=== PATIENT | male | born 1975 | race Caucasian/White ===

== ENCOUNTER 2017-02-20 19:25 | Observation (INO) ==
[2017-02-20 20:44] LABS: Bilirubin,Urine Negative (Negative); Blood,Urine Moderate (Negative); Clarity,Urine Clear (Clear); Color,Urine Yellow (Yellow); Glucose,Urine (UA) >=1000 mg/dL (Normal); Ketones,Urine 80 mg/dL (Negative); Leukocyte Esterase,Urine Negative (Negative); Nitrite,Urine Negative (Negative); PH,Urine 5.5 pH Units (5.0-8.0); Protein,Urine 30 mg/dL (Neg-Trace); Specific Gravity,Urine > 1.030 (1.010-1.025); Urobilinogen,Urine Normal (Normal)
[2017-02-20 20:46] LABS: Bacteria,Urine None Seen per hpf (None-Few); RBC,Urine 0-3 per hpf (0-3); Squamous Epithelial Cell,Urine Many per lpf (None-Few); WBC,Urine 0-3 per hpf (0-3)
--- NOTE | 2017-02-20 20:48 | Emergency Department Note ---
Disposition Clinical Impression: Hyperglycemia, Ketosis, Dehydration Chest pain Qualifiers: Chest pain type: unspecified Qualified Code(s): R07.9 - Chest pain, unspecified Nausea and vomiting Qualifiers: Vomiting type: unspecified Vomiting Intractability: non-intractable Qualified Code(s): R11.2 - Nausea with vomiting, unspecified Diarrhea Qualifiers: Diarrhea type: unspecified type Qualified Code(s): R19.7 - Diarrhea, unspecified Disposition: Admitted As Inpatient Condition: Fair Chest Pain HPI - General Chief Complaint: ED Chest Pain Stated Complaint: Chest pain, Vomiting, diarrhea Time Seen by Provider: 02/20/17 20:37 Source: patient Mode of arrival: wheelchair Limitations: no limitations Vital Signs Reviewed: Yes Nursing Notes Reviewed: Yes - History of Present Illness HPI Narrative: 41-year-old male history of diabetes presents for evaluation of nausea, vomiting , diarrhea, chest pain. Patient states symptoms started 2 days ago with nausea and several bouts of emesis. Patient also notes several loose nonbloody stools. Patient subsequently had midsternal chest pain. Pain is constant without radiation. No subjective fevers. No shortness of breath. Reports diffuse abdominal pain that is primarily in the epigastrium. Patient states that he has not been able to tolerate any of his diabetes medicines including metformin. Patient also notes that he has never been in diabetic ketoacidosis. Patient denies any history of heart attacks. Pt complaint: chest pain Onset (ago): day(s) Duration: constant Onset: during rest Pain Location: substernal Severity: none Severity scale (1-10): 6 - Related Data Home Medications Medication Instructions Recorded Confirmed Metformin [Glucophage] 500 mg PO BIDWM 10/23/16 10/23/16 Previous Rx's Medication Instructions Recorded OxyCODONE Immed Rel [Oxycodone 5 - 10 mg PO Q6H PRN #30 tablet 07/24/15 Immed Rel] Ciprofloxacin HCl [Cipro] 500 mg PO BID #14 tablet 01/06/17 HYDROcodone/Acet 5/325 mg [[place] 1 tab PO Q6H PRN #12 tab 01/06/17 5-325 mg] MetroNIDAZOLE [Flagyl] 500 mg PO TID #21 tablet 01/06/17 Allergies Allergy/AdvReac Type Severity Reaction Status Date / Time Penicillins [PCN] AdvReac See Verified 02/20/17 20:04 Comments All systems ED: reviewed and negative except as stated. Constitutional: Reports: as per HPI, fever Eyes: Reports: as per HPI ENT ED: Reports: as per HPI Cardiovascular: Reports: as per HPI, chest pain Respiratory: Reports: as per HPI. Denies: cough, dyspnea Gastrointestinal: Reports: as per HPI, abdominal pain, nausea, vomiting, diarrhea Genitourinary: Reports: as per HPI Musculoskeletal: Reports: as per HPI Integumentary: Reports: as per HPI Neurological: Reports: as per HPI Psychiatric: Reports: as per HPI Endocrine: Reports: as per HPI Chest Pain PMH - Past Medical History Medical history: Reports: diabetes, other Surgical history: Reports: other Psychiatric history: Reports: no psych history - Social History Smoking Status: Current every day smoker Alcohol use: Reports: none Drug use: Reports: none Physical Exam - General Limitations: no limitations General appearance: alert, in no apparent distress - Head Head exam: atraumatic - Eye Eye exam: Present: normal appearance, EOMI - ENT ENT exam: normal exam, mucous membranes dry - Neck Neck exam: Present: normal inspection, trachea midline - Chest Chest inspection: Present: normal inspection, symmetric chest wall rise - Respiratory Respiratory exam: Present: normal lung sounds bilaterally. Absent: respiratory distress - Cardiovascular Cardiovascular exam: Present: regular rate, normal rhythm - Abdominal Exam Abdominal exam: Present: soft, tenderness (Mild to moderate tenderness in epigastrum.) - Extremities Exam Extremities exam: Present: normal inspection. Absent: pedal edema - Back Exam Back exam: Present: normal inspection - Neurological Exam Neurological exam: Present: alert, oriented X3 - Skin Skin exam: Present: warm, dry, intact, normal color Course Course Narrative: Patient seen and examined. Patient appears to be in moderate discomfort. Patient's symptoms appear to be initially GI related with subsequent chest pain. Patient is a diabetic. Patient is appears dry on exam. Patient will get basic lab work including serum ketones and a VBG. Patient will get symptomatically with IV fluids, Zofran, morphine. Patient also get a chest x- ray. - Reevaluation(s) Reevaluation #1: Patient was sleeping in no acute distress. Patient was a difficult IV stick. Multiple attempts were tried. Patient received 2 IV fluid boluses with subsequent success. Time: 00:43 Vital Signs Temperature 98.5 F 02/20/17 19:58 Pulse Rate 110 02/20/17 19:58 Respiratory Rate 20 02/20/17 19:58 Blood Pressure 144/82 02/20/17 19:58 O2 Sat by Pulse Oximetry 100 02/20/17 19:58 Temperature 98.9 F 02/21/17 04:53 Pulse Rate 94 02/21/17 04:53 Respiratory Rate 18 02/21/17 04:53 Blood Pressure 172/83 02/21/17 04:53 O2 Sat by Pulse Oximetry 99 02/21/17 04:53 Oxygen Delivery Oxygen Delivery Room Air Chest Pain - MDM Narrative Medical decision making narrative: 41-year-old male here for evaluation of nausea vomiting diarrhea and subsequent chest pain. Patient's primary complaint was nausea vomiting diarrhea. Patient also has abdominal pain. Patient is a diabetic and is not able to take his oral diabetic medicines. Patient was a difficult IV stick. Patient was given 2 L of fluid and subsequent was able to get labs. Patient was also given a bolus of 10 units insulin. Patient was hyperglycemic and ketotic. Patient was not DKA. Patient shows no signs of infectious process. Patient's elevated white count likely related to stress-induced from his persistent nausea vomiting. Patient possibly has a gastroenteritis as well. Patient had imaging of the abdomen and pelvis which does not show any acute other maladies. Given the patient's symptoms as well as labs patient will be risk to return to the emergency department with worsening hyperglycemia and ketosis. Patient also had a complaint of chest pain which would need further evaluation. Patient was given aspirin with no acute changes on EKG and a negative troponin. This information was discussed with the patient who agrees with plan of care. - Lab Data Lab results reviewed: Yes I reviewed the patient's lab results. Result diagrams: 02/21/17 00:00 02/21/17 00:00 Lab Results 02/20/17 02/20/17 02/20/17 Range/Units 20:33 20:59 21:01 WBC (4.3-11.1) K/mcL RBC (4.19-5.50) M/mcL Hgb (12.9-16.9) g/dL Hct (37.5-50.1) % MCV (83.0-100.0) fL MCH (28.0-33.3) pg MCHC (31.6-35.5) g/dL RDW (11.5-14.5) % Plt Count (140-400) K/mcL MPV (9.4-12.4) fL Seg Neutrophils % % Band Neutrophils % (0-4) % Lymphocytes % % Monocytes % % Neutrophils # (1.6-8.9) K/mcL Lymphocytes # (0.6-4.6) K/mcL Monocytes # (0.0-1.3) K/mcL Reactive Lymphocytes (Not Present) Platelet Estimate (Normal) VBG pH (7.32-7.42) pH Units VBG pCO2 (41-51) mmHg VBG pO2 (25-40) mmHg VBG HCO3 (21-27) mEq/L Sodium (136-145) mEq/L Potassium (3.5-4.5) mEq/L Chloride (98-109) mEq/L Carbon Dioxide (19-29) mEq/L BUN (8-26) mg/dL Creatinine (0.72-1.25) mg/dL Est GFR ( Amer) (> 60) Est GFR (Non-Af Amer) (> 60) BUN/Creatinine Ratio (6-26) Glucose (70-99) mg/dL POC Glucose 462 H* 433 H* (58-89) Calculated Osmolality (280-300) Lactic Acid (0.5-2.2) mmol/L Calcium (8.6-10.8) mg/dL Total Bilirubin (0.2-1.2) mg/dL Direct Bilirubin (0.0-0.5) mg/dL Indirect Bilirubin (0.0-1.2) mg/dL AST (5-34) Units/L ALT (0-55) Units/L Alkaline Phosphatase (38-126) Units/L Troponin I (0-0.03) ng/mL Serum Total Protein (6.0-8.3) g/dL Albumin (3.5-5.0) g/dL Globulin (2.4-3.5) g/dL Albumin/Globulin Ratio (1.1-2.2) Lipase (8-78) Units/L Beta-Hydroxybutyric Acd (0.02-0.27) mmol/L Urine Color Yellow (Yellow) Urine Clarity Clear (Clear) Urine pH 5.5 (5.0-8.0) pH Units Ur Specific Supply > 1.030 H (1.010-1.025) Urine Protein 30 H (Neg-Trace) mg/dL Urine Glucose (UA) >=1000 H (Normal) mg/dL Urine Ketones 80 H (Negative) mg/dL Urine Blood Moderate H (Negative) Urine Nitrite Negative (Negative) Urine Bilirubin Negative (Negative) Urine Urobilinogen Normal (Normal) mg/dL Ur Leukocyte Esterase Negative (Negative) Urine Microscopic RBC 0-3 (0-3) per hpf Urine Microscopic WBC 0-3 (0-3) per hpf Ur Squamous Epith Cells Many H (None-Few) per lpf Urine Bacteria None Seen (None-Few) per hpf Hyaline Casts Test Not Performed Ur Culture Indicated? NO (NO) Specimen Rejected 02/20/17 02/21/17 02/21/17 Range/Units 21:30 00:00 00:00 WBC (4.3-11.1) K/mcL RBC (4.19-5.50) M/mcL Hgb (12.9-16.9) g/dL Hct (37.5-50.1) % MCV (83.0-100.0) fL MCH (28.0-33.3) pg MCHC (31.6-35.5) g/dL RDW (11.5-14.5) % Plt Count (140-400) K/mcL MPV (9.4-12.4) fL Seg Neutrophils % % Band Neutrophils % (0-4) % Lymphocytes % % Monocytes % % Neutrophils # (1.6-8.9) K/mcL Lymphocytes # (0.6-4.6) K/mcL Monocytes # (0.0-1.3) K/mcL Reactive Lymphocytes (Not Present) Platelet Estimate (Normal) VBG pH (7.32-7.42) pH Units VBG pCO2 (41-51) mmHg VBG pO2 (25-40) mmHg VBG HCO3 (21-27) mEq/L Sodium (136-145) mEq/L Potassium (3.5-4.5) mEq/L Chloride (98-109) mEq/L Carbon Dioxide (19-29) mEq/L BUN (8-26) mg/dL Creatinine (0.72-1.25) mg/dL Est GFR ( Amer) (> 60) Est GFR (Non-Af Amer) (> 60) BUN/Creatinine Ratio (6-26) Glucose (70-99) mg/dL POC Glucose (58-89) Calculated Osmolality (280-300) Lactic Acid (0.5-2.2) mmol/L Calcium (8.6-10.8) mg/dL Total Bilirubin 1.1 (0.2-1.2) mg/dL Direct Bilirubin 0.4 (0.0-0.5) mg/dL Indirect Bilirubin 0.7 (0.0-1.2) mg/dL AST 11 (5-34) Units/L ALT 12 (0-55) Units/L Alkaline Phosphatase 83 (38-126) Units/L Troponin I (0-0.03) ng/mL Serum Total Protein 7.3 (6.0-8.3) g/dL Albumin 3.9 (3.5-5.0) g/dL Globulin 3.4 (2.4-3.5) g/dL Albumin/Globulin Ratio 1.1 (1.1-2.2) Lipase 15 (8-78) Units/L Beta-Hydroxybutyric Acd (0.02-0.27) mmol/L Urine Color (Yellow) Urine Clarity (Clear) Urine pH (5.0-8.0) pH Units Ur Specific Supply (1.010-1.025) Urine Protein (Neg-Trace) mg/dL Urine Glucose (UA) (Normal) mg/dL Urine Ketones (Negative) mg/dL Urine Blood (Negative) Urine Nitrite (Negative) Urine Bilirubin (Negative) Urine Urobilinogen (Normal) mg/dL Ur Leukocyte Esterase (Negative) Urine Microscopic RBC (0-3) per hpf Urine Microscopic WBC (0-3) per hpf Ur Squamous Epith Cells (None-Few) per lpf Urine Bacteria (None-Few) per hpf Hyaline Casts Ur Culture Indicated? (NO) Specimen Rejected Volume 02/21/17 02/21/17 02/21/17 Range/Units 00:00 00:00 00:00 WBC 12.9 H (4.3-11.1) K/mcL RBC 6.52 H (4.19-5.50) M/mcL Hgb 18.0 H (12.9-16.9) g/dL Hct 51.5 H (37.5-50.1) % MCV 79.0 L (83.0-100.0) fL MCH 27.6 L (28.0-33.3) pg MCHC 35.0 (31.6-35.5) g/dL RDW 13.2 (11.5-14.5) % Plt Count 249 (140-400) K/mcL MPV 10.4 (9.4-12.4) fL Seg Neutrophils % 72.0 % Band Neutrophils % 14.0 H (0-4) % Lymphocytes % 6.0 % Monocytes % 8.0 % Neutrophils # 11.1 H (1.6-8.9) K/mcL Lymphocytes # 0.8 (0.6-4.6) K/mcL Monocytes # 1.0 (0.0-1.3) K/mcL Reactive Lymphocytes Present A (Not Present) Platelet Estimate Normal (Normal) VBG pH (7.32-7.42) pH Units VBG pCO2 (41-51) mmHg VBG pO2 (25-40) mmHg VBG HCO3 (21-27) mEq/L Sodium 135 L (136-145) mEq/L Potassium 3.9 (3.5-4.5) mEq/L Chloride 100 (98-109) mEq/L Carbon Dioxide 20 (19-29) mEq/L BUN 18 (8-26) mg/dL Creatinine 0.97 (0.72-1.25) mg/dL Est GFR ( Amer) > 60 (> 60) Est GFR (Non-Af Amer) > 60 (> 60) BUN/Creatinine Ratio 19 (6-26) Glucose 330 H (70-99) mg/dL POC Glucose (58-89) Calculated Osmolality 295 (280-300) Lactic Acid (0.5-2.2) mmol/L Calcium 8.9 (8.6-10.8) mg/dL Total Bilirubin (0.2-1.2) mg/dL Direct Bilirubin (0.0-0.5) mg/dL Indirect Bilirubin (0.0-1.2) mg/dL AST (5-34) Units/L ALT (0-55) Units/L Alkaline Phosphatase (38-126) Units/L Troponin I 0.00 (0-0.03) ng/mL Serum Total Protein (6.0-8.3) g/dL Albumin (3.5-5.0) g/dL Globulin (2.4-3.5) g/dL Albumin/Globulin Ratio (1.1-2.2) Lipase (8-78) Units/L Beta-Hydroxybutyric Acd (0.02-0.27) mmol/L Urine Color (Yellow) Urine Clarity (Clear) Urine pH (5.0-8.0) pH Units Ur Specific Supply (1.010-1.025) Urine Protein (Neg-Trace) mg/dL Urine Glucose (UA) (Normal) mg/dL Urine Ketones (Negative) mg/dL Urine Blood (Negative) Urine Nitrite (Negative) Urine Bilirubin (Negative) Urine Urobilinogen (Normal) mg/dL Ur Leukocyte Esterase (Negative) Urine Microscopic RBC (0-3) per hpf Urine Microscopic WBC (0-3) per hpf Ur Squamous Epith Cells (None-Few) per lpf Urine Bacteria (None-Few) per hpf Hyaline Casts Ur Culture Indicated? (NO) Specimen Rejected 02/21/17 02/21/17 02/21/17 Range/Units 00:00 00:00 00:00 WBC (4.3-11.1) K/mcL RBC (4.19-5.50) M/mcL Hgb (12.9-16.9) g/dL Hct (37.5-50.1) % MCV (83.0-100.0) fL MCH (28.0-33.3) pg MCHC (31.6-35.5) g/dL RDW (11.5-14.5) % Plt Count (140-400) K/mcL MPV (9.4-12.4) fL Seg Neutrophils % % Band Neutrophils % (0-4) % Lymphocytes % % Monocytes % % Neutrophils # (1.6-8.9) K/mcL Lymphocytes # (0.6-4.6) K/mcL Monocytes # (0.0-1.3) K/mcL Reactive Lymphocytes (Not Present) Platelet Estimate (Normal) VBG pH 7.35 (7.32-7.42) pH Units VBG pCO2 39 L (41-51) mmHg VBG pO2 44 H (25-40) mmHg VBG HCO3 21.5 (21-27) mEq/L Sodium (136-145) mEq/L Potassium (3.5-4.5) mEq/L Chloride (98-109) mEq/L Carbon Dioxide (19-29) mEq/L BUN (8-26) mg/dL Creatinine (0.72-1.25) mg/dL Est GFR ( Amer) (> 60) Est GFR (Non-Af Amer) (> 60) BUN/Creatinine Ratio (6-26) Glucose (70-99) mg/dL POC Glucose (58-89) Calculated Osmolality (280-300) Lactic Acid 1.8 (0.5-2.2) mmol/L Calcium (8.6-10.8) mg/dL Total Bilirubin (0.2-1.2) mg/dL Direct Bilirubin (0.0-0.5) mg/dL Indirect Bilirubin (0.0-1.2) mg/dL AST (5-34) Units/L ALT (0-55) Units/L Alkaline Phosphatase (38-126) Units/L Troponin I (0-0.03) ng/mL Serum Total Protein (6.0-8.3) g/dL Albumin (3.5-5.0) g/dL Globulin (2.4-3.5) g/dL Albumin/Globulin Ratio (1.1-2.2) Lipase (8-78) Units/L Beta-Hydroxybutyric Acd > 2.00 H (0.02-0.27) mmol/L Urine Color (Yellow) Urine Clarity (Clear) Urine pH (5.0-8.0) pH Units Ur Specific Supply (1.010-1.025) Urine Protein (Neg-Trace) mg/dL Urine Glucose (UA) (Normal) mg/dL Urine Ketones (Negative) mg/dL Urine Blood (Negative) Urine Nitrite (Negative) Urine Bilirubin (Negative) Urine Urobilinogen (Normal) mg/dL Ur Leukocyte Esterase (Negative) Urine Microscopic RBC (0-3) per hpf Urine Microscopic WBC (0-3) per hpf Ur Squamous Epith Cells (None-Few) per lpf Urine Bacteria (None-Few) per hpf Hyaline Casts Ur Culture Indicated? (NO) Specimen Rejected 02/21/17 Range/Units 03:02 WBC (4.3-11.1) K/mcL RBC (4.19-5.50) M/mcL Hgb (12.9-16.9) g/dL Hct (37.5-50.1) % MCV (83.0-100.0) fL MCH (28.0-33.3) pg MCHC (31.6-35.5) g/dL RDW (11.5-14.5) % Plt Count (140-400) K/mcL MPV (9.4-12.4) fL Seg Neutrophils % % Band Neutrophils % (0-4) % Lymphocytes % % Monocytes % % Neutrophils # (1.6-8.9) K/mcL Lymphocytes # (0.6-4.6) K/mcL Monocytes # (0.0-1.3) K/mcL Reactive Lymphocytes (Not Present) Platelet Estimate (Normal) VBG pH (7.32-7.42) pH Units VBG pCO2 (41-51) mmHg VBG pO2 (25-40) mmHg VBG HCO3 (21-27) mEq/L Sodium (136-145) mEq/L Potassium (3.5-4.5) mEq/L Chloride (98-109) mEq/L Carbon Dioxide (19-29) mEq/L BUN (8-26) mg/dL Creatinine (0.72-1.25) mg/dL Est GFR ( Amer) (> 60) Est GFR (Non-Af Amer) (> 60) BUN/Creatinine Ratio (6-26) Glucose (70-99) mg/dL POC Glucose 187 H (58-89) Calculated Osmolality (280-300) Lactic Acid (0.5-2.2) mmol/L Calcium (8.6-10.8) mg/dL Total Bilirubin (0.2-1.2) mg/dL Direct Bilirubin (0.0-0.5) mg/dL Indirect Bilirubin (0.0-1.2) mg/dL AST (5-34) Units/L ALT (0-55) Units/L Alkaline Phosphatase (38-126) Units/L Troponin I (0-0.03) ng/mL Serum Total Protein (6.0-8.3) g/dL Albumin (3.5-5.0) g/dL Globulin (2.4-3.5) g/dL Albumin/Globulin Ratio (1.1-2.2) Lipase (8-78) Units/L Beta-Hydroxybutyric Acd (0.02-0.27) mmol/L Urine Color (Yellow) Urine Clarity (Clear) Urine pH (5.0-8.0) pH Units Ur Specific Supply (1.010-1.025) Urine Protein (Neg-Trace) mg/dL Urine Glucose (UA) (Normal) mg/dL Urine Ketones (Negative) mg/dL Urine Blood (Negative) Urine Nitrite (Negative) Urine Bilirubin (Negative) Urine Urobilinogen (Normal) mg/dL Ur Leukocyte Esterase (Negative) Urine Microscopic RBC (0-3) per hpf Urine Microscopic WBC (0-3) per hpf Ur Squamous Epith Cells (None-Few) per lpf Urine Bacteria (None-Few) per hpf Hyaline Casts Ur Culture Indicated? (NO) Specimen Rejected - Radiology Data Radiology results reviewed: Yes I reviewed the patient's radiology results. Chest X-Ray 02/20/17 20:05 IMPRESSION: No acute process. D/ / Jet Hernandez MD / Jet Hernandez MD Interpreting Provider: Jet Hernandez MD Abdomen/Pelvis CT 02/21/17 00:59 IMPRESSION: No acute abnormalities in the abdomen or pelvis. Stable fatty infiltration of the liver. D/ / Ida Rossi MD / Ida Rossi MD Interpreting Provider: Ida Rossi MD - EKG Data EKG attestation: Yes I reviewed and interpreted this EKG. EKG shows normal: sinus rhythm Rate: tachycardia Rhythm: NSR [place]/QRS: normal Q waves: v1, v2 When compared to previous EKG there are: no significant changes (sinus rhythm) Interpretation: no acute changes, unchanged when compared to prior tracing (date ) (07/23/2015), nonspecific ST-T wave changes Heart Score - Score History: Slightly Suspicious EKG: Non Specific repolarisation Disturbance Age: Less than 45 Risk Factors: 1-2 risk factors Troponin: Less than normal limit HEART Score Total: 2 S.B.A.R. - S.B.A.R. Situation: Demographics, MOA Background: Presenting Complaint, Relevant PMH, Meds, & Allergies Assessment: Vital Signs, Course and respsone to treatment, Patient/Family Expectation, Pertinant Lab Results Recommendation: Barrier(s) to disposition, Recommendation based on pending studies, treatments, or consults Von Report Given to: Dr. Donald Longoria Repor Time: 03:57 Attestation Statement - Attestation Attestation: I, Javier Joe MD, personally evaluated this patient and discussed their management with the resident physician. I reviewed the resident's note and agree with the documented findings, medical decision making, and plan of care. 41-year-old male with history of [id number] diabetes presents with a complaint of nausea vomiting and diarrhea which started 2 days prior to arrival. No fever. Some crampy diffuse abdominal pain. On examination patient is a well-developed well-nourished male in no acute distress. He is alert and oriented 3. There is no cyanosis or diaphoresis. Brains are dry. Breath sounds are clear and equal bilaterally. Heart regular with a mild tachycardia. Abdomen is soft with mild diffuse tenderness. Slightly increased bowel sounds. Labs reviewed. Consistent with dehydration. Hyperglycemia with ketosis but is not acidotic. Straight negative. Nothing acute on CT of the abdomen and pelvis. The hospitalist, Dr. Bennett, was consulted and accepted admission of the patient.
[2017-02-20] MEDS ORDERED: Ondansetron 4 MG/2 ML VIAL IVP ONE (20:54)
[2017-02-20] MEDS ORDERED: 0.9 % Sodium Chloride 1,000 ML IVC ONE ×2 (20:54→21:50)
[2017-02-20] MEDS ORDERED: *HR* Morphine 2 MG/ML SYRINGE IVP ONE (20:59)
[2017-02-20] MEDS ORDERED: Aspirin 81 MG TAB.CHEW PO ONE (21:07)
[2017-02-21 00:11] LABS: VBG HCO3 21.5 mEq/L (21-27); VBG PH 7.35 pH Units (7.32-7.42)
[2017-02-21 00:16] LABS: Hematocrit 51.5 % (37.5-50.1); Mean Corpuscular Hemoglobin 27.6 pg (28.0-33.3); Mean Platelet Volume 10.4 fL (9.4-12.4); Platelet Count 249 K/mcL (140-400); Red Blood Count 6.52 M/mcL (4.19-5.50); Red Cell Distribution Width 13.2 % (11.5-14.5)
[2017-02-21 00:26] LABS: BUN/Creatinine Ratio 19 (6-26); Blood Urea Nitrogen 18 mg/dL (8-26); Calcium 8.9 mg/dL (8.6-10.8); Carbon Dioxide 20 mEq/L (19-29); Chloride 100 mEq/L (98-109); Glucose 330 mg/dL (70-99); Osmolality,Calculated 295 (280-300); Potassium 3.9 mEq/L (3.5-4.5); Sodium 135 mEq/L (136-145); eGFR For African Americans > 60 (> 60); eGFR For Non-African Americans > 60 (> 60)
[2017-02-21 00:27] LABS: Albumin 3.9 g/dL (3.5-5.0); Albumin/Globulin Ratio 1.1 (1.1-2.2); Bilirubin,Direct 0.4 mg/dL (0.0-0.5); Bilirubin,Indirect 0.7 mg/dL (0.0-1.2); Bilirubin,Total 1.1 mg/dL (0.2-1.2); Globulin 3.4 g/dL (2.4-3.5); Total Protein 7.3 g/dL (6.0-8.3)
[2017-02-21 00:37] LABS: Lymphocytes # 0.8 K/mcL (0.6-4.6); Neutrophils # 11.1 K/mcL (1.6-8.9); Reactive Lymphocytes Present (Not Present)
[2017-02-21 00:38] LABS: Platelet Estimate Normal (Normal)
[2017-02-21] MEDS ORDERED: 0.9 % Sodium Chloride 1,000 ML IVC ONE (00:43)
[2017-02-21] MEDS ORDERED: Insulin Human Regular 10 UNIT in 0.9 % Sodium Chloride 10 ML IV ONE (00:43)
[2017-02-21] MEDS ORDERED: *HR* Promethazine 25 MG/ML VIAL IVP PRN (05:57)
[2017-02-21] MEDS ORDERED: *HR* HYDROmorphone (PF) 1 MG/ML SYRINGE IVP PRN (05:57)
[2017-02-21] MEDS ORDERED: Naloxone 0.4 MG/ML INJ IVP PRN (05:57)
[2017-02-21] MEDS ORDERED: *HR* OxyCODONE Immed Rel 5 MG TABLET PO PRN (05:57)
[2017-02-21] MEDS ORDERED: Acetaminophen 325 MG TABLET PO PRN (05:57)
[2017-02-21] MEDS ORDERED: *HR* Dextrose 50 % in Water (Syg) 50 ML SYRINGE IVP PRN (06:06)
[2017-02-21] MEDS ORDERED: Dextrose Gel 15 GM PO PRN ×2 (06:06)
[2017-02-21] MEDS ORDERED: *HR* Metoprolol 5 MG/5 ML VIAL IVP PRN (06:06)
[2017-02-21] MEDS ORDERED: Nitroglycerin 0.4 MG TAB.SUBL SL PRN (06:06)
[2017-02-21] MEDS ORDERED: D5% in Water 1,000 ML IVC PRN (06:06)
--- NOTE | 2017-02-21 06:11 | Internal Med History&Physical ---
Date of Encounter: 02/21/17 Time of Encounter: 06:00 Assessment and Plan (1) Chest pain, rule out acute myocardial infarction Status: Acute . (2) Chest pain with low risk of acute coronary syndrome Status: Acute . (3) Gastroenteritis Status: Acute . (4) Intractable nausea and vomiting Status: Acute . Qualifiers: Vomiting type: cyclical vomiting Qualified Code(s): G43.A1 - Cyclical vomiting, intractable (5) Diarrhea in adult patient Status: Acute . (6) Ketosis Status: Acute . (7) Uncontrolled diabetes mellitus Status: Acute . Qualifiers: Diabetes mellitus type: type 2 Diabetes mellitus complication status: with unspecified complications Diabetes mellitus penitentiary insulin use: without penitentiary use Qualified Code(s): E11.8 - Type 2 diabetes mellitus with unspecified complications; E11.65 - Type 2 diabetes mellitus with hyperglycemia Internal Medicine - H&P: HPI Chief complaint: Chest pain. Nausea vomiting diarrhea. Admitted From: Emergency Dept Plans for Post Hospital Care: Home History of present illness: Mr. Alexander is a 41 year old male with history significant of type I-II DM, HTN, HLD, morbid obesity with deconditioning, nicotine dependency, etc.. The patient is admitted to [facility] via the emergency department he presents with concern of acute onset of chest pain approximately waiting over the preceding 2- 3 days. At presentation. It is substernal discomfort occurring at rest at a 6/ 10 severity. Denied any specific radiation. Symptoms associated with nausea and several bouts of emesis. He has experienced diarrheal stools loose nonbloody referral today. Denied any subjective fevers or chills. Denied any significant shortness of breath at rest or with activity. Acknowledge diffuse abdominal pain with focus in the epigastrium. He acknowledged. I will continue to tolerate his scheduled hypoglycemic agents for his diabetes with subsequent poor control. Findings in the ED: Temperature 98.5 pulse 84-110 respirations 18-20 BP 144-157/83 O2 saturation 100% room air. Urinalysis large protein large glucose, ketones moderate blood. 3 RBC. 3 WBC. Many squamous epithelial cells. Glucose [id number] 462 to187. Hepatic function normal. Lipase 15. WBC 12.9 hemoglobin 18. MCV 79 MCH 27.6. Differential shows increase in neutrophils. 14% banded neutrophils. Reactive lymphocytes present. Metabolic panel normal. Sodium 135 osmolality 330. BUN 18 creatinine 0.97. Troponin 0.00. Lactic acid 1.8. Venous blood gas pH 7.35. PCO2 39 PO2 44 bicarbonate 21.5. Beta hydroxybutyric acid greater than 2. Chest x-ray showed no acute active cardiopulmonary process. CT abdomen and pelvis demonstrated no acute abnormalities in the abdomen and pelvis. Stable fatty infiltration of the liver noted. Normal sinus rhythm sinus tachycardia. No acute ischemic changes. Prelimnary impression suggest acute gastroenteritis associated with intractable cyclical nausea vomiting and diarrheal stools. Chest pain as reported that at presentation related to his frequent emesis with likely secondary esophagitis and esophageal spasm. No evidence for any bleeding events or findings to suggest [place]-D[place] injury. Systemic inflammatory response syndrome criteria at the time of admission. She is acutely ill. Appears dehydrated. Not acutely toxic. Moderate metabolic and left leg derangements are noted. Hyperglycemic hyperosmolar state with ketosis noted. However patient is not acutely acidotic. Significant bandemia with reactive lymphocytes raises question of invasive infection and sepsis. Evaluation is warranted. The patient presents risk for further clinical decline and morbidity given his presenting chief complaint and comorbid conditions. Workup and treatment will proceed comprehensibly. The patient was visited and interviewed and examined. Cumulative laboratory and radiographic data base will be considered and discussed. Pertinent ancillary medical records including ECW and PCI documentation when available was reviewed and considered. Given the patient's presenting concerns, past medical history, clinical findings and symptoms, he is admitted at this time will undergo further evaluation and disposition. Orders were written as per the computerized physician reel slitter system.......................................................................... .................... Consultative opinions will be sought as clinical circumstances justify. Pain management needs will be addressed. Laboratory=radiographic data base will be updated as appropriate. Studies include: Cultures of blood urine sputum, pt/inr, aptt, ddimer, UA, UDS, cardiac injury panel, BNP, metabolic and hematologic panel, magnesium ,phosphorus, ionized calcium, thyroid panel, lipid profile, A1c C-peptide, CRP, sedimentation rate, respiratory infection profile, respiratory virus panel, blood gas, lactic acid, serologies, etc. Precautions: Aspiration, fall, delirium protocol/surveillance initiated. Telemetry with continuous hemodynamic monitoring and pulse oximetry initiated. Empiric antibiotic coverage: Intravenous Rocephin and azithromycin pending culture data. Special studies: CT/CTA chest, chest x-ray, telemetry, EKG, 2d echo. Pulmonary toilet: Incentive spirometry, aerosol bronchodilator, mucolytic, antitussive, supplemental oxygen. Corticosteroid therapy. CPAP/BiPAP supplemental oxygen delivery employed. Aerosol Mucomyst therapy may be employed. Fluid and electrolyte repletion efforts will proceed. Careful attention to fluid balance and renal recovery will be emphasized. Avoidance of nephrotoxic exposure and adverse drug drug interaction in the setting of impaired renal function will be monitored closely. Acute coronary syndrome protocol/surveillance initiated. DVT and PUD prophylaxis initiated: PPI therapy, intermittent pneumatic cuffs. Subcutaneous heparin was held due to thrombocytopenia. Early ambulation will be encouraged. Immunization updates recommended. Influenza and pneumococcal vaccinations as part of ongoing preventative healthcare recommendations strongly recommended. Smoking cessation counseling briefly addressed. Patient accepts nicotine substitution during this admission. Advanced care directive discussion briefly addressed. Patient does not declare any healthcare restrictions at this time. Cardiovascular risk appraisal and cardiovascular risk reduction efforts will be emphasized. Physical=occupational therapy may be counseled to evaluate patient's function capacity and progressive mobility if his circumstances justify. Sliding scale insulin coverage, ADA dietary restraint and schedule an as-needed basis fingerstick glucose assessments were initiated. Nutrition/diabetes education counseling may be considered as circumstances justify. Outpatient medication schedules will be reviewed, confirmed and facilitated as appropriate. Reconciliation of home treatments including adjustments, substitutions and reintroduction into the treatment regimen will address necessary maintenance therapies for chronic pre-existing medical conditions. Plan of care has been reviewed and discussed in detail with the patient. Questions addressed. Hospital course dictated by clinical findings, treatment response and potential consultative interventions. Patient is at risk for further acute clinical decline due to his presenting chief complaints and comorbid conditions. Condition is serious. Prognosis is guarded. CODE STATUS is full. Past Med Surg Social Fam HX - Past Medical History Source: old records reviewed Medical history: arthritis, diabetes, hyperlipidemia, hypertension, other ( History of Reece gangrene. Diabetic peripheral neuropathy. Left eye blindness.) Psychiatric history: anxiety, bipolar, depression, other - Past Surgical History Surgical History: orthopedic, other, other (Tonsillectomy adenoidectomy. Medical blindness left eye. Right index finger distal finger amputation.) - Social History Smoking Status: Current every day smoker Packs per day: 1/2 Smokeless Tobacco Status: No Alcohol use: none Drug use: none Occupational status: employed Current living situation: Home - Independent, Home Activity Level: Independent ambulation, Mostly sedentary Recent Out of Country Travel Within the Last 8 Weeks: No Exposure or Possible Exposure to Illness During Travel: No - Family History Mother Family Member Ethnicity: Non- Living Status: Still Living Hx Family Cardiac Disorders: No Hx Family Respiratory Disorders: No Hx Family Cancer: Yes Hx Family GI Disorders: No Hx Family Genitourinary Disorders: No Hx Family Endocrine Disorder: No Hx Family Musculoskeletal Disorders: No Hx Family Neuromuscular Disorders: No Hx Family Neurologic Disorders: No Hx Family HEENT Disorders: No Hx Family Autoimmune Disorders: No Hx Family Reproductive Disorders: No Hx Family Psychosocial Disorders: No Hx Family Medical Disorders: No Father Age: 60 Living Status: Age at : 60 Cause of : [place] Hx Family Cardiac Disorders: Yes ([place]) Hx Family Respiratory Disorders: No Hx Family Cancer: No Hx Family GI Disorders: No Hx Family Genitourinary Disorders: No Hx Family Endocrine Disorder: Yes (DM) Hx Family Musculoskeletal Disorders: No Hx Family Neuromuscular Disorders: No Hx Family Neurologic Disorders: No Hx Family HEENT Disorders: No Hx Family Autoimmune Disorders: No Hx Family Reproductive Disorders: No Hx Family Psychosocial Disorders: No Hx Family Medical Disorders: No Internal Medicine - H&P: Meds OxyCODONE Immed Rel [Roxicodone 5 MG] 5 - 10 mg PO Q4H PRN 02/21/17 [History] Zolpidem [Ambien] 5 mg PO HS 02/21/17 [History] Omeprazole 20 mg PO DAILY #30 tablet. 02/22/17 [Rx] Sucralfate [Carafate] 1 gm PO QIDAC #60 tablet 02/22/17 [Rx] Allergies Penicillins [PCN] Allergy (Verified 02/21/17 12:43) Rash All Systems PM: A 10-system review of systems was performed and is negative for pertinent findings except as documented above in the HPI. - Constitutional Constitutional: as per HPI, fatigue, malaise, no chills, no fever(s), no night sweats - EENT Eyes: as per HPI, no change in vision, no discharge, no pain, no photophobia Ears: as per HPI, no ear discharge, no ear pain, no tinnitus Nose, mouth and throat: as per HPI, nasal congestion, post-nasal drip, no dysphagia, no nasal discharge, no neck pain, no sore throat - Cardiovascular Cardiovascular ROS IM: as per HPI, chest pain, no diaphoresis, no dyspnea, no edema, no lightheadedness, no palpitations, no syncope - Respiratory Respiratory: as per HPI, cough, dyspnea, wheezing, chest congestion, excessive phlegm production, other, no hemoptysis - Gastrointestinal Gastrointestinal: as per HPI, no abdominal pain, no diarrhea, no hematemesis, no hematochezia, no melena, no nausea, no vomiting - Genitourinary Genitourinary ROS male: as per HPI - Musculoskeletal Musculoskeletal ROS IM: as per HPI, no numbness, no tingling - Integumentary Integumentary IM: as per HPI, no rash, no unusual bruising - Neurological Neurological ROS: as per HPI, no confusion, no convulsions, no focal weakness, no numbness, no tingling, no tremor(s) - Psychiatric Psychiatric: as per HPI - Endocrine Endocrine IM: as per HPI - Hematologic/Lymphatic Hematologic/Lymphatic: as per HPI, no easy bruising - Allergic/Immunologic Allergic/Immunologic: as per HPI - Constitutional Vitals: Temp Pulse Resp BP Pulse Ox 98.9 F 94 18 172/83 99 02/21/17 04:53 02/21/17 04:53 02/21/17 04:53 02/21/17 04:53 02/21/17 04:53 Vital Signs Temp Pulse Resp BP Pulse Ox 02/21/17 04:53 98.9 F 94 18 172/83 99 02/21/17 04:28 0 0/0 02/21/17 04:14 84 18 157/83 96 02/21/17 00:50 91 18 156/93 99 02/20/17 22:20 85 18 108/58 96 02/20/17 21:22 94 18 162/111 96 02/20/17 19:58 98.5 F 110 20 144/82 100 Intake and Output 02/20/17 02/20/1717 15:59 23:59 07:59 Intake Total 1999 1010.1 / 1010.1 Balance 1999 1010.1 / 1010.1 Intake: IV Fluids 1999 1010.1 / 1010.1 HumuLIN R 10 UNIT In 10.. Normal Saline Flush 10 ML @ 1212 mls/hr IV ONCE ONE Rx#:[id number] 0.9 % Sodium Chloride 1, 1999 1000 / 1000 000 ML @ 3750 mls/hr IVC .Q16M ONE Rx#:[id number] Other: Weight 77.111 kg 77.111 kg Blood Glucose* 187 Patient Weight 02/21/17 23:59 Weight 77.111 kg General appearance: Present: cooperative, mild distress, A&O X 3, answers questions appropriately - Head Head exam: Present: atraumatic, normocephalic - Eye Eye exam: Present: conjunctival injection, EOMI, normal appearance, PERRL Pupils: Present: normal accommodation, PERRL - ENT ENT exam: Present: mucous membranes moist, normal oropharynx - Neck Neck exam general surgery: Present: full ROM, supple, trachea midline. Absent: lymphadenopathy - Respiratory Respiratory exam: Present: chest wall tenderness, decreased breath sounds, wheezes. Absent: accessory muscle use, CTAB, rales, rhonchi, stridor - Cardiovascular Cardiovascular exam: Present: distant heart sounds, RRR, +S1, +S2, tachycardia. Absent: diastolic murmur, gallop, rubs, systolic murmur - GI/Abdominal GI/Abdominal exam: Present: normal bowel sounds, soft, no peritoneal signs. Absent: distended, tenderness - Extremities Exam Extremities exam: Present: full ROM, warm, radial pulses palpable and symetrical. Absent: calf tenderness, cyanotic, pedal edema - Neurological Exam Neurological exam: Present: alert, CN II-XII intact, oriented X3, no focal deficits. Absent: pronater drift, facial droop, speech deficit - Psychiatric Psychiatric exam: Present: normal affect, normal mood - Skin Skin exam: Present: dry, intact, warm Internal Med - H&P Results - Labs CBC & Chem 7: 02/22/17 02:50 02/22/17 13:24 Labs: Short CBC 02/21/17 Range/Units 00:00 WBC 12.9 H (4.3-11.1) K/mcL Hgb 18.0 H (12.9-16.9) g/dL Hct 51.5 H (37.5-50.1) % Plt Count 249 (140-400) K/mcL Neutrophils # 11.1 H (1.6-8.9) K/mcL BMP 02/21/17 Range/Units 00:00 Sodium 135 L (136-145) mEq/L Potassium 3.9 (3.5-4.5) mEq/L Chloride 100 (98-109) mEq/L Carbon Dioxide 20 (19-29) mEq/L BUN 18 (8-26) mg/dL Creatinine 0.97 (0.72-1.25) mg/dL Glucose 330 H (70-99) mg/dL Calcium 8.9 (8.6-10.8) mg/dL Cardiac Enzymes 02/21/17 Range/Units 00:00 Troponin I 0.00 (0-0.03) ng/mL Liver Function 02/21/17 Range/Units 00:00 Total Bilirubin 1.1 (0.2-1.2) mg/dL Direct Bilirubin 0.4 (0.0-0.5) mg/dL AST 11 (5-34) Units/L ALT 12 (0-55) Units/L Alkaline Phosphatase 83 (38-126) Units/L Albumin 3.9 (3.5-5.0) g/dL Urine 02/20/17 Range/Units 20:33 Urine Color Yellow (Yellow) Urine Clarity Clear (Clear) Urine pH 5.5 (5.0-8.0) pH Units Ur Specific [place]man > 1.030 H (1.010-1.025) Urine Protein 30 H (Neg-Trace) mg/dL Urine Glucose (UA) >=1000 H (Normal) mg/dL Abnormal lab results WBC 12.9 K/mcL (4.3-11.1) H 02/21/17 00:00 RBC 6.52 M/mcL (4.19-5.50) H 02/21/17 00:00 Hgb 18.0 g/dL (12.9-16.9) H 02/21/17 00:00 Hct 51.5 % (37.5-50.1) H 02/21/17 00:00 MCV 79.0 fL (83.0-100.0) L 02/21/17 00:00 MCH 27.6 pg (28.0-33.3) L 02/21/17 00:00 Band Neutrophils % 14.0 % (0-4) H 02/21/17 00:00 Neutrophils # 11.1 K/mcL (1.6-8.9) H 02/21/17 00:00 Reactive Lymphocytes Present (Not Present) A 02/21/17 00:00 VBG pCO2 39 mmHg (41-51) L 02/21/17 00:00 VBG pO2 44 mmHg (25-40) H 02/21/17 00:00 Sodium 135 mEq/L (136-145) L 02/21/17 00:00 Glucose 330 mg/dL (70-99) H 02/21/17 00:00 POC Glucose 187 (58-89) H 02/21/17 03:02 Beta-Hydroxybutyric Acd > 2.00 mmol/L (0.02-0.27) H 02/21/17 00:00 Ur Specific [place] > 1.030 (1.010-1.025) H 02/20/17 20:33 Urine Protein 30 mg/dL (Neg-Trace) H 02/20/17 20:33 Urine Glucose (UA) >=1000 mg/dL (Normal) H 02/20/17 20:33 Urine Ketones 80 mg/dL (Negative) H 02/20/17 20:33 Urine Blood Moderate (Negative) H 02/20/17 20:33 Ur Squamous Epith Cells Many per lpf (None-Few) H 02/20/17 20:33 Laboratory Results WBC 12.9 K/mcL (4.3-11.1) H 02/21/17 00:00 RBC 6.52 M/mcL (4.19-5.50) H 02/21/17 00:00 Hgb 18.0 g/dL (12.9-16.9) H 02/21/17 00:00 Hct 51.5 % (37.5-50.1) H 02/21/17 00:00 MCV 79.0 fL (83.0-100.0) L 02/21/17 00:00 MCH 27.6 pg (28.0-33.3) L 02/21/17 00:00 MCHC 35.0 g/dL (31.6-35.5) 02/21/17 00:00 RDW 13.2 % (11.5-14.5) 02/21/17 00:00 Plt Count 249 K/mcL (140-400) 02/21/17 00:00 MPV 10.4 fL (9.4-12.4) 02/21/17 00:00 Seg Neutrophils % 72.0 % 02/21/17 00:00 Band Neutrophils % 14.0 % (0-4) H 02/21/17 00:00 Lymphocytes % 6.0 % 02/21/17 00:00 Monocytes % 8.0 % 02/21/17 00:00 Neutrophils # 11.1 K/mcL (1.6-8.9) H 02/21/17 00:00 Lymphocytes # 0.8 K/mcL (0.6-4.6) 02/21/17 00:00 Monocytes # 1.0 K/mcL (0.0-1.3) 02/21/17 00:00 Reactive Lymphocytes Present (Not Present) A 02/21/17 00:00 Platelet Estimate Normal (Normal) 02/21/17 00:00 VBG pH 7.35 pH Units (7.32-7.42) 02/21/17 00:00 VBG pCO2 39 mmHg (41-51) L 02/21/17 00:00 VBG pO2 44 mmHg (25-40) H 02/21/17 00:00 VBG HCO3 21.5 mEq/L (21-27) 02/21/17 00:00 Sodium 135 mEq/L (136-145) L 02/21/17 00:00 Potassium 3.9 mEq/L (3.5-4.5) 02/21/17 00:00 Chloride 100 mEq/L (98-109) 02/21/17 00:00 Carbon Dioxide 20 mEq/L (19-29) 02/21/17 00:00 BUN 18 mg/dL (8-26) 02/21/17 00:00 Creatinine 0.97 mg/dL (0.72-1.25) 02/21/17 00:00 Est GFR ( Amer) > 60 (> 60) 02/21/17 00:00 Est GFR (Non-Af Amer) > 60 (> 60) 02/21/17 00:00 BUN/Creatinine Ratio 19 (6-26) 02/21/17 00:00 Glucose 330 mg/dL (70-99) H 02/21/17 00:00 POC Glucose 187 (58-89) H 02/21/17 03:02 Calculated Osmolality 295 (280-300) 02/21/17 00:00 Lactic Acid 1.8 mmol/L (0.5-2.2) 02/21/17 00:00 Calcium 8.9 mg/dL (8.6-10.8) 02/21/17 00:00 Total Bilirubin 1.1 mg/dL (0.2-1.2) 02/21/17 00:00 Direct Bilirubin 0.4 mg/dL (0.0-0.5) 02/21/17 00:00 Indirect Bilirubin 0.7 mg/dL (0.0-1.2) 02/21/17 00:00 AST 11 Units/L (5-34) 02/21/17 00:00 ALT 12 Units/L (0-55) 02/21/17 00:00 Alkaline Phosphatase 83 Units/L (38-126) 02/21/17 00:00 Troponin I 0.00 ng/mL (0-0.03) 02/21/17 00:00 Serum Total Protein 7.3 g/dL (6.0-8.3) 02/21/17 00:00 Albumin 3.9 g/dL (3.5-5.0) 02/21/17 00:00 Globulin 3.4 g/dL (2.4-3.5) 02/21/17 00:00 Albumin/Globulin Ratio 1.1 (1.1-2.2) 02/21/17 00:00 Lipase 15 Units/L (8-78) 02/21/17 00:00 Beta-Hydroxybutyric Acd > 2.00 mmol/L (0.02-0.27) H 02/21/17 00:00 Urine Color Yellow (Yellow) 02/20/17 20:33 Urine Clarity Clear (Clear) 02/20/17 20: Urine pH 5.5 pH Units (5.0-8.0) 02/20/17 20:33 Ur Specific Shipman > 1.030 (1.010-1.025) H 02/20/17 20:33 Urine Protein 30 mg/dL (Neg-Trace) H 02/20/17 20:33 Urine Glucose (UA) >=1000 mg/dL (Normal) H 02/20/17 20:33 Urine Ketones 80 mg/dL (Negative) H 02/20/17 20:33 Urine Blood Moderate (Negative) H 02/20/17 20:33 Urine Nitrite Negative (Negative) 02/20/17 20:33 Urine Bilirubin Negative (Negative) 02/20/17 20:33 Urine Urobilinogen Normal mg/dL (Normal) 02/20/17 20:33 Ur Leukocyte Esterase Negative (Negative) 02/20/17 20:33 Urine Microscopic RBC 0-3 per hpf (0-3) 02/20/17 20:33 Urine Microscopic WBC 0-3 per hpf (0-3) 02/20/17 20:33 Ur Squamous Epith Cells Many per lpf (None-Few) H 02/20/17 20:33 Urine Bacteria None Seen per hpf (None-Few) 02/20/17 20:33 Hyaline Casts Test Not Performed 02/20/17 20:33 Ur Culture Indicated? NO (NO) 02/20/17 20:33 Specimen Rejected Volume 02/20/17 21:30 Impressions Chest X-Ray 02/20/17 20:05 IMPRESSION: No acute process. D/ / Jet Hernandez MD / Jet Hernandez MD Interpreting Provider: Jet Hernandez MD Abdomen/Pelvis CT 02/21/17 00:59 IMPRESSION: No acute abnormalities in the abdomen or pelvis. Stable fatty infiltration of the liver. D/ / Ida Rossi MD / Ida Rossi MD Interpreting Provider: Ida Rossi MD
[2017-02-21 06:57] LABS: Basophils % 0.1 %; Eosinophils % 0.1 %; Hematocrit 47.7 % (37.5-50.1); Hemoglobin 16.6 g/dL (12.9-16.9); Immature Granulocytes % 1.3 % (0-4); Lymphocytes # 0.9 K/mcL (0.6-4.6); Lymphocytes % 5.8 %; Mean Corpuscular HGB Conc 34.8 g/dL (31.6-35.5); Mean Corpuscular Hemoglobin 27.6 pg (28.0-33.3); Mean Corpuscular Volume 79.2 fL (83.0-100.0); Mean Platelet Volume 10.4 fL (9.4-12.4); Monocytes # 1.4 K/mcL (0.0-1.3); Monocytes % 9.3 %; Neutrophils # 12.4 K/mcL (1.6-8.9); Platelet Count 250 K/mcL (140-400); Red Blood Count 6.02 M/mcL (4.19-5.50); Red Cell Distribution Width 13.3 % (11.5-14.5); Segmented Neutrophils % 83.4 %
[2017-02-21 07:09] LABS: Alanine Aminotransferase 10 Units/L (0-55); Albumin 3.4 g/dL (3.5-5.0); Albumin/Globulin Ratio 1.1 (1.1-2.2); Alkaline Phosphatase 67 Units/L (38-126); Aspartate Amino Transferase 11 Units/L (5-34); BUN/Creatinine Ratio 18 (6-26); Blood Urea Nitrogen 14 mg/dL (8-26); Calcium 8.4 mg/dL (8.6-10.8); Carbon Dioxide 19 mEq/L (19-29); Chloride 104 mEq/L (98-109); Chol/HDL Ratio 4.7 (0-4.9); Cholesterol 177 mg/dL (< 200); Glucose 221 mg/dL (70-99); HDL Cholesterol 38 mg/dL (40-59); LDL Cholesterol,Calculated 117 mg/dL (0-99); Magnesium 2.1 mg/dL (1.6-2.6); Osmolality,Calculated 289 (280-300); Potassium 3.9 mEq/L (3.5-4.5); Sodium 136 mEq/L (136-145); Total Protein 6.4 g/dL (6.0-8.3); Triglycerides 112 mg/dL (< 150); eGFR For African Americans > 60 (> 60); eGFR For Non-African Americans > 60 (> 60)
[2017-02-21 07:34] LABS: Hemoglobin A1C 11.7 %
[2017-02-21] MEDS: Insulin LISPRO 300 UNITS/3 ML VIAL SQ SCH ×3 (07:58→16:23)
[2017-02-21] MEDS: Pantoprazole 40 MG VIAL IVP SCH ×2 (07:58→18:29)
[2017-02-21] MEDS: Aspirin 81 MG TAB.CHEW PO SCH (07:59)
[2017-02-21] MEDS: Nicotine 21 MG PATCH.TD24 TD SCH (08:00)
[2017-02-21] MEDS ORDERED: Ondansetron ODT 4 MG TAB.RAPDIS SL PRN (10:47)
[2017-02-21] MEDS: 0.9 % Sodium Chloride 1,000 ML IVC SCH ×2 (11:52→22:09)
[2017-02-21] MEDS: Promethazine 12.5 MG in 0.9 % Sodium Chloride 50 ML IVPB PRN ×2 (12:05→18:29)
--- NOTE | 2017-02-21 16:58 | ECHO - Doppler Report ---
Echocardiogram Name: Santo Alexander Date of Study: 02/21/2017 Date: 1975 Ht: 70.0 in Medical Record#: [id number] Age: 41 Wt: 170.0 lb Gender: Male BSA: 1.95 Order #: [id number] Location: [facility] Room #: 3B38 Reading Physician: Margarito Thacker MD, [facility] Concrete Spreader: Martha Juarez RVT, [facility] Ordering Physician: Ministerio Zamora MD Primary Physician: Page Amaya CNP Indications: ACS Impressions: Normal LV systolic function, LVEF 60-65%. Normal left ventricular diastolic function. Normal right ventricular size and function. No significant valvular dysfunction. Left Ventricular Wall Motion: Rest Echo Findings All wall segments showed normal motion. Findings: Study Quality * Suboptimal echo windows. ECG Findings * Normal sinus rhythm. Left Ventricle * Normal LV systolic function, LVEF 60-65%. * Normal LV chamber size and wall thickness. * Normal left ventricular diastolic function. Right Ventricle * Normal right ventricular size and function. Left Atrium * Normal left atrial size. Right Atrium * Normal right atrial size. Aorta * Normally sized aortic root. Pericardium * There is no pericardial effusion present. IVC * The IVC is not well evaluated. Aortic Valve * Aortic valve not well visualized. Appears trileaflet. * No aortic stenosis. * No aortic regurgitation. Mitral Valve * Normal mitral valve structure. * No mitral stenosis. * No mitral regurgitation. Tricuspid Valve * Normal tricuspid valve structure. * No tricuspid stenosis. * Trace tricuspid regurgitation. * Unable to estimate RVSP due to lack of TR jet. Pulmonic Valve * Pulmonic valve not well visualized. * No pulmonic stenosis. * No pulmonic regurgitation. History Hypertension Diabetes Hypercholesteremia History of Smoking Years Packs 0.5 Family History of CAD Measurements: BP: 153/ 90 2D Normal Values RVIDd: 3.30 cm IVSd: .90 cm 0.6 - 1.0 cm LVIDd: 4.80 cm 3.7 - 5.6 cm LVPWd: .90 cm 0.6 - 1.1 cm LVIDs: 2.80 cm 1.5 - 3.6 cm AO: 3.70 cm < 4.0 cm %FS: 41.70 cm >25 % LA volume: 33 Mitral Valve Peak E:.93 m/sec Peak A:1.06 m/sec E/A Ratio:0.9 Peak E' Lat Kin:14.6 cm/s Peak E' Med Kin:9.33 cm/s E/E' Lat Ratio:6.4 E/E' Med Ratio:10 Updated by Margarito Thacker MD, [facility] on 02/21/2017 4:52:25 PM electronically signed on 02/21/2017 4:53:30 PM with status of Final Wall Motion Mak: 1=Normal, 2=Hypokinesis, 3=Akinesis, 4=Dyskinesis, 5=Aneurysmal, 6=Hyperkinetic, X=Not Visualized (Blank)=Missing
--- NOTE | 2017-02-21 17:59 | Electrocardiograph Report ---
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
--- NOTE | 2017-02-21 18:40 | Event Note ---
Date of Encounter: 02/21/17 Time of Encounter: 10:15 Patient was seen and assessed about 10:15 this morning. He was admitted through the emergency department for chest pain and intractable nausea, vomiting , and diarrhea. Onset 3 days ago. He reports abdominal pain and elevated glucose prior to onset of nausea vomiting diarrhea. He says that his blood sugars are normally over 300. He denies any sick contacts or travel recently. 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 He is not taking any antibiotics. Hospice reports that he is nonadherent to their routine and most of the time when they show up at his house, he is not home for dressing changes. He had not mentioned any of this to us today. His primary care nurse got their orders for dressing changes and will follow them here. Patient did not have IV access for part of the morning. We have been hydrating him with 0.9 normal saline after we finally obtained IV access. He has been vomiting today and has been unable to keep food down. His abdomen is tender to palpation epigastric area. He does have a slight white count of 14.9. Bands of 14% monocytes 1.4 neutrophils 12.4. His blood sugars have been in the low to mid 200s without insulin. CT abdomen and pelvis shows no acute abnormalities , but there is stable fatty infiltration of the liver. Patient is aware of this. Patient reports midsternal and left chest pain for 2-3 days. He describes it as a discomfort occurring primarily at rest and does not radiate. He does have nausea and vomiting, however this may be due to his diabetes or gastroenteritis. He denies fever or chills or productive cough. He denies peripheral edema. Patient had echocardiogram today that showed normal systolic function with LVEF of 60-65%, normal diastolic function, and no significant valvular dysfunction. Chest x-ray is negative for any acute cardiopulmonary process. Troponins were negative 2. EKG was normal sinus rhythm with no ischemic changes. Urine positive for ketones high at 80. He had a venous blood gas pH was 7.35. We will keep hydrating him and treating his nausea and blood sugar. He has not been tachycardic, pulse is in the 80s. He is slightly hypertensive. He has been afebrile and his respirations are less than 20. We will continue to monitor SIRS criteria overnight. Chest x-ray is negative for any infiltrates or obvious pneumonia, urine is negative for any signs of infection.
[2017-02-21] MEDS ORDERED: Insulin LISPRO 300 UNITS/3 ML VIAL SQ SCH (21:00)
[2017-02-22] MEDS: Promethazine 12.5 MG in 0.9 % Sodium Chloride 50 ML IVPB PRN ×2 (00:50→08:38)
[2017-02-22 03:00] LABS: Basophils % 0.2 %; Eosinophils % 0.2 %; Hematocrit 40.6 % (37.5-50.1); Immature Granulocytes % 0.3 % (0-4); Immature Platelets 3.9 % (1.1-6.1); Lymphocytes % 7.9 %; Mean Corpuscular Hemoglobin 27.8 pg (28.0-33.3); Mean Corpuscular Volume 79.6 fL (83.0-100.0); Mean Platelet Volume 9.8 fL (9.4-12.4); Monocytes # 1.1 K/mcL (0.0-1.3); Monocytes % 9.2 %; Neutrophils # 10.2 K/mcL (1.6-8.9); Platelet Count 194 K/mcL (140-400); Red Cell Distribution Width 12.9 % (11.5-14.5); Segmented Neutrophils % 82.2 %
[2017-02-22 03:01] LABS: VBG HCO3 19.7 mEq/L (21-27); VBG PH 7.47 pH Units (7.32-7.42)
[2017-02-22 03:26] LABS: Hemoglobin 14.2 g/dL (12.9-16.9)
[2017-02-22 03:27] LABS: BUN/Creatinine Ratio 13 (6-26); Blood Urea Nitrogen 7 mg/dL (8-26); Calcium 6.9 mg/dL (8.6-10.8); Carbon Dioxide 17 mEq/L (19-29); Chloride 111 mEq/L (98-109); Glucose 184 mg/dL (70-99); Osmolality,Calculated 285 (280-300); Sodium 136 mEq/L (136-145); eGFR For African Americans > 60 (> 60); eGFR For Non-African Americans > 60 (> 60)
[2017-02-22] MEDS: Pantoprazole 40 MG VIAL IVP SCH (04:45)
[2017-02-22] MEDS: Insulin LISPRO 300 UNITS/3 ML VIAL SQ SCH ×2 (07:29→13:04)
[2017-02-22] MEDS: Aspirin 81 MG TAB.CHEW PO SCH (07:30)
[2017-02-22] MEDS: Nicotine 21 MG PATCH.TD24 TD SCH (07:30)
[2017-02-22] MEDS: Sucralfate 1 GM TABLET PO SCH ×2 (10:52→11:03)
[2017-02-22 14:01] LABS: BUN/Creatinine Ratio 13 (6-26); Blood Urea Nitrogen 9 mg/dL (8-26); Carbon Dioxide 22 mEq/L (19-29); Chloride 100 mEq/L (98-109); Glucose 204 mg/dL (70-99); Osmolality,Calculated 283 (280-300); Potassium 3.5 mEq/L (3.5-4.5); Sodium 134 mEq/L (136-145); eGFR For African Americans > 60 (> 60); eGFR For Non-African Americans > 60 (> 60)
[2017-02-22 14:02] LABS: Calcium 8.9 mg/dL (8.6-10.8)
[2017-02-22 15:02] VITALS: BP 171/97
--- NOTE | 2017-02-22 15:12 | Discharge Summary ---
Date of Encounter: 02/22/17 Time of Encounter: 09:20 - Discharge Diagnosis (1) Chest pain Priority: Primary Status: Acute Comments: Mr. Alexander reported midsternal left chest pain for 2-3 days prior to arrival. He described it as discomfort occurring primarily at rest and without radiation. He does have nausea vomiting and diarrhea, however, this may be due to diabetes or gastroenteritis. He denies fever chills or productive cough. He denied peripheral edema. Patient had echocardiogram yesterday that showed normal systolic function with LVEF of 60-65%, normal diastolic dysfunction and no significant valvular dysfunction chest x-ray is negative for any acute process and EKG was normal sinus rhythm and with no ischemic changes. Today he denied that kind of chest pain but reported a burning in his midsternal area that he says is from vomiting. Most likely esophagitis or irritation from the vomiting and dry heaving. I treated him with Protonix 40 mg IV and a Carafate. As of now he says his pain is better and he feels like he can go home. His lungs are clear, S1-S2, regular rate and rhythm, bounding peripheral pulses , his troponin was negative 3. EKG was normal sinus without any ischemic changes. Qualifiers: Chest pain type: unspecified Qualified Code(s): R07.9 - Chest pain, unspecified (2) Hyperglycemia Priority: Secondary Status: Chronic Comments: Patient is uncontrolled, nonadherent diabetic. He was diagnosed at age 23. His normal Accu-Cheks at home are around 300. He has been well controlled after IV fluids and IV insulin during this admission. Last documented Accu- Chek was 197. His A1c is 11.9. He was seen by senior health educator today. He tells her that he would be more compliant with insulin that he has with metformin. I will defer that to primary care if they would like to start subcutaneous insulin. (3) Nausea and vomiting Priority: Secondary Status: Acute Comments: Onset of nausea vomiting 3-4 days ago. It has been difficult to control since he has been here. He denies abdominal pain. He is also having diarrhea. Today he reports that he feels better, nausea is finally controlled. He was also given Protonix 40 mg IV and Carafate. He has been able to hold down water. I will send him home with a prescription for Carafate. Qualifiers: Vomiting type: unspecified Vomiting Intractability: non-intractable Qualified Code(s): R11.2 - Nausea with vomiting, unspecified (4) Diarrhea Priority: Secondary Status: Acute Comments: Diarrhea has resolved. He claims that he has not had diarrhea since yesterday morning. Abdomen is soft and nontender, bowel sounds present. Qualifiers: Diarrhea type: unspecified type Qualified Code(s): R19.7 - Diarrhea, unspecified (5) Gastroenteritis Priority: Secondary Status: Acute Comments: Nausea vomiting diarrhea 3 days. Most likely gastroenteritis viral. Symptoms are controlled now smoking patient only reported burning in epigastric and mid epigastric area. Treated with Carafate and Protonix and he says he is better. (6) Intractable nausea and vomiting Priority: Secondary Status: Acute Comments: Resolved. Plan as above Qualifiers: Vomiting type: cyclical vomiting Qualified Code(s): G43.A1 - Cyclical vomiting, intractable (7) Uncontrolled diabetes mellitus Priority: Secondary Status: Acute Comments: Chronic. Patient is nonadherent. Plan as above Qualifiers: Diabetes mellitus type: type 2 Diabetes mellitus complication status: with unspecified complications Diabetes mellitus intermission coordinator insulin use: without residential use Qualified Code(s): E11.8 - Type 2 diabetes mellitus with unspecified complications; E11.65 - Type 2 diabetes mellitus with hyperglycemia - Discharge Medications Prescriptions: Omeprazole 20 mg PO DAILY #30 tablet. Sucralfate [Carafate] 1 gm PO QIDAC #60 tablet Home Medications: OxyCODONE Immed Rel [Roxicodone 5 MG] 5 - 10 mg PO Q4H PRN 02/21/17 [History] Zolpidem [Ambien] 5 mg PO HS 02/21/17 [History] Omeprazole 20 mg PO DAILY #30 tablet. 02/22/17 [Rx] Sucralfate [Carafate] 1 gm PO QIDAC #60 tablet 02/22/17 [Rx] Allergies/Adverse Reactions: Allergies Penicillins [PCN] Allergy (Verified 02/21/17 12:43) Rash Procedures/tests Complete & Pending: Procedures Performed prior 72 hours Category Date Time Status ECG 12 lead ECG [ECG] Routine Y 02/21/17 06:06 Ordered ECG 12 lead ECG [ECG] Routine Y 02/22/17 07:00 Ordered EV echocardiogram Routine Y 02/21/17 06:06 Completed Date of admission: 02/21/17 04:11 Primary care physician: Page Amaya CNP Consults: 02/21/17 06:06 Consult to Homeowner Association Manager [CONS] Routine Comment: Consult to Nurse Navigator [CONS] Routine Comment: Discharging clinician: Emily Torres Anticipated date of discharge: 02/22/17 - Patient Status Disposition: Home, Self-Care Condition: Good Functional capacity at discharge: independent ambulation Overall status at discharge: patient is back to baseline - Discharge Instructions Follow Up With: Heather Wilkins MD [Partnered Physician] - 03/05/17 10:45 am Additional Instructions: Follow up with PCP in the next week for a follow up visit. Please watch your diet and blood sugars Take your medications as directed Return to the ER as needed for any other problems or concerns. - Diet and Activity Activity: resume usual activities as tolerated Diet: diabetic diet Hospital course: Mr. Alexander is a 41 year old male with a history of uncontrolled diabetes, type II, hypertension, hyperlipidemia. Patient is admitted to the hospital from the emergency department with acute chest pain and nausea vomiting and diarrhea for 2-3 days. Patient reports midsternal chest pressure occurring at rest without radiation. He denies fever or chills, shortness of breath. He also reports epigastric pain. Tender to palpation. Patient's nausea was hard to control while he was here. He did a lot of dry heaving. On admission his blood sugar was over 400, on discharge it is less than 200. He says that his normal is around 300. Echocardiogram showed normal systolic function with LVEF of 60-65%, normal diastolic function, no significant valvular dysfunction. Troponins were negative 2. Chest x-ray is negative for any acute cardiopulmonary process. An EKG was normal sinus with no ischemic changes. This morning patient states that he had had no vomiting or diarrhea O still mildly nauseated. I gave him 12-1/2 of Benadryl IV that seemed to help his nausea. He reported midsternal burning that he reports was relieved with Carafate and Protonix IV. His abdomen is soft and nontender today. Bowel sounds are present. He says that he has not had diarrhea. He will be sent home with a prescription for Carafate and omeprazole by mouth. Patient states that he is ready to go home and feels better than he did on arrival. He did see the senior health educator while he was here. He has been drinking regular soda that was given to him on his meal tray. I did express to him that he should drink water instead of the soda. Patient tells the senior health educator that he is noncompliant with his metformin will we be compliant with insulin. I will defer to his primary care physician to start insulin outpatient. Labs are within normal limits as are vital signs. Patient is stable for discharge. - Time Spent with Patient Total time spent providing and/or coordinating discharge services: Less than 30 minutes - Constitutional Vitals: Temp Pulse Resp BP Pulse Ox 98.6 F 91 17 171/97 97 02/22/17 15:01 02/22/17 15:02/22/17 15:02/22/17 15:02/22/17 15:01 General appearance: Present: A&O X 3, pleasant, answers questions appropriately - Head Head exam: Present: normal inspection - Eye Eye exam: Present: normal appearance, nystagmus, conjuntiva pink - ENT ENT exam: Present: mucous membranes moist, normal exam, normal external ear exam - Neck Neck exam general surgery: Present: normal inspection. Absent: lymphadenopathy , tenderness - Respiratory Respiratory exam: Present: CTAB. Absent: decreased breath sounds, respiratory distress, stridor, wheezes - Cardiovascular Cardiovascular exam: Present: RRR, +S1, +S2. Absent: diastolic murmur, systolic murmur - GI/Abdominal GI/Abdominal exam: Present: normal bowel sounds, soft, splenomegaly. Absent: guarding, hepatomegaly, rebound, rigid, tenderness - Extremities Exam Extremities exam: Present: normal inspection, warm, radial pulses palpable and symetrical. Absent: pedal edema, tenderness - Neurological Exam Neurological exam: Present: alert, oriented X3, no focal deficits, strengths equal and symetr throughout
== END 2017-02-22 16:06 | disposition home health service (06) ==
LOC: EMEROO 19:25 → 3BNU 19:25
PROVIDERS: ADMIT Internal Medicine; ATTEND Registered Nurse

== ENCOUNTER 2019-03-01 03:51 | Inpatient (IN) ==
[2019-03-01] MEDS ORDERED: Ibuprofen 600 MG TABLET PO ONE (05:17)
--- NOTE | 2019-03-01 05:17 | Emergency Department Note ---
Disposition Clinical Impression: Osteomyelitis Qualifiers: Osteomyelitis type: other acute Osteomyelitis location: foot Laterality: left Qualified Code(s): M86.172 - Other acute osteomyelitis, left ankle and foot Diabetic foot ulcer Qualifiers: Diabetic foot ulcer location: toe Diabetes mellitus type: other specified (including DONAVON) Laterality: unspecified laterality Non-pressure ulcer stage: unspecified non-pressure ulcer stage Qualified Code(s): E13.621 - Other specified diabetes mellitus with foot ulcer; L97.509 - Non-pressure chronic ulcer of other part of unspecified foot with unspecified severity Diabetes mellitus Qualifiers: Diabetes mellitus type: other specified (including DONAVON) Diabetes mellitus alf insulin use: unspecified intermediate teacher insulin use status Diabetes mellitus complication status: with unspecified complications Qualified Code(s): E13.8 - Other specified diabetes mellitus with unspecified complications Cellulitis Qualifiers: Site of cellulitis: extremity Site of cellulitis of extremity: lower extremity Laterality: unspecified laterality Qualified Code(s): L03.119 - Cellulitis of unspecified part of limb Disposition: Admitted As Inpatient Condition: Good Referrals: Rosalba Cowan DO [Primary Care Provider] - Forms: ED Satisfaction Letter General Adult HPI - General Chief complaint: ED Wound/Laceration Stated complaint: feet pain Time Seen by Provider: 03/01/19 03:57 Source: patient Mode of arrival: private vehicle Limitations: no limitations Nursing Notes Reviewed: Yes Vital Signs Reviewed: Yes - History of Present Illness HPI Narrative: 43-year-old healthy history of diabetes presents emergency department for evaluation of pain to the bilateral feet and diabetic foot ulcers. Patient states he has been battling foot ulcer since about July, he follows with Dr. Bolivar and is specified when clinic. He states he has not been seen in multiple weeks at the wound clinic because "I had to go back to work, I just my cast off and went back to work. Patient states Dr. Bolivar had been working on an ulcer to the left great toe, he states since then he has also developed one on the right great toe. States he only wears work boots, he puts baby powder and Abdirahman creams on them, his feet are wet regularly and skin is frequently macerated. He states there is severe pain typically in the great toes bilaterally, there is erythema extending down, he thinks it may have been infected. Onset (ago): day(s) Location: other Radiation: non-radiation Pain Severity: moderate, severe Pain Scale: 8 Quality: aching Consistency: constant Improves with: rest Worsens with: movement Associated symptoms: Reports: denies other symptoms Treatments Prior to Arrival: none - Related Data Home Medications Medication Instructions Recorded Confirmed OxyCODONE Immed Rel [Roxicodone 5 5 - 10 mg PO Q4H PRN 02/21/17 02/21/17 MG] Zolpidem [Ambien] 5 mg PO HS 02/21/17 02/21/17 Previous Rx's Medication Instructions Recorded Omeprazole 20 mg PO DAILY #30 tablet. 02/22/17 Sucralfate [Carafate] 1 gm PO QIDAC #60 tablet 02/22/17 Cephalexin [Keflex] 500 mg PO TID #21 capsule 04/05/17 Oxycodone HCl/Acetaminophen 1 each PO Q4-6H PRN #15 tablet 04/05/17 [Percocet 5-325 mg Tablet] Sulfamethoxazole/Trimeth DS 1 each PO BID #14 tablet 04/05/17 [Bactrim DS] Cephalexin [Keflex] 500 mg PO QID #28 capsule 09/01/17 Lidocaine Patch [Lidoderm 5% patch] 1 each TP DAILY PRN #7 adh..patch 10/31/17 OxyCODONE/APAP 7.5/325 [Percocet 1 each PO Q4HR PRN 2 Days #10 02/24/18 7.5/325 MG] tablet Ibuprofen [Motrin] 600 mg PO TID PRN #16 tab 07/28/18 Clindamycin [Cleocin] 600 mg PO TID #120 capsule 09/07/18 Levofloxacin [Levaquin] 750 mg PO DAILY #10 tablet 09/07/18 Allergies Allergy/AdvReac Type Severity Reaction Status Date / Time Penicillins [PCN] Allergy Rash Verified 02/07/19 08:24 All systems ED: reviewed and negative except as stated. Review of Systems: As Per HPI Past Medical History - Past Medical History Attestation: Yes The following information was validated with the patient. Source: patient Medical history: Reports: arthritis, diabetes, hyperlipidemia, hypertension Surgical history: Reports: orthopedic, other, other (Tonsillectomy adenoidectomy. Medical blindness left eye. Right index finger distal finger amputation.) Psychiatric history: Reports: anxiety, bipolar, depression, schizophrenia, previous psychiatric hospitalization, other - Social History Smoking Status: Current every day smoker Smokeless Tobacco Status: No Alcohol use: Reports: none Drug use: Reports: marijuana Physical Exam - General Limitations: no limitations General appearance: alert, in no apparent distress - Head Head exam: atraumatic, normocephalic, normal inspection - Eye Eye exam: Present: normal appearance - ENT ENT exam: mucous membranes moist - Neck Neck exam: Present: normal inspection, full ROM, trachea midline. Absent: tenderness - Chest Chest inspection: Present: normal inspection, symmetric chest wall rise - Expanded Lower Extremity Exam Knee exam: Present: normal inspection, full ROM Lower leg exam: Present: normal inspection, full ROM Foot/toe exam: Present: normal inspection, full ROM, tenderness, erythema, other 1 - Erythema, blanches was slightly warm to touch 2 - Erythema, blanches, slightly warm to touch 1 - 2 cm diameter diabetic foot ulcer, no active drainage, pink with epithelialization, no eschar, soft to the wound bed, edges are rolled. 2 - Wet, macerated skin 3 - 1.2 cm diameter ulcer, noted with some slough tissue, edges are macerated 4 - Wet, macerated skin Neurovascular/Tendon exam: Present: normal capillary refill, sensory deficit (Patient states feet are numb, this is a slight increase from previous neuropathy.). Absent: pulse deficit, motor deficit Gait: observed and normal - Neurological Exam Neurological exam: Present: alert, oriented X3 - Psychiatric Psychiatric exam: Present: normal affect, normal mood - Skin Skin exam: Present: warm, dry, intact, normal color Course Course Narrative: Nontoxic appearing male. He ambulates from the EMS cot to the bed without difficulty. He is afebrile, normotensive, non-tachycardic. Bilateral feet noted with erythema starting at the great toe extending proximally with diffusion areas to bambi, there is slightly warm to touch. Weight, macerated skin noted to bottom of feet, very moist and weak skin. Neither wound is have any drainage or appear infected, If he was not appears to be cellulitis. Cellulitis versus osteomyelitis, we will obtain x-rays, basic labs. The patient can emergency department he had on very thick shoes and very thick socks are coated in what appeared to be creams and powders or, there was a dirty smell to his feet and socks, he states he change his socks every day and that he uses the creams a baby powders, the powders educated the bottom of the feet, had to remove for assessment. CBC returns unremarkable, x-ray of the right foot is unremarkable, x-ray left reveals soft tissue ulcers in fall being the first proximal phalanx, concerning for early osteomyelitis. I did speak with patient, he is agreeable to admission to hospital for the osteomyelitis. I did call and speak with on-call director of clinical services Dr. Mata, will consult on patient. I did call and speak with on- call hospitalist Dr. Flood who is agreeable to accept patient. We will transition care to the inpatient team at this time. IV antibiotics have been ordered. Vital Signs Temperature 98.2 F 03/01/19 03:54 Pulse Rate 94 03/01/19 03:54 Respiratory Rate 18 03/01/19 03:54 Blood Pressure 163/91 03/01/19 03:54 O2 Sat by Pulse Oximetry 99 03/01/19 03:54 Temperature 98.2 F 03/01/19 03:54 Pulse Rate 87 03/01/19 05:52 Respiratory Rate 14 03/01/19 05:52 Blood Pressure 141/85 03/01/19 05:52 O2 Sat by Pulse Oximetry 98 03/01/19 05:52 Oxygen Delivery Oxygen Delivery Room Air Medical Decision Making - Medical Records Medical records reviewed: Yes I reviewed the patient's medical records. - Lab Data Lab results reviewed: Yes I reviewed the patient's lab results. Result diagrams: 03/01/19 05:24 Lab Results 03/01/19 Range/Units 05:24 WBC 9.9 (4.3-11.1) K/mcL RBC 4.88 (4.19-5.50) M/mcL Hgb 14.0 (12.9-16.9) g/dL Hct 41.3 (37.5-50.1) % MCV 84.6 (83.0-100.0) fL MCH 28.7 (28.0-33.3) pg MCHC 33.9 (31.6-35.5) g/dL RDW 13.1 (11.5-14.5) % Plt Count 276 (140-400) K/mcL MPV 9.7 (9.4-12.4) fL Immature Gran % 0.3 (0-4) % Seg Neutrophils % 76.5 % Lymphocytes % 13.2 % Monocytes % 7.8 % Eosinophils % 1.1 % Basophils % 1.1 % Neutrophils # 7.6 (1.6-8.9) K/mcL Lymphocytes # 1.3 (0.6-4.6) K/mcL Monocytes # 0.8 (0.0-1.3) K/mcL Eosinophils # 0.1 (0.0-0.6) K/mcL Basophils # 0.1 (0.0-0.2) K/mcL - Radiology Data Radiology results reviewed: Yes I reviewed the patient's radiology results. Foot X-Ray 03/01/19 04:24 IMPRESSION: 1. Soft tissue ulcer involving the 1st distal phalanx with question early developing osteomyelitis involving the distal aspect of the 1st proximal phalanx. D/ / Floyd Moya MD / Floyd Moya MD Interpreting Provider: Floyd Moya MD
[2019-03-01 05:33] LABS: Basophils # 0.1 K/mcL (0.0-0.2); Basophils % 1.1 %; Eosinophils # 0.1 K/mcL (0.0-0.6); Eosinophils % 1.1 %; Hematocrit 41.3 % (37.5-50.1); Immature Granulocytes % 0.3 % (0-4); Lymphocytes # 1.3 K/mcL (0.6-4.6); Lymphocytes % 13.2 %; Mean Corpuscular HGB Conc 33.9 g/dL (31.6-35.5); Mean Corpuscular Hemoglobin 28.7 pg (28.0-33.3); Mean Corpuscular Volume 84.6 fL (83.0-100.0); Mean Platelet Volume 9.7 fL (9.4-12.4); Monocytes # 0.8 K/mcL (0.0-1.3); Monocytes % 7.8 %; Neutrophils # 7.6 K/mcL (1.6-8.9); Platelet Count 276 K/mcL (140-400); Red Blood Count 4.88 M/mcL (4.19-5.50); Red Cell Distribution Width 13.1 % (11.5-14.5); Segmented Neutrophils % 76.5 %
[2019-03-01] MEDS ORDERED: Ibuprofen 800 MG TABLET PO ONE (05:45)
[2019-03-01 05:55] LABS: BUN/Creatinine Ratio 23 (6-26); Blood Urea Nitrogen 18 mg/dL (6-20); Calcium 9.9 mg/dL (8.6-10.3); Carbon Dioxide 26 mEq/L (23-29); Chloride 98 mEq/L (98-107); Glucose 139 mg/dL (70-105); Osmolality,Calculated 284 (280-300); Potassium 3.8 mEq/L (3.5-5.1); Sodium 135 mEq/L (136-145); eGFR For Non-African Americans > 60 (> 60)
--- NOTE | 2019-03-01 06:29 | Emergency Department Note ---
Disposition Clinical Impression: Osteomyelitis Qualifiers: Osteomyelitis type: other acute Osteomyelitis location: foot Laterality: left Qualified Code(s): M86.172 - Other acute osteomyelitis, left ankle and foot Diabetic foot ulcer Qualifiers: Diabetic foot ulcer location: toe Diabetes mellitus type: other specified (including DONAVON) Laterality: unspecified laterality Non-pressure ulcer stage: unspecified non-pressure ulcer stage Qualified Code(s): E13.621 - Other specified diabetes mellitus with foot ulcer Diabetes mellitus Qualifiers: Diabetes mellitus type: other specified (including DONAVON) Diabetes mellitus halfway insulin use: unspecified halfway insulin use status Diabetes mellitus com plication status: with unspecified complications Qualified Code(s): E13.8 - Other specified diabetes mellitus with unspecified complications Cellulitis Qualifiers: Site of cellulitis: extremity Site of cellulitis of extremity: lower extremity Laterality: unspecified laterality Qualified Code(s): L03.119 - Cellulitis of unspecified part of limb Disposition: Admitted As Inpatient Condition: Good General Adult HPI - General Chief complaint: ED Wound/Laceration Stated complaint: feet pain Time Seen by Provider: 03/01/19 03:57 Source: patient Mode of arrival: private vehicle Limitations: no limitations Nursing Notes Reviewed: Yes Vital Signs Reviewed: Yes - History of Present Illness Location: other Pain Scale: 8 Quality: aching Improves with: rest Worsens with: movement Associated symptoms: Reports: denies other symptoms Treatments Prior to Arrival: none - Related Data Home Medications Medication Instructions Recorded Confirmed OxyCODONE Immed Rel [Roxicodone 5 5 - 10 mg PO Q4H PRN 02/21/17 02/21/17 MG] Zolpidem [Ambien] 5 mg PO HS 02/21/17 02/21/17 Previous Rx's Medication Instructions Recorded Omeprazole 20 mg PO DAILY #30 tablet. 02/22/17 Sucralfate [Carafate] 1 gm PO QIDAC #60 tablet 02/22/17 Cephalexin [Keflex] 500 mg PO TID #21 capsule 04/05/17 Oxycodone HCl/Acetaminophen 1 each PO Q4-6H PRN #15 tablet 04/05/17 [Percocet 5-325 mg Tablet] Sulfamethoxazole/Trimeth DS 1 each PO BID #14 tablet 04/05/17 [Bactrim DS] Cephalexin [Keflex] 500 mg PO QID #28 capsule 09/01/17 Lidocaine Patch [Lidoderm 5% patch] 1 each TP DAILY PRN #7 adh..patch 10/31/17 OxyCODONE/APAP 7.5/325 [Percocet 1 each PO Q4HR PRN 2 Days #10 02/24/18 7.5/325 MG] tablet Ibuprofen [Motrin] 600 mg PO TID PRN #16 tab 07/28/18 Clindamycin [Cleocin] 600 mg PO TID #120 capsule 09/07/18 Levofloxacin [Levaquin] 750 mg PO DAILY #10 tablet 09/07/18 Allergies Allergy/AdvReac Type Severity Reaction Status Date / Time Penicillins [PCN] Allergy Rash Verified 02/07/19 08:24 Past Medical History - Past Medical History Medical history: Reports: arthritis, diabetes, hyperlipidemia, hypertension Surgical history: Reports: orthopedic, other, other (Tonsillectomy adenoidectomy. Medical blindness left eye. Right index finger distal finger amputation.) Psychiatric history: Reports: anxiety, bipolar, depression, schizophrenia, previous psychiatric hospitalization, other - Social History Smoking Status: Current every day smoker Smokeless Tobacco Status: No Alcohol use: Reports: none Drug use: Reports: marijuana Physical Exam - General Limitations: no limitations General appearance: alert, in no apparent distress Course Vital Signs Temperature 98.2 F 03/01/19 03:54 Pulse Rate 94 03/01/19 03:54 Respiratory Rate 18 03/01/19 03:54 Blood Pressure 163/91 03/01/19 03:54 O2 Sat by Pulse Oximetry 99 03/01/19 03:54 Temperature 98.2 F 03/01/19 03:54 Pulse Rate 87 03/01/19 05:52 Respiratory Rate 14 03/01/19 05:52 Blood Pressure 141/85 03/01/19 05:52 O2 Sat by Pulse Oximetry 98 03/01/19 05:52 Oxygen Delivery Oxygen Delivery Room Air Medical Decision Making - Medical Records Medical records reviewed: Yes I reviewed the patient's medical records. - Lab Data Lab results reviewed: Yes I reviewed the patient's lab results. Result diagrams: 03/01/19 05:24 03/01/19 05:24 Lab Results 03/01/19 03/01/19 Range/Units 05:24 05:24 WBC 9.9 (4.3-11.1) K/mcL RBC 4.88 (4.19-5.50) M/mcL Hgb 14.0 (12.9-16.9) g/dL Hct 41.3 (37.5-50.1) % MCV 84.6 (83.0-100.0) fL MCH 28.7 (28.0-33.3) pg MCHC 33.9 (31.6-35.5) g/dL RDW 13.1 (11.5-14.5) % Plt Count 276 (140-400) K/mcL MPV 9.7 (9.4-12.4) fL Immature Gran % 0.3 (0-4) % Seg Neutrophils % 76.5 % Lymphocytes % 13.2 % Monocytes % 7.8 % Eosinophils % 1.1 % Basophils % 1.1 % Neutrophils # 7.6 (1.6-8.9) K/mcL Lymphocytes # 1.3 (0.6-4.6) K/mcL Monocytes # 0.8 (0.0-1.3) K/mcL Eosinophils # 0.1 (0.0-0.6) K/mcL Basophils # 0.1 (0.0-0.2) K/mcL Sodium 135 L (136-145) mEq/L Potassium 3.8 (3.5-5.1) mEq/L Chloride 98 (98-107) mEq/L Carbon Dioxide 26 (23-29) mEq/L BUN 18 (6-20) mg/dL Creatinine 0.79 (0.70-1.30) mg/dL Est GFR ( Amer) > 60 (> 60) Est GFR (Non-Af Amer) > 60 (> 60) BUN/Creatinine Ratio 23 (6-26) Glucose 139 H (70-105) mg/dL Calculated Osmolality 284 (280-300) Calcium 9.9 (8.6-10.3) mg/dL - Radiology Data Radiology results reviewed: Yes I reviewed the patient's radiology results. Foot X-Ray 03/01/19 04:24 IMPRESSION: 1. Soft tissue ulcer involving the 1st distal phalanx with question early developing osteomyelitis involving the distal aspect of the 1st proximal phalanx. D/ / Floyd Moya MD / Floyd Moya MD Interpreting Provider: Floyd Moya MD Critical Care Time Critical Care Time: No Attestation Statement - Attestation Attestation: I, Javier Joe MD, personally evaluated this patient and discussed their management with the midlevel provicer, PAC/BUSINESS TECHNOLOGY ANALYST. I reviewed the midlevel provider's note and agree with the documented findings, medical decision making, and plan of care. 43-year-old male with history of diabetes presents complaining of increased pain in his feet over the past several days. Patient has diabetic ulcers on his great toes bilaterally which he has been seeing podiatry for over the past 6-8 months. He states recently he has just felt bad and had subjective fever with increased pain. On examination patient is a well-developed well-nourished male in no acute distress. He is alert and oriented 3. There is no cyanosis or diaphoresis. Breath sounds are clear and equal bilaterally. Heart regular rate and rhythm. Abdomen soft and nontender with normal bowel sounds. Patient has chronic appearing ulcers on both great toes. Surrounding erythema. No obvious drainage. Labs reviewed. X-ray shows possible early osteomyelitis on the left and a small amount of soft tissue gas on the right. The vault clerk on-call was consulted. The hospitalist, Dr. Flood, was consulted and accepted admission of the patient.
[2019-03-01] MEDS ORDERED: Naloxone 0.4 MG/ML INJ IVP PRN (07:28)
[2019-03-01] MEDS ORDERED: Cefepime HCl 1,000 MG in Water for inj. (sterile) 20 ML 10 ML IVP SCH (08:00)
[2019-03-01] MEDS ORDERED: Gadolinium Contrast Agent (WT Based) IV PRN (09:07)
[2019-03-01] MEDS ORDERED: D5% in Water 1,000 ML IVC PRN (09:10)
[2019-03-01] MEDS ORDERED: *HR* Dextrose 50 % in Water (Syg) 50 ML SYRINGE IVP PRN (09:10)
[2019-03-01] MEDS ORDERED: Dextrose Gel 15 GM/37.5 ML TUBE PO PRN ×2 (09:10)
--- NOTE | 2019-03-01 09:10 | Internal Med History&Physical ---
Date of Encounter: 03/01/19 Time of Encounter: 09:00 Internal Medicine - H&P: HPI Chief complaint: Fevers and chills for a couple of days, and bilateral foot ulcers History of present illness: Mr. Alexander is a 43 year old male with pmh of hypertension, diabetes presenting with complaints of non healing bilateral feet ulcers since july and fevers and chills for a couple of days. Patient says due to his poorly controlled diabetes, he has been having non healing bilateral foot ulcers since july, worse on the left foot. In the last couple of days , he complains of fevers, chills and generalized malaise. He says he felt really sick yesterday and decided to call the EMS to bring him in. In the ER, he had a foot xray done showing early osteomyelitis in the left foot and he is being admitted for further management Past Med Surg Social Fam HX - Past Medical History Medical history: arthritis, diabetes, hyperlipidemia, hypertension Additional medical history: Reece's gangrene Psychiatric history: anxiety, bipolar, depression, schizophrenia, previous psychiatric hospitalization, other - Past Surgical History Surgical History: orthopedic, other, other (Tonsillectomy adenoidectomy. Medical blindness left eye. Right index finger distal finger amputation.) Additional surgical history: "part of rectum removed", left shoulder repair - Social History Smoking Status: Current every day smoker Packs per day: 0.5 Smokeless Tobacco Status: No Alcohol use: none Drug use: none, marijuana - Family History Mother Family Member Ethnicity: Non- Living Status: Still Living Hx Family Cardiac Disorders: No Hx Family Respiratory Disorders: No Hx Family Cancer: Yes Hx Family GI Disorders: No Hx Family Endocrine Disorder: No Hx Family Neuromuscular Disorders: No Hx Family Neurologic Disorders: No Hx Family HEENT Disorders: No Hx Family Autoimmune Disorders: No Father Living Status: Hx Family Cardiac Disorders: Yes (MD) Hx Family Respiratory Disorders: No Hx Family Cancer: No Hx Family GI Disorders: No Hx Family Endocrine Disorder: Yes (DM) Hx Family Neuromuscular Disorders: No Hx Family Neurologic Disorders: No Hx Family HEENT Disorders: No Hx Family Autoimmune Disorders: No Internal Medicine - H&P: Meds Metformin HCl 500 mg PO BID 03/01/19 [History] Zoloft 03/01/19 [History] Allergy/AdvReac Type Severity Reaction Status Date / Time Penicillins [PCN] Allergy Rash Verified 02/07/19 08:24 All Systems PM: A 10-system review of systems was performed and is negative for pertinent findings except as documented above in the HPI. - Constitutional Constitutional: no chills, no fever(s), no night sweats - EENT Eyes: no change in vision, no discharge, no pain, no photophobia Ears: no ear discharge, no ear pain, no tinnitus Nose, mouth and throat: no dysphagia, no nasal discharge, no neck pain, no sore throat - Cardiovascular Cardiovascular ROS IM: no chest pain, no diaphoresis, no dyspnea, no lightheadedness, no palpitations, no syncope - Respiratory Respiratory: no cough, no dyspnea, no wheezing, no excessive phlegm production - Gastrointestinal Gastrointestinal: no abdominal pain, no diarrhea, no hematemesis, no hematochezia, no melena, no nausea, no vomiting - Musculoskeletal Musculoskeletal ROS IM: no numbness, no tingling - Integumentary Integumentary IM: non-healing lesions, skin ulcer, no rash, no unusual bruising - Neurological Neurological ROS: no confusion, no convulsions, no focal weakness, no numbness, no tingling, no tremor(s) - Hematologic/Lymphatic Hematologic/Lymphatic: no easy bruising - Constitutional Vitals: Temp Pulse Resp BP Pulse Ox 97.9 F 79 16 151/84 99 03/01/19 07:00 03/01/19 07:00 03/01/19 07:00 03/01/19 07:00 03/01/19 07:00 Exam: NAD. Bilateral ulcers on great toe - Head Head exam: Present: atraumatic, normocephalic - Eye Eye exam: Present: PERRL, conjuntiva pink, sclera anicteric Pupils: Present: PERRL - Neck Neck exam general surgery: Present: supple, trachea midline. Absent: lymphadenopathy - Respiratory Respiratory exam: Present: CTAB. Absent: accessory muscle use, rales, rhonchi, wheezes - Cardiovascular Cardiovascular exam: Present: RRR, +S1, +S2. Absent: diastolic murmur, gallop, rubs, systolic murmur - GI/Abdominal GI/Abdominal exam: Present: normal bowel sounds, soft, no peritoneal signs. Absent: distended, tenderness - Extremities Exam Extremities exam: Present: warm, radial pulses palpable and symmetrical. Absent: calf tenderness, cyanotic, pedal edema - Neurological Exam Neurological exam: Present: CN II-XII intact, oriented X3, no focal deficits. Absent: pronater drift, facial droop, speech deficit - Skin Skin exam: Present: dry, intact Internal Med - H&P Results - Labs CBC & Chem 7: 03/01/19 05:24 03/01/19 05:24 Labs: Short CBC 03/01/19 Range/Units 05:24 WBC 9.9 (4.3-11.1) K/mcL Hgb 14.0 (12.9-16.9) g/dL Hct 41.3 (37.5-50.1) % Plt Count 276 (140-400) K/mcL Neutrophils # 7.6 (1.6-8.9) K/mcL BMP 03/01/19 05:24 Sodium 135 L Potassium 3.8 Chloride 98 Carbon Dioxide 26 BUN 18 Creatinine 0.79 Glucose 139 H Calcium 9.9 - Impressions ITS Impressions Foot X-Ray 03/01/19 04:24 IMPRESSION: 1. Soft tissue ulcer involving the 1st distal phalanx with question early developing osteomyelitis involving the distal aspect of the 1st proximal phalanx. D/ / Floyd Moya MD / Floyd Moya MD Interpreting Provider: Floyd Moya MD Foot X-Ray 03/01/19 04:24 IMPRESSION: No radiographic evidence for osteomyelitis. D/ / Chase Robertson MD / Chase Robertson MD Interpreting Provider: Chase Robertson MD - Assessment and Plan (1) Osteomyelitis Current Visit: Yes Status: Acute Assessment and plan: Pt presents with bilateral foot ulcers and fevers and chills Xray foot showing possible early osteomyelitis. Obtain MRI foot, ESR and CRP Start on vancomycin and cefepime . Podiatry and ID recs appreciated Qualifiers: Osteomyelitis type: other acute Osteomyelitis location: foot Laterality: left Qualified Code(s): M86.172 - Other acute osteomyelitis, left ankle and foot (2) Diabetes mellitus Current Visit: Yes Status: Acute Assessment and plan: Continue insulin and monitor fingersticks Qualifiers: Diabetes mellitus type: other specified (including DONAVON) Diabetes mellitus termite exterminator helper insulin use: unspecified halfway insulin use status Diabetes melli tus complication status: with unspecified complications Qualified Code(s): E13.8 - Other specified diabetes mellitus with unspecified complications (3) Diabetic foot ulcer Current Visit: Yes Status: Acute Assessment and plan: See #1. On antibiotics. Podiatry and ID consulted Qualifiers: Diabetic foot ulcer location: toe Diabetes mellitus type: other specified (including DONAVON) Laterality: unspecified laterality Non-pressure ulcer stage: unspecified non-pressure ulcer stage Qualified Code(s): E13.621 - Other specified diabetes mellitus with foot ulcer; L97.509 - Non-pressure chronic ulcer of other part of unspecified foot with unspecified severity (4) DVT prophylaxis Current Visit: Yes Status: Acute Assessment and plan: heparin sc - Time Spent With Patient Total time spent is greater than 50% in coordination of care (as documented) at patient's floor/unit and/or counseling patient:
[2019-03-01 10:22] LABS: C-Reactive Protein 131 mg/L (Less than 10)
[2019-03-01 11:31] LABS: Estimated Average Glucose 192 mg/dl; Hemoglobin A1C 8.3 %
[2019-03-01] MEDS: Insulin LISPRO 300 UNITS/3 ML VIAL SQ SCH ×2 (11:53→16:27)
--- NOTE | 2019-03-01 13:59 | Infectious Disease Consult ---
Infectious Disease-Consult - Encounter Date/Time Date of Encounter: 03/01/19 Time of Encounter: 13:46 - Data of Consult Patient: new to practice Reason for consult: Bilateral foot OM Consult date: 03/01/19 Requesting Physician: Nba Flood MD Primary Care Provider: DO Axel James HPI: Mr. Alexander is a 43-year-old male with past medical history of diabetes, hyperlipidemia, hypertension, and chronic bilateral foot ulcers. The patient was admitted to the hospital 03/01/19 for osteomyelitis, diabetic foot ulcer, diabetes, and cellulitis. We are consulted 03/01/19 for further workup and treatment recommendations for bilateral foot osteoarthritis. Briefly, Mr. Alexander is a 43-year-old male with a past medical history as stated above. The patient presented to the emergency department with complaints of bilateral foot diabetic foot ulcers and worsening foot pain/redness/and swelling for 1 week [employer]. He had previously been following Dr. Bolivar in the wound clinic and was last seen a few weeks ago. presented to the ER for admission. Upon arrival, he was afebrile hemodynamically stable. Laboratory studies revealed a normal white blood cell count and renal function. His ESR is elevated at 68 with CRP of 131. He had a left foot x-ray that showed a soft tissue or ulcer involving the first distal phalanx with questionable early developing osteomyelitis involving the distal aspect of the first proximal phalanx. He had a right foot x-ray showed no radiographic evidence for osteomyelitis. He was started empirically on IV antibiotics and admitted to the hospital for further evaluation. Since admission, the patient has remained afebrile hemodynamically stable. He underwent a right foot MRI that showed a 1 cm ulcer in the medial aspect of the right great toe with no soft tissue abscess. There is patchy nonspecific marrow edema and enhancement in the distal phalanx great toe without T1 signal change. No discrete edema adjacent to the ulcer. Findings could be due to early osteo-myelitis or reactive change. He also left foot MRI that showed abnormal bone marrow signal on the tip of the first toe. Differential includes early osteomyelitis versus reactive bone marrow edema. There is bone marrow edema in the second, third, and fourth metatarsal heads, likely reactive bone marrow edema and myositis of the intrinsic foot musculature. Podiatry's been consulted and we are awaiting their recommendations. Currently, he is on cefepime and vancomycin. We have been asked to evaluate and make further recommendations. During my exam today, the patient states the ulcer to his left great toe has been there since July and he is not aware of any trauma or ill-fitting shoe that caused it. He had been seeing Dr. Bolivar in the wound clinic who wanted to perform surgery, but the patient could not take time off work. He was following in the wound clinic and was last seen in January. He states he developed the ulcers to the right great toe about a month ago as well, etiology unclear. For the past week he has had fatigue, generalized weakness, subjective fevers and chills. Reports some nausea with vomiting and poor appetite for the past couple of days as well. Denies headache, neck pain, or focal neuro deficits. Denies chest pain, shortness of breath, or cough. States his blood sugars are not well- controlled. Reports deep-seated pain to the bilateral feet that is new for him over the past week. Denies oral thrush or rashes. The patient lives at home. 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 Smokes half a pack of cigarettes per day. Denies alcohol use. Reports occasional use of marijuana. Denies known infectious diseases. Denies pet or animal exposures. Reports he often stands in pool water when he is installing them. Denies recent travel outside the [facility]. - ROS Review of Systems: All systems reviewed and no additional remarkable complaints except as stated. - Results CBC & Chem 7: 03/01/19 05:24 03/01/19 05:24 - Exam Vitals: Temp Pulse Resp BP Pulse Ox 97.8 F 84 16 147/86 96 03/01/19 10:10 03/01/19 10:10 03/01/19 10:10 03/01/19 10:10 03/01/19 10:10 Exam: Head: Atraumatic, normal inspection, normocephalic. Eye: EOMI, PERRLA, no scleral icterus noted. ENT: Mucous membranes moist. No odontogenic infection noted. Neck: Normal inspection, no meningismus. Respiratory: Clear to auscultation. No rales, respiratory distress, rhonchi, or wheezes noted. Cardiovascular: Regular rate and rhythm, S1 and S2 audible. No murmurs, rubs, or gallops. GI: Soft, nondistended, normal bowel sounds. Extremities:No joint swelling, pedal edema, or tenderness noted. Back: Normal inspection. No vertebral tenderness noted. Neurological: Alert, oriented 3, no focal deficits. Psychiatric: normal affect, normal mood. Skin: Dry, intact, warm. Normal color. No rashes. Metformin HCl 500 mg PO BID 03/01/19 [History] lamoTRIgine [Lamictal] 100 mg PO DAILY 03/01/19 [History] Allergy/AdvReac Type Severity Reaction Status Date / Time Penicillins [PCN] Allergy Rash Verified 03/01/19 14:24 - Assessment and Plan (1) Cellulitis Current Visit: Yes Status: Acute Location: Bilateral great toes. Causative organism: Unclear. X-rays and MRI of the left foot concerning for possible osteomyelitis. X-ray of the right foot negative for OM, but MRI concerning for early OM vs. reactive osteitis. ESR 68, CRP 131 Podiatry consult pending. Currently on cefepime and Vancomycin. Qualifiers: Site of cellulitis: extremity Site of cellulitis of extremity: lower extremity Laterality: unspecified laterality Qualified Code(s): L03.119 - Cellulitis of unspecified part of limb SNOMED Code(s): 663896534 (2) Osteomyelitis Current Visit: Yes Status: Suspected Suspected. Location: Bilateral great toes. MRI of the left foot shows abnormal bone marrow signal in the tip of the 1st toe concerning for early OM vs. reactive bone marrow edema. MRI of the right foot shows nonspecific marrow edema and enhancement in the distal phalanx of the right great toe concerning for early OM vs. reactive change. ESR and CRP elevated. Podiatry consult pending. Currently on Vanc and cefepime. Qualifiers: Osteomyelitis type: other acute Osteomyelitis location: foot Laterality: left Qualified Code(s): M86.172 - Other acute osteomyelitis, left ankle and foot SNOMED Code(s): 44824844 (3) Diabetic foot ulcer Current Visit: Yes Status: Acute Location: Bilateral great toes. Etiology: Unclear. Podiatry consult pending. Qualifiers: Diabetic foot ulcer location: toe Diabetes mellitus type: other specified (including DONAVON) Laterality: unspecified laterality Non-pressure ulcer stage: unspecified non-pressure ulcer stage Qualified Code(s): E13.621 - Other specified diabetes mellitus with foot ulcer; L97.509 - Non-pressure chronic ulcer of other part of unspecified foot with unspecified severity SNOMED Code(s): 329985366 (4) Diabetes mellitus Current Visit: Yes Status: Acute Uncontrolled. HgbA1C 8.3% Recommend aggressive glucose monitoring and control to promote wound healing and prevent re-infection. Management per the primary team. Qualifiers: Diabetes mellitus type: type 1 Diabetes mellitus complication status: with skin complications Diabetes mellitus complication detail: with foot ulcer Qualified Code(s): E10.621 - Type 1 diabetes mellitus with foot ulcer; L97.509 - Non-pressure chronic ulcer of other part of unspecified foot with unspecified severity SNOMED Code(s): 88083651 (5) Hyperlipidemia Current Visit: Yes Status: Acute SNOMED Code(s): 28906063 (6) Penicillin allergy Current Visit: Yes Status: Acute States he had a rash when he was a child. SNOMED Code(s): 73646554 - Recommendations Recommendations: Await recommendations from Podiatry. The patient may benefit from bone biopsy for culture and pathology to determine if this is osteo vs. reactive bone changes. Hold further antibiotics until evaluated by Podiatry to see if we can get cultures. If the patient becomes febrile or takes a turn to the worse, get blood cultures and re-start antibiotics. Past Med Surg Social Fam HX - Past Medical History Medical history: arthritis, diabetes, hyperlipidemia, hypertension Additional medical history: Reece's gangrene Psychiatric history: anxiety, bipolar, depression, schizophrenia, previous psychiatric hospitalization, other - Past Surgical History Surgical History: orthopedic, other, other (Tonsillectomy adenoidectomy. Medical blindness left eye. Right index finger distal finger amputation.) Additional surgical history: "part of rectum removed", left shoulder repair - Social History Smoking Status: Current every day smoker Packs per day: 0.5 Smokeless Tobacco Status: No Alcohol use: none Drug use: none, marijuana - Family History Mother Family Member Ethnicity: Non- Living Status: Still Living Hx Family Cardiac Disorders: No Hx Family Respiratory Disorders: No Hx Family Cancer: Yes Hx Family GI Disorders: No Hx Family Endocrine Disorder: No Hx Family Neuromuscular Disorders: No Hx Family Neurologic Disorders: No Hx Family HEENT Disorders: No Hx Family Autoimmune Disorders: No Father Living Status: Hx Family Cardiac Disorders: Yes ([place]) Hx Family Respiratory Disorders: No Hx Family Cancer: No Hx Family GI Disorders: No Hx Family Endocrine Disorder: Yes ([place]) Hx Family Neuromuscular Disorders: No Hx Family Neurologic Disorders: No Hx Family HEENT Disorders: No Hx Family Autoimmune Disorders: No Consult Discharge Plan - Plan Referrals: Rosalba Cowan DO [Primary Care Provider] - - Attending Attestation I have personally performed a face to face evaluation on this patient. I have reviewed and agree with the care plan. History and Exam by me shows: Next This is an addendum to original report dictated by Andreina Neely CNP. Please refer to Andreina's note for full detail. Patient with history of 22 years of diabetes mellitus type 2 that is poorly controlled only taken it for many tells me his A1c usually runs over 10 also has significant peripheral neuropathy and is blind in the left eye and his vision in the right eye is getting worse denies having having a stroke or heart attack apparently has had these chronic wounds on his legs for quite some time and failed outpatient therapy. Patient came in for evaluation. Assessment and plan: Cellulitis of the bilateral great toes with stage III ulcers with no surrounding fluctuance purulence or erythema Questionable osteomyelitis of the bilateral great toes. ESR 64 and CRP 131. MRI was really nonconclusive questionable osteomyelitis versus reactive bone marrow edema Diabetes mellitus type 2 poorly controlled Peripheral neuropathy Penicillin allergy patient had hives at age 9 Recommendations: Patient currently does not have any SIRS criteria. We will stop antibiotics until evaluated by podiatry to see if they can a biopsy. Once cultures are obtained and biopsies are obtained we will start the patient on broad-spectrum antibiotics and then tailor antibiotics accordingly Patient needs adequate glucose control Patient is a smoker so he might benefit from a nicotine patch I had a long discussion with the patient about adequate glucose control and tobacco cessation for good outcome.
--- NOTE | 2019-03-01 16:18 | Podiatry Consult Note ---
Date of Encounter: 03/01/19 Time of Encounter: 14:30 Assessment and Plan (1) Osteomyelitis Current visit: Yes Status: Suspected Assessment: Chronic ulcerations to bilateral great toes with associated cellulitis PLAN: Assessment complete at bedside. Sharp debridement was performed to wounds of bilateral great toes. There was a scant amount of purulent drainage noted to the right great toe after debridement. This was cultured at bedside. There is also a bullous lesion to the plantar aspect of the left foot. This was cleansed and lanced at bedside and cultures were obtained ESR and CRP are marginal. Suspicion for osteomyelitis at this time is minimal. Continue with IV antibiotics at this time. ID on board, follow recommendations Patient may require bone biopsy for further determination of osteomyelitis Wounds were flushed with saline. Adaptic was applied to wounds of bilateral feet 4 x 4's and Kerlix bulky dressing was applied Daily dressing changes Dr. Bolivar updated on patient. He agrees with plan. ID onboard and managing ant ibiotics. Plain films and MRI obtained and reviewed as documented below Tight glucose control to limit further complications and promote healing. Foot X-Ray 03/01/19 04:24 IMPRESSION: 1. Soft tissue ulcer involving the 1st distal phalanx with question early developing osteomyelitis involving the distal aspect of the 1st proximal phalanx. D/ / Floyd Moya MD / Floyd Moya MD Interpreting Provider: Floyd Moya MD Foot MRI 03/01/19 09:07 IMPRESSION: 1. A 1 cm ulcer in the medial aspect of the great toe. No soft tissue abscess. 2. Patchy nonspecific marrow edema and enhancement in the distal phalanx great toe without T1 signal change. No discrete edema adjacent to the ulcer. Findings could be due to early osteomyelitis or reactive change. D/ / 03/01/2019 11:44:03 Gian Campoverde MD / orin Interpreting Provider: Gian Campoverde MD Qualifiers: Osteomyelitis type: other acute Osteomyelitis location: foot Laterality: left Qualified Code(s): M86.172 - Other acute osteomyelitis, left ankle and foot (2) Diabetic foot ulcer Current visit: Yes Status: Acute Qualifiers: Diabetic foot ulcer location: toe Diabetes mellitus type: other specified (including DONAVON) Laterality: unspecified laterality Non-pressure ulcer stage: unspecified non-pressure ulcer stage Qualified Code(s): E13.621 - Other specified diabetes mellitus with foot ulcer; L97.509 - Non-pressure chronic u lcer of other part of unspecified foot with unspecified severity (3) Diabetes mellitus Current visit: Yes Status: Acute Tight glucose control to prevent further complications and to promote healing Qualifiers: Diabetes mellitus type: type 1 Diabetes mellitus complication status: with skin complications Diabetes mellitus complication detail: with foot ulcer Qualified Code(s): E10.621 - Type 1 diabetes mellitus with foot ulcer; L97.509 - Non-pressure chronic ulcer of other part of unspecified foot with unspecified severity History of Present Illness HPI: Mr. Alexander is a 43 year old male with pmh of hypertension, diabetes a1c 8.3 presenting with complaints of non healing bilateral feet ulcers since july and fevers and chills for a couple of days. Patient says due to his poorly controlled diabetes, he has been having non healing bilateral foot ulcers since july, worse on the left foot. In the last couple of days , he complains of fevers, chills and generalized malaise. There was concern of early osteomyelitis of the left great toe. Patient was started on cefepie an zosyn and admitted to hospital for further evaluation. Patient is a 1/2 PPD smoker. ID has also been consulted. Patient is known to and was last seen in the wound care clinic on 02/01. Ulceration was small and healing to the left great toe at that time. Past Med Surg Social Fam HX - Past Medical History Medical history: arthritis, diabetes, hyperlipidemia, hypertension Additional medical history: Reece's gangrene Psychiatric history: anxiety, bipolar, depression, schizophrenia, previous psychiatric hospitalization, other - Past Surgical History Surgical History: orthopedic, other, other (Tonsillectomy adenoidectomy. Medical blindness left eye. Right index finger distal finger amputation.) Additional surgical history: "part of rectum removed", left shoulder repair - Social History Smoking Status: Current every day smoker Packs per day: 0.5 Smokeless Tobacco Status: No Alcohol use: none Drug use: none, marijuana - Family History Mother Family Member Ethnicity: Non- Living Status: Still Living Hx Family Cardiac Disorders: No Hx Family Respiratory Disorders: No Hx Family Cancer: Yes Hx Family GI Disorders: No Hx Family Endocrine Disorder: No Hx Family Neuromuscular Disorders: No Hx Family Neurologic Disorders: No Hx Family HEENT Disorders: No Hx Family Autoimmune Disorders: No Father Living Status: Hx Family Cardiac Disorders: Yes ([place]) Hx Family Respiratory Disorders: No Hx Family Cancer: No Hx Family GI Disorders: No Hx Family Endocrine Disorder: Yes (DM) Hx Family Neuromuscular Disorders: No Hx Family Neurologic Disorders: No Hx Family HEENT Disorders: No Hx Family Autoimmune Disorders: No Medications and Allergies Metformin HCl 500 mg PO BID 03/01/19 [History] lamoTRIgine [Lamictal] 100 mg PO DAILY 03/01/19 [History] Allergy/AdvReac Type Severity Reaction Status Date / Time Penicillins [PCN] Allergy Rash Verified 03/01/19 14:24 All Systems Reviewed: as per HPI Physical Exam - Constitutional Vitals: Temp Pulse Resp BP Pulse Ox 97.8 F 84 16 147/86 96 03/01/19 10:10 03/01/19 10:10 03/01/19 10:10 03/01/19 10:10 03/01/19 10:10 Exam: General Examination: CONSTITUTIONAL: Alert, oriented, in no acute distress, non-toxic. EXTREMITIES: CFT 3 seconds all toes. Edema +1 and pedal pulses palpable. SKIN: Skin with decreased turgor, decreased subcutaneous tissue, skin thin and shiny with trophic changes associated with comorbidities as described in history.. NEUROLOGIC: Grossly diminished sensation related to diabetic peripheral neuropathy ULCERATIONS: Left great toe- There is a zamora stage II diabetic ulceration with wound bed 100% covered in yellow fibrous tissue Wound measures 2.5x2.5 with a depth of 0.2cm No surrounding edema, erythema or warmth. No appearance of active infection. Noted surrounding hyperkeratosis was debrided. There is a bullous lesion noted to mid plantar aspect of left foot- serous drainage noted. This was lanced at bedside and drained. Did not deroof wound. Minimal surrounding eryhema appears related to irritation RIGHT GREAT TOE: large zamora stage II diabetic ulceration 5cmx4.3x0.2cm with 30% fibrous dry tissue to base, 60% healthy granulation tissue and 10% dark fibrous tissue with a pocket of purulent drainage noted to medial base of wound. This was opened and sharply debrided with a #15 blade to remove devitalized tissue and obtain culture. Results - Labs Result Diagrams: 03/02/19 07:06 03/02/19 07:06 Labs: Abnormal lab results ESR 68 mm/hr (0-10) H 03/01/19 05:24 Sodium 135 mEq/L (136-145) L 03/01/19 05:24 Glucose 139 mg/dL (70-105) H 03/01/19 05:24 8.3 % (-5.6) H 03/01/19 05:24 131 mg/L (Less than 10) H 03/01/19 05:24 H & H 03/01/19 Range/Units 05:24 Hgb 14.0 (12.9-16.9) g/dL Hct 41.3 (37.5-50.1) % All other labs normal. Consult Discharge Plan - Plan Referrals: Rosalba Cowan DO [Primary Care Provider] -
[2019-03-01] MEDS: *HR* Heparin 5,000 UNIT/ML VIAL SQ SCH (16:27)
[2019-03-01] MEDS: Insulin DETEMIR 100 UNIT/ML X5UNITS SQ SCH (21:41)
[2019-03-01] MEDS ORDERED: Acetaminophen 325 MG TABLET PO PRN (22:02)
[2019-03-01] MEDS ORDERED: *HR* HYDROcodone/Acet 5/325 mg TABLET PO PRN (22:02)
[2019-03-01] MEDS: *HR* OxyCODONE Immed Rel 5 MG TABLET PO PRN (23:03)
[2019-03-02] MEDS: *HR* OxyCODONE Immed Rel 5 MG TABLET PO PRN ×3 (05:12→22:36)
[2019-03-02] MEDS: *HR* Heparin 5,000 UNIT/ML VIAL SQ SCH ×2 (06:47→17:14)
[2019-03-02 07:33] LABS: Basophils # 0.1 K/mcL (0.0-0.2); Basophils % 1.4 %; Eosinophils # 0.2 K/mcL (0.0-0.6); Eosinophils % 4.3 %; Hemoglobin 13.7 g/dL (12.9-16.9); Immature Granulocytes % 0.4 % (0-4); Lymphocytes # 1.3 K/mcL (0.6-4.6); Lymphocytes % 22.6 %; Mean Corpuscular HGB Conc 32.6 g/dL (31.6-35.5); Mean Corpuscular Hemoglobin 28.2 pg (28.0-33.3); Mean Corpuscular Volume 86.4 fL (83.0-100.0); Mean Platelet Volume 9.8 fL (9.4-12.4); Monocytes # 0.6 K/mcL (0.0-1.3); Monocytes % 10.2 %; Neutrophils # 3.4 K/mcL (1.6-8.9); Platelet Count 249 K/mcL (140-400); Red Blood Count 4.86 M/mcL (4.19-5.50); Segmented Neutrophils % 61.1 %
[2019-03-02] MEDS ORDERED: Aminoglycoside Consult 1 EACH MC ONE (08:19)
[2019-03-02 08:43] LABS: BUN/Creatinine Ratio 24 (6-26); Blood Urea Nitrogen 16 mg/dL (6-20); Calcium 8.9 mg/dL (8.6-10.3); Carbon Dioxide 24 mEq/L (23-29); Chloride 106 mEq/L (98-107); Glucose 153 mg/dL (70-105); Osmolality,Calculated 286 (280-300); Phosphorous 3.3 mg/dL (2.7-4.5); Potassium 3.8 mEq/L (3.5-5.1); Sodium 136 mEq/L (136-145); eGFR For Non-African Americans > 60 (> 60)
--- NOTE | 2019-03-02 09:34 | Procedure Note ---
Date of procedure: 03/01/19 Pre-op diagnosis: hyperkeratosis Post-op diagnosis: same Procedure: RIGHT foot: Wound was painted with Betadine. Sharp debridement was complete using a sterile 15 blade to remove all devitalized and hyperkeratotic tissue. Wound debridement did not extend into the subcutaneous layer of the skin. Only devitalized hyperkeratotic tissue was removed at this time. crosshatching complete to fibrous tissue noted to wound base. Patient tolerated well n's. W ound cultures were obtained and sent with Left great toe- wound was painted with Betadine. Using a sterile 15 blade sharp debridement of hyperkeratotic skin surrounding wound to the left great toe. Tissue debridement was complete and did not extend into the subcutaneous layer of the skin. No drainage is noted complications were noted no wound cultures were obtained as there is no drainage. Plantar aspect of left foot: Bullous lesion noted. This was painted with Betadine. A Lanse was complete to the bullous lesion to allow for evacuation of the serous fluid. This was cultured and sent with nerves. No complications. no bleeding All wounds stable at complete of procedure. Dressings were applied as documented. Wound care orders placed Anesthesia: none Surgeon: Nanette Segura Was there an administrative assistant receptionist present: No Estimated blood loss (cc): 0 Specimen: wound cultures x2 Pathology: other Condition: stable Disposition: no change
[2019-03-02] MEDS: lamoTRIgine 100 MG TABLET PO SCH (10:09)
--- NOTE | 2019-03-02 13:06 | Infectious Disease Progress No ---
ID Progress Note Date of Encounter: 03/02/19 Time of Encounter: 13:04 - Subjective Subjective: Patient seen and examined. No acute events noted overnight. Patient states he continues to feel generally poor. Reports subjective fevers and chills, but no documented fevers noted. Reports some nausea with dry heaves this morning. States appetite okay. Denies chest pain, shortness of breath, or cough. Reports improved pain in the bilateral great toes. Denies oral thrush or skin rashes. - Objective CBC & Chem 7: 03/02/19 07:06 03/02/19 07:06 - Exam Vitals: Temp Pulse Resp BP Pulse Ox 97.9 F 84 16 123/78 99 03/02/19 10:10 03/02/19 10:10 03/02/19 10:10 03/02/19 10:10 03/02/19 10:10 Exam: Head: Atraumatic, normal inspection, normocephalic. Eye: EOMI, PERRLA, no scleral icterus noted. ENT: Mucous membranes moist. No odontogenic infection noted. Neck: Normal inspection, no meningismus. Respiratory: Clear to auscultation. No rales, respiratory distress, rhonchi, or wheezes noted. Cardiovascular: Regular rate and rhythm, S1 and S2 audible. No murmurs, rubs, or gallops. GI: Soft, nondistended, normal bowel sounds. Extremities:No joint swelling, pedal edema, or tenderness noted. Bilateral foot dressings C/d/I. Back: Normal inspection. No vertebral tenderness noted. Neurological: Alert, oriented 3, no focal deficits. Psychiatric: normal affect, normal mood. Skin: Dry, intact, warm. Normal color. No rashes. - Assessment and Plan (1) Cellulitis Current Visit: Yes Status: Acute Location: Bilateral great toes. Causative organism: Unclear. X-rays and MRI of the left foot concerning for possible osteomyelitis. X-ray of the right foot negative for OM, but MRI concerning for early OM vs. reactive osteitis. ESR 68, CRP 131 Podiatry consulted and following. Antibiotics currently on hold. Qualifiers: Site of cellulitis: extremity Site of cellulitis of extremity: lower extremity Laterality: unspecified laterality Qualified Code(s): L03.119 - Cellulitis of unspecified part of limb SNOMED Code(s): 492440345 (2) Osteomyelitis Current Visit: Yes Status: Suspected Suspected. Location: Bilateral great toes. MRI of the left foot shows abnormal bone marrow signal in the tip of the 1st toe concerning for early OM vs. reactive bone marrow edema. MRI of the right foot shows nonspecific marrow edema and enhancement in the distal phalanx of the right great toe concerning for early OM vs. reactive change. ESR and CRP elevated. Podiatry consulted. Pending bedside bone biopsy later today. Antibiotics currently on hold. Qualifiers: Osteomyelitis type: other acute Osteomyelitis location: foot Laterality: left Qualified Code(s): M86.172 - Other acute osteomyelitis, left ankle and foot SNOMED Code(s): 58806900 (3) Diabetic foot ulcer Current Visit: Yes Status: Acute Location: Bilateral great toes and plantar left foot. Etiology: Unclear. Podiatry consulted. Status post bedside debridement of the plantar wound with cultures obtained. Pending bedside bone biopsy later today. Qualifiers: Diabetic foot ulcer location: toe Diabetes mellitus type: other specified (including DONAVON) Laterality: unspecified laterality Non-pressure ulcer stage: unspecified non-pressure ulcer stage Qualified Code(s): E13.621 - Other specified diabetes mellitus with foot ulcer; L97.509 - Non-pressure chronic u lcer of other part of unspecified foot with unspecified severity SNOMED Code(s): 714339433 (4) Diabetes mellitus Current Visit: Yes Status: Acute Uncontrolled. HgbA1C 8.3% Recommend aggressive glucose monitoring and control to promote wound healing and prevent re-infection. Management per the primary team. Qualifiers: Diabetes mellitus type: type 1 Diabetes mellitus complication status: with skin complications Diabetes mellitus complication detail: with foot ulcer Qualified Code(s): E10.621 - Type 1 diabetes mellitus with foot ulcer; L97.509 - Non-pressure chronic ulcer of other part of unspecified foot with unspecified severity SNOMED Code(s): 47428751 (5) Hyperlipidemia Current Visit: Yes Status: Acute SNOMED Code(s): 85546259 (6) Penicillin allergy Current Visit: Yes Status: Acute States he had a rash when he was a child. SNOMED Code(s): 34211180 - Recommendations Recommendations: Wound care recommendations from Podiatry. Await superficial and bone culture results. Hold further antibiotics until bone cultures obtained by Podiatry. If the patient becomes febrile or takes a turn to the worse, get blood cultures and re-start antibiotics. Once cultures obtained, re-start Vancomycin IV (pharmacy to dose, goal trough ~15) and cefepime 2 grams IV Q12H and start flagyl 500mg PO TID. Duration of treatment depends on the clinical pictures. Monitor renal function and for drug toxicity and dose-adjust antibiotics. Consult Discharge Plan - Plan Referrals: Rosalba Cowan DO [Primary Care Provider] - - Attending Attestation I have personally performed a face to face evaluation on this patient. I have reviewed and agree with the care plan. History and Exam by me shows: Assessment and plan: Questionable Cellulitis of the bilateral great toes with stage III ulcers with no surrounding fluctuance purulence or erythema Questionable osteomyelitis of the bilateral great toes. ESR 64 and CRP 131. MRI was really nonconclusive questionable osteomyelitis versus reactive bone marrow edema Diabetes mellitus type 2 poorly controlled Peripheral neuropathy Penicillin allergy patient had hives at age 9 Recommendations: Appreciate Dr. Bolivar's input At this point really just looks like dry stage III ulcer with no obvious infection I will stop all antibiotics unobserved Patient educated on proper glucose control, tobacco cessation and follow up with wound care
[2019-03-02] MEDS: Insulin LISPRO 300 UNITS/3 ML VIAL SQ SCH ×3 (13:16→17:14)
--- NOTE | 2019-03-02 15:24 | Internal Med Progress Note ---
Hospitalist Progress Note - Encounter Date of Encounter: 03/02/19 Time of Encounter: 09:00 - Subjective Interval History: Patient still complaint bilateral foot wound pain. No fever. Antibiotic is on hold per ID, waiting for bone biopsy. Continue on symptomatic management. - Exam Vitals: Temp Pulse Resp BP Pulse Ox 97.9 F 77 16 145/64 99 03/02/19 15:11 03/02/19 15:11 03/02/19 15:11 03/02/19 15:11 03/02/19 15:11 Exam: Pt is AAO x 3, in NAD HEENT: NC/AT, PERRL Neck: Supple, no JVD, no LAD Lungs: CTA b/l Heart: S1S2, RRR Abd: Soft, nontender, BS present Ext: ROM wnl, no pedal edema, diabetic ulcer on bilateral foot Neuro: No focal deficit - Assessment and Plan (1) Osteomyelitis Current Visit: Yes Status: Suspected Assessment and Plan: Pt presents with bilateral foot ulcers and fevers and chills Xray and MRI foot showing possible early osteomyelitis. Elevated ESR and CRP ID consult appreciated. Hold antibiotics at this point, waiting for bone biopsy (2) Diabetic foot ulcer Current Visit: Yes Status: Acute Assessment and Plan: See #1. Podiatry and ID consulted. Continue wound care (3) Diabetes mellitus Current Visit: Yes Status: Acute Assessment and Plan: Continue insulin and monitor fingersticks (4) DVT prophylaxis Current Visit: Yes Status: Acute Assessment and Plan: heparin sc - Time Spent with Patient Total time spent is greater than 50% in coordination of care (as documented) at patient's floor/unit and/or counseling patient: 30 minute 25 - 35 minutes Plan of Care Discussed with: patient Internal Medicine: Result - Labs CBC & Chem 7: 03/02/19 07:06 03/02/19 07:06 Labs: Short CBC 03/02/19 Range/Units 07:06 WBC 5.6 (4.3-11.1) K/mcL Hgb 13.7 (12.9-16.9) g/dL Hct 42.0 (37.5-50.1) % Plt Count 249 (140-400) K/mcL Neutrophils # 3.4 (1.6-8.9) K/mcL BMP 03/02/19 07:06 Sodium 136 Potassium 3.8 Chloride 106 Carbon Dioxide 24 BUN 16 Creatinine 0.66 L Glucose 153 H Calcium 8.9 - Impressions Impressions Foot MRI 03/01/19 09:07 IMPRESSION: 1. A 1 cm ulcer in the medial aspect of the great toe. No soft tissue abscess. 2. Patchy nonspecific marrow edema and enhancement in the distal phalanx great toe without T1 signal change. No discrete edema adjacent to the ulcer. Findings could be due to early osteomyelitis or reactive change. D/ / 03/01/2019 11:44:03 Gian Campoverde MD / earnoramin Interpreting Provider: Gian Campoverde MD Consult Discharge Plan - Plan Referrals: Rosalba Cowan DO [Primary Care Provider] - (1) Osteomyelitis Qualifiers: Osteomyelitis type: other acute Osteomyelitis location: foot Laterality: left Qualified Code(s): M86.172 - Other acute osteomyelitis, left ankle and foot (2) Diabetic foot ulcer Qualifiers: Diabetic foot ulcer location: toe Diabetes mellitus type: other specified (including DONAVON) Laterality: unspecified laterality Non-pressure ulcer stage: unspecified non-pressure ulcer stage Qualified Code(s): E13.621 - Other specified diabetes mellitus with foot ulcer; L97.509 - Non-pressure chronic ulcer of other part of unspecified foot with unspecified severity (3) Diabetes mellitus Qualifiers: Diabetes mellitus type: type 1 Diabetes mellitus complication status: with skin complications Diabetes mellitus complication detail: with foot ulcer Qualified Code(s): E10.621 - Type 1 diabetes mellitus with foot ulcer; L97.509 - Non-pressure chronic ulcer of other part of unspecified foot with unspecified severity
[2019-03-02] MEDS: Insulin DETEMIR 100 UNIT/ML X5UNITS SQ SCH (22:36)
[2019-03-03 05:46] LABS: Basophils # 0.1 K/mcL (0.0-0.2); Basophils % 1.8 %; Eosinophils # 0.2 K/mcL (0.0-0.6); Eosinophils % 5.4 %; Hemoglobin 12.5 g/dL (12.9-16.9); Immature Granulocytes % 0.5 % (0-4); Lymphocytes # 1.3 K/mcL (0.6-4.6); Lymphocytes % 30.3 %; Mean Corpuscular HGB Conc 33.8 g/dL (31.6-35.5); Mean Corpuscular Hemoglobin 28.5 pg (28.0-33.3); Mean Corpuscular Volume 84.3 fL (83.0-100.0); Monocytes # 0.5 K/mcL (0.0-1.3); Monocytes % 11.1 %; Neutrophils # 2.3 K/mcL (1.6-8.9); Platelet Count 253 K/mcL (140-400); Red Blood Count 4.39 M/mcL (4.19-5.50); Red Cell Distribution Width 12.6 % (11.5-14.5); Segmented Neutrophils % 50.9 %
[2019-03-03] MEDS: *HR* OxyCODONE Immed Rel 5 MG TABLET PO PRN ×3 (06:09→18:16)
[2019-03-03] MEDS: *HR* Heparin 5,000 UNIT/ML VIAL SQ SCH ×2 (06:10→17:35)
[2019-03-03 06:14] LABS: BUN/Creatinine Ratio 17 (6-26); Blood Urea Nitrogen 12 mg/dL (6-20); Calcium 9.2 mg/dL (8.6-10.3); Carbon Dioxide 27 mEq/L (23-29); Chloride 102 mEq/L (98-107); Glucose 247 mg/dL (70-105); Osmolality,Calculated 292 (280-300); Sodium 137 mEq/L (136-145); eGFR For Non-African Americans > 60 (> 60)
[2019-03-03] MEDS: Insulin LISPRO 300 UNITS/3 ML VIAL SQ SCH ×4 (09:26→21:02)
[2019-03-03] MEDS: lamoTRIgine 100 MG TABLET PO SCH (09:27)
--- NOTE | 2019-03-03 11:47 | Podiatry Progress Note ---
Date of Encounter: 03/03/19 Time of Encounter: 10:00 - Assessment and Plan (1) Osteomyelitis Current Visit: Yes Status: Suspected Assessment: Chronic ulcerations to bilateral great toes with associated cellulitis PLAN: Assessment complete at bedside. Left great toe healing well and without concern of active infection at this time Right great toe showing mild increase in cellulitis Wound cultures growing Group G strep, GPC and GNR prelim at this time ID on board and following, appreciate recommendations At this time we will continue to monitor toe There is no streaking, no ascending cellulitis Cellulitis does not extend past MTP joint of toe Vitals are stable and WBC 4.4, afebrile Cleansed with saline Adaptic, 4x4 and kerlix, secure well with medipore tape as patient has known hx of picking at wounds and I am concerned that is what happened in this instance Change dressings BID and document any increase in drainage Left great toe stable and healing well , daily dressing change with adaptic, 4x4 and kerlix Continue to offload Will need to follow up with in wound care center 1 week after discharge. Foot X-Ray 03/01/19 04:24 IMPRESSION: 1. Soft tissue ulcer involving the 1st distal phalanx with question early developing osteomyelitis involving the distal aspect of the 1st proximal phalanx. D/ / Floyd Moya MD / Floyd Moya MD Interpreting Provider: Floyd Moya MD Foot MRI 03/01/19 09:07 IMPRESSION: 1. A 1 cm ulcer in the medial aspect of the great toe. No soft tissue abscess. 2. Patchy nonspecific marrow edema and enhancement in the distal phalanx great toe without T1 signal change. No discrete edema adjacent to the ulcer. Findings could be due to early osteomyelitis or reactive change. D/ / 03/01/2019 11:44:03 Gian Campoverde MD / orin Interpreting Provider: Gian Campoverde MD Qualifiers: Osteomyelitis type: other acute Osteomyelitis location: foot Laterality: left Qualified Code(s): M86.172 - Other acute osteomyelitis, left ankle and foot (2) Diabetic foot ulcer Current Visit: Yes Status: Acute Qualifiers: Diabetic foot ulcer location: toe Diabetes mellitus type: other specified (including DONAVON) Laterality: unspecified laterality Non-pressure ulcer stage: unspecified non-pressure ulcer stage Qualified Code(s): E13.621 - Other specified diabetes mellitus with foot ulcer; L97.509 - Non-pressure chronic ulcer of other part of unspecified foot with unspecified severity (3) Diabetes mellitus Current Visit: Yes Status: Acute Tight glucose control to prevent further complications and to promote healing Qualifiers: Diabetes mellitus type: type 1 Diabetes mellitus complication status: with skin complications Diabetes mellitus complication detail: with foot ulcer Qualified Code(s): E10.621 - Type 1 diabetes mellitus with foot ulcer; L97.509 - Non-pressure chronic ulcer of other part of unspecified foot with unspecified severity Subjective Interval history: Patient evaluated today. States he continues to feel poor. States his toes are hurting but the pain has improved slightly. Reports that overnight he noticed bleeding to the right great toe. He denies known trauma but is neuropathic. States he just looked down and the dressing had blood on it. States he is depressed. States he has a lot going on in life right now and he is sad. Denies any fevers or chills, vitals stable. Objective - Vital Signs Vital Signs: Vital Signs Temp Pulse Resp BP Pulse Ox 03/03/19 11:14 97.4 F L 80 16 189/97 98 03/03/19 06:50 97.6 F 79 16 170/97 99 03/03/19 00:10 97.5 F L 100 17 150/88 97 03/02/19 20:04 97.7 F 78 17 155/87 99 03/02/19 15:11 97.9 F 77 16 145/64 99 Intake and Output 03/02/19 03/03/19 03/03/19 23:59 07:59 15:59 Intake Total 240 / 240 Balance 240 / 240 Intake: Oral 240 / 240 Other: Meal Breakfast Percent of Meal Consumed 100% # Voids 1 2 Weight 72.5 kg Blood Glucose* 173 140 180 Patient Weight 03/03/19 23:59 Weight 72.5 kg - Exam Exam: General Examination: CONSTITUTIONAL: Alert, oriented, in no acute distress, non-toxic. EXTREMITIES: CFT 3 seconds all toes. Edema +1 and pedal pulses palpable. SKIN: Skin with decreased turgor, decreased subcutaneous tissue, skin thin and shiny with trophic changes associated with comorbidities as described in history.. NEUROLOGIC: Grossly diminished sensation related to diabetic peripheral neuropathy ULCERATIONS: Left great toe- There is a zamora stage II diabetic ulceration with wound bed 100% covered in yellow fibrous tissue Wound measures 2.5x2.5 with a depth of 0.2cm No surrounding edema, erythema or warmth. No appearance of active infection. Bullous lesion to plantar aspect of left foot healed and dry RIGHT GREAT TOE: large zamora stage II diabetic ulceration 5cmx4.3x0.2cm with 30% fibrous dry tissue to base, 60% healthy granulation tissue and 10% dark fibrous tissue There is fresh bleeding noted to the dorsal aspect of the proximal edge of the wound. Unknown if trauma occured or patient picked at wound or spontaneous bleeding occurred. No active purulent drainage. There is however an increase in the surrounding edema, erythema and warmth consistent with soft tissue infection of the great toe. There is no streaking or ascending cellulitis. There is no lymphangitis. Erythema does not extend past MTP joint of toe. there is no sinus tracts or undermining noted to toe. There is no fluctuance. No appearance of abscess. Xray neg for osteo. - Lab Result Diagrams: 03/03/19 05:11 03/03/19 05:11 Labs: Abnormal lab results Hgb 12.5 g/dL (12.9-16.9) L 03/03/19 05:11 Hct 37.0 % (37.5-50.1) L 03/03/19 05:11 ESR 68 mm/hr (0-10) H 03/01/19 05:24 Sodium 135 mEq/L (136-145) L 03/01/19 05:24 0.66 mg/dL (0.70-1.30) L 03/02/19 07:06 Glucose 247 mg/dL (70-105) H 03/03/19 05:11 POC Glucose 173 mg/dL (70-99) H 03/02/19 20:48 8.3 % (-5.6) H 03/01/19 05:24 131 mg/L (Less than 10) H 03/01/19 05:24 Microbiology, Last 48 Hours 03/01/19 16:05 Anaerobic Culture - Preliminary Left Foot At this time, no anaerobic growth is present. The culture will be finalized after 5 days of incubation. 03/01/19 16:05 Wound Culture - Preliminary Right Great Toe Gram Negative Jose Gram Positive Cocci Group G Streptococcus Consult Discharge Plan - Plan Referrals: Rosalba Cowan DO [Primary Care Provider] -
--- NOTE | 2019-03-03 15:46 | Infectious Disease Progress No ---
ID Progress Note Date of Encounter: 03/03/19 Time of Encounter: 11:00 - Subjective Subjective: Patient seen and examined. No acute events noted overnight. Patient states he continues to feel generally poor. Reports subjective fevers and chills, but no documented fevers noted. Reports some nausea, denies vomiting. States appetite okay. Denies chest pain, shortness of breath, or cough. Reports right toe pain is worse today and the wound started bleeding this morning. Denies oral thrush or skin rashes. - Objective CBC & Chem 7: 03/03/19 05:11 03/03/19 05:11 - Exam Vitals: Temp Pulse Resp BP Pulse Ox 97.4 F L 80 16 189/97 98 03/03/19 11:14 03/03/19 11:14 03/03/19 11:14 03/03/19 11:14 03/03/19 11:14 Exam: Head: Atraumatic, normal inspection, normocephalic. Eye: EOMI, PERRLA, no scleral icterus noted. ENT: Mucous membranes moist. No odontogenic infection noted. Neck: Normal inspection, no meningismus. Respiratory: Clear to auscultation. No rales, respiratory distress, rhonchi, or wheezes noted. Cardiovascular: Regular rate and rhythm, S1 and S2 audible. No murmurs, rubs, or gallops. GI: Soft, nondistended, normal bowel sounds. Extremities:No joint swelling, pedal edema, or tenderness noted. Bilateral foot dressings C/d/I. Back: Normal inspection. No vertebral tenderness noted. Neurological: Alert, oriented 3, no focal deficits. Psychiatric: normal affect, normal mood. Skin: Dry, intact, warm. Normal color. No rashes. - Assessment and Plan (1) Cellulitis Current Visit: Yes Status: Acute Location: Bilateral great toes. Causative organism: Unclear. Wound culture of the right foot positive for GNR, GPC, and Group G strep. X-rays and MRI of the left foot concerning for possible osteomyelitis. X-ray of the right foot negative for OM, but MRI concerning for early OM vs. reactive osteitis. ESR 68, CRP 131 Podiatry consulted and following. Discussed with Podiatry and pictures of the right toe reviewed. Erythema persists and appears a little worse today. Wound is bleeding. Suspicious for trauma or the patient picking at the wound. No SIRS criteria. Not currently on antibiotics. Qualifiers: Site of cellulitis: extremity Site of cellulitis of extremity: lower extremity Laterality: unspecified laterality Qualified Code(s): L03.119 - Cellulitis of unspecified part of limb SNOMED Code(s): 828784590 (2) Osteomyelitis Current Visit: Yes Status: Suspected Suspected. Location: Bilateral great toes. MRI of the left foot shows abnormal bone marrow signal in the tip of the 1st toe concerning for early OM vs. reactive bone marrow edema. MRI of the right foot shows nonspecific marrow edema and enhancement in the distal phalanx of the right great toe concerning for early OM vs. reactive change. ESR and CRP elevated. Podiatry consulted. Discussed with the podiatry team. They reviewed the images and do not feel that the changes on the MRI are infectious and are not planning any bone biopsies or surgical debridements at this time. Antibiotics currently on hold. Qualifiers: Osteomyelitis type: other acute Osteomyelitis location: foot Laterality: left Qualified Code(s): M86.172 - Other acute osteomyelitis, left ankle and foot SNOMED Code(s): 55440143 (3) Diabetic foot ulcer Current Visit: Yes Status: Acute Location: Bilateral great toes and plantar left foot. Etiology: Unclear. Podiatry consulted. Status post bedside debridement of the plantar wound with cultures obtained. Qualifiers: Diabetic foot ulcer location: toe Diabetes mellitus type: other specified (including DONAVON) Laterality: unspecified laterality Non-pressure ulcer stage: unspecified non-pressure ulcer stage Qualified Code(s): E13.621 - Other specified diabetes mellitus with foot ulcer; L97.509 - Non-pressure chronic ulcer of other part of unspecified foot with unspecified severity SNOMED Code(s): 911857092 (4) Diabetes mellitus Current Visit: Yes Status: Acute Uncontrolled. HgbA1C 8.3% Recommend aggressive glucose monitoring and control to promote wound healing and prevent re-infection. Management per the primary team. Qualifiers: Diabetes mellitus type: type 1 Diabetes mellitus complication status: with skin complications Diabetes mellitus complication detail: with foot ulcer Qualified Code(s): E10.621 - Type 1 diabetes mellitus with foot ulcer; L97.509 - Non-pressure chronic ulcer of other part of unspecified foot with unspecified severity SNOMED Code(s): 39757099 (5) Hyperlipidemia Current Visit: Yes Status: Acute SNOMED Code(s): 19064628 (6) Penicillin allergy Current Visit: Yes Status: Acute States he had a rash when he was a child. SNOMED Code(s): 62073182 - Recommendations Recommendations: Await wound culture results. Wound care recommendations from Podiatry. Start Bactrim DS 1 tab PO BID. Start Levaquin 750mg PO daily. Duration of treatment depends on the clinical pictures, but likely a total of 14 days. Monitor renal function and for drug toxicity and dose-adjust antibiotics. Consult Discharge Plan - Plan Referrals: Rosalba Cowan DO [Primary Care Provider] - - Attending Attestation I have personally performed a face to face evaluation on this patient. I have reviewed and agree with the care plan. History and Exam by me shows: Assessment and plan: Questionable Cellulitis of the bilateral great toes with stage III ulcers with no surrounding fluctuance purulence or erythema Questionable osteomyelitis of the bilateral great toes. ESR 64 and CRP 131. MRI was really nonconclusive questionable osteomyelitis versus reactive bone ma rrow edema Diabetes mellitus type 2 poorly controlled Peripheral neuropathy Penicillin allergy patient had hives at age 9 Recommendations Await wound culture results. Wound care recommendations from Podiatry. Start Bactrim DS 1 tab PO BID. Start Levaquin 750mg PO daily. Duration of treatment depends on the clinical pictures, but likely a total of 14 days. Monitor renal function and for drug toxicity and dose-adjust antibiotics.
--- NOTE | 2019-03-03 16:58 | Internal Med Progress Note ---
Hospitalist Progress Note - Encounter Date of Encounter: 03/03/19 Time of Encounter: 09:00 - Subjective Interval History: Patient feels"SO-SO", still has bilateral foot pain. No fever. - Exam Vitals: Temp Pulse Resp BP Pulse Ox 97.8 F 81 18 162/80 99 03/03/19 16:08 03/03/19 16:08 03/03/19 16:08 03/03/19 16:08 03/03/19 16:08 Exam: Pt is AAO x 3, in NAD HEENT: NC/AT, PERRL Neck: Supple, no JVD, no LAD Lungs: CTA b/l Heart: S1S2, RRR Abd: Soft, nontender, BS present Ext: ROM wnl, no pedal edema, diabetic ulcer on bilateral foot Neuro: No focal deficit - Assessment and Plan (1) Osteomyelitis Current Visit: Yes Status: Ruled-out Assessment and Plan: Pt presents with bilateral foot ulcers and fevers and chills Xray and MRI foot showing possible early osteomyelitis. ID and podiatry consult appreciated. Less likely osteomyelitis per podiatry, more like bone reaction to soft tissue infection. Will hold bone biopsy per podiatry and ID. Started by mouth Levaquin and Bactrim per ID recommendation. (2) Diabetic foot ulcer Current Visit: Yes Status: Acute Assessment and Plan: See #1. Podiatry and ID consulted. Continue wound care. On by mouth Levaquin and Bactrim. Follow-up final wound culture results. Primarily culture results shows gram-negative shelley, gram-positive cocci, and group G strep. (3) Diabetes mellitus Current Visit: Yes Status: Acute Assessment and Plan: Continue insulin sliding scale and monitor fingersticks (4) DVT prophylaxis Current Visit: Yes Status: Acute Assessment and Plan: heparin sc - Time Spent with Patient Total time spent is greater than 50% in coordination of care (as documented) at patient's floor/unit and/or counseling patient: 30 minutes 25 - 35 minutes Plan of Care Discussed with: patient Internal Medicine: Result - Labs CBC & Chem 7: 03/03/19 05:11 03/03/19 05:11 Labs: Short CBC 03/03/19 Range/Units 05:11 WBC 4.4 (4.3-11.1) K/mcL Hgb 12.5 L (12.9-16.9) g/dL Hct 37.0 L (37.5-50.1) % Plt Count 253 (140-400) K/mcL Neutrophils # 2.3 (1.6-8.9) K/mcL BMP 03/03/19 05:11 Sodium 137 Potassium 4.0 Chloride 102 Carbon Dioxide 27 BUN 12 Creatinine 0.70 Glucose 247 H Calcium 9.2 - Impressions Impressions Foot MRI 03/01/19 07:31 IMPRESSION: 1. Abnormal bone marrow signal in the tip of the 1st toe. Differential includes early osteomyelitis versus reactive bone marrow edema. 2. Bone marrow edema in the 2nd, 3rd, 4th metatarsal head, likely reactive bone marrow edema. 3. Myositis of the intrinsic foot musculature. D/ / 03/01/2019 11:55:18 Nicholas Durán MD / [facility] Interpreting Provider: Nicholas Durán MD Consult Discharge Plan - Plan Referrals: Rosalba Cowan DO [Primary Care Provider] - (1) Osteomyelitis Qualifiers: Osteomyelitis type: other acute Osteomyelitis location: foot Laterality: left Qualified Code(s): M86.172 - Other acute osteomyelitis, left ankle and foot (2) Diabetic foot ulcer Qualifiers: Diabetic foot ulcer location: toe Diabetes mellitus type: other specified (including DONAVON) Laterality: unspecified laterality Non-pressure ulcer stage: unspecified non-pressure ulcer stage Qualified Code(s): E13.621 - Other specified diabetes mellitus with foot ulcer; L97.509 - Non-pressure chronic ulcer of other part of unspecified foot with unspecified severity (3) Diabetes mellitus Qualifiers: Diabetes mellitus type: type 1 Diabetes mellitus complication status: with skin complications Diabetes mellitus complication detail: with foot ulcer Qualified Code(s): E10.621 - Type 1 diabetes mellitus with foot ulcer; L97.509 - Non-pressure chronic ulcer of other part of unspecified foot with unspecified severity
[2019-03-03] MEDS: levoFLOXacin 750 MG TABLET PO SCH (17:34)
[2019-03-03] MEDS: Sulfamethoxazole/Trimeth DS 1 EACH TABLET PO SCH (19:47)
[2019-03-03] MEDS: Insulin DETEMIR 100 UNIT/ML X5UNITS SQ SCH (21:07)
[2019-03-04] MEDS: *HR* Heparin 5,000 UNIT/ML VIAL SQ SCH ×2 (06:19→18:06)
[2019-03-04] MEDS: Insulin LISPRO 300 UNITS/3 ML VIAL SQ SCH ×4 (09:00→21:05)
[2019-03-04 10:31] LABS: Basophils # 0.1 K/mcL (0.0-0.2); Eosinophils # 0.2 K/mcL (0.0-0.6); Eosinophils % 3.8 %; Hematocrit 44.5 % (37.5-50.1); Immature Granulocytes % 0.4 % (0-4); Lymphocytes # 1.1 K/mcL (0.6-4.6); Lymphocytes % 19.5 %; Mean Corpuscular HGB Conc 33.5 g/dL (31.6-35.5); Mean Corpuscular Volume 83.6 fL (83.0-100.0); Monocytes # 0.5 K/mcL (0.0-1.3); Monocytes % 9.5 %; Neutrophils # 3.6 K/mcL (1.6-8.9); Platelet Count 318 K/mcL (140-400); Red Blood Count 5.32 M/mcL (4.19-5.50); Red Cell Distribution Width 12.8 % (11.5-14.5); Segmented Neutrophils % 64.8 %
[2019-03-04 10:45] LABS: Hemoglobin 14.9 g/dL (12.9-16.9)
[2019-03-04 10:47] LABS: BUN/Creatinine Ratio 21 (6-26); Blood Urea Nitrogen 16 mg/dL (6-20); Calcium 10.1 mg/dL (8.6-10.3); Carbon Dioxide 25 mEq/L (23-29); Chloride 100 mEq/L (98-107); Glucose 187 mg/dL (70-105); Osmolality,Calculated 284 (280-300); Potassium 4.8 mEq/L (3.5-5.1); Sodium 134 mEq/L (136-145); eGFR For Non-African Americans > 60 (> 60)
[2019-03-04] MEDS: Ondansetron 4 MG/2 ML VIAL IVP PRN ×2 (11:00→18:12)
[2019-03-04] MEDS: Sulfamethoxazole/Trimeth DS 1 EACH TABLET PO SCH ×2 (13:46→21:04)
[2019-03-04] MEDS: levoFLOXacin 750 MG TABLET PO SCH (13:47)
[2019-03-04] MEDS: lamoTRIgine 100 MG TABLET PO SCH (13:47)
--- NOTE | 2019-03-04 14:27 | Internal Med Progress Note ---
Hospitalist Progress Note - Encounter Date of Encounter: 03/04/19 Time of Encounter: 09:00 - Subjective Interval History: Patient is still complaint bilateral foot pain. Complaining of diarrhea, which is watery. Has nausea and vomited once. - Exam Vitals: Temp Pulse Resp BP Pulse Ox 97.9 F 82 18 164/81 98 03/04/19 11:45 03/04/19 11:45 03/04/19 11:45 03/04/19 11:45 03/04/19 11:45 Exam: Pt is AAO x 3, in NAD HEENT: NC/AT, PERRL Neck: Supple, no JVD, no LAD Lungs: CTA b/l Heart: S1S2, RRR Abd: Soft, nontender, BS present Ext: ROM wnl, no pedal edema, diabetic ulcer on bilateral foot Neuro: No focal deficit - Assessment and Plan (1) Diabetic foot ulcer Current Visit: Yes Status: Acute Assessment and Plan: Podiatry and ID consulted. Continue wound care. On by mouth Levaquin and Bactrim. Follow-up final wound culture results. Primarily culture results shows gram-negative shelley, gram-positive cocci, and group G strep. (2) Diabetes mellitus Current Visit: Yes Status: Acute Assessment and Plan: Continue insulin sliding scale and monitor fingersticks (3) DVT prophylaxis Current Visit: Yes Status: Acute Assessment and Plan: heparin sc (4) Diarrhea Current Visit: No Status: Acute Assessment and Plan: We will check C. difficile as the patient is on antibiotic. Place patient on probiotics. - Time Spent with Patient Total time spent is greater than 50% in coordination of care (as documented) at patient's floor/unit and/or counseling patient: 30 minutes 25 - 35 minutes Plan of Care Discussed with: patient Internal Medicine: Result - Labs CBC & Chem 7: 03/04/19 09:45 03/04/19 09:45 Labs: Short CBC 03/04/19 Range/Units 09:45 WBC 5.6 (4.3-11.1) K/mcL Hgb 14.9 D (12.9-16.9) g/dL Hct 44.5 (37.5-50.1) % Plt Count 318 (140-400) K/mcL Neutrophils # 3.6 (1.6-8.9) K/mcL BMP 03/04/19 09:45 Sodium 134 L Potassium 4.8 Chloride 100 Carbon Dioxide 25 BUN 16 Creatinine 0.76 Glucose 187 H Calcium 10.1 Consult Discharge Plan - Plan Referrals: Rosalba Cowan DO [Primary Care Provider] - (1) Diabetic foot ulcer Qualifiers: Diabetic foot ulcer location: toe Diabetes mellitus type: other specified (including DONAVON) Laterality: unspecified laterality Non-pressure ulcer stage: unspecified non-pressure ulcer stage Qualified Code(s): E13.621 - Other specified diabetes mellitus with foot ulcer; L97.509 - Non-pressure chronic ulcer of other part of unspecified foot with unspecified severity (2) Diabetes mellitus Qualifiers: Diabetes mellitus type: type 1 Diabetes mellitus complication status: with skin complications Diabetes mellitus complication detail: with foot ulcer Qualified Code(s): E10.621 - Type 1 diabetes mellitus with foot ulcer; L97.509 - Non-pressure chronic ulcer of other part of unspecified foot with unspecified severity (4) Diarrhea Qualifiers: Diarrhea type: unspecified type Qualified Code(s): R19.7 - Diarrhea, unspecified
[2019-03-04] MEDS: Lactobacillus 1 EACH CAP.SPRINK PO SCH ×2 (18:06→21:04)
[2019-03-04] MEDS: Insulin DETEMIR 100 UNIT/ML X5UNITS SQ SCH (21:04)
[2019-03-05] MEDS: *HR* Heparin 5,000 UNIT/ML VIAL SQ SCH ×2 (06:13→18:13)
[2019-03-05 07:03] LABS: Basophils # 0.1 K/mcL (0.0-0.2); Basophils % 1.4 %; Eosinophils # 0.3 K/mcL (0.0-0.6); Hematocrit 40.8 % (37.5-50.1); Hemoglobin 13.8 g/dL (12.9-16.9); Immature Granulocytes % 0.5 % (0-4); Lymphocytes # 1.4 K/mcL (0.6-4.6); Lymphocytes % 24.2 %; Mean Corpuscular HGB Conc 33.8 g/dL (31.6-35.5); Mean Corpuscular Hemoglobin 28.3 pg (28.0-33.3); Mean Corpuscular Volume 83.8 fL (83.0-100.0); Mean Platelet Volume 9.8 fL (9.4-12.4); Monocytes # 0.6 K/mcL (0.0-1.3); Monocytes % 10.5 %; Neutrophils # 3.3 K/mcL (1.6-8.9); Platelet Count 269 K/mcL (140-400); Red Blood Count 4.87 M/mcL (4.19-5.50); Segmented Neutrophils % 58.4 %
[2019-03-05 07:20] LABS: BUN/Creatinine Ratio 27 (6-26); Blood Urea Nitrogen 20 mg/dL (6-20); Carbon Dioxide 25 mEq/L (23-29); Chloride 102 mEq/L (98-107); Glucose 151 mg/dL (70-105); Osmolality,Calculated 284 (280-300); Potassium 4.3 mEq/L (3.5-5.1); Sodium 134 mEq/L (136-145); eGFR For Non-African Americans > 60 (> 60)
[2019-03-05] MEDS: Insulin LISPRO 300 UNITS/3 ML VIAL SQ SCH ×4 (08:40→21:03)
[2019-03-05] MEDS: lamoTRIgine 100 MG TABLET PO SCH (08:42)
[2019-03-05] MEDS: Sulfamethoxazole/Trimeth DS 1 EACH TABLET PO SCH ×2 (08:42→21:02)
[2019-03-05] MEDS: levoFLOXacin 750 MG TABLET PO SCH (08:42)
[2019-03-05] MEDS: Lactobacillus 1 EACH CAP.SPRINK PO SCH ×2 (08:42→21:02)
--- NOTE | 2019-03-05 11:34 | Discharge Summary ---
- NOTES TO OUTPATIENT PROVIDER Notes to Outpatient Provider: 1. Follow up podiatry as outpatient. 2. If pt cont to have diarrhea, please consider to check C Diff. Orders not resulted at time of discharge: Pending orders 03/01/19 16:05 Culture,Anaerobic [RM] Routine Culture,Anaerobic [RM] Routine Date of Encounter: 03/05/19 Time of Encounter: 10:00 - Discharge Diagnosis (1) Diabetic foot ulcer Priority: Primary Status: Acute Qualifiers: Diabetic foot ulcer location: toe Diabetes mellitus type: other specified ( including DONAVON) Laterality: unspecified laterality Non-pressure ulcer stage: unspecified non-pressure ulcer stage Qualified Code(s): E13.621 - Other specified diabetes mellitus with foot ulcer; L97.509 - Non-pressure chronic ulcer of other part of unspecified foot with unspecified severity (2) Diabetes mellitus Priority: Secondary Status: Acute Qualifiers: Diabetes mellitus type: type 1 Diabetes mellitus complication status: with skin complications Diabetes mellitus complication detail: with foot ulcer Qualified Code(s): E10.621 - Type 1 diabetes mellitus with foot ulcer; L97.509 - Non-pressure chronic ulcer of other part of unspecified foot with unspecified severity (3) DVT prophylaxis Priority: Secondary Status: Acute (4) Diarrhea Priority: Secondary Status: Acute Qualifiers: Diarrhea type: unspecified type Qualified Code(s): R19.7 - Diarrhea, unspecified Hospital course: Mr. Alexander is a 43 year old male presented to ER for diabetic foot ulcer. Patient was placed on IV antibiotics. Podiatry and ID consult saw patient. Podiatry had debridement and send wound culture. Podiatry and ID do not think patient has osteomyelitis. Recommend by mouth Levaquin and Bactrim for 14 days. Patient's final wound culture result come out, I have discussed with ID consult Dr. Rico regarding the final result and sensitivity, decided to continue Levaquin and Bactrim. Patient has one episode of diarrhea, C. difficile test ordered but canceled because the diarrhea stopped. I have seen and examined the patient today. Patient still has mild pain. Has loose stool this morning but no sample collected. Patient denies nausea, vomiting, or abdominal pain. Discussed with patient, will continue by mouth antibiotics and probiotics. If patient continues to have diarrhea, can check C. difficile as outpatient. Patient has no fever. He has no leukocytosis. Will DC patient home today. Continue follow-up with podiatry as outpatient. Discharge discussed with: patient - Time Spent with Patient Total time spent providing and/or coordinating discharge services: 40 minutes Time spent: Greater than 30 minutes - Discharge Medications Prescriptions: New Sulfamethoxazole/Trimeth DS [Bactrim Ds] 1 each PO BID 12 Days #24 tablet Lactobacillus [Culturelle] 1 each PO BID 20 Days #40 cap.sprink levoFLOXacin [Levaquin] 750 mg PO DAILY 12 Days #12 tablet HYDROcodone/Acet 5/325 mg [[place] 5-325 mg] 1 tab PO Q6H PRN 6 Days #24 tablet PRN Reason: Moderate Pain Continued Metformin HCl 500 mg PO BID lamoTRIgine [Lamictal] 100 mg PO DAILY Home Medications: Metformin HCl 500 mg PO BID 03/01/19 [History] lamoTRIgine [Lamictal] 100 mg PO DAILY 03/01/19 [History] HYDROcodone/Acet 5/325 mg [[place] 5-325 mg] 1 tab PO Q6H PRN 6 Days #24 tablet 03/05/19 [Rx] Lactobacillus [Culturelle] 1 each PO BID 20 Days #40 cap.sprink 03/05/19 [Rx] Sulfamethoxazole/Trimeth DS [Bactrim Ds] 1 each PO BID 12 Days #24 tablet 03/05 [Rx] levoFLOXacin [Levaquin] 750 mg PO DAILY 12 Days #12 tablet 03/05/19 [Rx] Allergies/Adverse Reactions: Allergy/AdvReac Type Severity Reaction Status Date / Time Penicillins [PCN] Allergy Rash Verified 03/01/19 14:24 Date of admission: 03/01/19 07:28 Primary care physician: Rosalba Cowan DO Consults: 03/01/19 07:30 Consult to Podiatry [CONS] Routine Consulting Provider: [facility] Reason for Consult: toe osteomyelitis Call Completed: Yes 03/01/19 09:26 Consult to Infectious Diseases [CONS] Routine Consulting Provider: [facility] [place] Reason for Consult: osteomyelitis Call Completed: No Discharging clinician: Barbara Rouse Anticipated date of discharge: 03/05/19 - Constitutional Vitals: Temp Pulse Resp BP Pulse Ox 98.9 F 92 16 142/77 96 03/05/19 10:44 03/05/19 10:44 03/05/19 10:44 03/05/19 10:44 03/05/19 10:44 Exam: Pt is AAO x 3, in NAD HEENT: NC/AT, PERRL Neck: Supple, no JVD, no LAD Lungs: CTA b/l Heart: S1S2, RRR Abd: Soft, nontender, BS present Ext: ROM wnl, no pedal edema, diabetic ulcer on bilateral foot Neuro: No focal deficit - Patient Status Disposition: Home, Self-Care Condition: Good Functional capacity at discharge: uses cane/walker Overall status at discharge: patient is progressing back to baseline - Discharge Instructions Follow Up With: Rosalba Cowan DO [Primary Care Provider] - Additional Instructions: Follow-up podiatry Dr. Bolivar in one week. Please make an appointment - Diet and Activity Activity: increase activity as tolerated Diet: diabetic diet
[2019-03-05] MEDS: Insulin DETEMIR 100 UNIT/ML X5UNITS SQ SCH (21:02)
[2019-03-06] MEDS: *HR* Heparin 5,000 UNIT/ML VIAL SQ SCH (05:30)
[2019-03-06] MEDS: lamoTRIgine 100 MG TABLET PO SCH (08:51)
[2019-03-06] MEDS: Sulfamethoxazole/Trimeth DS 1 EACH TABLET PO SCH (08:51)
[2019-03-06] MEDS: Insulin LISPRO 300 UNITS/3 ML VIAL SQ SCH ×2 (08:51→11:47)
[2019-03-06] MEDS: Lactobacillus 1 EACH CAP.SPRINK PO SCH (08:51)
[2019-03-06] MEDS: levoFLOXacin 750 MG TABLET PO SCH (08:51)
--- NOTE | 2019-03-06 11:07 | Podiatry Progress Note ---
Date of Encounter: 03/07/19 Time of Encounter: 10:00 - Assessment and Plan (1) Diabetic foot ulcer Status: Acute Assessment: Dennis grade 2 ulceration to bilateral hallux Plan: Cleansed with 0.9 NS, covered with adaptic, 4x4 dry gauze, and kerlix. Secured with medipore. Continue local wound care at home. Continue to follow in wound care center with Dr. Bolivar. Please make appointment prior to d/c. Qualifiers: Diabetic foot ulcer location: toe Diabetes mellitus type: other specified (including DONAVON) Laterality: unspecified laterality Non-pressure ulcer stage: unspecified non-pressure ulcer stage Qualified Code(s): E13.621 - Other specified diabetes mellitus with foot ulcer; L97.509 - Non-pressure chronic ulcer of other part of unspecified foot with unspecified severity Subjective Interval history: Patient awake in bed. Alert and oriented x 3. Reports was going home today but is having stomach pain. Denies any fevers, chills, nausea, or vomiting. Reports diarrhea. Denies any chest pain, calf pain, or shortness of breath. No other questions or concerns at this time Objective - Vital Signs Vital Signs: Vital Signs Temp Pulse Resp BP Pulse Ox 03/06/19 06:48 97.8 F 81 18 139/84 99 03/06/19 04:50 98.5 F 75 18 150/65 99 03/06/19 00:34 98.6 F 91 18 125/81 99 03/05/19 20:10 98.5 F 92 20 162/90 97 03/05/19 14:47 98.5 F 86 15 145/88 99 Intake and Output 03/05/19 03/06/19 03/06/19 23:59 07:59 15:59 Intake Total 240 / 770 850 / 850 Output Total 0 / 0 Balance 240 / 770 850 / 850 Intake: Oral 240 / 770 850 / 850 Output: Urine 0 / 0 Other: Meal Dinner Percent of Meal Consumed 75% # Voids 1 1 Weight 72.6 kg Blood Glucose* 191 158 Patient Weight 03/06/19 23:59 Weight 72.6 kg - Exam Exam: Constitiutional: Alert and oriented x 3. Well nourished. No acute distress noted Vascular: 2/4 DP/PT bilaterally, CFT <3 sec to all digits, warm to warm from tibia to toes bilaterally, no calf pain with squeeze BLE Neurologic: Absent sensation to touch, normal plantar response Dermatologic: Dennis grade 2 ulceration noted to bilateral hallux. Wound bed pink in color. Minimal serosanginous drainage noted. No foul odor, no streaking, no erythema noted. Musculoskeletal: 5/5 muscle strength and normal tone bilaterally. - Lab Result Diagrams: 03/05/19 06:28 03/05/19 06:28 Labs: Abnormal lab results Hgb 12.5 g/dL (12.9-16.9) L 03/03/19 05:11 Hct 37.0 % (37.5-50.1) L 03/03/19 05:11 ESR 68 mm/hr (0-10) H 03/01/19 05:24 Sodium 134 mEq/L (136-145) L 03/05/19 06:28 0.66 mg/dL (0.70-1.30) L 03/02/19 07:06 27 (6-26) H 03/05/19 06:28 Glucose 151 mg/dL (70-105) H 03/05/19 06:28 POC Glucose 191 mg/dL (70-99) H 03/05/19 20:17 8.3 % (-5.6) H 03/01/19 05:24 131 mg/L (Less than 10) H 03/01/19 05:24 Microbiology, Last 48 Hours 03/01/19 16:05 Anaerobic Culture - Final Left Foot No anaerobes were recovered. 03/01/19 16:05 Wound Culture - Final Left Foot Methicillin Resistant S.aureus Aerococcus viridans Enterococcus faecalis 03/01/19 16:05 Anaerobic Culture - Preliminary Right Great Toe At this time, no anaerobic growth is present. The culture will be finalized after 5 days of incubation. 03/01/19 16:05 Wound Culture - Final Right Great Toe Acinetobacter baumannii complx Enterococcus faecalis Group G Streptococcus Methicillin Resistant S.aureus Consult Discharge Plan - Plan Additional Instructions: Follow-up podiatry Dr. Bolivar in one week. Please make an appointment. [facility] in one week. Follow up with PCP and surgery within one week. Follow-up appointments: If there is not an appointment listed below, please call your physician and schedule a follow-up appointment. If you have congestive heart failure and your symptoms return, make an appointment with your physician. Medication List: Carry an up to date list of medications you are taking at all time. We have given you an updated medication list including any new medications that you have been prescribed. Please provide that list to your primary provider Symptoms: If your condition changes or you experience any of the following symptoms, notify your physician immediately: Unusual or worsening pain, fever, persistent nausea and vomiting, bleeding, increase in swelling (especially in your legs), sudden weight gain, extreme dizziness, chest pain, increased drainage or redness from a wound or incision. Go to the emergency department if you experience a problem with breathing. Weights: If you have a history of swelling or shortness of breath, weigh yourself daily and notify your physician if you have a weight gain of two or more pounds in one day or 5 or more pounds in a week. If you experience any of the warning signs for stroke: Sudden numbness or weakness of the face, arm or leg; especially on one side of the body, sudden confusion, trouble speaking or understanding, sudden trouble seeing in one or both eyes, sudden trouble walking, dizziness, loss of balance or coordination, sudden sever headache with no cause; Call 911 or go to the emergency room. Stroke is a medical emergency. Some risk factors for stroke: Age, cigarette smoking, diabetes, excessive alcohol consumption, family history, high blood pressure, overweight, physical inactivity, prior stroke, heart attack, diagnosis of carotid artery stenosis or other artery disease. If you smoke, STOP: Smoking or tobacco use significantly increases your risk of heart and lung disease. Your chance of disease greatly increases if you continue to smoke. For more information, call the [place] tobacco quit line for smoking cessation 0-168-SZUA-NOW ( ) Referrals: Rosalba Cowan DO [Primary Care Provider] - Prescriptions: Sulfamethoxazole/Trimeth DS [Bactrim Ds] 1 each PO BID 12 Days #24 tablet Lactobacillus [Culturelle] 1 each PO BID 20 Days #40 cap.sprink levoFLOXacin [Levaquin] 750 mg PO DAILY 12 Days #12 tablet HYDROcodone/Acet 5/325 mg [[place] 5-325 mg] 1 tab PO Q6H PRN 6 Days #24 tablet PRN Reason: Moderate Pain Ondansetron HCl [Zofran] 4 mg PO Q6HR PRN 8 Days #32 tab PRN Reason: Nausea
[2019-03-06 11:36] LABS: Albumin 4.5 g/dL (3.5-5.7); Albumin/Globulin Ratio 1.2 (1.1-2.2); Bilirubin,Direct 0.1 mg/dL (0.0-0.2); Bilirubin,Indirect 0.4 mg/dL (0.0-1.2); Bilirubin,Total 0.5 mg/dL (0.3-1.0); Globulin 3.9 g/dL (2.4-3.5); Total Protein 8.4 g/dL (6.4-8.9)
--- NOTE | 2019-03-06 14:03 | AcuteCare Surgery Consult Note ---
<Martin Kilgore N - Last Filed: 03/06/19 14:23> Date of Encounter: 03/06/19 Time of Encounter: 14:23 Assessment and Plan (1) Foreign body Current Visit: Yes Status: Acute 43-year-old male admitted to the hospital with diabetic foot ulcer who was found to have an incidental finding of metallic foreign object within the cecum on CT scan Patient has had approximately 5 days of nausea and dry heaving, but denies any abdominal pain Reports bright red blood per rectum 3 weeks ago which has since resolved, currently reports diarrhea. No current bleeding and hemoglobin is wnl Denies ever having a colonoscopy in the past Given the location of the foreign body, it is unlikely that it will obstruct the bowel as it is beyond the ileocecal valve. Suspect that the foreign body should pass. Would recommend follow up repeat imaging as outpatient with a KUB in approximately one week to reevaluate for the presence of the foreign body Also recommend patient be referred for a colonoscopy on an outpatient bases to further evaluate his history of hematochezia History of Present Illness Consult date: 03/06/19 History of present illness: Patient is a 43-year-old male who was admitted to the hospital with a diabetic foot ulcer. Acute care surgery was consulted for an incidental finding of a metallic foreign body within the cecum on CT scan which is new since July 2018. During his hospital stay patient underwent treatment with IV antibiotics, debridement of the wound by podiatry, and was to be discharged to home. Prior to discharge patient complained of diarrhea as well as nausea and dry heaving and thus he underwent a CT abdomen and pelvis. CT scan was negative for any acute abnormalities, however an incidental finding of a subcentimeter metallic foreign body was identified within cecum. On interview with the patient today, he denies any recollection of swallowing metallic objects or inserting metallic objects into his rectum. He does state that he has some mild nausea, but denies any abdominal pain. His abdomen is soft and nontender. He does report a remote history of bright red blood per rectum approximately 3 weeks ago which self resolved. He denies any history of prior colonoscopies. Denies any history of colon cancer. Past Med Surg Social Fam HX - Past Medical History Medical history: arthritis, diabetes, hyperlipidemia, hypertension Additional medical history: Reece's gangrene Psychiatric history: anxiety, bipolar, depression, schizophrenia, previous psychiatric hospitalization, other - Past Surgical History Surgical History: orthopedic, other, other (Tonsillectomy adenoidectomy. Medical blindness left eye. Right index finger distal finger amputation.) Additional surgical history: "part of rectum removed", left shoulder repair - Social History Smoking Status: Current every day smoker Packs per day: 0.5 Smokeless Tobacco Status: No Alcohol use: none Drug use: none, marijuana - Family History Mother Family Member Ethnicity: Non- Living Status: Still Living Hx Family Cardiac Disorders: No Hx Family Respiratory Disorders: No Hx Family Cancer: Yes Hx Family GI Disorders: No Hx Family Endocrine Disorder: No Hx Family Neuromuscular Disorders: No Hx Family Neurologic Disorders: No Hx Family HEENT Disorders: No Hx Family Autoimmune Disorders: No Father Living Status: Hx Family Cardiac Disorders: Yes ([place]) Hx Family Respiratory Disorders: No Hx Family Cancer: No Hx Family GI Disorders: No Hx Family Endocrine Disorder: Yes ([place]) Hx Family Neuromuscular Disorders: No Hx Family Neurologic Disorders: No Hx Family HEENT Disorders: No Hx Family Autoimmune Disorders: No Medications and Allergies Metformin HCl 500 mg PO BID 03/01/19 [History] lamoTRIgine [Lamictal] 100 mg PO DAILY 03/01/19 [History] HYDROcodone/Acet 5/325 mg [[place] 5-325 mg] 1 tab PO Q6H PRN 6 Days #24 tablet 03/05/19 [Rx] Lactobacillus [Culturelle] 1 each PO BID 20 Days #40 cap.sprink 03/05/19 [Rx] Sulfamethoxazole/Trimeth DS [Bactrim Ds] 1 each PO BID 12 Days #24 tablet 03/05/19 [Rx] levoFLOXacin [Levaquin] 750 mg PO DAILY 12 Days #12 tablet 03/05/19 [Rx] Allergy/AdvReac Type Severity Reaction Status Date / Time Penicillins [PCN] Allergy Rash Verified 03/01/19 14:24 Review of Systems All systems PM: The remainder of the systems were reviewed and are negative - Constitutional no chills, no fever(s) - Cardiovascular no chest pain - Respiratory no dyspnea - Gastrointestinal nausea, no abdominal pain, no hematochezia, no melena - Genitourinary no dysuria - Integumentary lesions General Surgery Exam Initial Vital Signs Temp Pulse Resp BP Pulse Ox 98.2 F 94 18 163/91 99 03/01/19 03:54 03/01/19 03:54 03/01/19 03:54 03/01/19 03:54 03/01/19 03:54 - General physical appearance well developed, well nourished - Eyes PERRL, normal ocular movement - ENT normal pinna, normal nares - Neck trachea midline, no venous distension - Respiratory normal expansion, normal respiratory effort, clear to auscultation - Cardiovascular Cardiovascular exam: Present: RRR. Absent: murmurs - Abdomen Abdomen general surgery: Present: bowel sounds present, soft, non tender - Integumentary Integumentary general surgery: Present: warm and dry - Musculoskeletal Present: normal posture - Psychiatric Psychiatric general surgery: Present: A&Ox3, appropriate Exam Initial Vital Signs Temp Pulse Resp BP Pulse Ox 98.2 F 94 18 163/91 99 03/01/19 03:54 03/01/19 03:54 03/01/19 03:54 03/01/19 03:54 03/01/19 03:54 Results - Labs 03/05/19 06:28 03/05/19 06:28 Abnormal lab results Hgb 12.5 g/dL (12.9-16.9) L 03/03/19 05:11 Hct 37.0 % (37.5-50.1) L 03/03/19 05:11 ESR 68 mm/hr (0-10) H 03/01/19 05:24 Sodium 134 mEq/L (136-145) L 03/05/19 06:28 0.66 mg/dL (0.70-1.30) L 03/02/19 07:06 27 (6-26) H 03/05/19 06:28 Glucose 151 mg/dL (70-105) H 03/05/19 06:28 POC Glucose 191 mg/dL (70-99) H 03/05/19 20:17 8.3 % (-5.6) H 03/01/19 05:24 131 mg/L (Less than 10) H 03/01/19 05:24 3.9 g/dL (2.4-3.5) H 03/06/19 11:05 Diabetes panel 03/06/19 Range/Units 11:05 AST 14 (13-39) Units/L ALT 16 (7-52) Units/L Alkaline Phosphatase 81 (34-104) Units/L Albumin 4.5 (3.5-5.7) g/dL Calcium panel 03/06/19 Range/Units 11:05 Albumin 4.5 (3.5-5.7) g/dL Adrenal panel 03/06/19 Range/Units 11:05 Total Bilirubin 0.5 (0.3-1.0) mg/dL AST 14 (13-39) Units/L ALT 16 (7-52) Units/L Alkaline Phosphatase 81 (34-104) Units/L Albumin 4.5 (3.5-5.7) g/dL All other labs normal. Consult Discharge Plan - Plan Additional Instructions: Follow-up podiatry Dr. Bolivar in one week. Please make an appointment Referrals: Rosalba Cowan DO [Primary Care Provider] - Prescriptions: Sulfamethoxazole/Trimeth DS [Bactrim Ds] 1 each PO BID 12 Days #24 tablet Lactobacillus [Culturelle] 1 each PO BID 20 Days #40 cap.sprink levoFLOXacin [Levaquin] 750 mg PO DAILY 12 Days #12 tablet HYDROcodone/Acet 5/325 mg [[place] 5-325 mg] 1 tab PO Q6H PRN 6 Days #24 tablet PRN Reason: Moderate Pain <Tor Lindsey F - Last Filed: 03/06/19 15:18> Date of Encounter: 03/06/19 Review of Systems All systems PM: The remainder of the systems were reviewed and are negative General Surgery Exam Initial Vital Signs Temp Pulse Resp BP Pulse Ox 98.2 F 94 18 163/91 99 03/01/19 03:54 03/01/19 03:54 03/01/19 03:54 03/01/19 03:54 03/01/19 03:54 Exam Initial Vital Signs Temp Pulse Resp BP Pulse Ox 98.2 F 94 18 163/91 99 03/01/19 03:54 03/01/19 03:54 03/01/19 03:54 03/01/19 03:54 03/01/19 03:54 Results - Labs 03/05/19 06:28 03/05/19 06:28 Abnormal lab results Hgb 12.5 g/dL (12.9-16.9) L 03/03/19 05:11 Hct 37.0 % (37.5-50.1) L 03/03/19 05:11 ESR 68 mm/hr (0-10) H 03/01/19 05:24 Sodium 134 mEq/L (136-145) L 03/05/19 06:28 0.66 mg/dL (0.70-1.30) L 03/02/19 07:06 27 (6-26) H 03/05/19 06:28 Glucose 151 mg/dL (70-105) H 03/05/19 06:28 POC Glucose 191 mg/dL (70-99) H 03/05/19 20:17 8.3 % (-5.6) H 03/01/19 05:24 131 mg/L (Less than 10) H 03/01/19 05:24 3.9 g/dL (2.4-3.5) H 03/06/19 11:05 Diabetes panel 03/06/19 Range/Units 11:05 AST 14 (13-39) Units/L ALT 16 (7-52) Units/L Alkaline Phosphatase 81 (34-104) Units/L Albumin 4.5 (3.5-5.7) g/dL Calcium panel 03/06/19 Range/Units 11:05 Albumin 4.5 (3.5-5.7) g/dL Adrenal panel 03/06/19 Range/Units 11:05 Total Bilirubin 0.5 (0.3-1.0) mg/dL AST 14 (13-39) Units/L ALT 16 (7-52) Units/L Alkaline Phosphatase 81 (34-104) Units/L Albumin 4.5 (3.5-5.7) g/dL All other labs normal. - Attending Attestation I examined this patient and my medical decision-making was reviewed with the Resident Physician. I agree with the documented findings, disposition and treatment plan as described except to the extent set forth below.
--- NOTE | 2019-03-06 14:26 | Infectious Disease Progress No ---
ID Progress Note Date of Encounter: 03/06/19 Time of Encounter: 14:26 - Subjective Subjective: Patient seen and examined. No acute events noted overnight. Patient states he feels better, but continues to have nausea with dry heaves this morning. Denies fevers and chills. States appetite okay. Denies chest pain, shortness of breath, or cough. Reports bilateral toe pain improved. Denies oral thrush or skin rashes. - Objective CBC & Chem 7: 03/05/19 06:28 03/05/19 06:28 - Exam Vitals: Temp Pulse Resp BP Pulse Ox 98.6 F 84 18 104/72 94 03/06/19 11:14 03/06/19 11:14 03/06/19 11:14 03/06/19 11:14 03/06/19 11:14 Exam: Head: Atraumatic, normal inspection, normocephalic. Eye: EOMI, PERRLA, no scleral icterus noted. ENT: Mucous membranes moist. No odontogenic infection noted. Neck: Normal inspection, no meningismus. Respiratory: Clear to auscultation. No rales, respiratory distress, rhonchi, or wheezes noted. Cardiovascular: Regular rate and rhythm, S1 and S2 audible. No murmurs, rubs, or gallops. GI: Soft, nondistended, normal bowel sounds. Extremities:No joint swelling, pedal edema, or tenderness noted. Bilateral foot dressings C/d/I. Back: Normal inspection. No vertebral tenderness noted. Neurological: Alert, oriented 3, no focal deficits. Psychiatric: normal affect, normal mood. Skin: Dry, intact, warm. Normal color. No rashes. - Assessment and Plan (1) Cellulitis Current Visit: Yes Status: Acute Location: Bilateral great toes. Causative organism: Right: A. baumannii, E. faecalis, GGS, MRSA; Left: MRSA, Aerococcus, E. faecalis. X-rays and MRI of the left foot concerning for possible osteomyelitis. X-ray of the right foot negative for OM, but MRI concerning for early OM vs. reactive osteitis. ESR 68, CRP 131 Podiatry consulted and following. Discussed with Podiatry. Low index of suspicion for OM from their perspective. No operative intervention planned at this point. No SIRS criteria. Currently on oral Bactrim and Levaquin. Qualifiers: Site of cellulitis: extremity Site of cellulitis of extremity: lower extremity Laterality: unspecified laterality Qualified Code(s): L03.119 - Cellulitis of unspecified part of limb SNOMED Code(s): 643884378 (2) Osteomyelitis Current Visit: Yes Status: Ruled-out Suspected. Location: Bilateral great toes. MRI of the left foot shows abnormal bone marrow signal in the tip of the 1st toe concerning for early OM vs. reactive bone marrow edema. MRI of the right foot shows nonspecific marrow edema and enhancement in the distal phalanx of the right great toe concerning for early OM vs. reactive change. ESR and CRP elevated. Podiatry consulted. Discussed with the podiatry team. They reviewed the images and do not feel that the changes on the MRI are infectious and are not planning any bone biopsies or surgical debridements at this time. Qualifiers: Osteomyelitis type: other acute Osteomyelitis location: foot Laterality: left Qualified Code(s): M86.172 - Other acute osteomyelitis, left ankle and foot SNOMED Code(s): 07825002 (3) Diabetic foot ulcer Current Visit: Yes Status: Acute Location: Bilateral great toes and plantar left foot. Etiology: Unclear. Podiatry consulted. Status post bedside debridement of the plantar wound with cultures obtained. Qualifiers: Diabetic foot ulcer location: toe Diabetes mellitus type: other specified (including DONAVON) Laterality: unspecified laterality Non-pressure ulcer stage: unspecified non-pressure ulcer stage Qualified Code(s): E13.621 - Other specified diabetes mellitus with foot ulcer; L97.509 - Non-pressure chronic ulcer of other part of unspecified foot with unspecified severity SNOMED Code(s): 509650159 (4) Foreign body Current Visit: Yes Status: Acute CT abdomen and pelvis shows a subcentimeter foreign body in the cecum. Etiology unclear. ACS team consulted. Await recommendations. SNOMED Code(s): 423910744 (5) Diabetes mellitus Current Visit: Yes Status: Acute Uncontrolled. HgbA1C 8.3% Recommend aggressive glucose monitoring and control to promote wound healing and prevent re-infection. Management per the primary team. Qualifiers: Diabetes mellitus type: type 1 Diabetes mellitus complication status: with skin complications Diabetes mellitus complication detail: with foot ulcer Qualified Code(s): E10.621 - Type 1 diabetes mellitus with foot ulcer; L97.509 - Non-pressure chronic ulcer of other part of unspecified foot with unspecified severity SNOMED Code(s): 32015959 (6) Hyperlipidemia Current Visit: Yes Status: Acute SNOMED Code(s): 75866582 (7) Penicillin allergy Current Visit: Yes Status: Acute States he had a rash when he was a child. SNOMED Code(s): 36814742 - Recommendations Recommendations: Wound care recommendations from Podiatry. Consider PCN allergy testing. Foreign body management per the general surgery team. Continue bactrim DS 1 tab PO BID. Continue Levaquin 750mg PO daily. Duration of treatment depends on the clinical pictures, but likely a total of 14 days. Monitor renal function and for drug toxicity and dose-adjust antibiotics. Consult Discharge Plan - Plan Additional Instructions: Follow-up podiatry Dr. Bolivar in one week. Please make an appointment. KUB in one week. Follow up with PCP and surgery within one week. Follow-up appointments: If there is not an appointment listed below, please call your physician and schedule a follow-up appointment. If you have congestive heart failure and your symptoms return, make an appointment with your physician. Medication List: Carry an up to date list of medications you are taking at all time. We have given you an updated medication list including any new medications that you have been prescribed. Please provide that list to your primary provider Symptoms: If your condition changes or you experience any of the following symptoms, notify your physician immediately: Unusual or worsening pain, fever, persistent nausea and vomiting, bleeding, inc rease in swelling (especially in your legs), sudden weight gain, extreme dizziness, chest pain, increased drainage or redness from a wound or incision. Go to the emergency department if you experience a problem with breathing. Weights: If you have a history of swelling or shortness of breath, weigh yourself daily and notify your physician if you have a weight gain of two or more pounds in one day or 5 or more pounds in a week. If you experience any of the warning signs for stroke: Sudden numbness or weakness of the face, arm or leg; especially on one side of the body, sudden confusion, trouble speaking or understanding, sudden trouble seeing in one or both eyes, sudden trouble walking, dizziness, loss of balance or coordination, sudden sever headache with no cause; Call 911 or go to the emergency room. Stroke is a medical emergency. Some risk factors for stroke: Age, cigarette smoking, diabetes, excessive alcohol consumption, family history, high blood pressure, overweight, physical inactivity, prior stroke, heart attack, diagnosis of carotid artery stenosis or other artery disease. If you smoke, STOP: Smoking or tobacco use significantly increases your risk of heart and lung disease. Your chance of disease greatly increases if you continue to smoke. For more information, call the [place] tobacco quit line for smoking cessation 9-934-VHHL-NOW ( ) Referrals: Rosalba Cowan DO [Primary Care Provider] - Prescriptions: Sulfamethoxazole/Trimeth DS [Bactrim Ds] 1 each PO BID 12 Days #24 tablet Lactobacillus [Culturelle] 1 each PO BID 20 Days #40 cap.sprink levoFLOXacin [Levaquin] 750 mg PO DAILY 12 Days #12 tablet HYDROcodone/Acet 5/325 mg [[place] 5-325 mg] 1 tab PO Q6H PRN 6 Days #24 tablet PRN Reason: Moderate Pain Ondansetron HCl [Zofran] 4 mg PO Q6HR PRN 8 Days #32 tab PRN Reason: Nausea - Attending Attestation I have personally performed a face to face evaluation on this patient. I have reviewed and agree with the care plan. History and Exam by me shows: Assessment and plan: Questionable Cellulitis of the bilateral great toes with stage III ulcers with no surrounding fluctuance purulence or erythema Questionable osteomyelitis of the bilateral great toes. ESR 64 and CRP 131. MRI was really nonconclusive questionable osteomyelitis versus reactive bone marrow edema Diabetes mellitus type 2 poorly controlled Peripheral neuropathy Penicillin allergy patient had hives at age 9 Recommendations Await wound culture results. Wound care recommendations from Podiatry. Start Bactrim DS 1 tab PO BID. Start Levaquin 750mg PO daily. Duration of treatment depends on the clinical pictures, but likely a total of 14 days. Monitor renal function and for drug toxicity and dose-adjust antibiotics.
[2019-03-06 15:03] VITALS: BP 147/91
--- NOTE | 2019-03-06 15:59 | Internal Med Progress Note ---
Hospitalist Progress Note - Encounter Date of Encounter: 03/06/19 Time of Encounter: 09:00 - Subjective Interval History: Patient has nausea vomiting yesterday. Discharge was on hold. Patient has no further vomiting but still mild nausea today. No fever. Bilateral foot pain improved. Patient had abdominal CT today, no acute abnormalities except incidentally found subcentimeter mental foreign-body in cecum. Consider mild nausea possibly from medication. We will give zofran by mouth. Patient will DC home today. Patient will follow-up with surgery for the foreign-body. - Exam Vitals: Temp Pulse Resp BP Pulse Ox 98.6 F 96 18 147/91 96 03/06/19 15:00 03/06/19 15:00 03/06/19 15:00 03/06/19 15:00 03/06/19 15:00 Exam: Pt is AAO x 3, in NAD HEENT: NC/AT, PERRL Neck: Supple, no JVD, no LAD Lungs: CTA b/l Heart: S1S2, RRR Abd: Soft, nontender, BS present Ext: ROM wnl, no pedal edema, diabetic ulcer on bilateral foot Neuro: No focal deficit - Assessment and Plan (1) Diabetic foot ulcer Current Visit: Yes Status: Acute Assessment and Plan: Podiatry and ID consulted. Continue wound care. Continue by mouth Levaquin and Bactrim. (2) Diabetes mellitus Current Visit: Yes Status: Acute Assessment and Plan: Continue insulin sliding scale and monitor fingersticks (3) DVT prophylaxis Current Visit: Yes Status: Acute Assessment and Plan: heparin sc (4) Diarrhea Current Visit: No Status: Acute Assessment and Plan: No further diarrhea. Continue probiotics (5) Foreign body Current Visit: Yes Status: Acute Assessment and Plan: Incidentally found it abdominal CT. Surgical consult appreciated. Recommend repeat a KUB in one week. Patient will follow-up with surgery as outpatient. - Time Spent with Patient Total time spent is greater than 50% in coordination of care (as documented) at patient's floor/unit and/or counseling patient: 30 minutes 25 - 35 minutes Plan of Care Discussed with: patient Internal Medicine: Result - Labs CBC & Chem 7: 03/05/19 06:28 03/05/19 06:28 Labs: Liver Function 03/06/19 Range/Units 11:05 Total Bilirubin 0.5 (0.3-1.0) mg/dL Direct Bilirubin 0.1 (0.0-0.2) mg/dL AST 14 (13-39) Units/L ALT 16 (7-52) Units/L Alkaline Phosphatase 81 (34-104) Units/L Albumin 4.5 (3.5-5.7) g/dL - Impressions Impressions Abdomen/Pelvis CT 03/06/19 10:12 IMPRESSION: No acute abnormality identified. Subcentimeter metallic foreign body within the cecum, a new finding since prior imaging. Clinical correlation is recommended. Punctate left nephrolithiasis. Interval improved appearance of mesenteric congestion and mesenteric adenopathy. D/ / Stoney Ndiaye / Stoney Ndiaye Interpreting Provider: Stoney Ndiaye Consult Discharge Plan - Plan Additional Instructions: Follow-up podiatry Dr. Bolivar in one week. Please make an appointment Referrals: Rosalba Cowan DO [Primary Care Provider] - Prescriptions: Sulfamethoxazole/Trimeth DS [Bactrim Ds] 1 each PO BID 12 Days #24 tablet Lactobacillus [Culturelle] 1 each PO BID 20 Days #40 cap.sprink levoFLOXacin [Levaquin] 750 mg PO DAILY 12 Days #12 tablet HYDROcodone/Acet 5/325 mg [[place] 5-325 mg] 1 tab PO Q6H PRN 6 Days #24 tablet PRN Reason: Moderate Pain Ondansetron HCl [Zofran] 4 mg PO Q6HR PRN 8 Days #32 tab PRN Reason: Nausea (1) Diabetic foot ulcer Qualifiers: Diabetic foot ulcer location: toe Diabetes mellitus type: other specified (including DONAVON) Laterality: unspecified laterality Non-pressure ulcer stage: unspecified non-pressure ulcer stage Qualified Code(s): E13.621 - Other specified diabetes mellitus with foot ulcer; L97.509 - Non-pressure chronic ulcer of other part of unspecified foot with unspecified severity (2) Diabetes mellitus Qualifiers: Diabetes mellitus type: type 1 Diabetes mellitus complication status: with skin complications Diabetes mellitus complication detail: with foot ulcer Qualified Code(s): E10.621 - Type 1 diabetes mellitus with foot ulcer; L97.509 - Non-pressure chronic ulcer of other part of unspecified foot with unspecified severity (4) Diarrhea Qualifiers: Diarrhea type: unspecified type Qualified Code(s): R19.7 - Diarrhea, unspecified
== END 2019-03-06 17:20 | disposition home or self-care (01) | DRG 344 ==
LOC: 3NENU 03:51 → EMEROOARM 03:51 → 3NENU 06:47
PROVIDERS: ADMIT Internal Medicine; ATTEND Internal Medicine

== ENCOUNTER 2019-04-05 20:43 | Inpatient (IN) ==
[2019-04-05 21:48] LABS: Basophils # 0.1 K/mcL (0.0-0.2); Basophils % 1.1 %; Eosinophils # 0.1 K/mcL (0.0-0.6); Eosinophils % 1.4 %; Hematocrit 38.1 % (37.5-50.1); Hemoglobin 12.5 g/dL (12.9-16.9); Immature Granulocytes % 0.4 % (0-4); Lymphocytes % 12.2 %; Mean Corpuscular HGB Conc 32.8 g/dL (31.6-35.5); Mean Corpuscular Hemoglobin 27.5 pg (28.0-33.3); Mean Corpuscular Volume 83.7 fL (83.0-100.0); Mean Platelet Volume 9.8 fL (9.4-12.4); Monocytes # 0.6 K/mcL (0.0-1.3); Monocytes % 6.8 %; Neutrophils # 6.3 K/mcL (1.6-8.9); Platelet Count 282 K/mcL (140-400); Red Blood Count 4.55 M/mcL (4.19-5.50); Red Cell Distribution Width 12.6 % (11.5-14.5); Segmented Neutrophils % 78.1 %; White Blood Count 8.1 K/mcL (4.3-11.1)
[2019-04-05 22:08] LABS: Acetaminophen < 10 mcg/mL (10-20); BUN/Creatinine Ratio 19 (6-26); Blood Urea Nitrogen 17 mg/dL (6-20); Calcium 9.7 mg/dL (8.6-10.3); Carbon Dioxide 26 mEq/L (23-29); Chloride 99 mEq/L (98-107); Ethanol < 10 mg/dL (Less than 10); Glucose 295 mg/dL (70-105); Osmolality,Calculated 292 (280-300); Potassium 3.9 mEq/L (3.5-5.1); Salicylate < 2.5 mg/dL (15.0-30.0); Sodium 135 mEq/L (136-145); eGFR For African Americans > 60 (> 60); eGFR For Non-African Americans > 60 (> 60)
[2019-04-05 22:08] LABS: Bilirubin,Urine Negative (Negative); Blood,Urine Large (Negative); Clarity,Urine Clear (Clear); Color,Urine Yellow (Yellow); Glucose,Urine (UA) 500 mg/dL (Normal); Ketones,Urine Trace mg/dL (Negative); Leukocyte Esterase,Urine Negative (Negative); Nitrite,Urine Negative (Negative); PH,Urine 6.5 pH Units (5.0-8.0); Protein,Urine 100 mg/dL (Neg-Trace)
[2019-04-05 22:12] LABS: Bacteria,Urine None Seen per hpf (None-Few); Hyaline Casts,Urine None Seen per lpf (None-Few); RBC,Urine TNTC per hpf (0-3); Squamous Epithelial Cell,Urine None Seen per lpf (None-Few); WBC,Urine 0-3 per hpf (0-3)
[2019-04-05 22:20] LABS: Amphetamine Screen,Urine Negative ng/mL (Cutoff=1000); Barbiturate Screen,Urine Negative ng/mL (Cutoff=200); Benzodiazepines Screen,Urine Negative ng/mL (Cutoff=200); Cannabinoid Screen,Urine Positive ng/mL (Cutoff = 50); Cocaine Screen,Urine Negative ng/mL (Cutoff= 300); Opiate Screen,Urine Negative ng/mL (Cutoff=300); Phencyclidine Screen,Urine Negative ng/mL (Cutoff=25)
--- NOTE | 2019-04-05 22:51 | Emergency Department Note ---
Disposition Clinical Impression: Depression Disposition: Still a Patient Condition: Good Referrals: NONE,PCP [Primary Care Provider] - Forms: ED Satisfaction Letter Time of Disposition: 23:32 General Adult HPI - General Chief complaint: ED Psychiatric Symptoms Stated complaint: SI Time Seen by Provider: 04/05/19 21:02 Source: patient, EMS - History of Present Illness HPI Narrative: Patient 43-year-old gentleman who presents to the emergency department with chief complaint of depression. Patient states that he has had a lot of losses in his family and states that he feels extremely depressed. The patient states that he is worried that he may try to harm himself. The patient states currently he does not have a defined plan states has to try to harm himself by hanging. Patient states that he is currently not on any psychiatric medications the patient reports that is not improved or worsened by anything Pain Scale: 0 - Related Data Home Medications Medication Instructions Recorded Confirmed Metformin HCl 500 mg PO BID 03/01/19 03/01/19 lamoTRIgine [Lamictal] 100 mg PO DAILY 03/01/19 03/01/19 Allergies Allergy/AdvReac Type Severity Reaction Status Date / Time Penicillins [PCN] Allergy Rash Verified 04/05/19 12:01 All systems ED: reviewed and negative except as stated. Past Medical History - Past Medical History Attestation: Yes The following information was validated with the patient. Medical history: Reports: arthritis, diabetes, hyperlipidemia, hypertension Surgical history: Reports: orthopedic, other, other (Tonsillectomy adenoidectomy. Medical blindness left eye. Right index finger distal finger amputation.) Psychiatric history: Reports: anxiety, bipolar, depression, schizophrenia, previous psychiatric hospitalization, other - Social History Smoking Status: Current every day smoker Smokeless Tobacco Status: No Alcohol use: Reports: none Drug use: Reports: marijuana Physical Exam General: Conversant and pleasant interactive and nontoxic. Head: Normocephalic/atraumatic Eyes:PERRLA, EOMI, no conjunctivitis Nares: Without d/c. Ears: No erythema or d/c noted. Oralpharnyx: P&MMM noted, Neck: Supple, no JVD or STRE[employer] noted. Cardovascular: regular rate and rhythm without murmur, brisk capillary refill, no peripheral edema. Lungs: Clear to ascultation bilaterally, non-labored Abd: Soft nontender, Non Distended, no guarding, no rebound. : Defered Extremities: moves all extremities equally Neuro: AOx3, no obvious gross neuro deficit Psych: Depressed affect Derm: No rash noted - General General appearance: alert Course Course Narrative: Patient is been medically cleared for psychiatric evaluation currently are awaiting the results of 1 evaluation. I will be signing out care to the evening physician Vital Signs Temperature 99.3 F 04/05/19 20:52 Pulse Rate 101 04/05/19 20:52 Respiratory Rate 17 04/05/19 20:52 Blood Pressure 166/92 04/05/19 20:52 O2 Sat by Pulse Oximetry 99 04/05/19 20:52 Temperature 99.3 F 04/05/19 20:52 Pulse Rate 101 04/05/19 20:52 Respiratory Rate 17 04/05/19 20:52 Blood Pressure 166/92 04/05/19 20:52 O2 Sat by Pulse Oximetry 99 04/05/19 20:52 Oxygen Delivery Oxygen Delivery Room Air Medical Decision Making - Lab Data Result diagrams: 04/05/19 21:39 04/05/19 21:39 Lab Results 04/05/19 04/05/19 04/05/19 Range/Units 21:39 21:39 21:55 WBC 8.1 (4.3-11.1) K/mcL RBC 4.55 (4.19-5.50) M/mcL Hgb 12.5 L (12.9-16.9) g/dL Hct 38.1 (37.5-50.1) % MCV 83.7 (83.0-100.0) fL MCH 27.5 L (28.0-33.3) pg MCHC 32.8 (31.6-35.5) g/dL RDW 12.6 (11.5-14.5) % Plt Count 282 (140-400) K/mcL MPV 9.8 (9.4-12.4) fL Immature Gran % 0.4 (0-4) % Seg Neutrophils % 78.1 % Lymphocytes % 12.2 % Monocytes % 6.8 % Eosinophils % 1.4 % Basophils % 1.1 % Neutrophils # 6.3 (1.6-8.9) K/mcL Lymphocytes # 1.0 (0.6-4.6) K/mcL Monocytes # 0.6 (0.0-1.3) K/mcL Eosinophils # 0.1 (0.0-0.6) K/mcL Basophils # 0.1 (0.0-0.2) K/mcL Sodium 135 L (136-145) mEq/L Potassium 3.9 (3.5-5.1) mEq/L Chloride 99 (98-107) mEq/L Carbon Dioxide 26 (23-29) mEq/L BUN 17 (6-20) mg/dL Creatinine 0.89 (0.70-1.30) mg/dL Est GFR ( Amer) > 60 (> 60) Est GFR (Non-Af Amer) > 60 (> 60) BUN/Creatinine Ratio 19 (6-26) Glucose 295 H (70-105) mg/dL Calculated Osmolality 292 (280-300) Calcium 9.7 (8.6-10.3) mg/dL Urine Color Yellow (Yellow) Urine Clarity Clear (Clear) Urine pH 6.5 (5.0-8.0) pH Units Ur Specific [place] 1.020 (1.010-1.025) Urine Protein 100 H (Neg-Trace) mg/dL Urine Glucose (UA) 500 H (Normal) mg/dL Urine Ketones Trace H (Negative) mg/dL Urine Blood Large H (Negative) Urine Nitrite Negative (Negative) Urine Bilirubin Negative (Negative) Urine Urobilinogen 2.0 H (Normal) mg/dL Ur Leukocyte Esterase Negative (Negative) Urine Microscopic RBC TNTC H (0-3) per hpf Urine Microscopic WBC 0-3 (0-3) per hpf Ur Squamous Epith Cells None Seen (None-Few) per lpf Urine Bacteria None Seen (None-Few) per hpf Hyaline Casts None Seen (None-Few) per lpf Salicylates < 2.5 L (15.0-30.0) mg/dL Urine Opiates Screen (Pprmzx=027) ng/mL Acetaminophen < 10 L (10-20) mcg/mL Ur Barbiturates Screen (Dktwcw=056) ng/mL Ur Phencyclidine Scrn (Cutoff=25) ng/mL Ur Amphetamines Screen (Qbacal=3086) ng/mL U Benzodiazepines Scrn (Wbbauz=416) ng/mL Urine Cocaine Screen (Cutoff= 300) ng/mL U Marijuana (THC) Screen (Cutoff = 50) ng/mL Ur Drug Screen Interp Ethyl Alcohol < 10 (Less than 10) mg/dL 04/05/19 Range/Units 21:55 WBC (4.3-11.1) K/mcL RBC (4.19-5.50) M/mcL Hgb (12.9-16.9) g/dL Hct (37.5-50.1) % MCV (83.0-100.0) fL MCH (28.0-33.3) pg MCHC (31.6-35.5) g/dL RDW (11.5-14.5) % Plt Count (140-400) K/mcL MPV (9.4-12.4) fL Immature Gran % (0-4) % Seg Neutrophils % % Lymphocytes % % Monocytes % % Eosinophils % % Basophils % % Neutrophils # (1.6-8.9) K/mcL Lymphocytes # (0.6-4.6) K/mcL Monocytes # (0.0-1.3) K/mcL Eosinophils # (0.0-0.6) K/mcL Basophils # (0.0-0.2) K/mcL Sodium (136-145) mEq/L Potassium (3.5-5.1) mEq/L Chloride (98-107) mEq/L Carbon Dioxide (23-29) mEq/L BUN (6-20) mg/dL Creatinine (0.70-1.30) mg/dL Est GFR ( Amer) (> 60) Est GFR (Non-Af Amer) (> 60) BUN/Creatinine Ratio (6-26) Glucose (70-105) mg/dL Calculated Osmolality (280-300) Calcium (8.6-10.3) mg/dL Urine Color (Yellow) Urine Clarity (Clear) Urine pH (5.0-8.0) pH Units Ur Specific [place] (1.010-1.025) Urine Protein (Neg-Trace) mg/dL Urine Glucose (UA) (Normal) mg/dL Urine Ketones (Negative) mg/dL Urine Blood (Negative) Urine Nitrite (Negative) Urine Bilirubin (Negative) Urine Urobilinogen (Normal) mg/dL Ur Leukocyte Esterase (Negative) Urine Microscopic RBC (0-3) per hpf Urine Microscopic WBC (0-3) per hpf Ur Squamous Epith Cells (None-Few) per lpf Urine Bacteria (None-Few) per hpf Hyaline Casts (None-Few) per lpf Salicylates (15.0-30.0) mg/dL Urine Opiates Screen Negative (Nbxfux=953) ng/mL Acetaminophen (10-20) mcg/mL Ur Barbiturates Screen Negative (Enzszj=340) ng/mL Ur Phencyclidine Scrn Negative (Cutoff=25) ng/mL Ur Amphetamines Screen Negative (Tbohir=7936) ng/mL U Benzodiazepines Scrn Negative (Fnsmzt=280) ng/mL Urine Cocaine Screen Negative (Cutoff= 300) ng/mL U Marijuana (THC) Screen Positive H (Cutoff = 50) ng/mL Ur Drug Screen Interp See Below Ethyl Alcohol (Less than 10) mg/dL
--- NOTE | 2019-04-05 23:48 | Emergency Department Note ---
Disposition Clinical Impression: Depression Qualifiers: Depression Type: major depressive disorder Major depression recurrence: recurrent Active/Remission status: currently active Major depression episode severity: moderate Qualified Code(s): F33.1 - Major depressive disorder, recurrent, moderate Suicidal behavior Qualifiers: Attempted self-injury: without attempted self-injury Qualified Code(s): R46.89 - Other symptoms and signs involving appearance and behavior Disposition: Still a Patient Condition: Good Referrals: NONE,PCP [Primary Care Provider] - Forms: ED Satisfaction Letter Time of Disposition: 04:51 General Adult HPI - General Chief complaint: ED Psychiatric Symptoms Stated complaint: SI Time Seen by Provider: 04/05/19 21:02 Source: patient, EMS Nursing Notes Reviewed: Yes Vital Signs Reviewed: Yes - History of Present Illness Pain Scale: 0 - Related Data Home Medications Medication Instructions Recorded Confirmed Metformin HCl 500 mg PO BID 03/01/19 03/01/19 lamoTRIgine [Lamictal] 100 mg PO DAILY 03/01/19 03/01/19 Allergies Allergy/AdvReac Type Severity Reaction Status Date / Time Penicillins [PCN] Allergy Rash Verified 04/05/19 12:01 Past Medical History - Past Medical History Medical history: Reports: arthritis, diabetes, hyperlipidemia, hypertension Surgical history: Reports: orthopedic, other, other (Tonsillectomy adenoidectomy. Medical blindness left eye. Right index finger distal finger amputation.) Psychiatric history: Reports: anxiety, bipolar, depression, schizophrenia, previous psychiatric hospitalization, other - Social History Smoking Status: Current every day smoker Smokeless Tobacco Status: No Alcohol use: Reports: none Drug use: Reports: marijuana Physical Exam - General General appearance: alert, in no apparent distress Course - Reevaluation(s) Reevaluation #1: Patient signed out to my care by the departing the emergency medicine attending Dr. Janee Dale. Please see copy of his note for details of the history physical examination evaluation and management to the point of signout at 1548. Patient came in with chief complaint of suicidal ideation no plan and no access to lethal weapons. He was medically cleared patient is awaiting evaluation by mental health services. Disposition pending. Patient stable Time: 23:47 Reevaluation #2: When evaluated the patient is wondering about the condition of the patient's feet that he has some chronic ulcers and he is diabetic and his sugars about 250. I examined his feet he has chronic ulcerations no signs of acute discharge tenderness or tissue necrosis. Dressings will be applied. Patient will get subcutaneous insulin 10 units regular disposition per mental health service. Time: 00:16 Reevaluation #3: Patient was previously medically cleared patient was admitted to psychiatry here. They are going taken to a bed here shortly. He is in stable condition. Time: 04:51 Vital Signs Temperature 99.3 F 04/05/19 20:52 Pulse Rate 101 04/05/19 20:52 Respiratory Rate 17 04/05/19 20:52 Blood Pressure 166/92 04/05/19 20:52 O2 Sat by Pulse Oximetry 99 04/05/19 20:52 Temperature 99.3 F 04/05/19 20:52 Pulse Rate 101 04/05/19 20:52 Respiratory Rate 17 04/05/19 20:52 Blood Pressure 166/92 04/05/19 20:52 O2 Sat by Pulse Oximetry 99 04/05/19 20:52 Oxygen Delivery Oxygen Delivery Room Air Medical Decision Making - Lab Data Result diagrams: 04/05/19 21:39 04/05/19 21:39 Lab Results 04/05/19 04/05/19 04/05/19 Range/Units 21:39 21:39 21:55 WBC 8.1 (4.3-11.1) K/mcL RBC 4.55 (4.19-5.50) M/mcL Hgb 12.5 L (12.9-16.9) g/dL Hct 38.1 (37.5-50.1) % MCV 83.7 (83.0-100.0) fL MCH 27.5 L (28.0-33.3) pg MCHC 32.8 (31.6-35.5) g/dL RDW 12.6 (11.5-14.5) % Plt Count 282 (140-400) K/mcL MPV 9.8 (9.4-12.4) fL Immature Gran % 0.4 (0-4) % Seg Neutrophils % 78.1 % Lymphocytes % 12.2 % Monocytes % 6.8 % Eosinophils % 1.4 % Basophils % 1.1 % Neutrophils # 6.3 (1.6-8.9) K/mcL Lymphocytes # 1.0 (0.6-4.6) K/mcL Monocytes # 0.6 (0.0-1.3) K/mcL Eosinophils # 0.1 (0.0-0.6) K/mcL Basophils # 0.1 (0.0-0.2) K/mcL Sodium 135 L (136-145) mEq/L Potassium 3.9 (3.5-5.1) mEq/L Chloride 99 (98-107) mEq/L Carbon Dioxide 26 (23-29) mEq/L BUN 17 (6-20) mg/dL Creatinine 0.89 (0.70-1.30) mg/dL Est GFR ( Amer) > 60 (> 60) Est GFR (Non-Af Amer) > 60 (> 60) BUN/Creatinine Ratio 19 (6-26) Glucose 295 H (70-105) mg/dL Calculated Osmolality 292 (280-300) Calcium 9.7 (8.6-10.3) mg/dL Urine Color Yellow (Yellow) Urine Clarity Clear (Clear) Urine pH 6.5 (5.0-8.0) pH Units Ur Specific [place] 1.020 (1.010-1.025) Urine Protein 100 H (Neg-Trace) mg/dL Urine Glucose (UA) 500 H (Normal) mg/dL Urine Ketones Trace H (Negative) mg/dL Urine Blood Large H (Negative) Urine Nitrite Negative (Negative) Urine Bilirubin Negative (Negative) Urine Urobilinogen 2.0 H (Normal) mg/dL Ur Leukocyte Esterase Negative (Negative) Urine Microscopic RBC TNTC H (0-3) per hpf Urine Microscopic WBC 0-3 (0-3) per hpf Ur Squamous Epith Cells None Seen (None-Few) per lpf Urine Bacteria None Seen (None-Few) per hpf Hyaline Casts None Seen (None-Few) per lpf Salicylates < 2.5 L (15.0-30.0) mg/dL Urine Opiates Screen (Lsdkzw=687) ng/mL Acetaminophen < 10 L (10-20) mcg/mL Ur Barbiturates Screen (Hpyrch=945) ng/mL Ur Phencyclidine Scrn (Cutoff=25) ng/mL Ur Amphetamines Screen (Zpaiak=5925) ng/mL U Benzodiazepines Scrn (Iabmfq=026) ng/mL Urine Cocaine Screen (Cutoff= 300) ng/mL U Marijuana (THC) Screen (Cutoff = 50) ng/mL Ur Drug Screen Interp Ethyl Alcohol < 10 (Less than 10) mg/dL 04/05/19 Range/Units 21:55 WBC (4.3-11.1) K/mcL RBC (4.19-5.50) M/mcL Hgb (12.9-16.9) g/dL Hct (37.5-50.1) % MCV (83.0-100.0) fL MCH (28.0-33.3) pg MCHC (31.6-35.5) g/dL RDW (11.5-14.5) % Plt Count (140-400) K/mcL MPV (9.4-12.4) fL Immature Gran % (0-4) % Seg Neutrophils % % Lymphocytes % % Monocytes % % Eosinophils % % Basophils % % Neutrophils # (1.6-8.9) K/mcL Lymphocytes # (0.6-4.6) K/mcL Monocytes # (0.0-1.3) K/mcL Eosinophils # (0.0-0.6) K/mcL Basophils # (0.0-0.2) K/mcL Sodium (136-145) mEq/L Potassium (3.5-5.1) mEq/L Chloride (98-107) mEq/L Carbon Dioxide (23-29) mEq/L BUN (6-20) mg/dL Creatinine (0.70-1.30) mg/dL Est GFR ( Amer) (> 60) Est GFR (Non-Af Amer) (> 60) BUN/Creatinine Ratio (6-26) Glucose (70-105) mg/dL Calculated Osmolality (280-300) Calcium (8.6-10.3) mg/dL Urine Color (Yellow) Urine Clarity (Clear) Urine pH (5.0-8.0) pH Units Ur Specific [place] (1.010-1.025) Urine Protein (Neg-Trace) mg/dL Urine Glucose (UA) (Normal) mg/dL Urine Ketones (Negative) mg/dL Urine Blood (Negative) Urine Nitrite (Negative) Urine Bilirubin (Negative) Urine Urobilinogen (Normal) mg/dL Ur Leukocyte Esterase (Negative) Urine Microscopic RBC (0-3) per hpf Urine Microscopic WBC (0-3) per hpf Ur Squamous Epith Cells (None-Few) per lpf Urine Bacteria (None-Few) per hpf Hyaline Casts (None-Few) per lpf Salicylates (15.0-30.0) mg/dL Urine Opiates Screen Negative (Fsnsvy=970) ng/mL Acetaminophen (10-20) mcg/mL Ur Barbiturates Screen Negative (Whfijs=947) ng/mL Ur Phencyclidine Scrn Negative (Cutoff=25) ng/mL Ur Amphetamines Screen Negative (Vxkrrq=0712) ng/mL U Benzodiazepines Scrn Negative (Eburhn=703) ng/mL Urine Cocaine Screen Negative (Cutoff= 300) ng/mL U Marijuana (THC) Screen Positive H (Cutoff = 50) ng/mL Ur Drug Screen Interp See Below Ethyl Alcohol (Less than 10) mg/dL
[2019-04-06] MEDS ORDERED: Insulin Regular, Human 100 UNIT/ML SQ STA (00:17)
[2019-04-06] MEDS ORDERED: Dextrose Gel 15 GM/37.5 ML TUBE PO PRN ×2 (06:06)
[2019-04-06] MEDS ORDERED: MOM Conc 10 ML UD.LIQ PO PRN (06:08)
[2019-04-06] MEDS ORDERED: *HR* LORazepam 1 MG TABLET PO PRN (06:08)
[2019-04-06] MEDS ORDERED: Haloperidol Lactate 5 MG/ML VIAL IM PRN (06:08)
[2019-04-06] MEDS ORDERED: hydrOXYzine pamoate 25 MG CAPSULE PO PRN (06:08)
[2019-04-06] MEDS ORDERED: Mag Hydrox/Al Hydrox/Simeth 30 ML UDC PO PRN (06:08)
[2019-04-06] MEDS ORDERED: *HR* LORazepam 2 MG/ML VIAL IM PRN (06:08)
[2019-04-06] MEDS ORDERED: Ibuprofen 400 MG TABLET PO PRN (06:08)
[2019-04-06] MEDS ORDERED: traZODone 50 MG TABLET PO PRN (06:08)
--- NOTE | 2019-04-06 08:06 | Psychiatry History & Physical ---
Date of Encounter: 04/06/19 Time of Encounter: 07:45 History of Present Illness Patient Stated Chief Complaint: "I want to " Medicare Admission Attestation: For traditional Medicare patients the provided hospital inpatient services are reasonable and necessary and in the case of services not specified as inpatient-only under 42 CFR 419.22 (n), that they are appropriately provided as inpatient services in accordance 42 CFR 412.3. For Critical Access Hospital the patient may reasonably be expected to be discharged or transferred to a hospital within 96 hours after admission to the Critical Access Hospital. Admitted From: Emergency Dept Plans for Post Hospital Care: Home History of Present Illness: Mr. Alexander is a 43 year old male who presented to the emergency department with chief complaint of depression. Patient states that he has had a lot of losses in his family and states that he feels extremely depressed. He original was brought in by luiz after mom had him probated but at that time contracted for safety. The patient now states that he is worried that he may try to harm himself. He has a plan to OD and says he would carry it out if not in the hos pital. Per ER: He has multiple open wounds in the bases the feet as well as the great toes. He is followed up with podiatry and was last seen at the end of January. He does not show any acute signs of infection to the skin but it is chronic demarcation with blanching and widening to the skin consistent with significant moisture exposure. Concern is noted for transport. Patient does not require antibiotics at this time. Patient is otherwise stable. Podiatry was contacted and Dr. Mata reviewed the case with me. Patient's ESR is elevated but no visible signs of osteomyelitis on imaging. He agreed the patient is most likely stable for outpatient evaluation. Psychiatric evaluation will be completed this time. This morning, he says he continues to feel very depressed. He said he has been depressed since his 1-1/2-year-old daughter who was born to an addicted mother with multiple deficits . He said he has had numerous losses within the last 2 years in addition to his daughter including his father grandmother and aunt. He said he has been crying all the time. He says that he does not feel like going on. He says that he has suicidal plans to jump off a bridge and the only thing that has stopped him is his 17-year-old daughter. He reports sad mood, decreased interest, feelings of guilt and worthlessness, low energy, impaired sleep, and decreased appetite. He reports periods of wes in the past including elevated irritable mood not sleeping, grandiosity, racing thoughts, increased rate of speech. He denies current or past psychotic symptoms such as auditory or visual hallucinations. He reports some anxiety related to the health and well-being of his other children. Past Med Surg Social Fam HX - Past Medical History Medical history: arthritis, diabetes, hyperlipidemia, hypertension, other (He has a current wound on his foot and has a history of MRSA infections) - Past Psychiatric History Psychiatric history: Reports: bipolar, prior suicide attempt, previous psychiatric hospitalization Past psychiatric history details: He says he has previously been diagnosed with bipolar disorder. He was receiving services through [facility] but stopped going there in January. He was at [facility] in 2016. He says he was on Lamictal 100 mg in the morning when he was at [facility] but did not find this to be particularly helpful. He has also been tried on Zoloft in the past which caused him to have worsening manic symptoms. He reports he has tried to hurt himself in the past by overdose. Family psychiatric history: Yes Family Psychiatric History Details: He said his father had schizophrenia Family History of Suicide: None - Past Surgical History Surgical History: orthopedic, other, other (Tonsillectomy adenoidectomy. Medical blindness left eye. Right index finger distal finger amputation.) - Social History Smoking Status: Current every day smoker Smokeless Tobacco Status: No Alcohol use: none Drug use: marijuana Occupational status: unemployed Current living situation: Homeless Activity Level: Independent ambulation Recent Out of Country Travel Within the Last 8 Weeks: No Exposure or Possible Exposure to Illness During Travel: No Additional social history: He is currently homeless. He mostly lives on the [address] but sometimes friends will take him in. He does not have Social Security or other benefits. He has a 20-year-old, 18-year-old, and 17-year-old children who live with their biological mother. He recently lost a 1-1/2-year-old daughter. - Family History Mother Adopted: No Age: 72 Family Member Ethnicity: Non- Living Status: Still Living Hx Family Cardiac Disorders: No Hx Family Respiratory Disorders: No Hx Family Cancer: Yes (Back cancer, Her father had prostate cancer) Hx Family GI Disorders: No Hx Family Genitourinary Disorders: No Hx Family Endocrine Disorder: No Hx Family Musculoskeletal Disorders: No Hx Family Neuromuscular Disorders: No Hx Family Neurologic Disorders: No Hx Family HEENT Disorders: No Hx Family Autoimmune Disorders: No Hx Family Reproductive Disorders: No Hx Family Psychosocial Disorders: No Hx Family Medical Disorders: No Father History Unknown: Yes Living Status: Hx Family Cardiac Disorders: Yes (NM) Hx Family Respiratory Disorders: No Hx Family Cancer: No Hx Family GI Disorders: No Hx Family Endocrine Disorder: Yes (DM) Hx Family Neuromuscular Disorders: No Hx Family Neurologic Disorders: No Hx Family HEENT Disorders: No Hx Family Autoimmune Disorders: No Medications & Allergies Metformin HCl 500 mg PO BID 03/01/19 [History] lamoTRIgine [Lamictal] 100 mg PO DAILY 03/01/19 [History] Allergy/AdvReac Type Severity Reaction Status Date / Time Penicillins [PCN] Allergy Rash Verified 04/05/19 12:01 Review of Systems Constitutional: Reports: weakness Eyes: Reports: other (Blind in one eye) Ears, Nose, Throat: Denies: ear pain Cardiovascular: Reports: chest pain (Chronic off-and-on) Respiratory: Denies: cough Gastrointestinal: Denies: abdominal pain Genitourinary male: Denies: urgency Musculoskeletal: Reports: joint pain, myalgia Integumentary: Reports: other (Open wound on toe) Neurological: Reports: weakness Psychiatric: Reports: depression, anxiety, abnormal sleep pattern, suicidal ideation, anhedonia, hopelessness Endocrine: Reports: fatigue Hematologic/Lymphatic: Denies: easy bleeding Allergic/Immunologic: Denies: facial swelling Exam - HEENT Head exam IM: Present: normal inspection Eye exam IM: Present: normal appearance ENT exam IM: Present: mucous membranes moist - Neurological Neurological exam: Present: CN II-XII intact (Grossly) - Respiratory Respiratory exam IM: Absent: respiratory distress - GI/Abdominal GI/Abdominal exam IM: Present: no peritoneal signs - Extremities Extremities exam IM: Present: full ROM. Absent: normal inspection (Open wound on great toe) - Skin Skin exam IM: Present: abrasion - Constitutional Vitals: Temp Pulse Resp BP Pulse Ox 97.6 F 98 18 109/74 98 04/06/19 05:46 04/06/19 05:46 06/13/19 05:46 04/06/19 05:46 04/06/19 05:46 General appearance: disheveled, malodorous - Musculoskeletal Gait: slow Station: stooped Strength & Tone: mild weakness - Psychiatric Patient Orientation: Yes Person, Yes Time, Yes Place Level of alertness: Alert Behavior: tearful Psychomotor activity: Slowed Eye Contact: Minimal Contact Mood Description: Depressed Patient description of mood: Terrible Affect description: dysphoric Speech Volume: Soft/Quiet Speech pattern: slowed, mumbled Language & Vocabulary: limited Thought Process: Perseveration Thought Content: Yes Suicidal ideation Perceptual Disturbances: No Auditory hallucinations, No Visual hallucinations Attention Span Ability: Capable of Focused Attention, Capable of Sustained Attention Memory Description: Grossly Intact, Immediate Intact, Recent Intact, Remote Intact Patient Reliability: Reliable Historian Fund of knowledge: Yes average Intelligence Estimate: Average Judgment: Poor Insight: None Results - Drug Levels and Toxicology Drug Levels and Toxicology: Drug Levels and Toxicity 04/05/19 04/05/19 21:39 21:55 Urine Opiates Screen Negative Acetaminophen < 10 L Ur Barbiturates Screen Negative Ur Phencyclidine Scrn Negative Ur Amphetamines Screen Negative U Benzodiazepines Scrn Negative Urine Cocaine Screen Negative U Marijuana (THC) Screen Positive H Ethyl Alcohol < 10 Lab Results 04/05/19 04/05/19 04/05/19 Range/Units 21:39 21:39 21:55 WBC 8.1 (4.3-11.1) K/mcL RBC 4.55 (4.19-5.50) M/mcL Hgb 12.5 L (12.9-16.9) g/dL Hct 38.1 (37.5-50.1) % MCV 83.7 (83.0-100.0) fL MCH 27.5 L (28.0-33.3) pg MCHC 32.8 (31.6-35.5) g/dL RDW 12.6 (11.5-14.5) % Plt Count 282 (140-400) K/mcL MPV 9.8 (9.4-12.4) fL Immature Gran % 0.4 (0-4) % Seg Neutrophils % 78.1 % Lymphocytes % 12.2 % Monocytes % 6.8 % Eosinophils % 1.4 % Basophils % 1.1 % Neutrophils # 6.3 (1.6-8.9) K/mcL Lymphocytes # 1.0 (0.6-4.6) K/mcL Monocytes # 0.6 (0.0-1.3) K/mcL Eosinophils # 0.1 (0.0-0.6) K/mcL Basophils # 0.1 (0.0-0.2) K/mcL Sodium 135 L (136-145) mEq/L Potassium 3.9 (3.5-5.1) mEq/L Chloride 99 (98-107) mEq/L Carbon Dioxide 26 (23-29) mEq/L BUN 17 (6-20) mg/dL Creatinine 0.89 (0.70-1.30) mg/dL Est GFR ( Amer) > 60 (> 60) Est GFR (Non-Af Amer) > 60 (> 60) BUN/Creatinine Ratio 19 (6-26) Glucose 295 H (70-105) mg/dL POC Glucose (70-99) mg/dL Calculated Osmolality 292 (280-300) Calcium 9.7 (8.6-10.3) mg/dL Urine Color Yellow (Yellow) Urine Clarity Clear (Clear) Urine pH 6.5 (5.0-8.0) pH Units Ur Specific Orr 1.020 (1.010-1.025) Urine Protein 100 H (Neg-Trace) mg/dL Urine Glucose (UA) 500 H (Normal) mg/dL Urine Ketones Trace H (Negative) mg/dL Urine Blood Large H (Negative) Urine Nitrite Negative (Negative) Urine Bilirubin Negative (Negative) Urine Urobilinogen 2.0 H (Normal) mg/dL Ur Leukocyte Esterase Negative (Negative) Urine Microscopic RBC TNTC H (0-3) per hpf Urine Microscopic WBC 0-3 (0-3) per hpf Ur Squamous Epith Cells None Seen (None-Few) per lpf Urine Bacteria None Seen (None-Few) per hpf Hyaline Casts None Seen (None-Few) per lpf Salicylates < 2.5 L (15.0-30.0) mg/dL Urine Opiates Screen (Sfvyav=199) ng/mL Acetaminophen < 10 L (10-20) mcg/mL Ur Barbiturates Screen (Tpgbah=114) ng/mL Ur Phencyclidine Scrn (Cutoff=25) ng/mL Ur Amphetamines Screen (Btwkwn=9547) ng/mL U Benzodiazepines Scrn (Fjgscr=309) ng/mL Urine Cocaine Screen (Cutoff= 300) ng/mL U Marijuana (THC) Screen (Cutoff = 50) ng/mL Ur Drug Screen Interp Ethyl Alcohol < 10 (Less than 10) mg/dL 04/05/19 04/06/19 04/06/19 Range/Units 21:55 01:37 02:30 WBC (4.3-11.1) K/mcL RBC (4.19-5.50) M/mcL Hgb (12.9-16.9) g/dL Hct (37.5-50.1) % MCV (83.0-100.0) fL MCH (28.0-33.3) pg MCHC (31.6-35.5) g/dL RDW (11.5-14.5) % Plt Count (140-400) K/mcL MPV (9.4-12.4) fL Immature Gran % (0-4) % Seg Neutrophils % % Lymphocytes % % Monocytes % % Eosinophils % % Basophils % % Neutrophils # (1.6-8.9) K/mcL Lymphocytes # (0.6-4.6) K/mcL Monocytes # (0.0-1.3) K/mcL Eosinophils # (0.0-0.6) K/mcL Basophils # (0.0-0.2) K/mcL Sodium (136-145) mEq/L Potassium (3.5-5.1) mEq/L Chloride (98-107) mEq/L Carbon Dioxide (23-29) mEq/L BUN (6-20) mg/dL Creatinine (0.70-1.30) mg/dL Est GFR ( Amer) (> 60) Est GFR (Non-Af Amer) (> 60) BUN/Creatinine Ratio (6-26) Glucose (70-105) mg/dL POC Glucose 335 H 250 H (70-99) mg/dL Calculated Osmolality (280-300) Calcium (8.6-10.3) mg/dL Urine Color (Yellow) Urine Clarity (Clear) Urine pH (5.0-8.0) pH Units Ur Specific Orr (1.010-1.025) Urine Protein (Neg-Trace) mg/dL Urine Glucose (UA) (Normal) mg/dL Urine Ketones (Negative) mg/dL Urine Blood (Negative) Urine Nitrite (Negative) Urine Bilirubin (Negative) Urine Urobilinogen (Normal) mg/dL Ur Leukocyte Esterase (Negative) Urine Microscopic RBC (0-3) per hpf Urine Microscopic WBC (0-3) per hpf Ur Squamous Epith Cells (None-Few) per lpf Urine Bacteria (None-Few) per hpf Hyaline Casts (None-Few) per lpf Salicylates (15.0-30.0) mg/dL Urine Opiates Screen Negative (Lkqrad=126) ng/mL Acetaminophen (10-20) mcg/mL Ur Barbiturates Screen Negative (Wkjjrw=411) ng/mL Ur Phencyclidine Scrn Negative (Cutoff=25) ng/mL Ur Amphetamines Screen Negative (Jboedg=3717) ng/mL U Benzodiazepines Scrn Negative (Lwlvgp=936) ng/mL Urine Cocaine Screen Negative (Cutoff= 300) ng/mL U Marijuana (THC) Screen Positive H (Cutoff = 50) ng/mL Ur Drug Screen Interp See Below Ethyl Alcohol (Less than 10) mg/dL 04/06/19 04/06/19 Range/Units 06:05 07:55 WBC (4.3-11.1) K/mcL RBC (4.19-5.50) M/mcL Hgb (12.9-16.9) g/dL Hct (37.5-50.1) % MCV (83.0-100.0) fL MCH (28.0-33.3) pg MCHC (31.6-35.5) g/dL RDW (11.5-14.5) % Plt Count (140-400) K/mcL MPV (9.4-12.4) fL Immature Gran % (0-4) % Seg Neutrophils % % Lymphocytes % % Monocytes % % Eosinophils % % Basophils % % Neutrophils # (1.6-8.9) K/mcL Lymphocytes # (0.6-4.6) K/mcL Monocytes # (0.0-1.3) K/mcL Eosinophils # (0.0-0.6) K/mcL Basophils # (0.0-0.2) K/mcL Sodium (136-145) mEq/L Potassium (3.5-5.1) mEq/L Chloride (98-107) mEq/L Carbon Dioxide (23-29) mEq/L BUN (6-20) mg/dL Creatinine (0.70-1.30) mg/dL Est GFR ( Amer) (> 60) Est GFR (Non-Af Amer) (> 60) BUN/Creatinine Ratio (6-26) Glucose (70-105) mg/dL POC Glucose 141 H 244 H (70-99) mg/dL Calculated Osmolality (280-300) Calcium (8.6-10.3) mg/dL Urine Color (Yellow) Urine Clarity (Clear) Urine pH (5.0-8.0) pH Units Ur Specific Orr (1.010-1.025) Urine Protein (Neg-Trace) mg/dL Urine Glucose (UA) (Normal) mg/dL Urine Ketones (Negative) mg/dL Urine Blood (Negative) Urine Nitrite (Negative) Urine Bilirubin (Negative) Urine Urobilinogen (Normal) mg/dL Ur Leukocyte Esterase (Negative) Urine Microscopic RBC (0-3) per hpf Urine Microscopic WBC (0-3) per hpf Ur Squamous Epith Cells (None-Few) per lpf Urine Bacteria (None-Few) per hpf Hyaline Casts (None-Few) per lpf Salicylates (15.0-30.0) mg/dL Urine Opiates Screen (Njokzu=182) ng/mL Acetaminophen (10-20) mcg/mL Ur Barbiturates Screen (Xedipn=180) ng/mL Ur Phencyclidine Scrn (Cutoff=25) ng/mL Ur Amphetamines Screen (Epwera=2672) ng/mL U Benzodiazepines Scrn (Pqdobu=137) ng/mL Urine Cocaine Screen (Cutoff= 300) ng/mL U Marijuana (THC) Screen (Cutoff = 50) ng/mL Ur Drug Screen Interp Ethyl Alcohol (Less than 10) mg/dL - Labs Labs: Laboratory Last Values WBC 8.1 K/mcL (4.3-11.1) 04/05/19 21:39 RBC 4.55 M/mcL (4.19-5.50) 04/05/19 21:39 Hgb 12.5 g/dL (12.9-16.9) L 04/05/19 21:39 Hct 38.1 % (37.5-50.1) 04/05/19 21:39 MCV 83.7 fL (83.0-100.0) 04/05/19 21:39 MCH 27.5 pg (28.0-33.3) L 04/05/19 21:39 MCHC 32.8 g/dL (31.6-35.5) 04/05/19 21:39 RDW 12.6 % (11.5-14.5) 04/05/19 21:39 Plt Count 282 K/mcL (140-400) 04/05/19 21:39 MPV 9.8 fL (9.4-12.4) 04/05/19 21:39 Immature Gran % 0.4 % (0-4) 04/05/19 21:39 Seg Neutrophils % 78.1 % 04/05/19 21:39 12.2 % 04/05/19 21:39 6.8 % 04/05/19 21:39 1.4 % 04/05/19 21:39 1.1 % 04/05/19 21:39 6.3 K/mcL (1.6-8.9) 04/05/19 21:39 1.0 K/mcL (0.6-4.6) 04/05/19 21:39 0.6 K/mcL (0.0-1.3) 04/05/19 21:39 0.1 K/mcL (0.0-0.6) 04/05/19 21:39 0.1 K/mcL (0.0-0.2) 04/05/19 21:39 Sodium 135 mEq/L (136-145) L 04/05/19 21:39 Potassium 3.9 mEq/L (3.5-5.1) 04/05/19 21:39 Chloride 99 mEq/L (98-107) 04/05/19 21:39 Carbon Dioxide 26 mEq/L (23-29) 04/05/19 21:39 BUN 17 mg/dL (6-20) 04/05/19 21:39 0.89 mg/dL (0.70-1.30) 04/05/19 21:39 Est GFR ( Amer) > 60 (> 60) 04/05/19 21:39 Est GFR (Non-Af Amer) > 60 (> 60) 04/05/19 21:39 19 (6-26) 04/05/19 21:39 Glucose 295 mg/dL (70-105) H 04/05/19 21:39 POC Glucose 141 mg/dL (70-99) H 04/06/19 06:05 292 (280-300) 04/05/19 21:39 Calcium 9.7 mg/dL (8.6-10.3) 04/05/19 21:39 Yellow (Yellow) 04/05/19 21:55 Clear (Clear) 04/05/19 21:55 6.5 pH Units (5.0-8.0) 04/05/19 21:55 Ur Specific Orr 1.020 (1.010-1.025) 04/05/19 21:55 100 mg/dL (Neg-Trace) H 04/05/19 21:55 500 mg/dL (Normal) H 04/05/19 21:55 Trace mg/dL (Negative) H 04/05/19 21:55 Large (Negative) H 04/05/19 21:55 Negative (Negative) 04/05/19 21:55 Negative (Negative) 04/05/19 21:55 2.0 mg/dL (Normal) H 04/05/19 21:55 Ur Leukocyte Esterase Negative (Negative) 04/05/19 21:55 TNTC per hpf (0-3) H 04/05/19 21:55 0-3 per hpf (0-3) 04/05/19 21:55 Ur Squamous Epith Cells None Seen per lpf (None-Few) 04/05/19 21:55 None Seen per hpf (None-Few) 04/05/19 21:55 Hyaline Casts None Seen per lpf (None-Few) 04/05/19 21:55 Salicylates < 2.5 mg/dL (15.0-30.0) L 04/05/19 21:39 Negative ng/mL (Scxadt=861) 04/05/19 21:55 Acetaminophen < 10 mcg/mL (10-20) L 04/05/19 21:39 Ur Barbiturates Screen Negative ng/mL (Nclrkf=221) 04/05/19 21:55 Ur Phencyclidine Scrn Negative ng/mL (Cutoff=25) 04/05/19 21:55 Ur Amphetamines Screen Negative ng/mL (Zpxvya=3642) 04/05/19 21:55 U Benzodiazepines Scrn Negative ng/mL (Dqmjlv=872) 04/05/19 21:55 Negative ng/mL (Cutoff= 300) 04/05/19 21:55 U Marijuana (THC) Screen Positive ng/mL (Cutoff = 50) H 04/05/19 21:55 Ur Drug Screen Interp See Below 04/05/19 21:55 Ethyl Alcohol < 10 mg/dL (Less than 10) 04/05/19 21:39 Assessment and Plan (1) Bipolar 2 disorder, major depressive episode Current visit: Yes Status: Acute Plan: Admit inpatient for safety and stabilization, Close observation, Suicide Precautions per unit protocol, Encourage participation in unit milieu, Group Therapy, Monitor sleep, Monitor appetite Additional Plan: Start Abilify 5 mg by mouth every morning for mood stabilization and antidepressant effects. Start trazodone 100 mg daily at bedtime for insomnia. Consult wound care nurse for foot wound and possible infection. He is on sliding scale insulin and his metformin has been restarted. Reviewed Interval hx Review any current labs Pt had an opportunity to ask questions and discuss current treatment plan. Supportive therapy was provided Pt encouraged to consider group or individual therapy Pt was in agreement with treatment plan. Pt was educated on the risks benefits and side effects of current medications and alternatives as well as the risks and benefits of no medication. AIMS = 0 lipids and hgba1c Risks, benefits, side effects, alternatives discussed w/pt: Yes Patient agreeable to treatment: Yes Plans for Post Hospital Care: Home Estimated Length of Stay (Days): 5
[2019-04-06] MEDS: Insulin LISPRO 300 UNITS/3 ML VIAL SQ SCH ×4 (08:10→21:17)
[2019-04-06] MEDS: *HR* Metformin 500 MG TABLET PO SCH ×2 (09:30→16:56)
[2019-04-06 10:19] LABS: Estimated Average Glucose 209 mg/dl
[2019-04-06 10:34] LABS: Chol/HDL Ratio 3.2 (0-4.9)
[2019-04-06 10:47] LABS: Thyroid Stimulating Hormone 0.735 mcIU/mL (0.340-5.600)
[2019-04-06] MEDS: ARIPiprazole 5 MG TABLET PO SCH (10:55)
[2019-04-06] MEDS ORDERED: Gentamicin Oint 15 GM TUBE TP SCH ×2 (15:15→21:00)
[2019-04-06] MEDS: traZODone 50 MG TABLET PO SCH (21:15)
[2019-04-07] MEDS: Insulin LISPRO 300 UNITS/3 ML VIAL SQ SCH ×4 (08:04→21:15)
[2019-04-07] MEDS: *HR* Metformin 500 MG TABLET PO SCH ×2 (08:30→16:44)
[2019-04-07] MEDS: ARIPiprazole 5 MG TABLET PO SCH (08:30)
--- NOTE | 2019-04-07 09:22 | Psychiatry Progress Note ---
Date of Encounter: 04/07/19 Time of Encounter: 08:15 Subjective Interval history: Patient reports he is not feeling well today. He reports that he is feeling nauseous and very fatigued. He said he spent most of yesterday sleeping. He says he is very depressed and hopeless and wishes that he had jumped off a bridge instead of coming in as the pain is too much to bear. He was seen yesterday by the wound care nurse and his dressings are to be changed twice a day. He was started on antibiotics. Insulin coverage for his blood sugars. Which may be contributing to his physical feelings of illness. Review of Systems Constitutional: Reports: weakness Gastrointestinal: Reports: nausea Psychiatric: Reports: depression, anxiety, abnormal sleep pattern, suicidal ideation, anhedonia, hopelessness Endocrine: Reports: fatigue Results - Vital Signs Vital Signs: Temp Pulse Resp BP Pulse Ox 98.2 F 88 18 145/78 96 04/06/19 20:38 04/06/19 20:38 04/06/19 20:38 04/06/19 20:38 04/06/19 20:38 - Labs Labs: Laboratory Results - last 24 hr 04/06/19 04/06/19 04/06/19 03:34 10:00 10:00 POC Glucose 127 H Est Mean Plasma Glucose 209 Hemoglobin A1c 8.9 H Triglycerides 58 Cholesterol 152 LDL Cholesterol, Calc 92 VLDL Cholesterol, Calc 12 HDL Cholesterol 48 Cholesterol/HDL Ratio 3.2 TSH 0.735 04/06/19 04/06/19 04/06/19 11:49 16:46 21:13 POC Glucose 251 H 141 H 142 H Est Mean Plasma Glucose Hemoglobin A1c Triglycerides Cholesterol LDL Cholesterol, Calc VLDL Cholesterol, Calc HDL Cholesterol Cholesterol/HDL Ratio TSH 04/07/19 08:01 POC Glucose 194 H Est Mean Plasma Glucose Hemoglobin A1c Triglycerides Cholesterol LDL Cholesterol, Calc VLDL Cholesterol, Calc HDL Cholesterol Cholesterol/HDL Ratio TSH Assessment and Plan (1) Bipolar 2 disorder, major depressive episode Current visit: Yes Status: Acute Plan: Continue hospitalization, Close observation, Suicide Precautions per unit protocol, Encourage participation in unit milieu, Group Therapy, Monitor sleep, Monitor appetite Additional Plan: Continue current medications. Consider increase Abilify in the next day or 2. Encourage group attendance. Monitor physical health. Risks, benefits, side effects, alternatives discussed w/pt: Yes Patient agreeable to treatment: Yes Consult Discharge Plan - Plan Referrals: NONE,PCP [Primary Care Provider] - Psychiatry Exam - Constitutional Vitals: Temp Pulse Resp BP Pulse Ox 98.2 F 88 18 145/78 96 04/06/19 20:38 04/06/19 20:38 04/06/19 20:38 04/06/19 20:38 04/06/19 20:38 General appearance: age & developmentally appropriate - Musculoskeletal Gait: slow Station: stooped Strength & Tone: mild weakness - Psychiatric Patient Orientation: Yes Person, Yes Time, Yes Place, Yes Circumstance Level of alertness: Alert Behavior: tearful, withdrawn Psychomotor activity: Slowed Eye Contact: Minimal Contact Mood Description: Depressed Patient description of mood: Terrible Affect description: dysphoric Speech Volume: Soft/Quiet Speech pattern: slowed Language & Vocabulary: consistent with education Thought Process: Linear, Goal Oriented Thought Content: Yes Suicidal ideation, No Homicidal ideation Perceptual Disturbances: No Auditory hallucinations, No Visual hallucinations Attention Span Ability: Capable of Focused Attention Memory Description: Grossly Intact Patient Reliability: Reliable Historian Fund of knowledge: Yes abstraction ability, Yes aware of current events Intelligence Estimate: Average Judgment: Limited Insight: Minimal
[2019-04-07] MEDS: traZODone 50 MG TABLET PO SCH (21:14)
[2019-04-07] MEDS: Gentamicin Oint 15 GM TUBE TP SCH (22:40)
--- NOTE | 2019-04-08 08:55 | Psychiatry Progress Note ---
Date of Encounter: 04/08/19 Time of Encounter: 08:20 Subjective Interval history: Patient continues to be very depressed and hopeless. He reports suicidal thoughts with plan to jump off a bridge. He reports that he has been having some nausea and diarrhea. He reports that he does not see the point in going on. He has not been attending groups. Review of Systems Psychiatric: Reports: depression, anxiety, abnormal sleep pattern, suicidal ideation, anhedonia, hopelessness Results - Vital Signs Vital Signs: Temp Pulse Resp BP Pulse Ox 98.3 F 86 18 93/61 96 04/07/19 20:40 04/07/19 20:40 04/07/19 20:40 04/07/19 20:40 04/07/19 20:40 - Labs Labs: Laboratory Results - last 24 hr 04/07/19 04/07/19 04/07/19 12:09 16:34 20:15 POC Glucose 168 H 275 H 103 H Assessment and Plan (1) Bipolar 2 disorder, major depressive episode Current visit: Yes Status: Acute Plan: Continue hospitalization, Close observation, Suicide Precautions per unit protocol, Encourage participation in unit milieu, Group Therapy, Monitor sleep, Monitor appetite Additional Plan: Consider increase Abilify tomorrow. Encourage group attendance. Therapists working on discharge planning. Risks, benefits, side effects, alternatives discussed w/pt: Yes Patient agreeable to treatment: Yes Consult Discharge Plan - Plan Referrals: NONE,PCP [Primary Care Provider] - Psychiatry Exam - Constitutional Vitals: Temp Pulse Resp BP Pulse Ox 98.3 F 86 18 93/61 96 04/07/19 20:40 04/07/19 20:40 04/07/19 20:40 04/07/19 20:40 04/07/19 20:40 General appearance: age & developmentally appropriate, disheveled - Musculoskeletal Gait: slow Station: stooped Strength & Tone: mild weakness - Psychiatric Patient Orientation: Yes Person, Yes Time, Yes Place Level of alertness: Alert Behavior: tearful Psychomotor activity: Slowed Eye Contact: Minimal Contact Mood Description: Depressed Patient description of mood: Down Affect description: dysphoric Speech Volume: Soft/Quiet Speech pattern: slowed Language & Vocabulary: consistent with education Thought Process: Linear, Goal Oriented Thought Content: Yes Suicidal ideation Perceptual Disturbances: No Auditory hallucinations, No Visual hallucinations Attention Span Ability: Capable of Focused Attention Memory Description: Grossly Intact Patient Reliability: Reliable Historian Fund of knowledge: Yes abstraction ability, Yes aware of current events Intelligence Estimate: Average Judgment: Fair Insight: Partial
[2019-04-08] MEDS: *HR* Metformin 500 MG TABLET PO SCH ×2 (10:01→17:00)
[2019-04-08] MEDS: ARIPiprazole 5 MG TABLET PO SCH (10:02)
[2019-04-08] MEDS: Insulin LISPRO 300 UNITS/3 ML VIAL SQ SCH ×4 (10:07→20:54)
[2019-04-08] MEDS: traZODone 50 MG TABLET PO SCH (21:06)
[2019-04-08] MEDS: Gentamicin Oint 15 GM TUBE TP SCH (21:15)
--- NOTE | 2019-04-09 08:49 | Psychiatry Progress Note ---
Date of Encounter: 04/09/19 Time of Encounter: 08:20 Subjective Interval history: Patient was some improvement. He continues to be hopeless and said he would rather but said he does not want to kill himself at this point because it would be too hurtful to his children. He still very depressed about the of his 1-1/2-year-old. He has been out of his room or watching television and interacting with staff. He continues to have some diarrhea. Review of Systems Psychiatric: Reports: depression, anxiety, abnormal sleep pattern, anhedonia, hopelessness Results - Vital Signs Vital Signs: Temp Pulse Resp BP Pulse Ox 98.6 F 96 16 131/74 98 04/08/19 20:15 04/08/19 20:15 04/08/19 20:15 04/08/19 20:15 04/08/19 20:15 - Labs Labs: Laboratory Results - last 24 hr 04/08/19 04/08/19 04/08/19 09:23 11:19 16:43 POC Glucose 232 H 294 H 177 H 04/08/19 19:58 POC Glucose 143 H Assessment and Plan (1) Bipolar 2 disorder, major depressive episode Current visit: Yes Status: Acute Plan: Continue hospitalization, Close observation, Suicide Precautions per unit protocol, Encourage participation in unit milieu, Group Therapy, Monitor sleep, Monitor appetite Additional Plan: Patient does not want to go up on his Abilify today as he is continuing to have diarrhea. Encourage continued group attendance. Therapists working and discharge planning and placement. Risks, benefits, side effects, alternatives discussed w/pt: Yes Patient agreeable to treatment: Yes Consult Discharge Plan - Plan Referrals: NONE,PCP [Primary Care Provider] - Psychiatry Exam - Constitutional Vitals: Temp Pulse Resp BP Pulse Ox 98.6 F 96 16 131/74 98 04/08/19 20:15 04/08/19 20:15 04/08/19 20:15 04/08/19 20:15 04/08/19 20:15 General appearance: disheveled - Musculoskeletal Gait: slow Station: stooped Strength & Tone: normal for patient - Psychiatric Patient Orientation: Yes Person, Yes Time, Yes Place Level of alertness: Alert Behavior: tearful Psychomotor activity: Slowed Eye Contact: Maintains Eye Contact Mood Description: Depressed Patient description of mood: Down Affect description: dysphoric Speech Volume: Normal Speech pattern: normal rate, normal rhythm, normal tone, fluent, spontaneous Language & Vocabulary: consistent with education Thought Process: Linear, Goal Oriented Thought Content: No Suicidal ideation, No Homicidal ideation, No Overt delusions Perceptual Disturbances: No Auditory hallucinations, No Visual hallucinations Attention Span Ability: Capable of Focused Attention Memory Description: Grossly Intact Patient Reliability: Reliable Historian Fund of knowledge: Yes abstraction ability, Yes aware of current events Intelligence Estimate: Average Judgment: Fair Insight: Partial
[2019-04-09] MEDS: Insulin LISPRO 300 UNITS/3 ML VIAL SQ SCH ×4 (09:02→21:59)
[2019-04-09] MEDS: ARIPiprazole 5 MG TABLET PO SCH (09:03)
[2019-04-09] MEDS: *HR* Metformin 500 MG TABLET PO SCH ×2 (09:03→17:01)
[2019-04-09] MEDS: traZODone 50 MG TABLET PO SCH (21:59)
[2019-04-09] MEDS: Gentamicin Oint 15 GM TUBE TP SCH (23:00)
[2019-04-10] MEDS: *HR* Metformin 500 MG TABLET PO SCH ×2 (09:01→17:42)
[2019-04-10] MEDS: ARIPiprazole 5 MG TABLET PO SCH (09:01)
[2019-04-10] MEDS: Insulin LISPRO 300 UNITS/3 ML VIAL SQ SCH ×3 (09:01→17:40)
--- NOTE | 2019-04-10 09:01 | Psychiatry Progress Note ---
Date of Encounter: 04/10/19 Time of Encounter: 08:15 Subjective Interval history: Patient reports he is feeling somewhat better. He reports she still feels down and has some hopelessness but no active suicidal thoughts. He denies auditory or visual hallucinations. He is tolerating medications. He slept well last night. He says his nausea has resolved. Review of Systems Psychiatric: Reports: depression, anhedonia, hopelessness Results - Vital Signs Vital Signs: Temp Pulse Resp BP Pulse Ox 97.6 F 86 18 119/74 99 04/09/19 20:21 04/09/19 20:21 04/09/19 20:21 04/09/19 20:21 04/09/19 20:21 - Labs Labs: Laboratory Results - last 24 hr 04/09/19 04/09/19 04/09/19 08:54 11:38 16:29 POC Glucose 169 H 251 H 135 H 04/09/19 20:56 POC Glucose 210 H Assessment and Plan (1) Bipolar 2 disorder, major depressive episode Current visit: Yes Status: Acute Plan: Continue hospitalization, Close observation, Suicide Precautions per unit protocol, Encourage participation in unit milieu, Group Therapy, Monitor sleep, Monitor appetite Additional Plan: Continue current medications. Encourage group attendance. Consider [employer] referral. Risks, benefits, side effects, alternatives discussed w/pt: Yes Patient agreeable to treatment: Yes Consult Discharge Plan - Plan Referrals: NONE,PCP [Primary Care Provider] - Psychiatry Exam - Constitutional Vitals: Temp Pulse Resp BP Pulse Ox 97.6 F 86 18 119/74 99 04/09/19 20:21 04/09/19 20:21 04/09/19 20:21 04/09/19 20:21 04/09/19 20:21 General appearance: age & developmentally appropriate - Musculoskeletal Gait: normal Station: relaxed Strength & Tone: normal for patient - Psychiatric Patient Orientation: Yes Person, Yes Time, Yes Place Level of alertness: Alert Behavior: calm, cooperative Psychomotor activity: Normal Eye Contact: Maintains Eye Contact Mood Description: Depressed Patient description of mood: Better Affect description: congruent with mood, dysphoric Speech Volume: Normal Speech pattern: normal rate, normal rhythm, normal tone, fluent, spontaneous Language & Vocabulary: consistent with education Thought Process: Linear, Goal Oriented Thought Content: No Suicidal ideation, No Homicidal ideation, No Overt delusions Perceptual Disturbances: No Auditory hallucinations, No Visual hallucinations Attention Span Ability: Capable of Focused Attention Memory Description: Grossly Intact Patient Reliability: Reliable Historian Fund of knowledge: Yes abstraction ability, Yes aware of current events Intelligence Estimate: Average Judgment: Fair Insight: Partial
--- NOTE | 2019-04-10 09:04 | Psychiatry Progress Note ---
Date of Encounter: 04/10/19 Time of Encounter: 08:25 Subjective Interval history: Patient seems to be doing better. He appears close to his baseline. His hallucinations are improved and while he still hears some voices they are noncommand in nature and he is able to cope with them. He denies visual hallucinations. He denies suicidal or homicidal thoughts ideations or plans. He is able to tolerate difficult patients on the unit. Review of Systems Psychiatric: Reports: anhedonia Results - Vital Signs Vital Signs: Temp Pulse Resp BP Pulse Ox 97.6 F 86 18 119/74 99 04/09/19 20:21 04/09/19 20:21 04/09/19 20:21 04/09/19 20:21 04/09/19 20:21 - Labs Labs: Laboratory Results - last 24 hr 04/09/19 04/09/19 04/09/19 08:54 11:38 16:29 POC Glucose 169 H 251 H 135 H 04/09/19 04/10/19 20:56 08:58 POC Glucose 210 H 208 H Assessment and Plan (1) Bipolar 2 disorder, major depressive episode Current visit: Yes Status: Acute Plan: Continue hospitalization, Close observation, Suicide Precautions per unit protocol, Encourage participation in unit milieu, Group Therapy, Monitor sleep, Monitor appetite Additional Plan: Continue current medications. Encourage group therapy. chore worker is working on placement options. Risks, benefits, side effects, alternatives discussed w/pt: Yes Patient agreeable to treatment: Yes Consult Discharge Plan - Plan Referrals: NONE,PCP [Primary Care Provider] - Psychiatry Exam - Constitutional Vitals: Temp Pulse Resp BP Pulse Ox 97.6 F 86 18 119/74 99 04/09/19 20:21 04/09/19 20:21 04/09/19 20:21 04/09/19 20:21 04/09/19 20:21 General appearance: age & developmentally appropriate, disheveled - Musculoskeletal Gait: normal Station: relaxed Strength & Tone: normal for patient - Psychiatric Patient Orientation: Yes Person, Yes Time, Yes Place, Yes Circumstance Level of alertness: Alert Behavior: calm, withdrawn Psychomotor activity: Normal Eye Contact: Minimal Contact Mood Description: Euthymic/stable Patient description of mood: Okay Affect description: congruent with mood, blunted Speech Volume: No variation in volume Speech pattern: impoverished Language & Vocabulary: consistent with education Thought Process: Linear, Goal Oriented Thought Content: No Suicidal ideation, No Homicidal ideation, No Overt delusions Perceptual Disturbances: No Auditory hallucinations, No Visual hallucinations Attention Span Ability: Capable of Focused Attention Memory Description: Grossly Intact Patient Reliability: Reliable Historian Fund of knowledge: Yes abstraction ability, Yes aware of current events Intelligence Estimate: Average Judgment: Fair Insight: Partial
[2019-04-10] MEDS: traZODone 50 MG TABLET PO SCH (21:01)
[2019-04-10] MEDS: Gentamicin Oint 15 GM TUBE TP SCH (21:02)
[2019-04-11] MEDS: Insulin LISPRO 300 UNITS/3 ML VIAL SQ SCH ×5 (04:14→21:31)
[2019-04-11] MEDS: ARIPiprazole 5 MG TABLET PO SCH (09:46)
[2019-04-11] MEDS: *HR* Metformin 500 MG TABLET PO SCH ×2 (09:46→17:56)
--- NOTE | 2019-04-11 12:48 | Psychiatry Progress Note ---
Date of Encounter: 04/11/19 Time of Encounter: 12:46 Subjective Interval history: Client reports he is feeling better. SI is present but improved. Hallucinations have lessened. Sleeping better. Approaching baseline. Did well at [facility] for several months. They are coming to evaluate client today for repeat respite care. Client is agreeable to this and reports he knows everyone at [facility] really well. No male bed available today but client should be able to go sometime this week. Review of Systems Constitutional: Denies: fever, chills, weakness, weight change Eyes: Denies: eye pain, vision change Ears, Nose, Throat: Denies: ear pain, throat pain, dental pain, hearing loss, congestion Cardiovascular: Denies: chest pain, palpitations, dyspnea on exertion Respiratory: Denies: cough, dyspnea, wheezes Gastrointestinal: Denies: abdominal pain, nausea, vomiting, diarrhea, constipation Musculoskeletal: Denies: joint swelling, joint pain Neurological: Denies: headache, weakness, numbness, memory loss Psychiatric: Reports: anhedonia Results - Vital Signs Vital Signs: Temp Pulse Resp BP Pulse Ox 98.2 F 88 18 105/68 97 04/11/19 09:00 04/11/19 09:00 04/11/19 09:00 04/11/19 09:00 04/11/19 09:00 - Labs Labs: Laboratory Results - last 24 hr 04/10/19 04/10/19 04/11/19 17:02 20:43 09:26 POC Glucose 114 H 162 H 163 H 04/11/19 11:45 POC Glucose 315 H Assessment and Plan (1) Bipolar 2 disorder, major depressive episode Current visit: Yes Status: Acute Plan: Continue hospitalization, Close observation, Suicide Precautions per unit protocol, Encourage participation in unit milieu, Group Therapy, Monitor sleep, Monitor appetite Risks, benefits, side effects, alternatives discussed w/pt: Yes Patient agreeable to treatment: Yes Consult Discharge Plan - Plan Referrals: [facility] [Outside] Elroy Bolivar DPM [Partnered Physician] - 04/19/19 11:00 am (You have an appointment scheduled with care provider Dr. Elroy Bolivar DPM on Friday, April 19, 2019 at 11:00 AM Please contact the office at the number above at least 24 hours in advance if you are unable to keep this appointment. ) Psychiatry Exam - Constitutional Vitals: Temp Pulse Resp BP Pulse Ox 98.2 F 88 18 105/68 97 04/11/19 09:00 04/11/19 09:00 04/11/19 09:00 04/11/19 09:00 04/11/19 09:00 General appearance: thin - Musculoskeletal Gait: normal Station: relaxed Strength & Tone: normal for patient - Psychiatric Patient Orientation: Yes Person, Yes Time, Yes Place Level of alertness: Alert Behavior: calm, cooperative Psychomotor activity: Normal Eye Contact: Maintains Eye Contact Mood Description: Depressed Affect description: congruent with mood Speech Volume: Normal Speech pattern: normal rate, normal rhythm, normal tone, fluent, spontaneous Language & Vocabulary: consistent with education Thought Process: Linear, Goal Oriented Thought Content: Yes Suicidal ideation, No Homicidal ideation, No Overt delusions Perceptual Disturbances: No Auditory hallucinations, No Visual hallucinations Attention Span Ability: Capable of Focused Attention Memory Description: Grossly Intact Patient Reliability: Reliable Historian Fund of knowledge: Yes abstraction ability, Yes aware of current events Intelligence Estimate: Average Judgment: Fair Insight: Partial
[2019-04-11] MEDS: traZODone 50 MG TABLET PO SCH (21:31)
[2019-04-11] MEDS: Gentamicin Oint 15 GM TUBE TP SCH (22:33)
[2019-04-12] MEDS: *HR* Metformin 500 MG TABLET PO SCH ×2 (09:08→19:20)
[2019-04-12] MEDS: ARIPiprazole 5 MG TABLET PO SCH (09:08)
[2019-04-12] MEDS: Insulin LISPRO 300 UNITS/3 ML VIAL SQ SCH ×4 (09:08→20:11)
--- NOTE | 2019-04-12 09:27 | Psychiatry Progress Note ---
Date of Encounter: 04/12/19 Time of Encounter: 09:25 Subjective Interval history: Client is doing well. Sleeping well, eating well. Interacting appropriately with staff and peers. Attending and participating in groups. Tends to dominate groups at times as he likes to talk. Mood is stable. Still has guilt/grief over loss of young daughter but overall coping well. Denies SI, intent,or plan. Remains in agreement to go to [facility]. They were unable to see him yesterday but will hopefully be on the unit today. Review of Systems Constitutional: Denies: fever, chills, weakness, weight change Eyes: Denies: eye pain, vision change Ears, Nose, Throat: Denies: ear pain, throat pain, dental pain, hearing loss, congestion Cardiovascular: Denies: chest pain, palpitations, dyspnea on exertion Respiratory: Denies: cough, dyspnea, wheezes Gastrointestinal: Denies: abdominal pain, nausea, vomiting, diarrhea, cons tipation Musculoskeletal: Denies: joint swelling, joint pain Neurological: Denies: headache, weakness, numbness, memory loss Psychiatric: Reports: anhedonia Results - Vital Signs Vital Signs: Temp Pulse Resp BP Pulse Ox 98.2 F 91 16 110/67 97 04/11/19 19:43 04/11/19 19:43 04/11/19 19:43 04/11/19 19:43 04/11/19 19:43 - Labs Labs: Laboratory Results - last 24 hr 04/11/19 04/11/19 04/11/19 09:26 11:45 16:34 POC Glucose 163 H 315 H 116 H 04/11/19 04/12/19 20:52 08:24 POC Glucose 254 H 169 H Assessment and Plan (1) Bipolar 2 disorder, major depressive episode Current visit: Yes Status: Acute Plan: Continue hospitalization, Close observation, Suicide Precautions per unit protocol, Encourage participation in unit milieu, Group Therapy, Monitor sleep, Monitor appetite Risks, benefits, side effects, alternatives discussed w/pt: Yes Patient agreeable to treatment: Yes Consult Discharge Plan - Plan Referrals: [facility] [Outside] Elroy Bolivar DPM [Partnered Physician] - 04/19/19 11:00 am (You have an appointment scheduled with care provider Dr. Elroy Bolivar DPM on Wednesday, April 19, 2019 at 11:00 AM Please contact the office at the number above at least 24 hours in advance if you are unable to keep this appointment. ) Psychiatry Exam - Constitutional Vitals: Temp Pulse Resp BP Pulse Ox 98.2 F 91 16 110/67 97 04/11/19 19:43 04/11/19 19:43 04/11/19 19:43 04/11/19 19:43 04/11/19 19:43 General appearance: age & developmentally appropriate, well-groomed, well- nourished - Musculoskeletal Gait: normal Station: relaxed Strength & Tone: normal for patient - Psychiatric Patient Orientation: Yes Person, Yes Time, Yes Place Level of alertness: Alert Behavior: calm, cooperative Psychomotor activity: Normal Eye Contact: Maintains Eye Contact Mood Description: Depressed Affect description: full range Speech Volume: Normal Speech pattern: normal rate, normal rhythm, normal tone, fluent, spontaneous Language & Vocabulary: consistent with education Thought Process: Linear, Goal Oriented Thought Content: No Suicidal ideation, No Homicidal ideation, No Overt delusions Perceptual Disturbances: No Auditory hallucinations, No Visual hallucinations Attention Span Ability: Capable of Focused Attention Memory Description: Grossly Intact Patient Reliability: Reliable Historian Fund of knowledge: Yes abstraction ability, Yes aware of current events Intelligence Estimate: Average Judgment: Fair Insight: Partial
[2019-04-12] MEDS: traZODone 50 MG TABLET PO SCH (21:26)
[2019-04-12] MEDS: Gentamicin Oint 15 GM TUBE TP SCH (21:26)
[2019-04-13] MEDS: Insulin LISPRO 300 UNITS/3 ML VIAL SQ SCH ×4 (08:00→21:36)
[2019-04-13] MEDS: *HR* Metformin 500 MG TABLET PO SCH ×2 (08:28→16:58)
[2019-04-13] MEDS: ARIPiprazole 5 MG TABLET PO SCH (08:28)
--- NOTE | 2019-04-13 13:03 | Psychiatry Progress Note ---
Date of Encounter: 04/13/19 Time of Encounter: 13:01 Subjective Interval history: [facility] declined to take client back. Now looking at other housing options. Resources are limited and client has no where to go at this point in time. However, his mood remains upbeat. Denies SI, intent, or plan. Seems to like being in the hospital. Review of Systems Constitutional: Denies: fever, chills, weakness, weight change Eyes: Denies: eye pain, vision change Ears, Nose, Throat: Denies: ear pain, throat pain, dental pain, hearing loss, congestion Cardiovascular: Denies: chest pain, palpitations, dyspnea on exertion Respiratory: Denies: cough, dyspnea, wheezes Gastrointestinal: Denies: abdominal pain, nausea, vomiting, diarrhea, constipation Musculoskeletal: Denies: joint swelling, joint pain Neurological: Denies: headache, weakness, numbness, memory loss Psychiatric: Reports: anhedonia Results - Vital Signs Vital Signs: Temp Pulse Resp BP Pulse Ox 97.8 F 85 16 115/75 100 04/13/19 08:46 04/13/19 08:46 04/13/19 08:46 04/13/19 08:46 04/13/19 08:46 - Labs Labs: Laboratory Results - last 24 hr 04/12/19 04/12/19 04/13/19 16:39 20:09 07:55 POC Glucose 178 H 155 H 173 H 04/13/19 11:45 POC Glucose 192 H Assessment and Plan (1) Bipolar 2 disorder, major depressive episode Current visit: Yes Status: Acute Plan: Continue hospitalization, Close observation, Suicide Precautions per unit protocol, Encourage participation in unit milieu, Group Therapy, Monitor sleep, Monitor appetite Risks, benefits, side effects, alternatives discussed w/pt: Yes Patient agreeable to treatment: Yes Consult Discharge Plan - Plan Referrals: [facility] [Outside] Elroy Bolivar DPM [Partnered Physician] - 04/19/19 11:00 am (You have an appointment scheduled with care provider Dr. Elroy Bolivar DPM on Wednesday, April 19, 2019 at 11:00 AM Please contact the office at the number above at least 24 hours in advance if you are unable to keep this appointment. ) Psychiatry Exam - Constitutional Vitals: Temp Pulse Resp BP Pulse Ox 97.8 F 85 16 115/75 100 04/13/19 08:46 04/13/19 08:46 04/13/19 08:46 04/13/19 08:46 04/13/19 08:46 General appearance: age & developmentally appropriate, well-groomed, well- nourished - Musculoskeletal Gait: normal Station: relaxed Strength & Tone: normal for patient - Psychiatric Patient Orientation: Yes Person, Yes Time, Yes Place Level of alertness: Alert Behavior: calm, cooperative Psychomotor activity: Normal Eye Contact: Maintains Eye Contact Mood Description: Euthymic/stable Affect description: congruent with mood, full range Speech Volume: Normal Speech pattern: normal rate, normal rhythm, normal tone, fluent, spontaneous Language & Vocabulary: consistent with education Thought Process: Linear, Goal Oriented Thought Content: No Suicidal ideation, No Homicidal ideation, No Overt delusions Perceptual Disturbances: No Auditory hallucinations, No Visual hallucinations Attention Span Ability: Capable of Focused Attention Memory Description: Grossly Intact Patient Reliability: Reliable Historian Fund of knowledge: Yes abstraction ability, Yes aware of current events Intelligence Estimate: Average Judgment: Fair Insight: Partial
[2019-04-13] MEDS: Gentamicin Oint 15 GM TUBE TP SCH (21:31)
[2019-04-13] MEDS: traZODone 50 MG TABLET PO SCH (21:34)
[2019-04-14] MEDS: ARIPiprazole 5 MG TABLET PO SCH (09:55)
[2019-04-14] MEDS: *HR* Metformin 500 MG TABLET PO SCH ×2 (09:55→17:38)
[2019-04-14] MEDS: Insulin LISPRO 300 UNITS/3 ML VIAL SQ SCH ×4 (09:56→21:41)
--- NOTE | 2019-04-14 10:53 | Psychiatry Progress Note ---
Date of Encounter: 04/14/19 Time of Encounter: 10:50 Subjective Interval history: Client continues to report he is doing well. Denies SI/HI/AH/VH. States he is feeling a little groggy in the mornings from the Trazodone so will cut back on dose for tonight. Otherwise seems to be stable. Not participating much in groups. Polite in declining them but lack of participation in treatment is one of the reasons [facility] has declined to take him back. Staff from [facility] intend to talk to him today about where they recommend he go for residential placement/treatment. Client seems all too happy to stay in the hospital. Family has declined to help. Review of Systems Constitutional: Denies: fever, chills, weakness, weight change Eyes: Denies: eye pain, vision change Ears, Nose, Throat: Denies: ear pain, throat pain, dental pain, hearing loss, congestion Cardiovascular: Denies: chest pain, palpitations, dyspnea on exertion Respiratory: Denies: cough, dyspnea, wheezes Gastrointestinal: Denies: abdominal pain, nausea, vomiting, diarrhea, constipation Musculoskeletal: Denies: joint swelling, joint pain Neurological: Denies: headache, weakness, numbness, memory loss Psychiatric: Reports: anhedonia Results - Vital Signs Vital Signs: Temp Pulse Resp BP Pulse Ox 97.8 F 91 20 138/88 100 04/13/19 19:53 04/13/19 19:53 04/13/19 19:53 04/13/19 19:53 04/13/19 19:53 - Labs Labs: Laboratory Results - last 24 hr 04/13/19 04/13/19 04/13/19 11:45 16:32 19:33 POC Glucose 192 H 252 H 164 H 04/14/19 08:18 POC Glucose 231 H Assessment and Plan (1) Bipolar 2 disorder, major depressive episode Current visit: Yes Status: Acute Plan: Continue hospitalization, Close observation, Suicide Precautions per unit protocol, Encourage participation in unit milieu, Group Therapy, Monitor sleep, Monitor appetite Risks, benefits, side effects, alternatives discussed w/pt: Yes Patient agreeable to treatment: Yes Consult Discharge Plan - Plan Referrals: [facility] [Outside] Elroy Bolivar DPM [Partnered Physician] - 04/19/19 11:00 am (You have an appointment scheduled with care provider Dr. Elroy Bolivar DPM on Friday, April 19, 2019 at 11:00 AM Please contact the office at the number above at least 24 hours in advance if you are unable to keep this appointment. ) Psychiatry Exam - Constitutional Vitals: Temp Pulse Resp BP Pulse Ox 97.8 F 91 20 138/88 100 04/13/19 19:53 04/13/19 19:53 04/13/19 19:53 04/13/19 19:53 04/13/19 19:53 General appearance: age & developmentally appropriate, well-groomed, well- nourished - Musculoskeletal Gait: normal Station: relaxed Strength & Tone: normal for patient - Psychiatric Patient Orientation: Yes Person, Yes Time, Yes Place Level of alertness: Alert Behavior: calm, cooperative Psychomotor activity: Normal Eye Contact: Maintains Eye Contact Mood Description: Euthymic/stable Affect description: congruent with mood, full range Speech Volume: Normal Speech pattern: normal rate, normal rhythm, normal tone, fluent, spontaneous Language & Vocabulary: consistent with education Thought Process: Linear, Goal Oriented Thought Content: No Suicidal ideation, No Homicidal ideation, No Overt delusions Perceptual Disturbances: No Auditory hallucinations, No Visual hallucinations Attention Span Ability: Capable of Focused Attention Memory Description: Grossly Intact Patient Reliability: Reliable Historian Fund of knowledge: Yes abstraction ability, Yes aware of current events Intelligence Estimate: Average Judgment: Fair Insight: Partial
[2019-04-14] MEDS: traZODone 50 MG TABLET PO SCH (22:59)
[2019-04-15] MEDS: Gentamicin Oint 15 GM TUBE TP SCH ×2 (04:24→23:25)
[2019-04-15] MEDS: Insulin LISPRO 300 UNITS/3 ML VIAL SQ SCH ×4 (08:22→21:30)
[2019-04-15] MEDS: *HR* Metformin 500 MG TABLET PO SCH ×2 (08:22→18:03)
[2019-04-15] MEDS: ARIPiprazole 5 MG TABLET PO SCH (08:22)
--- NOTE | 2019-04-15 08:44 | Psychiatry Progress Note ---
Date of Encounter: 04/15/19 Time of Encounter: 08:42 Subjective Interval history: Client continues to have a stable mood. Denies SI/HI/AH/VH. Discharge ready. However, he has been declined by [facility] and family is unwilling to help with housing. Client clearly likes being somewhere where all his needs are met with minimal effort on his part. If discharged without a stable housing plan he will likely just represent to the hospital. Review of Systems Constitutional: Denies: fever, chills, weakness, weight change Eyes: Denies: eye pain, vision change Ears, Nose, Throat: Denies: ear pain, throat pain, dental pain, hearing loss, congestion Cardiovascular: Denies: chest pain, palpitations, dyspnea on exertion Respiratory: Denies: cough, dyspnea, wheezes Gastrointestinal: Denies: abdominal pain, nausea, vomiting, diarrhea, constipation Musculoskeletal: Denies: joint swelling, joint pain Neurological: Denies: headache, weakness, numbness, memory loss Psychiatric: Reports: anhedonia Results - Vital Signs Vital Signs: Temp Pulse Resp BP Pulse Ox 98.0 F 85 16 108/71 99 04/14/19 21:00 04/14/19 21:00 04/14/19 21:00 04/14/19 21:00 04/14/19 21:00 - Labs Labs: Laboratory Results - last 24 hr 04/14/19 04/14/19 04/14/19 11:54 16:49 21:30 POC Glucose 103 H 236 H 247 H 04/15/19 08:13 POC Glucose 224 H Assessment and Plan (1) Bipolar 2 disorder, major depressive episode Current visit: Yes Status: Acute Plan: Continue hospitalization, Close observation, Suicide Precautions per unit protocol, Encourage participation in unit milieu, Group Therapy, Monitor sleep, Monitor appetite Risks, benefits, side effects, alternatives discussed w/pt: Yes Patient agreeable to treatment: Yes Consult Discharge Plan - Plan Referrals: [facility] [Outside] Elroy Bolivar DPM [Partnered Physician] - 04/19/19 11:00 am (You have an appointment scheduled with care provider Dr. Elroy Bolivar DPM on Wednesday, April 19, 2019 at 11:00 AM Please contact the office at the number above at least 24 hours in advance if you are unable to keep this appointment. ) Psychiatry Exam - Constitutional Vitals: Temp Pulse Resp BP Pulse Ox 98.0 F 85 16 108/71 99 04/14/19 21:00 04/14/19 21:00 04/14/19 21:00 04/14/19 21:00 04/14/19 21:00 General appearance: age & developmentally appropriate, well-groomed, well- nourished - Musculoskeletal Gait: normal Station: relaxed Strength & Tone: normal for patient - Psychiatric Patient Orientation: Yes Person, Yes Time, Yes Place Level of alertness: Alert Behavior: calm, cooperative Psychomotor activity: Normal Eye Contact: Maintains Eye Contact Mood Description: Euthymic/stable Affect description: congruent with mood, full range Speech Volume: Normal Speech pattern: normal rate, normal rhythm, normal tone, fluent, spontaneous Language & Vocabulary: consistent with education Thought Process: Linear, Goal Oriented Thought Content: No Suicidal ideation, No Homicidal ideation, No Overt delusions Perceptual Disturbances: No Auditory hallucinations, No Visual hallucinations Attention Span Ability: Capable of Focused Attention Memory Description: Grossly Intact Patient Reliability: Reliable Historian Fund of knowledge: Yes abstraction ability, Yes aware of current events Intelligence Estimate: Average Judgment: Limited Insight: Partial
[2019-04-15] MEDS: traZODone 50 MG TABLET PO SCH (21:31)
[2019-04-16] MEDS: Insulin LISPRO 300 UNITS/3 ML VIAL SQ SCH ×4 (09:18→22:29)
[2019-04-16] MEDS: ARIPiprazole 5 MG TABLET PO SCH (09:20)
[2019-04-16] MEDS: *HR* Metformin 500 MG TABLET PO SCH ×2 (09:20→17:40)
--- NOTE | 2019-04-16 13:18 | Psychiatry Progress Note ---
Date of Encounter: 04/16/19 Time of Encounter: 13:16 Subjective Interval history: Client continues to be stable. Denies SI/HI/AH/VH. Can be discharged as soon as housing available. Both staff and client's family are working on options. Client seems to have no trouble being in the hospital in the meantime. Review of Systems Constitutional: Denies: fever, chills, weakness, weight change Eyes: Denies: eye pain, vision change Ears, Nose, Throat: Denies: ear pain, throat pain, dental pain, hearing loss, congestion Cardiovascular: Denies: chest pain, palpitations, dyspnea on exertion Respiratory: Denies: cough, dyspnea, wheezes Gastrointestinal: Denies: abdominal pain, nausea, vomiting, diarrhea, constipation Musculoskeletal: Denies: joint swelling, joint pain Neurological: Denies: headache, weakness, numbness, memory loss Psychiatric: Reports: anhedonia Results - Vital Signs Vital Signs: Temp Pulse Resp BP Pulse Ox 97.5 F L 78 16 137/87 98 04/16/19 09:00 04/16/19 09:00 04/16/19 09:00 04/16/19 09:00 04/16/19 09:00 - Labs Labs: Laboratory Results - last 24 hr 04/15/19 04/16/19 04/16/19 20:32 08:11 11:03 POC Glucose 290 H 175 H 222 H Assessment and Plan (1) Bipolar 2 disorder, major depressive episode Current visit: Yes Status: Acute Plan: Continue hospitalization, Close observation, Suicide Precautions per unit protocol, Encourage participation in unit milieu, Group Therapy, Monitor sleep, Monitor appetite Risks, benefits, side effects, alternatives discussed w/pt: Yes Patient agreeable to treatment: Yes Consult Discharge Plan - Plan Referrals: [facility] [Outside] Elroy Bolivar DPM [Partnered Physician] - 04/19/19 11:00 am (You have an appointment scheduled with care provider Dr. Elroy Bolivar DPM on Friday, April 19, 2019 at 11:00 AM Please contact the office at the number above at least 24 hours in advance if you are unable to keep this appointment. ) Psychiatry Exam - Constitutional Vitals: Temp Pulse Resp BP Pulse Ox 97.5 F L 78 16 137/87 98 04/16/19 09:00 04/16/19 09:00 04/16/19 09:00 04/16/19 09:00 04/16/19 09:00 General appearance: age & developmentally appropriate, well-groomed, well- nourished - Musculoskeletal Gait: normal Station: relaxed Strength & Tone: normal for patient - Psychiatric Patient Orientation: Yes Person, Yes Time, Yes Place Level of alertness: Alert Behavior: calm, cooperative Psychomotor activity: Normal Eye Contact: Maintains Eye Contact Mood Description: Euthymic/stable Affect description: congruent with mood, full range Speech Volume: Normal Speech pattern: normal rate, normal rhythm, normal tone, fluent, spontaneous Language & Vocabulary: consistent with education Thought Process: Linear, Goal Oriented Thought Content: No Suicidal ideation, No Homicidal ideation, No Overt delusions Perceptual Disturbances: No Auditory hallucinations, No Visual hallucinations Attention Span Ability: Capable of Focused Attention Memory Description: Grossly Intact Patient Reliability: Reliable Historian Fund of knowledge: Yes abstraction ability, Yes aware of current events Intelligence Estimate: Average Judgment: Fair Insight: Partial
[2019-04-16] MEDS: traZODone 50 MG TABLET PO SCH (22:29)
[2019-04-16] MEDS: Gentamicin Oint 15 GM TUBE TP SCH (23:02)
[2019-04-17] MEDS: ARIPiprazole 5 MG TABLET PO SCH (08:14)
[2019-04-17] MEDS: *HR* Metformin 500 MG TABLET PO SCH ×2 (08:14→16:55)
[2019-04-17] MEDS: Insulin LISPRO 300 UNITS/3 ML VIAL SQ SCH ×4 (08:16→21:45)
--- NOTE | 2019-04-17 09:49 | Psychiatry Progress Note ---
Date of Encounter: 04/17/19 Time of Encounter: 09:46 Subjective Interval history: Continues to be stable. Denies SI/HI/AH/VH. Discharge ready. [facility] will be out at 12:30pm today to talk to client. Staff from the [facility] plan to accompany staff from [facility]. The [facility] is the best placement option although client is reluctant to go anywhere that is focused on AOD treatment and restricts his freedoms. Client has been eating and sleeping well. Minimally engaged in treatment but overall pleasant toward staff and peers. Reportedly can be mean when he does not get his way but he has been behaviorally appropriate here in the hospital. Review of Systems Constitutional: Denies: fever, chills, weakness, weight change Eyes: Denies: eye pain, vision change Ears, Nose, Throat: Denies: ear pain, throat pain, dental pain, hearing loss, congestion Cardiovascular: Denies: chest pain, palpitations, dyspnea on exertion Respiratory: Denies: cough, dyspnea, wheezes Gastrointestinal: Denies: abdominal pain, nausea, vomiting, diarrhea, constipation Musculoskeletal: Denies: joint swelling, joint pain Neurological: Denies: headache, weakness, numbness, memory loss Psychiatric: Reports: anhedonia Results - Vital Signs Vital Signs: Temp Pulse Resp BP Pulse Ox 97.2 F L 78 16 136/82 98 04/17/19 09:00 04/17/19 09:00 04/17/19 09:00 04/17/19 09:00 04/17/19 09:00 - Labs Labs: Laboratory Results - last 24 hr 04/16/19 04/16/19 04/16/19 11:03 16:07 20:30 POC Glucose 222 H 191 H 231 H 04/17/19 07:32 POC Glucose 149 H Assessment and Plan (1) Bipolar 2 disorder, major depressive episode Current visit: Yes Status: Acute Plan: Continue hospitalization, Close observation, Suicide Precautions per unit protocol, Encourage participation in unit milieu, Group Therapy, Monitor sleep, Monitor appetite Risks, benefits, side effects, alternatives discussed w/pt: Yes Patient agreeable to treatment: Yes Consult Discharge Plan - Plan Referrals: [facility] [Outside] Elroy Bolivar DPM [Partnered Physician] - 04/19/19 11:00 am (You have an appointment scheduled with care provider Dr. Elroy Bolivar DPM on Friday, April 19, 2019 at 11:00 AM Please contact the office at the number above at least 24 hours in advance if you are unable to keep this appointment. ) Psychiatry Exam - Constitutional Vitals: Temp Pulse Resp BP Pulse Ox 97.2 F L 78 16 136/82 98 04/17/19 09:00 04/17/19 09:00 04/17/19 09:00 04/17/19 09:00 04/17/19 09:00 General appearance: age & developmentally appropriate, well-groomed, well- nourished - Musculoskeletal Gait: normal Station: relaxed Strength & Tone: normal for patient - Psychiatric Patient Orientation: Yes Person, Yes Time, Yes Place Level of alertness: Alert Behavior: calm, cooperative Psychomotor activity: Normal Eye Contact: Maintains Eye Contact Mood Description: Euthymic/stable Affect description: congruent with mood, full range Speech Volume: Normal Speech pattern: normal rate, normal rhythm, normal tone, fluent, spontaneous Language & Vocabulary: consistent with education Thought Process: Linear, Goal Oriented Thought Content: No Suicidal ideation, No Homicidal ideation, No Overt delusions Perceptual Disturbances: No Auditory hallucinations, No Visual hallucinations Attention Span Ability: Capable of Focused Attention Memory Description: Grossly Intact Patient Reliability: Reliable Historian Fund of knowledge: Yes abstraction ability, Yes aware of current events Intelligence Estimate: Average Judgment: Fair Insight: Partial
[2019-04-17] MEDS: traZODone 50 MG TABLET PO SCH (21:44)
[2019-04-17] MEDS: Gentamicin Oint 15 GM TUBE TP SCH (23:06)
[2019-04-18] MEDS: *HR* Metformin 500 MG TABLET PO SCH ×2 (08:04→16:50)
[2019-04-18] MEDS: ARIPiprazole 5 MG TABLET PO SCH (08:04)
[2019-04-18] MEDS: Insulin LISPRO 300 UNITS/3 ML VIAL SQ SCH ×4 (08:05→21:24)
--- NOTE | 2019-04-18 08:53 | Discharge Summary ---
Date of Encounter: 04/18/19 Time of Encounter: 08:30 Diagnosis - Discharge Diagnosis (1) Bipolar 2 disorder, major depressive episode Status: Acute Medications - Discharge Medications Prescriptions: ARIPiprazole [Abilify] 5 mg PO QAM #30 tablet metFORMIN [Glucophage] 500 mg PO BIDWM #60 tablet traZODone [TraZODone] 50 mg PO HS #30 tablet ARIPiprazole [Abilify] 5 mg PO QAM #30 tablet 04/18/19 [Rx] Glucagon, Human Recombinant [Glucagen] 1 mg IM ONCE PRN vial 04/18/19 [Rx] Insulin LISPRO [HumaLOG] 0 units SQ HS vial 04/18/19 [Rx] Insulin LISPRO [HumaLOG] 0 units SQ TIDAC vial 04/18/19 [Rx] metFORMIN [Glucophage] 500 mg PO BIDWM #60 tablet 04/18/19 [Rx] traZODone [TraZODone] 50 mg PO HS #30 tablet 04/18/19 [Rx] Allergy/AdvReac Type Severity Reaction Status Date / Time Penicillins [PCN] Allergy Rash Verified 04/07/19 16:13 Results Procedures and tests throughout hospitalization: Completed Lab Orders Category Date Time Status Acetaminophen Stat Lab 04/05/19 21:39 Completed Basic Metabolic Panel Stat Lab 04/05/19 21:39 Completed Complete Blood Count [HEME] Stat Lab 04/05/19 21:39 Completed Drug Screen, Urine [UCHEM] Stat Lab 04/05/19 21:55 Completed Ethanol Stat Lab 04/05/19 21:39 Completed Hgb A1C Routine Lab 04/06/19 10:00 Completed Lipid Panel Routine Lab 04/06/19 10:00 Completed Salicylate Stat Lab 04/05/19 21:39 Completed Thyroid Stimulating Hormone Routine Lab 04/06/19 10:00 Completed Urinalysis reflex Microscopic [URIN] Stat Lab 04/05/19 21:55 Completed Lab Results 04/05/19 04/05/19 04/05/19 Range/Units 21:39 21:39 21:55 WBC 8.1 (4.3-11.1) K/mcL RBC 4.55 (4.19-5.50) M/mcL Hgb 12.5 L (12.9-16.9) g/dL Hct 38.1 (37.5-50.1) % MCV 83.7 (83.0-100.0) fL MCH 27.5 L (28.0-33.3) pg MCHC 32.8 (31.6-35.5) g/dL RDW 12.6 (11.5-14.5) % Plt Count 282 (140-400) K/mcL MPV 9.8 (9.4-12.4) fL Immature Gran % 0.4 (0-4) % Seg Neutrophils % 78.1 % Lymphocytes % 12.2 % Monocytes % 6.8 % Eosinophils % 1.4 % Basophils % 1.1 % Neutrophils # 6.3 (1.6-8.9) K/mcL Lymphocytes # 1.0 (0.6-4.6) K/mcL Monocytes # 0.6 (0.0-1.3) K/mcL Eosinophils # 0.1 (0.0-0.6) K/mcL Basophils # 0.1 (0.0-0.2) K/mcL Sodium 135 L (136-145) mEq/L Potassium 3.9 (3.5-5.1) mEq/L Chloride 99 (98-107) mEq/L Carbon Dioxide 26 (23-29) mEq/L BUN 17 (6-20) mg/dL Creatinine 0.89 (0.70-1.30) mg/dL Est GFR ( Amer) > 60 (> 60) Est GFR (Non-Af Amer) > 60 (> 60) BUN/Creatinine Ratio 19 (6-26) Glucose 295 H (70-105) mg/dL POC Glucose (70-99) mg/dL Est Mean Plasma Glucose mg/dl Hemoglobin A1c ( - 5.6) % Calculated Osmolality 292 (280-300) Calcium 9.7 (8.6-10.3) mg/dL Triglycerides (< 150) mg/dL Cholesterol (< 200) mg/dL LDL Cholesterol, Calc (0-99) mg/dL VLDL Cholesterol, Calc (< 31) mg/dL HDL Cholesterol (40-59) mg/dL Cholesterol/HDL Ratio (0-4.9) TSH (0.340-5.600) mcIU/mL Urine Color Yellow (Yellow) Urine Clarity Clear (Clear) Urine pH 6.5 (5.0-8.0) pH Units Ur Specific [place] 1.020 (1.010-1.025) Urine Protein 100 H (Neg-Trace) mg/dL Urine Glucose (UA) 500 H (Normal) mg/dL Urine Ketones Trace H (Negative) mg/dL Urine Blood Large H (Negative) Urine Nitrite Negative (Negative) Urine Bilirubin Negative (Negative) Urine Urobilinogen 2.0 H (Normal) mg/dL Ur Leukocyte Esterase Negative (Negative) Urine Microscopic RBC TNTC H (0-3) per hpf Urine Microscopic WBC 0-3 (0-3) per hpf Ur Squamous Epith Cells None Seen (None-Few) per lpf Urine Bacteria None Seen (None-Few) per hpf Hyaline Casts None Seen (None-Few) per lpf Salicylates < 2.5 L (15.0-30.0) mg/dL Urine Opiates Screen (Ylfvnr=197) ng/mL Acetaminophen < 10 L (10-20) mcg/mL Ur Barbiturates Screen (Gwgybq=923) ng/mL Ur Phencyclidine Scrn (Cutoff=25) ng/mL Ur Amphetamines Screen (Vranzk=2740) ng/mL U Benzodiazepines Scrn (Idawjx=212) ng/mL Urine Cocaine Screen (Cutoff= 300) ng/mL U Marijuana (THC) Screen (Cutoff = 50) ng/mL Ur Drug Screen Interp Ethyl Alcohol < 10 (Less than 10) mg/dL 04/05/19 04/06/19 04/06/19 Range/Units 21:55 01:37 02:30 WBC (4.3-11.1) K/mcL RBC (4.19-5.50) M/mcL Hgb (12.9-16.9) g/dL Hct (37.5-50.1) % MCV (83.0-100.0) fL MCH (28.0-33.3) pg MCHC (31.6-35.5) g/dL RDW (11.5-14.5) % Plt Count (140-400) K/mcL MPV (9.4-12.4) fL Immature Gran % (0-4) % Seg Neutrophils % % Lymphocytes % % Monocytes % % Eosinophils % % Basophils % % Neutrophils # (1.6-8.9) K/mcL Lymphocytes # (0.6-4.6) K/mcL Monocytes # (0.0-1.3) K/mcL Eosinophils # (0.0-0.6) K/mcL Basophils # (0.0-0.2) K/mcL Sodium (136-145) mEq/L Potassium (3.5-5.1) mEq/L Chloride (98-107) mEq/L Carbon Dioxide (23-29) mEq/L BUN (6-20) mg/dL Creatinine (0.70-1.30) mg/dL Est GFR ( Amer) (> 60) Est GFR (Non-Af Amer) (> 60) BUN/Creatinine Ratio (6-26) Glucose (70-105) mg/dL POC Glucose 335 H 250 H (70-99) mg/dL Est Mean Plasma Glucose mg/dl Hemoglobin A1c ( - 5.6) % Calculated Osmolality (280-300) Calcium (8.6-10.3) mg/dL Triglycerides (< 150) mg/dL Cholesterol (< 200) mg/dL LDL Cholesterol, Calc (0-99) mg/dL VLDL Cholesterol, Calc (< 31) mg/dL HDL Cholesterol (40-59) mg/dL Cholesterol/HDL Ratio (0-4.9) TSH (0.340-5.600) mcIU/mL Urine Color (Yellow) Urine Clarity (Clear) Urine pH (5.0-8.0) pH Units Ur Specific [place] (1.010-1.025) Urine Protein (Neg-Trace) mg/dL Urine Glucose (UA) (Normal) mg/dL Urine Ketones (Negative) mg/dL Urine Blood (Negative) Urine Nitrite (Negative) Urine Bilirubin (Negative) Urine Urobilinogen (Normal) mg/dL Ur Leukocyte Esterase (Negative) Urine Microscopic RBC (0-3) per hpf Urine Microscopic WBC (0-3) per hpf Ur Squamous Epith Cells (None-Few) per lpf Urine Bacteria (None-Few) per hpf Hyaline Casts (None-Few) per lpf Salicylates (15.0-30.0) mg/dL Urine Opiates Screen Negative (Yufpum=702) ng/mL Acetaminophen (10-20) mcg/mL Ur Barbiturates Screen Negative (Oikucz=186) ng/mL Ur Phencyclidine Scrn Negative (Cutoff=25) ng/mL Ur Amphetamines Screen Negative (Kstpky=3983) ng/mL U Benzodiazepines Scrn Negative (Agstqk=352) ng/mL Urine Cocaine Screen Negative (Cutoff= 300) ng/mL U Marijuana (THC) Screen Positive H (Cutoff = 50) ng/mL Ur Drug Screen Interp See Below Ethyl Alcohol (Less than 10) mg/dL 04/06/19 04/06/19 04/06/19 Range/Units 03:34 06:05 07:55 WBC (4.3-11.1) K/mcL RBC (4.19-5.50) M/mcL Hgb (12.9-16.9) g/dL Hct (37.5-50.1) % MCV (83.0-100.0) fL MCH (28.0-33.3) pg MCHC (31.6-35.5) g/dL RDW (11.5-14.5) % Plt Count (140-400) K/mcL MPV (9.4-12.4) fL Immature Gran % (0-4) % Seg Neutrophils % % Lymphocytes % % Monocytes % % Eosinophils % % Basophils % % Neutrophils # (1.6-8.9) K/mcL Lymphocytes # (0.6-4.6) K/mcL Monocytes # (0.0-1.3) K/mcL Eosinophils # (0.0-0.6) K/mcL Basophils # (0.0-0.2) K/mcL Sodium (136-145) mEq/L Potassium (3.5-5.1) mEq/L Chloride (98-107) mEq/L Carbon Dioxide (23-29) mEq/L BUN (6-20) mg/dL Creatinine (0.70-1.30) mg/dL Est GFR ( Amer) (> 60) Est GFR (Non-Af Amer) (> 60) BUN/Creatinine Ratio (6-26) Glucose (70-105) mg/dL POC Glucose 127 H 141 H 244 H (70-99) mg/dL Est Mean Plasma Glucose mg/dl Hemoglobin A1c ( - 5.6) % Calculated Osmolality (280-300) Calcium (8.6-10.3) mg/dL Triglycerides (< 150) mg/dL Cholesterol (< 200) mg/dL LDL Cholesterol, Calc (0-99) mg/dL VLDL Cholesterol, Calc (< 31) mg/dL HDL Cholesterol (40-59) mg/dL Cholesterol/HDL Ratio (0-4.9) TSH (0.340-5.600) mcIU/mL Urine Color (Yellow) Urine Clarity (Clear) Urine pH (5.0-8.0) pH Units Ur Specific [place] (1.010-1.025) Urine Protein (Neg-Trace) mg/dL Urine Glucose (UA) (Normal) mg/dL Urine Ketones (Negative) mg/dL Urine Blood (Negative) Urine Nitrite (Negative) Urine Bilirubin (Negative) Urine Urobilinogen (Normal) mg/dL Ur Leukocyte Esterase (Negative) Urine Microscopic RBC (0-3) per hpf Urine Microscopic WBC (0-3) per hpf Ur Squamous Epith Cells (None-Few) per lpf Urine Bacteria (None-Few) per hpf Hyaline Casts (None-Few) per lpf Salicylates (15.0-30.0) mg/dL Urine Opiates Screen (Udylmx=233) ng/mL Acetaminophen (10-20) mcg/mL Ur Barbiturates Screen (Wvqqlw=672) ng/mL Ur Phencyclidine Scrn (Cutoff=25) ng/mL Ur Amphetamines Screen (Clkkff=2079) ng/mL U Benzodiazepines Scrn (Vprzuv=728) ng/mL Urine Cocaine Screen (Cutoff= 300) ng/mL U Marijuana (THC) Screen (Cutoff = 50) ng/mL Ur Drug Screen Interp Ethyl Alcohol (Less than 10) mg/dL 04/06/19 04/06/19 04/06/19 Range/Units 10:00 10:00 11:49 WBC (4.3-11.1) K/mcL RBC (4.19-5.50) M/mcL Hgb (12.9-16.9) g/dL Hct (37.5-50.1) % MCV (83.0-100.0) fL MCH (28.0-33.3) pg MCHC (31.6-35.5) g/dL RDW (11.5-14.5) % Plt Count (140-400) K/mcL MPV (9.4-12.4) fL Immature Gran % (0-4) % Seg Neutrophils % % Lymphocytes % % Monocytes % % Eosinophils % % Basophils % % Neutrophils # (1.6-8.9) K/mcL Lymphocytes # (0.6-4.6) K/mcL Monocytes # (0.0-1.3) K/mcL Eosinophils # (0.0-0.6) K/mcL Basophils # (0.0-0.2) K/mcL Sodium (136-145) mEq/L Potassium (3.5-5.1) mEq/L Chloride (98-107) mEq/L Carbon Dioxide (23-29) mEq/L BUN (6-20) mg/dL Creatinine (0.70-1.30) mg/dL Est GFR ( Amer) (> 60) Est GFR (Non-Af Amer) (> 60) BUN/Creatinine Ratio (6-26) Glucose (70-105) mg/dL POC Glucose 251 H (70-99) mg/dL Est Mean Plasma Glucose 209 mg/dl Hemoglobin A1c 8.9 H ( - 5.6) % Calculated Osmolality (280-300) Calcium (8.6-10.3) mg/dL Triglycerides 58 (< 150) mg/dL Cholesterol 152 (< 200) mg/dL LDL Cholesterol, Calc 92 (0-99) mg/dL VLDL Cholesterol, Calc 12 (< 31) mg/dL HDL Cholesterol 48 (40-59) mg/dL Cholesterol/HDL Ratio 3.2 (0-4.9) TSH 0.735 (0.340-5.600) mcIU/mL Urine Color (Yellow) Urine Clarity (Clear) Urine pH (5.0-8.0) pH Units Ur Specific [place] (1.010-1.025) Urine Protein (Neg-Trace) mg/dL Urine Glucose (UA) (Normal) mg/dL Urine Ketones (Negative) mg/dL Urine Blood (Negative) Urine Nitrite (Negative) Urine Bilirubin (Negative) Urine Urobilinogen (Normal) mg/dL Ur Leukocyte Esterase (Negative) Urine Microscopic RBC (0-3) per hpf Urine Microscopic WBC (0-3) per hpf Ur Squamous Epith Cells (None-Few) per lpf Urine Bacteria (None-Few) per hpf Hyaline Casts (None-Few) per lpf Salicylates (15.0-30.0) mg/dL Urine Opiates Screen (Qasiez=331) ng/mL Acetaminophen (10-20) mcg/mL Ur Barbiturates Screen (Iwirul=858) ng/mL Ur Phencyclidine Scrn (Cutoff=25) ng/mL Ur Amphetamines Screen (Mlibqc=3796) ng/mL U Benzodiazepines Scrn (Wxjsdr=838) ng/mL Urine Cocaine Screen (Cutoff= 300) ng/mL U Marijuana (THC) Screen (Cutoff = 50) ng/mL Ur Drug Screen Interp Ethyl Alcohol (Less than 10) mg/dL 04/06/19 04/06/19 04/07/19 Range/Units 16:46 21:13 08:01 WBC (4.3-11.1) K/mcL RBC (4.19-5.50) M/mcL Hgb (12.9-16.9) g/dL Hct (37.5-50.1) % MCV (83.0-100.0) fL MCH (28.0-33.3) pg MCHC (31.6-35.5) g/dL RDW (11.5-14.5) % Plt Count (140-400) K/mcL MPV (9.4-12.4) fL Immature Gran % (0-4) % Seg Neutrophils % % Lymphocytes % % Monocytes % % Eosinophils % % Basophils % % Neutrophils # (1.6-8.9) K/mcL Lymphocytes # (0.6-4.6) K/mcL Monocytes # (0.0-1.3) K/mcL Eosinophils # (0.0-0.6) K/mcL Basophils # (0.0-0.2) K/mcL Sodium (136-145) mEq/L Potassium (3.5-5.1) mEq/L Chloride (98-107) mEq/L Carbon Dioxide (23-29) mEq/L BUN (6-20) mg/dL Creatinine (0.70-1.30) mg/dL Est GFR ( Amer) (> 60) Est GFR (Non-Af Amer) (> 60) BUN/Creatinine Ratio (6-26) Glucose (70-105) mg/dL POC Glucose 141 H 142 H 194 H (70-99) mg/dL Est Mean Plasma Glucose mg/dl Hemoglobin A1c ( - 5.6) % Calculated Osmolality (280-300) Calcium (8.6-10.3) mg/dL Triglycerides (< 150) mg/dL Cholesterol (< 200) mg/dL LDL Cholesterol, Calc (0-99) mg/dL VLDL Cholesterol, Calc (< 31) mg/dL HDL Cholesterol (40-59) mg/dL Cholesterol/HDL Ratio (0-4.9) TSH (0.340-5.600) mcIU/mL Urine Color (Yellow) Urine Clarity (Clear) Urine pH (5.0-8.0) pH Units Ur Specific [place] (1.010-1.025) Urine Protein (Neg-Trace) mg/dL Urine Glucose (UA) (Normal) mg/dL Urine Ketones (Negative) mg/dL Urine Blood (Negative) Urine Nitrite (Negative) Urine Bilirubin (Negative) Urine Urobilinogen (Normal) mg/dL Ur Leukocyte Esterase (Negative) Urine Microscopic RBC (0-3) per hpf Urine Microscopic WBC (0-3) per hpf Ur Squamous Epith Cells (None-Few) per lpf Urine Bacteria (None-Few) per hpf Hyaline Casts (None-Few) per lpf Salicylates (15.0-30.0) mg/dL Urine Opiates Screen (Bxvfcq=980) ng/mL Acetaminophen (10-20) mcg/mL Ur Barbiturates Screen (Vtqoew=014) ng/mL Ur Phencyclidine Scrn (Cutoff=25) ng/mL Ur Amphetamines Screen (Zzlwya=2192) ng/mL U Benzodiazepines Scrn (Qbqivr=506) ng/mL Urine Cocaine Screen (Cutoff= 300) ng/mL U Marijuana (THC) Screen (Cutoff = 50) ng/mL Ur Drug Screen Interp Ethyl Alcohol (Less than 10) mg/dL 04/07/19 04/07/19 04/07/19 Range/Units 12:09 16:34 20:15 WBC (4.3-11.1) K/mcL RBC (4.19-5.50) M/mcL Hgb (12.9-16.9) g/dL Hct (37.5-50.1) % MCV (83.0-100.0) fL MCH (28.0-33.3) pg MCHC (31.6-35.5) g/dL RDW (11.5-14.5) % Plt Count (140-400) K/mcL MPV (9.4-12.4) fL Immature Gran % (0-4) % Seg Neutrophils % % Lymphocytes % % Monocytes % % Eosinophils % % Basophils % % Neutrophils # (1.6-8.9) K/mcL Lymphocytes # (0.6-4.6) K/mcL Monocytes # (0.0-1.3) K/mcL Eosinophils # (0.0-0.6) K/mcL Basophils # (0.0-0.2) K/mcL Sodium (136-145) mEq/L Potassium (3.5-5.1) mEq/L Chloride (98-107) mEq/L Carbon Dioxide (23-29) mEq/L BUN (6-20) mg/dL Creatinine (0.70-1.30) mg/dL Est GFR ( Amer) (> 60) Est GFR (Non-Af Amer) (> 60) BUN/Creatinine Ratio (6-26) Glucose (70-105) mg/dL POC Glucose 168 H 275 H 103 H (70-99) mg/dL Est Mean Plasma Glucose mg/dl Hemoglobin A1c ( - 5.6) % Calculated Osmolality (280-300) Calcium (8.6-10.3) mg/dL Triglycerides (< 150) mg/dL Cholesterol (< 200) mg/dL LDL Cholesterol, Calc (0-99) mg/dL VLDL Cholesterol, Calc (< 31) mg/dL HDL Cholesterol (40-59) mg/dL Cholesterol/HDL Ratio (0-4.9) TSH (0.340-5.600) mcIU/mL Urine Color (Yellow) Urine Clarity (Clear) Urine pH (5.0-8.0) pH Units Ur Specific [place] (1.010-1.025) Urine Protein (Neg-Trace) mg/dL Urine Glucose (UA) (Normal) mg/dL Urine Ketones (Negative) mg/dL Urine Blood (Negative) Urine Nitrite (Negative) Urine Bilirubin (Negative) Urine Urobilinogen (Normal) mg/dL Ur Leukocyte Esterase (Negative) Urine Microscopic RBC (0-3) per hpf Urine Microscopic WBC (0-3) per hpf Ur Squamous Epith Cells (None-Few) per lpf Urine Bacteria (None-Few) per hpf Hyaline Casts (None-Few) per lpf Salicylates (15.0-30.0) mg/dL Urine Opiates Screen (Ipkmwy=274) ng/mL Acetaminophen (10-20) mcg/mL Ur Barbiturates Screen (Kwfmcp=793) ng/mL Ur Phencyclidine Scrn (Cutoff=25) ng/mL Ur Amphetamines Screen (Zwcvhh=8615) ng/mL U Benzodiazepines Scrn (Gvnztw=480) ng/mL Urine Cocaine Screen (Cutoff= 300) ng/mL U Marijuana (THC) Screen (Cutoff = 50) ng/mL Ur Drug Screen Interp Ethyl Alcohol (Less than 10) mg/dL 04/08/19 04/08/19 04/08/19 Range/Units 09:23 11:19 16:43 WBC (4.3-11.1) K/mcL RBC (4.19-5.50) M/mcL Hgb (12.9-16.9) g/dL Hct (37.5-50.1) % MCV (83.0-100.0) fL MCH (28.0-33.3) pg MCHC (31.6-35.5) g/dL RDW (11.5-14.5) % Plt Count (140-400) K/mcL MPV (9.4-12.4) fL Immature Gran % (0-4) % Seg Neutrophils % % Lymphocytes % % Monocytes % % Eosinophils % % Basophils % % Neutrophils # (1.6-8.9) K/mcL Lymphocytes # (0.6-4.6) K/mcL Monocytes # (0.0-1.3) K/mcL Eosinophils # (0.0-0.6) K/mcL Basophils # (0.0-0.2) K/mcL Sodium (136-145) mEq/L Potassium (3.5-5.1) mEq/L Chloride (98-107) mEq/L Carbon Dioxide (23-29) mEq/L BUN (6-20) mg/dL Creatinine (0.70-1.30) mg/dL Est GFR ( Amer) (> 60) Est GFR (Non-Af Amer) (> 60) BUN/Creatinine Ratio (6-26) Glucose (70-105) mg/dL POC Glucose 232 H 294 H 177 H (70-99) mg/dL Est Mean Plasma Glucose mg/dl Hemoglobin A1c ( - 5.6) % Calculated Osmolality (280-300) Calcium (8.6-10.3) mg/dL Triglycerides (< 150) mg/dL Cholesterol (< 200) mg/dL LDL Cholesterol, Calc (0-99) mg/dL VLDL Cholesterol, Calc (< 31) mg/dL HDL Cholesterol (40-59) mg/dL Cholesterol/HDL Ratio (0-4.9) TSH (0.340-5.600) mcIU/mL Urine Color (Yellow) Urine Clarity (Clear) Urine pH (5.0-8.0) pH Units Ur Specific [place] (1.010-1.025) Urine Protein (Neg-Trace) mg/dL Urine Glucose (UA) (Normal) mg/dL Urine Ketones (Negative) mg/dL Urine Blood (Negative) Urine Nitrite (Negative) Urine Bilirubin (Negative) Urine Urobilinogen (Normal) mg/dL Ur Leukocyte Esterase (Negative) Urine Microscopic RBC (0-3) per hpf Urine Microscopic WBC (0-3) per hpf Ur Squamous Epith Cells (None-Few) per lpf Urine Bacteria (None-Few) per hpf Hyaline Casts (None-Few) per lpf Salicylates (15.0-30.0) mg/dL Urine Opiates Screen ([place]=888) ng/mL Acetaminophen (10-20) mcg/mL Ur Barbiturates Screen (Rouihx=765) ng/mL Ur Phencyclidine Scrn (Cutoff=25) ng/mL Ur Amphetamines Screen (Olifrr=7249) ng/mL U Benzodiazepines Scrn (Omnpzy=515) ng/mL Urine Cocaine Screen (Cutoff= 300) ng/mL U Marijuana (THC) Screen (Cutoff = 50) ng/mL Ur Drug Screen Interp Ethyl Alcohol (Less than 10) mg/dL 04/08/19 04/09/19 04/09/19 Range/Units 19:58 08:54 11:38 WBC (4.3-11.1) K/mcL RBC (4.19-5.50) M/mcL Hgb (12.9-16.9) g/dL Hct (37.5-50.1) % MCV (83.0-100.0) fL MCH (28.0-33.3) pg MCHC (31.6-35.5) g/dL RDW (11.5-14.5) % Plt Count (140-400) K/mcL MPV (9.4-12.4) fL Immature Gran % (0-4) % Seg Neutrophils % % Lymphocytes % % Monocytes % % Eosinophils % % Basophils % % Neutrophils # (1.6-8.9) K/mcL Lymphocytes # (0.6-4.6) K/mcL Monocytes # (0.0-1.3) K/mcL Eosinophils # (0.0-0.6) K/mcL Basophils # (0.0-0.2) K/mcL Sodium (136-145) mEq/L Potassium (3.5-5.1) mEq/L Chloride (98-107) mEq/L Carbon Dioxide (23-29) mEq/L BUN (6-20) mg/dL Creatinine (0.70-1.30) mg/dL Est GFR ( Amer) (> 60) Est GFR (Non-Af Amer) (> 60) BUN/Creatinine Ratio (6-26) Glucose (70-105) mg/dL POC Glucose 143 H 169 H 251 H (70-99) mg/dL Est Mean Plasma Glucose mg/dl Hemoglobin A1c ( - 5.6) % Calculated Osmolality (280-300) Calcium (8.6-10.3) mg/dL Triglycerides (< 150) mg/dL Cholesterol (< 200) mg/dL LDL Cholesterol, Calc (0-99) mg/dL VLDL Cholesterol, Calc (< 31) mg/dL HDL Cholesterol (40-59) mg/dL Cholesterol/HDL Ratio (0-4.9) TSH (0.340-5.600) mcIU/mL Urine Color (Yellow) Urine Clarity (Clear) Urine pH (5.0-8.0) pH Units Ur Specific [place] (1.010-1.025) Urine Protein (Neg-Trace) mg/dL Urine Glucose (UA) (Normal) mg/dL Urine Ketones (Negative) mg/dL Urine Blood (Negative) Urine Nitrite (Negative) Urine Bilirubin (Negative) Urine Urobilinogen (Normal) mg/dL Ur Leukocyte Esterase (Negative) Urine Microscopic RBC (0-3) per hpf Urine Microscopic WBC (0-3) per hpf Ur Squamous Epith Cells (None-Few) per lpf Urine Bacteria (None-Few) per hpf Hyaline Casts (None-Few) per lpf Salicylates (15.0-30.0) mg/dL Urine Opiates Screen (Hkrsfn=146) ng/mL Acetaminophen (10-20) mcg/mL Ur Barbiturates Screen ([place]otjas=977) ng/mL Ur Phencyclidine Scrn (Cutoff=25) ng/mL Ur Amphetamines Screen (Dcknpz=6019) ng/mL U Benzodiazepines Scrn (Gxzeqs=052) ng/mL Urine Cocaine Screen (Cutoff= 300) ng/mL U Marijuana (THC) Screen (Cutoff = 50) ng/mL Ur Drug Screen Interp Ethyl Alcohol (Less than 10) mg/dL 04/09/19 04/09/19 04/10/19 Range/Units 16:29 20:56 08:58 WBC (4.3-11.1) K/mcL RBC (4.19-5.50) M/mcL Hgb (12.9-16.9) g/dL Hct (37.5-50.1) % MCV (83.0-100.0) fL MCH (28.0-33.3) pg MCHC (31.6-35.5) g/dL RDW (11.5-14.5) % Plt Count (140-400) K/mcL MPV (9.4-12.4) fL Immature Gran % (0-4) % Seg Neutrophils % % Lymphocytes % % Monocytes % % Eosinophils % % Basophils % % Neutrophils # (1.6-8.9) K/mcL Lymphocytes # (0.6-4.6) K/mcL Monocytes # (0.0-1.3) K/mcL Eosinophils # (0.0-0.6) K/mcL Basophils # (0.0-0.2) K/mcL Sodium (136-145) mEq/L Potassium (3.5-5.1) mEq/L Chloride (98-107) mEq/L Carbon Dioxide (23-29) mEq/L BUN (6-20) mg/dL Creatinine (0.70-1.30) mg/dL Est GFR ( Amer) (> 60) Est GFR (Non-Af Amer) (> 60) BUN/Creatinine Ratio (6-26) Glucose (70-105) mg/dL POC Glucose 135 H 210 H 208 H (70-99) mg/dL Est Mean Plasma Glucose mg/dl Hemoglobin A1c ( - 5.6) % Calculated Osmolality (280-300) Calcium (8.6-10.3) mg/dL Triglycerides (< 150) mg/dL Cholesterol (< 200) mg/dL LDL Cholesterol, Calc (0-99) mg/dL VLDL Cholesterol, Calc (< 31) mg/dL HDL Cholesterol (40-59) mg/dL Cholesterol/HDL Ratio (0-4.9) TSH (0.340-5.600) mcIU/mL Urine Color (Yellow) Urine Clarity (Clear) Urine pH (5.0-8.0) pH Units Ur Specific [place] (1.010-1.025) Urine Protein (Neg-Trace) mg/dL Urine Glucose (UA) (Normal) mg/dL Urine Ketones (Negative) mg/dL Urine Blood (Negative) Urine Nitrite (Negative) Urine Bilirubin (Negative) Urine Urobilinogen (Normal) mg/dL Ur Leukocyte Esterase (Negative) Urine Microscopic RBC (0-3) per hpf Urine Microscopic WBC (0-3) per hpf Ur Squamous Epith Cells (None-Few) per lpf Urine Bacteria (None-Few) per hpf Hyaline Casts (None-Few) per lpf Salicylates (15.0-30.0) mg/dL Urine Opiates Screen (Lglpvj=407) ng/mL Acetaminophen (10-20) mcg/mL Ur Barbiturates Screen (Rcnoea=915) ng/mL Ur Phencyclidine Scrn (Cutoff=25) ng/mL Ur Amphetamines Screen (Muqbta=7718) ng/mL U Benzodiazepines Scrn (Fkotix=147) ng/mL Urine Cocaine Screen (Cutoff= 300) ng/mL U Marijuana (THC) Screen (Cutoff = 50) ng/mL Ur Drug Screen Interp Ethyl Alcohol (Less than 10) mg/dL 04/10/19 04/10/19 04/10/19 Range/Units 11:57 17:02 20:43 WBC (4.3-11.1) K/mcL RBC (4.19-5.50) M/mcL Hgb (12.9-16.9) g/dL Hct (37.5-50.1) % MCV (83.0-100.0) fL MCH (28.0-33.3) pg MCHC (31.6-35.5) g/dL RDW (11.5-14.5) % Plt Count (140-400) K/mcL MPV (9.4-12.4) fL Immature Gran % (0-4) % Seg Neutrophils % % Lymphocytes % % Monocytes % % Eosinophils % % Basophils % % Neutrophils # (1.6-8.9) K/mcL Lymphocytes # (0.6-4.6) K/mcL Monocytes # (0.0-1.3) K/mcL Eosinophils # (0.0-0.6) K/mcL Basophils # (0.0-0.2) K/mcL Sodium (136-145) mEq/L Potassium (3.5-5.1) mEq/L Chloride (98-107) mEq/L Carbon Dioxide (23-29) mEq/L BUN (6-20) mg/dL Creatinine (0.70-1.30) mg/dL Est GFR ( Amer) (> 60) Est GFR (Non-Af Amer) (> 60) BUN/Creatinine Ratio (6-26) Glucose (70-105) mg/dL POC Glucose 209 H 114 H 162 H (70-99) mg/dL Est Mean Plasma Glucose mg/dl Hemoglobin A1c ( - 5.6) % Calculated Osmolality (280-300) Calcium (8.6-10.3) mg/dL Triglycerides (< 150) mg/dL Cholesterol (< 200) mg/dL LDL Cholesterol, Calc (0-99) mg/dL VLDL Cholesterol, Calc (< 31) mg/dL HDL Cholesterol (40-59) mg/dL Cholesterol/HDL Ratio (0-4.9) TSH (0.340-5.600) mcIU/mL Urine Color (Yellow) Urine Clarity (Clear) Urine pH (5.0-8.0) pH Units Ur Specific [place] (1.010-1.025) Urine Protein (Neg-Trace) mg/dL Urine Glucose (UA) (Normal) mg/dL Urine Ketones (Negative) mg/dL Urine Blood (Negative) Urine Nitrite (Negative) Urine Bilirubin (Negative) Urine Urobilinogen (Normal) mg/dL Ur Leukocyte Esterase (Negative) Urine Microscopic RBC (0-3) per hpf Urine Microscopic WBC (0-3) per hpf Ur Squamous Epith Cells (None-Few) per lpf Urine Bacteria (None-Few) per hpf Hyaline Casts (None-Few) per lpf Salicylates (15.0-30.0) mg/dL Urine Opiates Screen (Irodhw=916) ng/mL Acetaminophen (10-20) mcg/mL Ur Barbiturates Screen (Pasjtf=800) ng/mL Ur Phencyclidine Scrn (Cutoff=25) ng/mL Ur Amphetamines Screen (Anocok=6063) ng/mL U Benzodiazepines Scrn (Vbggmh=761) ng/mL Urine Cocaine Screen (Cutoff= 300) ng/mL U Marijuana (THC) Screen (Cutoff = 50) ng/mL Ur Drug Screen Interp Ethyl Alcohol (Less than 10) mg/dL 04/11/19 04/11/19 04/11/19 Range/Units 09:26 11:45 16:34 WBC (4.3-11.1) K/mcL RBC (4.19-5.50) M/mcL Hgb (12.9-16.9) g/dL Hct (37.5-50.1) % MCV (83.0-100.0) fL MCH (28.0-33.3) pg MCHC (31.6-35.5) g/dL RDW (11.5-14.5) % Plt Count (140-400) K/mcL MPV (9.4-12.4) fL Immature Gran % (0-4) % Seg Neutrophils % % Lymphocytes % % Monocytes % % Eosinophils % % Basophils % % Neutrophils # (1.6-8.9) K/mcL Lymphocytes # (0.6-4.6) K/mcL Monocytes # (0.0-1.3) K/mcL Eosinophils # (0.0-0.6) K/mcL Basophils # (0.0-0.2) K/mcL Sodium (136-145) mEq/L Potassium (3.5-5.1) mEq/L Chloride (98-107) mEq/L Carbon Dioxide (23-29) mEq/L BUN (6-20) mg/dL Creatinine (0.70-1.30) mg/dL Est GFR ( Amer) (> 60) Est GFR (Non-Af Amer) (> 60) BUN/Creatinine Ratio (6-26) Glucose (70-105) mg/dL POC Glucose 163 H 315 H 116 H (70-99) mg/dL Est Mean Plasma Glucose mg/dl Hemoglobin A1c ( - 5.6) % Calculated Osmolality (280-300) Calcium (8.6-10.3) mg/dL Triglycerides (< 150) mg/dL Cholesterol (< 200) mg/dL LDL Cholesterol, Calc (0-99) mg/dL VLDL Cholesterol, Calc (< 31) mg/dL HDL Cholesterol (40-59) mg/dL Cholesterol/HDL Ratio (0-4.9) TSH (0.340-5.600) mcIU/mL Urine Color (Yellow) Urine Clarity (Clear) Urine pH (5.0-8.0) pH Units Ur Specific [place] (1.010-1.025) Urine Protein (Neg-Trace) mg/dL Urine Glucose (UA) (Normal) mg/dL Urine Ketones (Negative) mg/dL Urine Blood (Negative) Urine Nitrite (Negative) Urine Bilirubin (Negative) Urine Urobilinogen (Normal) mg/dL Ur Leukocyte Esterase (Negative) Urine Microscopic RBC (0-3) per hpf Urine Microscopic WBC (0-3) per hpf Ur Squamous Epith Cells (None-Few) per lpf Urine Bacteria (None-Few) per hpf Hyaline Casts (None-Few) per lpf Salicylates (15.0-30.0) mg/dL Urine Opiates Screen (Ibsfrk=331) ng/mL Acetaminophen (10-20) mcg/mL Ur Barbiturates Screen (Zqnykk=600) ng/mL Ur Phencyclidine Scrn (Cutoff=25) ng/mL Ur Amphetamines Screen (Ensizg=2710) ng/mL U Benzodiazepines Scrn (Gybvvl=915) ng/mL Urine Cocaine Screen (Cutoff= 300) ng/mL U Marijuana (THC) Screen (Cutoff = 50) ng/mL Ur Drug Screen Interp Ethyl Alcohol (Less than 10) mg/dL 04/11/19 04/12/19 04/12/19 Range/Units 20:52 08:24 11:21 WBC (4.3-11.1) K/mcL RBC (4.19-5.50) M/mcL Hgb (12.9-16.9) g/dL Hct (37.5-50.1) % MCV (83.0-100.0) fL MCH (28.0-33.3) pg MCHC (31.6-35.5) g/dL RDW (11.5-14.5) % Plt Count (140-400) K/mcL MPV (9.4-12.4) fL Immature Gran % (0-4) % Seg Neutrophils % % Lymphocytes % % Monocytes % % Eosinophils % % Basophils % % Neutrophils # (1.6-8.9) K/mcL Lymphocytes # (0.6-4.6) K/mcL Monocytes # (0.0-1.3) K/mcL Eosinophils # (0.0-0.6) K/mcL Basophils # (0.0-0.2) K/mcL Sodium (136-145) mEq/L Potassium (3.5-5.1) mEq/L Chloride (98-107) mEq/L Carbon Dioxide (23-29) mEq/L BUN (6-20) mg/dL Creatinine (0.70-1.30) mg/dL Est GFR ( Amer) (> 60) Est GFR (Non-Af Amer) (> 60) BUN/Creatinine Ratio (6-26) Glucose (70-105) mg/dL POC Glucose 254 H 169 H 288 H (70-99) mg/dL Est Mean Plasma Glucose mg/dl Hemoglobin A1c ( - 5.6) % Calculated Osmolality (280-300) Calcium (8.6-10.3) mg/dL Triglycerides (< 150) mg/dL Cholesterol (< 200) mg/dL LDL Cholesterol, Calc (0-99) mg/dL VLDL Cholesterol, Calc (< 31) mg/dL HDL Cholesterol (40-59) mg/dL Cholesterol/HDL Ratio (0-4.9) TSH (0.340-5.600) mcIU/mL Urine Color (Yellow) Urine Clarity (Clear) Urine pH (5.0-8.0) pH Units Ur Specific [place] (1.010-1.025) Urine Protein (Neg-Trace) mg/dL Urine Glucose (UA) (Normal) mg/dL Urine Ketones (Negative) mg/dL Urine Blood (Negative) Urine Nitrite (Negative) Urine Bilirubin (Negative) Urine Urobilinogen (Normal) mg/dL Ur Leukocyte Esterase (Negative) Urine Microscopic RBC (0-3) per hpf Urine Microscopic WBC (0-3) per hpf Ur Squamous Epith Cells (None-Few) per lpf Urine Bacteria (None-Few) per hpf Hyaline Casts (None-Few) per lpf Salicylates (15.0-30.0) mg/dL Urine Opiates Screen (Keofbn=695) ng/mL Acetaminophen (10-20) mcg/mL Ur Barbiturates Screen (Zivuhv=287) ng/mL Ur Phencyclidine Scrn (Cutoff=25) ng/mL Ur Amphetamines Screen (Nsorky=8987) ng/mL U Benzodiazepines Scrn (Hbnbdx=519) ng/mL Urine Cocaine Screen (Cutoff= 300) ng/mL U Marijuana (THC) Screen (Cutoff = 50) ng/mL Ur Drug Screen Interp Ethyl Alcohol (Less than 10) mg/dL 04/12/19 04/12/19 04/13/19 Range/Units 16:39 20:09 07:55 WBC (4.3-11.1) K/mcL RBC (4.19-5.50) M/mcL Hgb (12.9-16.9) g/dL Hct (37.5-50.1) % MCV (83.0-100.0) fL MCH (28.0-33.3) pg MCHC (31.6-35.5) g/dL RDW (11.5-14.5) % Plt Count (140-400) K/mcL MPV (9.4-12.4) fL Immature Gran % (0-4) % Seg Neutrophils % % Lymphocytes % % Monocytes % % Eosinophils % % Basophils % % Neutrophils # (1.6-8.9) K/mcL Lymphocytes # (0.6-4.6) K/mcL Monocytes # (0.0-1.3) K/mcL Eosinophils # (0.0-0.6) K/mcL Basophils # (0.0-0.2) K/mcL Sodium (136-145) mEq/L Potassium (3.5-5.1) mEq/L Chloride (98-107) mEq/L Carbon Dioxide (23-29) mEq/L BUN (6-20) mg/dL Creatinine (0.70-1.30) mg/dL Est GFR ( Amer) (> 60) Est GFR (Non-Af Amer) (> 60) BUN/Creatinine Ratio (6-26) Glucose (70-105) mg/dL POC Glucose 178 H 155 H 173 H (70-99) mg/dL Est Mean Plasma Glucose mg/dl Hemoglobin A1c ( - 5.6) % Calculated Osmolality (280-300) Calcium (8.6-10.3) mg/dL Triglycerides (< 150) mg/dL Cholesterol (< 200) mg/dL LDL Cholesterol, Calc (0-99) mg/dL VLDL Cholesterol, Calc (< 31) mg/dL HDL Cholesterol (40-59) mg/dL Cholesterol/HDL Ratio (0-4.9) TSH (0.340-5.600) mcIU/mL Urine Color (Yellow) Urine Clarity (Clear) Urine pH (5.0-8.0) pH Units Ur Specific [place] (1.010-1.025) Urine Protein (Neg-Trace) mg/dL Urine Glucose (UA) (Normal) mg/dL Urine Ketones (Negative) mg/dL Urine Blood (Negative) Urine Nitrite (Negative) Urine Bilirubin (Negative) Urine Urobilinogen (Normal) mg/dL Ur Leukocyte Esterase (Negative) Urine Microscopic RBC (0-3) per hpf Urine Microscopic WBC (0-3) per hpf Ur Squamous Epith Cells (None-Few) per lpf Urine Bacteria (None-Few) per hpf Hyaline Casts (None-Few) per lpf Salicylates (15.0-30.0) mg/dL Urine Opiates Screen (Hxvuze=892) ng/mL Acetaminophen (10-20) mcg/mL Ur Barbiturates Screen (Xncrov=208) ng/mL Ur Phencyclidine Scrn (Cutoff=25) ng/mL Ur Amphetamines Screen (Yoixxr=6495) ng/mL U Benzodiazepines Scrn (Thrfwa=521) ng/mL Urine Cocaine Screen (Cutoff= 300) ng/mL U Marijuana (THC) Screen (Cutoff = 50) ng/mL Ur Drug Screen Interp Ethyl Alcohol (Less than 10) mg/dL 04/13/19 04/13/19 04/13/19 Range/Units 11:45 16:32 19:33 WBC (4.3-11.1) K/mcL RBC (4.19-5.50) M/mcL Hgb (12.9-16.9) g/dL Hct (37.5-50.1) % MCV (83.0-100.0) fL MCH (28.0-33.3) pg MCHC (31.6-35.5) g/dL RDW (11.5-14.5) % Plt Count (140-400) K/mcL MPV (9.4-12.4) fL Immature Gran % (0-4) % Seg Neutrophils % % Lymphocytes % % Monocytes % % Eosinophils % % Basophils % % Neutrophils # (1.6-8.9) K/mcL Lymphocytes # (0.6-4.6) K/mcL Monocytes # (0.0-1.3) K/mcL Eosinophils # (0.0-0.6) K/mcL Basophils # (0.0-0.2) K/mcL Sodium (136-145) mEq/L Potassium (3.5-5.1) mEq/L Chloride (98-107) mEq/L Carbon Dioxide (23-29) mEq/L BUN (6-20) mg/dL Creatinine (0.70-1.30) mg/dL Est GFR ( Amer) (> 60) Est GFR (Non-Af Amer) (> 60) BUN/Creatinine Ratio (6-26) Glucose (70-105) mg/dL POC Glucose 192 H 252 H 164 H (70-99) mg/dL Est Mean Plasma Glucose mg/dl Hemoglobin A1c ( - 5.6) % Calculated Osmolality (280-300) Calcium (8.6-10.3) mg/dL Triglycerides (< 150) mg/dL Cholesterol (< 200) mg/dL LDL Cholesterol, Calc (0-99) mg/dL VLDL Cholesterol, Calc (< 31) mg/dL HDL Cholesterol (40-59) mg/dL Cholesterol/HDL Ratio (0-4.9) TSH (0.340-5.600) mcIU/mL Urine Color (Yellow) Urine Clarity (Clear) Urine pH (5.0-8.0) pH Units Ur Specific [place] (1.010-1.025) Urine Protein (Neg-Trace) mg/dL Urine Glucose (UA) (Normal) mg/dL Urine Ketones (Negative) mg/dL Urine Blood (Negative) Urine Nitrite (Negative) Urine Bilirubin (Negative) Urine Urobilinogen (Normal) mg/dL Ur Leukocyte Esterase (Negative) Urine Microscopic RBC (0-3) per hpf Urine Microscopic WBC (0-3) per hpf Ur Squamous Epith Cells (None-Few) per lpf Urine Bacteria (None-Few) per hpf Hyaline Casts (None-Few) per lpf Salicylates (15.0-30.0) mg/dL Urine Opiates Screen (Zwcmwn=844) ng/mL Acetaminophen (10-20) mcg/mL Ur Barbiturates Screen (Vqxjcu=035) ng/mL Ur Phencyclidine Scrn (Cutoff=25) ng/mL Ur Amphetamines Screen (Mwftxw=8692) ng/mL U Benzodiazepines Scrn (Ppswow=208) ng/mL Urine Cocaine Screen (Cutoff= 300) ng/mL U Marijuana (THC) Screen (Cutoff = 50) ng/mL Ur Drug Screen Interp Ethyl Alcohol (Less than 10) mg/dL 04/14/19 04/14/19 04/14/19 Range/Units 08:18 11:54 16:49 WBC (4.3-11.1) K/mcL RBC (4.19-5.50) M/mcL Hgb (12.9-16.9) g/dL Hct (37.5-50.1) % MCV (83.0-100.0) fL MCH (28.0-33.3) pg MCHC (31.6-35.5) g/dL RDW (11.5-14.5) % Plt Count (140-400) K/mcL MPV (9.4-12.4) fL Immature Gran % (0-4) % Seg Neutrophils % % Lymphocytes % % Monocytes % % Eosinophils % % Basophils % % Neutrophils # (1.6-8.9) K/mcL Lymphocytes # (0.6-4.6) K/mcL Monocytes # (0.0-1.3) K/mcL Eosinophils # (0.0-0.6) K/mcL Basophils # (0.0-0.2) K/mcL Sodium (136-145) mEq/L Potassium (3.5-5.1) mEq/L Chloride (98-107) mEq/L Carbon Dioxide (23-29) mEq/L BUN (6-20) mg/dL Creatinine (0.70-1.30) mg/dL Est GFR ( Amer) (> 60) Est GFR (Non-Af Amer) (> 60) BUN/Creatinine Ratio (6-26) Glucose (70-105) mg/dL POC Glucose 231 H 103 H 236 H (70-99) mg/dL Est Mean Plasma Glucose mg/dl Hemoglobin A1c ( - 5.6) % Calculated Osmolality (280-300) Calcium (8.6-10.3) mg/dL Triglycerides (< 150) mg/dL Cholesterol (< 200) mg/dL LDL Cholesterol, Calc (0-99) mg/dL VLDL Cholesterol, Calc (< 31) mg/dL HDL Cholesterol (40-59) mg/dL Cholesterol/HDL Ratio (0-4.9) TSH (0.340-5.600) mcIU/mL Urine Color (Yellow) Urine Clarity (Clear) Urine pH (5.0-8.0) pH Units Ur Specific [place] (1.010-1.025) Urine Protein (Neg-Trace) mg/dL Urine Glucose (UA) (Normal) mg/dL Urine Ketones (Negative) mg/dL Urine Blood (Negative) Urine Nitrite (Negative) Urine Bilirubin (Negative) Urine Urobilinogen (Normal) mg/dL Ur Leukocyte Esterase (Negative) Urine Microscopic RBC (0-3) per hpf Urine Microscopic WBC (0-3) per hpf Ur Squamous Epith Cells (None-Few) per lpf Urine Bacteria (None-Few) per hpf Hyaline Casts (None-Few) per lpf Salicylates (15.0-30.0) mg/dL Urine Opiates Screen (Yscksp=627) ng/mL Acetaminophen (10-20) mcg/mL Ur Barbiturates Screen (Astbql=132) ng/mL Ur Phencyclidine Scrn (Cutoff=25) ng/mL Ur Amphetamines Screen (Vrvtoz=3454) ng/mL U Benzodiazepines Scrn (Gtcszp=858) ng/mL Urine Cocaine Screen (Cutoff= 300) ng/mL U Marijuana (THC) Screen (Cutoff = 50) ng/mL Ur Drug Screen Interp Ethyl Alcohol (Less than 10) mg/dL 04/14/19 04/15/19 04/15/19 Range/Units 21:30 08:13 11:31 WBC (4.3-11.1) K/mcL RBC (4.19-5.50) M/mcL Hgb (12.9-16.9) g/dL Hct (37.5-50.1) % MCV (83.0-100.0) fL MCH (28.0-33.3) pg MCHC (31.6-35.5) g/dL RDW (11.5-14.5) % Plt Count (140-400) K/mcL MPV (9.4-12.4) fL Immature Gran % (0-4) % Seg Neutrophils % % Lymphocytes % % Monocytes % % Eosinophils % % Basophils % % Neutrophils # (1.6-8.9) K/mcL Lymphocytes # (0.6-4.6) K/mcL Monocytes # (0.0-1.3) K/mcL Eosinophils # (0.0-0.6) K/mcL Basophils # (0.0-0.2) K/mcL Sodium (136-145) mEq/L Potassium (3.5-5.1) mEq/L Chloride (98-107) mEq/L Carbon Dioxide (23-29) mEq/L BUN (6-20) mg/dL Creatinine (0.70-1.30) mg/dL Est GFR ( Amer) (> 60) Est GFR (Non-Af Amer) (> 60) BUN/Creatinine Ratio (6-26) Glucose (70-105) mg/dL POC Glucose 247 H 224 H 154 H (70-99) mg/dL Est Mean Plasma Glucose mg/dl Hemoglobin A1c ( - 5.6) % Calculated Osmolality (280-300) Calcium (8.6-10.3) mg/dL Triglycerides (< 150) mg/dL Cholesterol (< 200) mg/dL LDL Cholesterol, Calc (0-99) mg/dL VLDL Cholesterol, Calc (< 31) mg/dL HDL Cholesterol (40-59) mg/dL Cholesterol/HDL Ratio (0-4.9) TSH (0.340-5.600) mcIU/mL Urine Color (Yellow) Urine Clarity (Clear) Urine pH (5.0-8.0) pH Units Ur Specific [place] (1.010-1.025) Urine Protein (Neg-Trace) mg/dL Urine Glucose (UA) (Normal) mg/dL Urine Ketones (Negative) mg/dL Urine Blood (Negative) Urine Nitrite (Negative) Urine Bilirubin (Negative) Urine Urobilinogen (Normal) mg/dL Ur Leukocyte Esterase (Negative) Urine Microscopic RBC (0-3) per hpf Urine Microscopic WBC (0-3) per hpf Ur Squamous Epith Cells (None-Few) per lpf Urine Bacteria (None-Few) per hpf Hyaline Casts (None-Few) per lpf Salicylates (15.0-30.0) mg/dL Urine Opiates Screen (Cvsrha=367) ng/mL Acetaminophen (10-20) mcg/mL Ur Barbiturates Screen (Ethlnr=332) ng/mL Ur Phencyclidine Scrn (Cutoff=25) ng/mL Ur Amphetamines Screen (Rkqogp=4777) ng/mL U Benzodiazepines Scrn (Zrnrhh=162) ng/mL Urine Cocaine Screen (Cutoff= 300) ng/mL U Marijuana (THC) Screen (Cutoff = 50) ng/mL Ur Drug Screen Interp Ethyl Alcohol (Less than 10) mg/dL 04/15/19 04/16/19 04/16/19 Range/Units 20:32 08:11 11:03 WBC (4.3-11.1) K/mcL RBC (4.19-5.50) M/mcL Hgb (12.9-16.9) g/dL Hct (37.5-50.1) % MCV (83.0-100.0) fL MCH (28.0-33.3) pg MCHC (31.6-35.5) g/dL RDW (11.5-14.5) % Plt Count (140-400) K/mcL MPV (9.4-12.4) fL Immature Gran % (0-4) % Seg Neutrophils % % Lymphocytes % % Monocytes % % Eosinophils % % Basophils % % Neutrophils # (1.6-8.9) K/mcL Lymphocytes # (0.6-4.6) K/mcL Monocytes # (0.0-1.3) K/mcL Eosinophils # (0.0-0.6) K/mcL Basophils # (0.0-0.2) K/mcL Sodium (136-145) mEq/L Potassium (3.5-5.1) mEq/L Chloride (98-107) mEq/L Carbon Dioxide (23-29) mEq/L BUN (6-20) mg/dL Creatinine (0.70-1.30) mg/dL Est GFR ( Amer) (> 60) Est GFR (Non-Af Amer) (> 60) BUN/Creatinine Ratio (6-26) Glucose (70-105) mg/dL POC Glucose 290 H 175 H 222 H (70-99) mg/dL Est Mean Plasma Glucose mg/dl Hemoglobin A1c ( - 5.6) % Calculated Osmolality (280-300) Calcium (8.6-10.3) mg/dL Triglycerides (< 150) mg/dL Cholesterol (< 200) mg/dL LDL Cholesterol, Calc (0-99) mg/dL VLDL Cholesterol, Calc (< 31) mg/dL HDL Cholesterol (40-59) mg/dL Cholesterol/HDL Ratio (0-4.9) TSH (0.340-5.600) mcIU/mL Urine Color (Yellow) Urine Clarity (Clear) Urine pH (5.0-8.0) pH Units Ur Specific [place] (1.010-1.025) Urine Protein (Neg-Trace) mg/dL Urine Glucose (UA) (Normal) mg/dL Urine Ketones (Negative) mg/dL Urine Blood (Negative) Urine Nitrite (Negative) Urine Bilirubin (Negative) Urine Urobilinogen (Normal) mg/dL Ur Leukocyte Esterase (Negative) Urine Microscopic RBC (0-3) per hpf Urine Microscopic WBC (0-3) per hpf Ur Squamous Epith Cells (None-Few) per lpf Urine Bacteria (None-Few) per hpf Hyaline Casts (None-Few) per lpf Salicylates (15.0-30.0) mg/dL Urine Opiates Screen (Tcahlz=728) ng/mL Acetaminophen (10-20) mcg/mL Ur Barbiturates Screen (Rlwvka=742) ng/mL Ur Phencyclidine Scrn (Cutoff=25) ng/mL Ur Amphetamines Screen (Woqmir=2710) ng/mL U Benzodiazepines Scrn (Vumlqz=521) ng/mL Urine Cocaine Screen (Cutoff= 300) ng/mL U Marijuana (THC) Screen (Cutoff = 50) ng/mL Ur Drug Screen Interp Ethyl Alcohol (Less than 10) mg/dL 04/16/19 04/16/19 04/17/19 Range/Units 16:07 20:30 07:32 WBC (4.3-11.1) K/mcL RBC (4.19-5.50) M/mcL Hgb (12.9-16.9) g/dL Hct (37.5-50.1) % MCV (83.0-100.0) fL MCH (28.0-33.3) pg MCHC (31.6-35.5) g/dL RDW (11.5-14.5) % Plt Count (140-400) K/mcL MPV (9.4-12.4) fL Immature Gran % (0-4) % Seg Neutrophils % % Lymphocytes % % Monocytes % % Eosinophils % % Basophils % % Neutrophils # (1.6-8.9) K/mcL Lymphocytes # (0.6-4.6) K/mcL Monocytes # (0.0-1.3) K/mcL Eosinophils # (0.0-0.6) K/mcL Basophils # (0.0-0.2) K/mcL Sodium (136-145) mEq/L Potassium (3.5-5.1) mEq/L Chloride (98-107) mEq/L Carbon Dioxide (23-29) mEq/L BUN (6-20) mg/dL Creatinine (0.70-1.30) mg/dL Est GFR ( Amer) (> 60) Est GFR (Non-Af Amer) (> 60) BUN/Creatinine Ratio (6-26) Glucose (70-105) mg/dL POC Glucose 191 H 231 H 149 H (70-99) mg/dL Est Mean Plasma Glucose mg/dl Hemoglobin A1c ( - 5.6) % Calculated Osmolality (280-300) Calcium (8.6-10.3) mg/dL Triglycerides (< 150) mg/dL Cholesterol (< 200) mg/dL LDL Cholesterol, Calc (0-99) mg/dL VLDL Cholesterol, Calc (< 31) mg/dL HDL Cholesterol (40-59) mg/dL Cholesterol/HDL Ratio (0-4.9) TSH (0.340-5.600) mcIU/mL Urine Color (Yellow) Urine Clarity (Clear) Urine pH (5.0-8.0) pH Units Ur Specific [place] (1.010-1.025) Urine Protein (Neg-Trace) mg/dL Urine Glucose (UA) (Normal) mg/dL Urine Ketones (Negative) mg/dL Urine Blood (Negative) Urine Nitrite (Negative) Urine Bilirubin (Negative) Urine Urobilinogen (Normal) mg/dL Ur Leukocyte Esterase (Negative) Urine Microscopic RBC (0-3) per hpf Urine Microscopic WBC (0-3) per hpf Ur Squamous Epith Cells (None-Few) per lpf Urine Bacteria (None-Few) per hpf Hyaline Casts (None-Few) per lpf Salicylates (15.0-30.0) mg/dL Urine Opiates Screen (Smdrdo=099) ng/mL Acetaminophen (10-20) mcg/mL Ur Barbiturates Screen (Gvicat=116) ng/mL Ur Phencyclidine Scrn (Cutoff=25) ng/mL Ur Amphetamines Screen (Cmgyyf=5650) ng/mL U Benzodiazepines Scrn (Xtnlan=510) ng/mL Urine Cocaine Screen (Cutoff= 300) ng/mL U Marijuana (THC) Screen (Cutoff = 50) ng/mL Ur Drug Screen Interp Ethyl Alcohol (Less than 10) mg/dL 04/17/19 04/17/19 04/17/19 Range/Units 11:43 16:06 19:58 WBC (4.3-11.1) K/mcL RBC (4.19-5.50) M/mcL Hgb (12.9-16.9) g/dL Hct (37.5-50.1) % MCV (83.0-100.0) fL MCH (28.0-33.3) pg MCHC (31.6-35.5) g/dL RDW (11.5-14.5) % Plt Count (140-400) K/mcL MPV (9.4-12.4) fL Immature Gran % (0-4) % Seg Neutrophils % % Lymphocytes % % Monocytes % % Eosinophils % % Basophils % % Neutrophils # (1.6-8.9) K/mcL Lymphocytes # (0.6-4.6) K/mcL Monocytes # (0.0-1.3) K/mcL Eosinophils # (0.0-0.6) K/mcL Basophils # (0.0-0.2) K/mcL Sodium (136-145) mEq/L Potassium (3.5-5.1) mEq/L Chloride (98-107) mEq/L Carbon Dioxide (23-29) mEq/L BUN (6-20) mg/dL Creatinine (0.70-1.30) mg/dL Est GFR ( Amer) (> 60) Est GFR (Non-Af Amer) (> 60) BUN/Creatinine Ratio (6-26) Glucose (70-105) mg/dL POC Glucose 204 H 245 H 215 H (70-99) mg/dL Est Mean Plasma Glucose mg/dl Hemoglobin A1c ( - 5.6) % Calculated Osmolality (280-300) Calcium (8.6-10.3) mg/dL Triglycerides (< 150) mg/dL Cholesterol (< 200) mg/dL LDL Cholesterol, Calc (0-99) mg/dL VLDL Cholesterol, Calc (< 31) mg/dL HDL Cholesterol (40-59) mg/dL Cholesterol/HDL Ratio (0-4.9) TSH (0.340-5.600) mcIU/mL Urine Color (Yellow) Urine Clarity (Clear) Urine pH (5.0-8.0) pH Units Ur Specific [place] (1.010-1.025) Urine Protein (Neg-Trace) mg/dL Urine Glucose (UA) (Normal) mg/dL Urine Ketones (Negative) mg/dL Urine Blood (Negative) Urine Nitrite (Negative) Urine Bilirubin (Negative) Urine Urobilinogen (Normal) mg/dL Ur Leukocyte Esterase (Negative) Urine Microscopic RBC (0-3) per hpf Urine Microscopic WBC (0-3) per hpf Ur Squamous Epith Cells (None-Few) per lpf Urine Bacteria (None-Few) per hpf Hyaline Casts (None-Few) per lpf Salicylates (15.0-30.0) mg/dL Urine Opiates Screen (Jjpnky=686) ng/mL Acetaminophen (10-20) mcg/mL Ur Barbiturates Screen (Nzeozz=993) ng/mL Ur Phencyclidine Scrn (Cutoff=25) ng/mL Ur Amphetamines Screen (Jrbovy=7958) ng/mL U Benzodiazepines Scrn (Kcqtvs=939) ng/mL Urine Cocaine Screen (Cutoff= 300) ng/mL U Marijuana (THC) Screen (Cutoff = 50) ng/mL Ur Drug Screen Interp Ethyl Alcohol (Less than 10) mg/dL 04/18/19 Range/Units 08:03 WBC (4.3-11.1) K/mcL RBC (4.19-5.50) M/mcL Hgb (12.9-16.9) g/dL Hct (37.5-50.1) % MCV (83.0-100.0) fL MCH (28.0-33.3) pg MCHC (31.6-35.5) g/dL RDW (11.5-14.5) % Plt Count (140-400) K/mcL MPV (9.4-12.4) fL Immature Gran % (0-4) % Seg Neutrophils % % Lymphocytes % % Monocytes % % Eosinophils % % Basophils % % Neutrophils # (1.6-8.9) K/mcL Lymphocytes # (0.6-4.6) K/mcL Monocytes # (0.0-1.3) K/mcL Eosinophils # (0.0-0.6) K/mcL Basophils # (0.0-0.2) K/mcL Sodium (136-145) mEq/L Potassium (3.5-5.1) mEq/L Chloride (98-107) mEq/L Carbon Dioxide (23-29) mEq/L BUN (6-20) mg/dL Creatinine (0.70-1.30) mg/dL Est GFR ( Amer) (> 60) Est GFR (Non-Af Amer) (> 60) BUN/Creatinine Ratio (6-26) Glucose (70-105) mg/dL POC Glucose 256 H (70-99) mg/dL Est Mean Plasma Glucose mg/dl Hemoglobin A1c ( - 5.6) % Calculated Osmolality (280-300) Calcium (8.6-10.3) mg/dL Triglycerides (< 150) mg/dL Cholesterol (< 200) mg/dL LDL Cholesterol, Calc (0-99) mg/dL VLDL Cholesterol, Calc (< 31) mg/dL HDL Cholesterol (40-59) mg/dL Cholesterol/HDL Ratio (0-4.9) TSH (0.340-5.600) mcIU/mL Urine Color (Yellow) Urine Clarity (Clear) Urine pH (5.0-8.0) pH Units Ur Specific [place] (1.010-1.025) Urine Protein (Neg-Trace) mg/dL Urine Glucose (UA) (Normal) mg/dL Urine Ketones (Negative) mg/dL Urine Blood (Negative) Urine Nitrite (Negative) Urine Bilirubin (Negative) Urine Urobilinogen (Normal) mg/dL Ur Leukocyte Esterase (Negative) Urine Microscopic RBC (0-3) per hpf Urine Microscopic WBC (0-3) per hpf Ur Squamous Epith Cells (None-Few) per lpf Urine Bacteria (None-Few) per hpf Hyaline Casts (None-Few) per lpf Salicylates (15.0-30.0) mg/dL Urine Opiates Screen (Rgoykc=797) ng/mL Acetaminophen (10-20) mcg/mL Ur Barbiturates Screen (Nvxyww=670) ng/mL Ur Phencyclidine Scrn (Cutoff=25) ng/mL Ur Amphetamines Screen (Qxlwqs=9542) ng/mL U Benzodiazepines Scrn (Uaqqug=220) ng/mL Urine Cocaine Screen (Cutoff= 300) ng/mL U Marijuana (THC) Screen (Cutoff = 50) ng/mL Ur Drug Screen Interp Ethyl Alcohol (Less than 10) mg/dL Provider Date of admission: 04/06/19 05:27 Primary care physician: PCP NONE Consults: 04/06/19 08:33 Consult to Wound Care [CONS] Routine Reason for Consult: patient with hx of MRSA and diabetes and open wounds on toe Call Completed: Yes Discharging clinician: Evonne Hudson Psychiatry Exam - Constitutional Vitals: Temp Pulse Resp BP Pulse Ox 97.6 F 92 16 122/74 96 04/18/19 08:44 04/18/19 08:44 04/18/19 08:44 04/18/19 08:44 04/18/19 08:44 General appearance: age & developmentally appropriate, well-groomed, well- nourished - Musculoskeletal Gait: normal Station: relaxed Strength & Tone: normal for patient - Psychiatric Patient Orientation: Yes Person, Yes Time, Yes Place, Yes Circumstance Level of alertness: Alert Behavior: calm, cooperative Psychomotor activity: Normal Eye Contact: Maintains Eye Contact Mood Description: Euthymic/stable Patient description of mood: Good Affect description: congruent with mood, full range Speech Volume: Normal Speech pattern: normal rate, normal rhythm, normal tone, fluent, spontaneous Language & Vocabulary: consistent with education Thought Process: Linear, Goal Oriented Thought Content: No Suicidal ideation, No Homicidal ideation, No Overt delusions Perceptual Disturbances: No Auditory hallucinations, No Visual hallucinations Attention Span Ability: Capable of Focused Attention Memory Description: Grossly Intact Patient Reliability: Reliable Historian Fund of knowledge: Yes abstraction ability, Yes aware of current events Intelligence Estimate: Average Judgment: Good Insight: Full Hospital Course Hospital course: Mr. Alexander is a 43 year old male who was admitted for depression and suicidal ideations. He was started on Abilify as well as trazodone as needed for insomnia and Vistaril for anxiety.Patient was educated of diagnosis and the risk-benefit side effects of this alternative treatment options and was monitored for responsiveness and side effects. Mood anxiety sleep and appetite interest improved as did future orientation. Self-harm thoughts subsided, thinking cleared and mood stabilized. Patient was able to attend both ind ividual and group therapy sessions as well as meet with the psychiatrist daily and urged to discuss any medication or treatment issues or other concerns. The patient was educated primarily by verbal means about their diagnosis and manifestations in their life. The option for treatment including group and individual therapy programming was offered to the patient in addition to the use of medications with all their potential risks, benefits, and side effects as well as the risks of not taking medication and non-adhereance were discussed with the patient at length. The patient was given the opportunity to ask questions and was noted to participate in the treatment in the planning process. The patient felt ready and eager to be discharged from the inpatient psychiatric unit to continue on with treatment as an outpatient. The patient agreed that is they were safe for this disposition. The patient was considered to be able to participate in informed consent and decision making with respect to medical, legal, and financial issues of the time of discharge. At the time of discharge the patient adamantly denied any concerns for lethality including suicidal or homicidal thoughts ideations or plans and was future oriented toward ongoing mental health care, medical follow-up and sobriety. Time spent discussing smoking cessation with patient: 3 to 10 minutes Does patient wish to continue nicotine replacement upon disc: No - Time Spent with Patient Total time spent providing and/or coordinating discharge services: 25 Less than 30 minutes Specific discharge activities: Interval history reviewed. Available labs reviewed . Psychotherapy provided. Patient had an opportunity to ask questions and address concerns. Patient was in agreement with the treatment plan. The risks benefits and side effects of medications were discussed with the patient, including alternatives and treatment. The patient was educated on the abstaining from any alcohol or illicit substances, following up with all scheduled appointments, and taking all medications as prescribed. Assessment and Plan - Patient/Caregiver Discharge Instructions Activity: resume usual activities as tolerated Diet: regular diet Additional Instructions: Continue current medications. Follow up with outpatient mental health. Encourage continued therapy in a group or individual setting. The patient was discharged to home. - Follow up Plan Follow up with: [facility] [Outside] Elroy Bolivar DPM [Partnered Physician] - 04/19/19 11:00 am (You have an appointment scheduled with care provider Dr. Elroy Bolivar DPM on Friday, April 19, 2019 at 11:00 AM Please contact the office at the number above at least 24 hours in advance if you are unable to keep this appointment. ) Functional capacity at discharge: independent ambulation Overall status at discharge: Stable Disposition: Home, Self-Care Quality - Multiple Antipsychotics Patient discharged on 2 or more antipsychotic medications: No Procedures - Procedures Procedures: Medication Management, Crisis Stabilization, Supportive Therapy, Group Therapy, Psychoeducational Therapy
[2019-04-18] MEDS: traZODone 50 MG TABLET PO SCH (21:24)
[2019-04-18] MEDS: Gentamicin Oint 15 GM TUBE TP SCH (22:33)
[2019-04-19] MEDS: *HR* Metformin 500 MG TABLET PO SCH (08:57)
[2019-04-19] MEDS: ARIPiprazole 5 MG TABLET PO SCH (08:57)
[2019-04-19] MEDS: Insulin LISPRO 300 UNITS/3 ML VIAL SQ SCH (08:58)
[2019-04-19 09:16] VITALS: BP 134/78
--- NOTE | 2019-04-19 10:38 | Psychiatry Progress Note ---
Date of Encounter: 04/19/19 Time of Encounter: 08:00 Subjective Interval history: Linda was not able to pick pt up yesterday. They picked him up this morning. See discharge summary dated 04/18/19 Results - Vital Signs Vital Signs: Temp Pulse Resp BP Pulse Ox 97.3 F L 73 18 134/78 99 04/19/19 09:00 04/19/19 09:00 04/19/19 09:00 04/19/19 09:00 04/19/19 09:00 - Labs Labs: Laboratory Results - last 24 hr 04/18/19 04/18/19 04/18/19 11:50 16:18 21:14 POC Glucose 186 H 240 H 243 H 04/19/19 08:53 POC Glucose 255 H Assessment and Plan (1) Bipolar 2 disorder, major depressive episode Status: Acute Additional Plan: discharge Risks, benefits, side effects, alternatives discussed w/pt: Yes Patient agreeable to treatment: Yes Consult Discharge Plan - Plan Instructions: Depression (DC) Additional Instructions: Continue current medications. Follow up with outpatient mental health. Encourage continued therapy in a group or individual setting. The patient was discharged to home. Referrals: [facility] [Other] (You have indicated that you are interested in residential substance abuse treatment and have been referred to [facility] for further treatment. [facility] is a 36-bed residential drug treatment facility for men. You will be receiving both group and individual counseling services specific to the treatment of substance abuse. Along with substance abuse treatment, you will be receiving mental health and case management services by Center staff. Medically assisted treatment via Naltrexone (Vivitrol) injections are available to interested individuals. He will be expected to participate in Recovery related activities including 12 step meetin gs, exercise and programs here towards a healthy lifestyle. A major focus at this program is the early development and adoption of positive behaviors to replace negative and maladaptive behaviors.) Elroy Bolivar DPM [Partnered Physician] - 04/19/19 11:00 am (You have an appointment scheduled with care provider Dr. Elroy Bolivar DPM on Friday, April 19, 2019 at 11:00 AM Please contact the office at the number above at least 24 hours in advance if you are unable to keep this appointment. ) Prescriptions: ARIPiprazole [Abilify] 5 mg PO QAM #30 tablet metFORMIN [Glucophage] 500 mg PO BIDWM #60 tablet traZODone [TraZODone] 50 mg PO HS #30 tablet Psychiatry Exam - Constitutional Vitals: Temp Pulse Resp BP Pulse Ox 97.3 F L 73 18 134/78 99 04/19/19 09:00 04/19/19 09:00 04/19/19 09:00 04/19/19 09:00 04/19/19 09:00 General appearance: age & developmentally appropriate, well-groomed, well- nourished - Musculoskeletal Gait: normal Station: relaxed Strength & Tone: normal for patient - Psychiatric Patient Orientation: Yes Person, Yes Time, Yes Place Level of alertness: Alert Behavior: calm, cooperative Psychomotor activity: Normal Eye Contact: Maintains Eye Contact Mood Description: Euthymic/stable Affect description: congruent with mood, full range Speech Volume: Normal Speech pattern: normal rate, normal rhythm, normal tone, fluent, spontaneous Language & Vocabulary: consistent with education Thought Process: Linear, Goal Oriented Thought Content: No Suicidal ideation, No Homicidal ideation, No Overt delusions Perceptual Disturbances: No Auditory hallucinations, No Visual hallucinations Attention Span Ability: Capable of Focused Attention Memory Description: Grossly Intact Patient Reliability: Reliable Historian Fund of knowledge: Yes abstraction ability, Yes aware of current events Intelligence Estimate: Average Judgment: Good Insight: Full
--- NOTE | 2019-04-19 10:54 | Psychiatry Progress Note ---
Date of Encounter: 04/18/19 Time of Encounter: 14:00 Subjective Interval history: Carlita unable to pick pt up until 04/19/19. He continues to do well. No SI/HI. Results - Vital Signs Vital Signs: Temp Pulse Resp BP Pulse Ox 97.3 F L 73 18 134/78 99 04/19/19 09:00 04/19/19 09:00 04/19/19 09:00 04/19/19 09:00 04/19/19 09:00 - Labs Labs: Laboratory Results - last 24 hr 04/18/19 04/18/19 04/18/19 11:50 16:18 21:14 POC Glucose 186 H 240 H 243 H 04/19/19 08:53 POC Glucose 255 H Assessment and Plan (1) Bipolar 2 disorder, major depressive episode Status: Acute Additional Plan: discharge moved to tomorrow, 04/19/19 Risks, benefits, side effects, alternatives discussed w/pt: Yes Patient agreeable to treatment: Yes Consult Discharge Plan - Plan Instructions: Depression (DC) Additional Instructions: Continue current medications. Follow up with outpatient mental health. Encourage continued therapy in a group or individual setting. The patient was discharged to home. Referrals: [facility] [Other] (You have indicated that you are interested in residential substance abuse treatment and have been referred to [facility] for further treatment. [facility] is a 36-bed residential drug treatment facility for men. You will be receiving both group and individual counseling services specific to the treatment of substance abuse. Along with substance abuse treatment, you will be receiving mental health and case management services by Center staff. Medically assisted treatment via Naltrexone (Vivitrol) injections are available to interested individuals. He will be expected to participate in Recovery related activities including 12 step meetings, exercise and programs here towards a healthy lifestyle. A major focus at this program is the early development and adoption of positive behaviors to replace negative and maladaptive behaviors.) Elroy Bolivar DPM [Partnered Physician] - 04/19/19 11:00 am (You have an appointment scheduled with care provider Dr. Elroy Bolivar DPM on Friday, April 19, 2019 at 11:00 AM Please contact the office at the number above at least 24 hours in advance if you are unable to keep this appointment. ) Prescriptions: ARIPiprazole [Abilify] 5 mg PO QAM #30 tablet metFORMIN [Glucophage] 500 mg PO BIDWM #60 tablet traZODone [TraZODone] 50 mg PO HS #30 tablet Psychiatry Exam - Constitutional Vitals: Temp Pulse Resp BP Pulse Ox 97.3 F L 73 18 134/78 99 04/19/19 09:00 04/19/19 09:00 04/19/19 09:00 04/19/19 09:00 04/19/19 09:00 General appearance: age & developmentally appropriate, well-groomed, well- nourished - Musculoskeletal Gait: normal Station: relaxed Strength & Tone: normal for patient - Psychiatric Patient Orientation: Yes Person, Yes Time, Yes Place Level of alertness: Alert Behavior: calm, cooperative Psychomotor activity: Normal Eye Contact: Maintains Eye Contact Mood Description: Euthymic/stable Patient description of mood: good Affect description: congruent with mood, full range Speech Volume: Normal Speech pattern: normal rate, normal rhythm, normal tone, fluent, spontaneous Language & Vocabulary: consistent with education Thought Process: Linear, Goal Oriented Thought Content: No Suicidal ideation, No Homicidal ideation, No Overt delusions Perceptual Disturbances: No Auditory hallucinations, No Visual hallucinations Attention Span Ability: Capable of Focused Attention Memory Description: Grossly Intact Patient Reliability: Reliable Historian Fund of knowledge: Yes abstraction ability, Yes aware of current events Intelligence Estimate: Average Judgment: Good Insight: Full
== END 2019-04-19 09:05 | disposition home or self-care (01) | DRG 753 ==
LOC: EMEROOARM 20:43 → 1ANU 04-06 05:27
PROVIDERS: ADMIT Psychiatry & Neurology Psychiatry; ATTEND Psychiatry & Neurology Psychiatry

== ENCOUNTER 2019-04-22 18:39 | Inpatient (IN) ==
--- NOTE | 2019-04-22 21:49 | Emergency Department Note ---
Disposition Extremity Problem HPI - General Chief complaint: ED Extremity Problem,Nontraumatic Stated complaint: left great toe wound Time Seen by Provider: 04/22/19 20:41 Source: patient Mode of arrival: private vehicle Limitations: no limitations Nursing Notes Reviewed: Yes Vital Signs Reviewed: Yes - History of Present Illness Pt Subjective Complaint: extremity pain Onset (ago): month(s) Consistency: Worsening Injury Location: left, right, toe Pain Scale: 10 Quality: burning, aching Radiation: proximal Improves with: nothing Worsens with: weight bearing, walking, palpation, use Associated symptoms: Reports: fever, change in appearance, swelling, redness, other (green drainage, foul smell) Context: history of peripheral vascular disease, other (Hx of recurrent diabetic foot ulcers) - Related Data Previous Rx's Medication Instructions Recorded ARIPiprazole [Abilify] 5 mg PO QAM #30 tablet 04/18/19 Glucagon, Human Recombinant 1 mg IM ONCE PRN vial 04/18/19 [Glucagen] Insulin LISPRO [HumaLOG] 0 units SQ HS vial 04/18/19 Insulin LISPRO [HumaLOG] 0 units SQ TIDAC vial 04/18/19 metFORMIN [Glucophage] 500 mg PO BIDWM #60 tablet 04/18/19 traZODone [TraZODone] 50 mg PO HS #30 tablet 04/18/19 Allergies Allergy/AdvReac Type Severity Reaction Status Date / Time Penicillins [PCN] Allergy Rash Verified 04/07/19 16:13 All systems ED: reviewed and negative except as stated. Review of Systems: As Per HPI Constitutional: Reports: fever. Denies: chills, weakness Past Medical History - Past Medical History Medical history: Reports: arthritis, diabetes, hyperlipidemia, hypertension, other Surgical history: Reports: orthopedic, other, other (Tonsillectomy adenoidectomy. Medical blindness left eye. Right index finger distal finger amputation.) Psychiatric history: Reports: bipolar, prior suicide attempt, previous psychiatric hospitalization - Social History Smoking Status: Current every day smoker Smokeless Tobacco Status: No Alcohol use: Reports: none Drug use: Reports: marijuana Physical Exam - General Limitations: no limitations General appearance: alert, in no apparent distress Course Vital Signs Temperature 99.2 F 04/22/19 18:42 Pulse Rate 95 04/22/19 18:42 Respiratory Rate 18 04/22/19 18:42 Blood Pressure 157/79 04/22/19 18:42 O2 Sat by Pulse Oximetry 97 04/22/19 18:42 Temperature 98.1 F 04/22/19 22:07 Pulse Rate 86 04/22/19 22:07 Respiratory Rate 18 04/22/19 22:07 Blood Pressure 171/95 04/22/19 22:07 O2 Sat by Pulse Oximetry 98 04/22/19 22:07 Oxygen Delivery Oxygen Delivery Room Air Extremity Problem, Nontraumati - Lab Data Result diagrams: 04/22/19 21:45 04/22/19 21:45 Lab Results 04/22/19 04/22/19 04/22/19 Range/Units 21:39 21:45 21:45 WBC 6.3 (4.3-11.1) K/mcL RBC 3.98 L (4.19-5.50) M/mcL Hgb 11.1 L (12.9-16.9) g/dL Hct 33.5 L (37.5-50.1) % MCV 84.2 (83.0-100.0) fL MCH 27.9 L (28.0-33.3) pg MCHC 33.1 (31.6-35.5) g/dL RDW 13.3 (11.5-14.5) % Plt Count 229 (140-400) K/mcL MPV 10.1 (9.4-12.4) fL Immature Gran % 0.6 (0-4) % Seg Neutrophils % 64.5 % Lymphocytes % 20.9 % Monocytes % 8.1 % Eosinophils % 4.5 % Basophils % 1.4 % Neutrophils # 4.0 (1.6-8.9) K/mcL Lymphocytes # 1.3 (0.6-4.6) K/mcL Monocytes # 0.5 (0.0-1.3) K/mcL Eosinophils # 0.3 (0.0-0.6) K/mcL Basophils # 0.1 (0.0-0.2) K/mcL ESR 34 H (0-10) mm/hr PT 11.1 (9.4-12.1) Seconds INR 1.0 APTT 34.6 (26.0-36.0) Seconds Sodium (136-145) mEq/L Potassium (3.5-5.1) mEq/L Chloride (98-107) mEq/L Carbon Dioxide (23-29) mEq/L BUN (6-20) mg/dL Creatinine (0.70-1.30) mg/dL Est GFR ( Amer) (> 60) Est GFR (Non-Af Amer) (> 60) BUN/Creatinine Ratio (6-26) Glucose (70-105) mg/dL Calculated Osmolality (280-300) Lactic Acid (0.5-2.2) mmol/L Calcium (8.6-10.3) mg/dL Magnesium (1.6-2.6) mg/dL 04/22/19 04/22/19 Range/Units 21:45 21:45 WBC (4.3-11.1) K/mcL RBC (4.19-5.50) M/mcL Hgb (12.9-16.9) g/dL Hct (37.5-50.1) % MCV (83.0-100.0) fL MCH (28.0-33.3) pg MCHC (31.6-35.5) g/dL RDW (11.5-14.5) % Plt Count (140-400) K/mcL MPV (9.4-12.4) fL Immature Gran % (0-4) % Seg Neutrophils % % Lymphocytes % % Monocytes % % Eosinophils % % Basophils % % Neutrophils # (1.6-8.9) K/mcL Lymphocytes # (0.6-4.6) K/mcL Monocytes # (0.0-1.3) K/mcL Eosinophils # (0.0-0.6) K/mcL Basophils # (0.0-0.2) K/mcL ESR (0-10) mm/hr PT (9.4-12.1) Seconds INR APTT (26.0-36.0) Seconds Sodium 137 (136-145) mEq/L Potassium 3.9 (3.5-5.1) mEq/L Chloride 103 (98-107) mEq/L Carbon Dioxide 26 (23-29) mEq/L BUN 18 (6-20) mg/dL Creatinine 0.89 (0.70-1.30) mg/dL Est GFR ( Amer) > 60 (> 60) Est GFR (Non-Af Amer) > 60 (> 60) BUN/Creatinine Ratio 20 (6-26) Glucose 265 H (70-105) mg/dL Calculated Osmolality 295 (280-300) Lactic Acid 2.3 H (0.5-2.2) mmol/L Calcium 8.9 (8.6-10.3) mg/dL Magnesium 1.8 (1.6-2.6) mg/dL
[2019-04-22 22:01] LABS: Basophils # 0.1 K/mcL (0.0-0.2); Basophils % 1.4 %; Eosinophils # 0.3 K/mcL (0.0-0.6); Eosinophils % 4.5 %; Hematocrit 33.5 % (37.5-50.1); Hemoglobin 11.1 g/dL (12.9-16.9); Immature Granulocytes % 0.6 % (0-4); Lymphocytes # 1.3 K/mcL (0.6-4.6); Lymphocytes % 20.9 %; Mean Corpuscular HGB Conc 33.1 g/dL (31.6-35.5); Mean Corpuscular Hemoglobin 27.9 pg (28.0-33.3); Mean Corpuscular Volume 84.2 fL (83.0-100.0); Mean Platelet Volume 10.1 fL (9.4-12.4); Monocytes # 0.5 K/mcL (0.0-1.3); Monocytes % 8.1 %; Platelet Count 229 K/mcL (140-400); Red Blood Count 3.98 M/mcL (4.19-5.50); Red Cell Distribution Width 13.3 % (11.5-14.5); Segmented Neutrophils % 64.5 %; White Blood Count 6.3 K/mcL (4.3-11.1)
[2019-04-22 22:09] LABS: Prothrombin Time 11.1 Seconds (9.4-12.1)
[2019-04-22 22:12] LABS: Activated Partial Thrombo Time 34.6 Seconds (26.0-36.0)
[2019-04-22 22:20] LABS: BUN/Creatinine Ratio 20 (6-26); Blood Urea Nitrogen 18 mg/dL (6-20); Calcium 8.9 mg/dL (8.6-10.3); Carbon Dioxide 26 mEq/L (23-29); Chloride 103 mEq/L (98-107); Glucose 265 mg/dL (70-105); Magnesium 1.8 mg/dL (1.6-2.6); Osmolality,Calculated 295 (280-300); Potassium 3.9 mEq/L (3.5-5.1); Sodium 137 mEq/L (136-145); eGFR For African Americans > 60 (> 60); eGFR For Non-African Americans > 60 (> 60)
[2019-04-22] MEDS ORDERED: 0.9 % Sodium Chloride 1,000 ML IVC ONE (22:30)
[2019-04-22] MEDS ORDERED: Cefepime HCl 2,000 MG in Water for inj. (sterile) 20 ML IVP ONE (22:36)
[2019-04-22] MEDS ORDERED: Acetaminophen 325 MG TABLET PO PRN (23:45)
[2019-04-22] MEDS ORDERED: Dextrose Gel 15 GM/37.5 ML TUBE PO PRN ×2 (23:45)
[2019-04-22] MEDS ORDERED: *HR* Promethazine 25 MG/ML VIAL IVP PRN (23:45)
[2019-04-22] MEDS ORDERED: Naloxone 0.4 MG/ML INJ IVP PRN (23:45)
[2019-04-22] MEDS ORDERED: *HR* Dextrose 50 % in Water (Syg) 50 ML SYRINGE IVP PRN (23:45)
[2019-04-22] MEDS ORDERED: D5% in Water 1,000 ML IVC PRN (23:45)
--- NOTE | 2019-04-22 23:59 | Internal Med History&Physical ---
Date of Encounter: 04/22/19 Time of Encounter: 23:15 Internal Medicine - H&P: HPI Chief complaint: foot ulcers Admitted From: Emergency Dept Plans for Post Hospital Care: Home History of present illness: Mr. Alexander is a 43 year old male who presents to the ER [facility] with complaints of bilateral diabetic foot ulcers which have progressively worsened over the last 2 months. He was recently hospitalized in February of this year where he was treated with antibiotics, had wound cultures, and podiatry consultation. He's been following with Dr. Bolivar, but his symptoms have worsened. Therefore, he came to the ER [facility] where he was evaluated and admitted to hospitalist service. Podiatry was consulted and requested an MRI be ordered as well as initiation of antibiotics. Upon my assessment of the patient in the ER, he is in no distress. He denies any fevers, chills, or night sweats. He denies any vomiting or diarrhea. There is a strong smell and foul odor from coming from his left foot, especially. He has two visible ulcers along both feet just behind and medial to his big toes. The left foot has an open foul-smelling ulcer whereas the right foot has a healing ulcer. He denies any trauma or injury. He has long-standing diabetes and has neuropathy in his feet. He still has some sensation in his feet. He admits to poor diabetes control over the last few years. Furthermore, he has not followed regularly with his family doctor. Past Med Surg Social Fam HX - Past Medical History Attestation: Yes The following information was validated with the patient. Source: patient, old records reviewed Medical history: arthritis, diabetes, hyperlipidemia, hypertension, other Additional medical history: Reece's gangrene Psychiatric history: bipolar, prior suicide attempt, previous psychiatric hospitalization - Past Surgical History Surgical History: orthopedic, other, other (Tonsillectomy adenoidectomy. Medical blindness left eye. Right index finger distal finger amputation.) Additional surgical history: "part of rectum removed", left shoulder repair - Social History Smoking Status: Current every day smoker Smokeless Tobacco Status: No Alcohol use: none Drug use: marijuana Current living situation: Home, With Family Activity Level: Independent ambulation Recent Out of Country Travel Within the Last 8 Weeks: No - Family History Mother Adopted: No Family Member Ethnicity: Non- Living Status: Still Living Hx Family Cardiac Disorders: No Hx Family Respiratory Disorders: No Hx Family Cancer: Yes (Back cancer, Her father had prostate cancer) Hx Family GI Disorders: No Hx Family Endocrine Disorder: No Hx Family Neuromuscular Disorders: No Hx Family Neurologic Disorders: No Hx Family HEENT Disorders: No Hx Family Autoimmune Disorders: No Father Living Status: Hx Family Cardiac Disorders: Yes (OR) Hx Family Respiratory Disorders: No Hx Family Cancer: No Hx Family GI Disorders: No Hx Family Endocrine Disorder: Yes (DM) Hx Family Neuromuscular Disorders: No Hx Family Neurologic Disorders: No Hx Family HEENT Disorders: No Hx Family Autoimmune Disorders: No Internal Medicine - H&P: Meds ARIPiprazole [Abilify] 5 mg PO QAM #30 tablet 04/18/19 [Rx] Glucagon, Human Recombinant [Glucagen] 1 mg IM ONCE PRN vial 04/18/19 [Rx] Insulin LISPRO [HumaLOG] 0 units SQ HS vial 04/18/19 [Rx] Insulin LISPRO [HumaLOG] 0 units SQ TIDAC vial 04/18/19 [Rx] metFORMIN [Glucophage] 500 mg PO BIDWM #60 tablet 04/18/19 [Rx] traZODone [TraZODone] 50 mg PO HS #30 tablet 04/18/19 [Rx] Allergy/AdvReac Type Severity Reaction Status Date / Time Penicillins [PCN] Allergy Rash Verified 04/07/19 16:13 - Constitutional Constitutional: no chills, no fever(s), no night sweats - EENT Eyes: no blurry vision, no change in vision Ears: no ear pain, no tinnitus Nose, mouth and throat: no nasal congestion, no sinus pressure, no sore throat - Cardiovascular Cardiovascular ROS IM: no chest pain, no dyspnea, no dyspnea on exertion, no lightheadedness, no palpitations, no syncope - Respiratory Respiratory: no cough, no chest congestion - Gastrointestinal Gastrointestinal: no abdominal pain, no diarrhea, no hematemesis, no hematochezia, no melena, no vomiting - Genitourinary Genitourinary ROS male: no dysuria, no flank pain, no hematuria - Musculoskeletal Musculoskeletal ROS IM: arthralgias (feet bilaterally), no back pain - Integumentary Integumentary IM: no rash, no jaundice - Neurological Neurological ROS: numbness, paresthesias, no dizziness, no focal weakness, no frequent falls, no headache(s) Additional comments: numbness and parasthesias in both feet - Psychiatric Psychiatric: no anxiety, no depression - Endocrine Endocrine IM: fatigue, polydipsia, polyuria, no cold intolerance, no heat intolerance, no polyphagia - Allergic/Immunologic Allergic/Immunologic: no GI upset with certain foods - Constitutional Vitals: Temp Pulse Resp BP Pulse Ox 98.1 F 86 18 171/95 98 04/22/19 22:07 04/22/19 22:07 04/22/19 22:07 04/22/19 22:07 04/22/19 22:07 General appearance: Present: cooperative, A&O X 3, pleasant, no acute distress, answers questions appropriately Exam: see below - Head Head exam: Present: atraumatic, normal inspection - Eye Eye exam: Present: EOMI, PERRL. Absent: scleral icterus Pupils: Present: normal accommodation - ENT ENT exam: Present: mucous membranes moist, normal oropharynx - Neck Neck exam general surgery: Present: full ROM, supple, trachea midline. Absent: tenderness, nuchal rigidity, thyromegaly - Respiratory Respiratory exam: Present: CTAB. Absent: chest wall tenderness, rales, rhonchi, tachypnea - Cardiovascular Cardiovascular exam: Present: RRR, +S1, +S2. Absent: diastolic murmur, systolic murmur - GI/Abdominal GI/Abdominal exam: Present: soft. Absent: guarding, hepatomegaly, mass, rebound, splenomegaly, tenderness - Extremities Exam Extremities exam: Present: full ROM, normal capillary refill, warm, radial pulses palpable and symmetrical. Absent: calf tenderness, pedal edema Additional comments: foot ulcers in both feet just proximal and medial to great toes; left worse than right with foul odor and some drainage - Back Exam Back exam: Present: normal inspection. Absent: CVA tenderness (L), CVA tenderness (R) - Neurological Exam Neurological exam: Present: alert, CN II-XII intact, oriented X3 Additional comments: decreased sensation and parasthesias in both feet - Psychiatric Psychiatric exam: Present: normal affect, normal mood - Skin Skin exam: Present: dry, intact, warm Internal Med - H&P Results - Labs CBC & Chem 7: 04/22/19 21:45 04/22/19 21:45 Labs: Short CBC 04/22/19 Range/Units 21:45 WBC 6.3 (4.3-11.1) K/mcL Hgb 11.1 L (12.9-16.9) g/dL Hct 33.5 L (37.5-50.1) % Plt Count 229 (140-400) K/mcL Neutrophils # 4.0 (1.6-8.9) K/mcL BMP 04/22/19 21:45 Sodium 137 Potassium 3.9 Chloride 103 Carbon Dioxide 26 BUN 18 Creatinine 0.89 Glucose 265 H Calcium 8.9 - Impressions ITS Impressions Foot X-Ray 04/22/19 21:34 IMPRESSION: Chronic great toe soft tissue swelling with ulceration. New bone destruction involving the underlying phalanges indicates osteomyelitis. Cannot entirely exclude septic joint. D/ / Gennaro Bhagat / Gennaro Bhagat Interpreting Provider: Gennaro Bhagat Foot X-Ray 04/22/19 21:34 IMPRESSION: Chronic great toe soft tissue swelling with ulcer. New subtle (minimal focal) cortical loss along the medial distal phalanx is suspicious for osteomyelitis. See annotated image. D/ / Gennaro Bhagat / Gennaro Bhagat Interpreting Provider: Gennaro Bhagat - Assessment and Plan (1) Diabetic foot ulcer Current Visit: Yes Status: Acute Assessment and plan: 1. I reviewed his old records and most recent wound cultures which grew four different organisms: Acinetobacter Baumannii; Enterococcus faecalis; group G Streptococcus; and MRSA. I will order Vancomycin and Levaquin, which covered all four organisms based upon culture and sensitivity results. 2. MRI both feet. 3. Consult Podiatry with anticipation of probable surgery soon. 4. Contact isolation. Qualifiers: Diabetic foot ulcer location: toe Diabetes mellitus type: type 2 Laterality: unspecified laterality Non-pressure ulcer stage: with fat layer exposed Qualified Code(s): E11.621 - Type 2 diabetes mellitus with foot ulcer; L97.502 - Non-pressure chronic ulcer of other part of unspecified foot with fat layer exposed (2) IDDM (insulin dependent diabetes mellitus) Current Visit: Yes Status: Chronic Assessment and plan: 1. Will order basal and sliding scale insulin. 2. Hold Metformin. 3. Monitor glucose and adjust insulin as necessary. 4. Will order A1C. 5. Counseled patient on the need to adhere to tight glucose control. (3) DVT prophylaxis Current Visit: Yes Status: Acute Assessment and plan: 1. Heparin SQ.
[2019-04-23] MEDS: 0.9 % Sodium Chloride 1,000 ML IVC SCH ×2 (00:59→08:47)
[2019-04-23] MEDS: Insulin DETEMIR 100 UNIT/ML X5UNITS SQ SCH ×2 (00:59→22:11)
[2019-04-23] MEDS: *HR* HYDROcodone/Acet 5/325 mg TABLET PO PRN ×3 (01:34→16:46)
[2019-04-23 02:08] LABS: Basophils # 0.1 K/mcL (0.0-0.2); Basophils % 1.3 %; Eosinophils # 0.3 K/mcL (0.0-0.6); Hematocrit 33.5 % (37.5-50.1); Hemoglobin 10.9 g/dL (12.9-16.9); Immature Granulocytes % 0.3 % (0-4); Lymphocytes # 1.4 K/mcL (0.6-4.6); Lymphocytes % 23.3 %; Mean Corpuscular HGB Conc 32.5 g/dL (31.6-35.5); Mean Corpuscular Hemoglobin 28.1 pg (28.0-33.3); Mean Corpuscular Volume 86.3 fL (83.0-100.0); Mean Platelet Volume 10.1 fL (9.4-12.4); Monocytes # 0.5 K/mcL (0.0-1.3); Monocytes % 8.6 %; Neutrophils # 3.9 K/mcL (1.6-8.9); Platelet Count 206 K/mcL (140-400); Red Blood Count 3.88 M/mcL (4.19-5.50); Red Cell Distribution Width 13.3 % (11.5-14.5); Segmented Neutrophils % 62.5 %; White Blood Count 6.2 K/mcL (4.3-11.1)
[2019-04-23] MEDS: traZODone 50 MG TABLET PO SCH ×2 (02:09→22:11)
[2019-04-23 02:28] LABS: Alanine Aminotransferase 23 Units/L (7-52); Albumin 3.5 g/dL (3.5-5.7); Albumin/Globulin Ratio 1.3 (1.1-2.2); Alkaline Phosphatase 76 Units/L (34-104); Aspartate Amino Transferase 12 Units/L (13-39); BUN/Creatinine Ratio 19 (6-26); Bilirubin,Total 0.3 mg/dL (0.3-1.0); Blood Urea Nitrogen 16 mg/dL (6-20); Calcium 8.6 mg/dL (8.6-10.3); Carbon Dioxide 30 mEq/L (23-29); Chloride 102 mEq/L (98-107); Globulin 2.8 g/dL (2.4-3.5); Glucose 219 mg/dL (70-105); Magnesium 1.8 mg/dL (1.6-2.6); Osmolality,Calculated 296 (280-300); Potassium 3.6 mEq/L (3.5-5.1); Sodium 139 mEq/L (136-145); Total Protein 6.3 g/dL (6.4-8.9); eGFR For African Americans > 60 (> 60); eGFR For Non-African Americans > 60 (> 60)
[2019-04-23] MEDS: *HR* Heparin 5,000 UNIT/ML VIAL SQ SCH ×2 (05:56→16:46)
[2019-04-23] MEDS: Insulin LISPRO 300 UNITS/3 ML VIAL SQ SCH ×3 (08:34→16:47)
[2019-04-23] MEDS: ARIPiprazole 5 MG TABLET PO SCH (08:39)
[2019-04-23] MEDS ORDERED: levoFLOXacin 750 MG/150 ML 750 MG/150 ML BAG IVPB SCH (09:00)
[2019-04-23 11:04] LABS: Estimated Average Glucose 206 mg/dl
--- NOTE | 2019-04-23 12:41 | Internal Med Progress Note ---
Hospitalist Progress Note - Encounter Date of Encounter: 04/23/19 Time of Encounter: 12:41 - Subjective Interval History: Pt denies fever, chills, N/V or diarrhea. He denies chest pain or SOB. He denies abdominal pain. - Exam Vitals: Temp Pulse Resp BP Pulse Ox 97.8 F 85 16 150/81 98 04/23/19 11:13 04/23/19 11:13 04/23/19 11:13 04/23/19 11:13 04/23/19 11:13 Exam: General appearance: Present: cooperative, A&O X 3, pleasant, no acute distress, answers questions appropriately Exam: Head exam: Present: atraumatic, normal inspection Eye exam: Present: EOMI, PERRL. Absent: scleral icterus Pupils: Present: normal accommodation ENT exam: Present: mucous membranes moist, normal oropharynx Neck exam general surgery: Present: full ROM, supple, trachea midline. Absent: tenderness, nuchal rigidity, thyromegaly Respiratory exam: Present: CTAB. Absent: chest wall tenderness, rales, rhonchi, tachypnea Cardiovascular exam: Present: RRR, +S1, +S2. Absent: diastolic murmur, systolic murmur GI/Abdominal exam: Present: soft. Absent: guarding, hepatomegaly, mass, rebound, splenomegaly, tenderness Extremities exam: Present: full ROM, normal capillary refill, warm, radial pulses palpable and symmetrical. Absent: calf tenderness, pedal edema Foot ulcers in both feet just proximal and medial to great toes; left worse than right with foul odor and some drainage Back exam: Present: normal inspection. Absent: CVA tenderness (L), CVA tenderness (R) Neurological exam: Present: alert, CN II-XII intact, oriented X3 decreased sensation and parasthesias in both feet Psychiatric exam: Present: normal affect, normal mood Skin exam: Present: dry, intact, warm - Assessment and Plan (1) Diabetic foot ulcer Current Visit: Yes Status: Acute Assessment and Plan: Most recent wound cultures which grew four different organisms: Acinetobacter Baumannii; Enterococcus faecalis; group G Streptococcus; and MRSA. Started on Vancomycin and Levaquin, and will continue. MRI both feet pending. Consulted Podiatry and appreciate recommendations. Local wound care for now pending MRI results. Contact isolation. (2) IDDM (insulin dependent diabetes mellitus) Current Visit: Yes Status: Chronic Assessment and Plan: 1. Will order basal and sliding scale insulin. 2. Holding Metformin. 3. Monitor glucose and adjust insulin as necessary. 4. HgbA1C 8.8 5. Counseled patient on the need to adhere to tight glucose control. DVT Prophylaxis: Heparin - Summary of Assessment and Plan Summary of Assessment and Plan: History of present illness: Dr. Druan Mr. Alexander is a 43 year old male who presents to the ER [facility] with complaints of bilateral diabetic foot ulcers which have progressively worsened over the last 2 months. He was recently hospitalized in February of this year where he was treated with antibiotics, had wound cultures, and podiatry consultation. He's been following with Dr. Bolivar, but his symptoms have worsened. Therefore, he came to the ER [facility] where he was evaluated and admitted to hospitalist service. Podiatry was consulted and requested an MRI be ordered as well as initiation of antibiotics. Upon my assessment of the patient in the ER, he is in no distress. He denies any fevers, chills, or night sweats. He denies any vomiting or diarrhea. There is a strong smell and foul odor from coming from his left foot, especially. He has two visible ulcers along both feet just behind and medial to his big toes. The left foot has an open foul-smelling ulcer whereas the right foot has a healing ulcer. He denies any trauma or injury. He has long-standing diabetes and has neuropathy in his feet. He still has some sensation in his feet. He admits to poor diabetes control over the last few years. Furthermore, he has not followed regularly with his family doctor. - Time Spent with Patient Total time spent is greater than 50% in coordination of care (as documented) at patient's floor/unit and/or counseling patient: less than 15 minutes Plan of Care Discussed with: patient Internal Medicine: Result - Labs CBC & Chem 7: 04/23/19 01:47 04/23/19 01:47 Labs: Short CBC 04/22/19 04/23/19 Range/Units 21:45 01:47 WBC 6.3 6.2 (4.3-11.1) K/mcL Hgb 11.1 L 10.9 L (12.9-16.9) g/dL Hct 33.5 L 33.5 L (37.5-50.1) % Plt Count 229 206 (140-400) K/mcL Neutrophils # 4.0 3.9 (1.6-8.9) K/mcL BMP 04/22/19 04/23/19 21:45 01:47 Sodium 137 139 Potassium 3.9 3.6 Chloride 103 102 Carbon Dioxide 26 30 H BUN 18 16 Creatinine 0.89 0.84 Glucose 265 H 219 H Calcium 8.9 8.6 Liver Function 04/23/19 Range/Units 01:47 Total Bilirubin 0.3 (0.3-1.0) mg/dL AST 12 L (13-39) Units/L ALT 23 (7-52) Units/L Alkaline Phosphatase 76 (34-104) Units/L Albumin 3.5 (3.5-5.7) g/dL - ABG Interpretation ABG results: PT/INR, D-dimer PT 11.1 Seconds (9.4-12.1) 04/22/19 21:45 - Impressions Impressions Foot X-Ray 04/22/19 21:34 IMPRESSION: Chronic great toe soft tissue swelling with ulceration. New bone destruction involving the underlying phalanges indicates osteomyelitis. Cannot entirely exclude septic joint. D/ / Gennaro Bhagat / Gennaro Bhagat Interpreting Provider: Gennaro Bhagat Foot X-Ray 04/22/19 21:34 IMPRESSION: Chronic great toe soft tissue swelling with ulcer. New subtle (minimal focal) cortical loss along the medial distal phalanx is suspicious for osteomyelitis. See annotated image. D/ / Gennaro Bhagat / Gennaro Bhagat Interpreting Provider: Gennaro Bhagat Consult Discharge Plan - Plan Referrals: Rosalba Cowan DO [Primary Care Provider] - (1) Diabetic foot ulcer Qualifiers: Diabetic foot ulcer location: toe Diabetes mellitus type: type 2 Laterality: unspecified laterality Non-pressure ulcer stage: with fat layer exposed Qualified Code(s): E11.621 - Type 2 diabetes mellitus with foot ulcer; L97.502 - Non-pressure chronic ulcer of other part of unspecified foot with fat layer exposed
--- NOTE | 2019-04-23 13:14 | Podiatry Consult Note ---
Date of Encounter: 04/23/19 Time of Encounter: 13:10 Assessment and Plan (1) Diabetic foot ulcer Current visit: Yes Status: Acute 1. Patient evaluated and treated. Xrays reviewed bilateral foot and compared to previous Xrays. There appears to by lysis changes at the hallux phalanges which could indicate evidence of osteomyelitis given the chronicity of the wounds. Low concern for limb or life threatening infection at this time. MRI has been ordered to further evaluate for evidence of osseous changes. We discussed further wound care and surgical treatment options if there is concern for osteomyelitis. Will discuss further with patient after MRI completed. Local wound care to be performed for now, orders have been placed. Qualifiers: Diabetic foot ulcer location: toe Diabetes mellitus type: type 2 Laterality: unspecified laterality Non-pressure ulcer stage: with fat layer exposed Qualified Code(s): E11.621 - Type 2 diabetes mellitus with foot ulcer; L97.502 - Non-pressure chronic ulcer of other part of unspecified foot with fat layer exposed History of Present Illness Chief complaint: bilateral foot wound HPI: Mr. Alexander is a 43 year old male known to [facility]. He follows with Dr. Bolivar in wound care. He presents with chronic ulcer bilateral 1st toe. Prior to admission, he noted pain, nausea, and fevers. He states he has been doing local wound care, but has felt sick. He denies any increase in drainage of the wounds. Xrays this admission show cortical lysis at the bilateral 1st toe phalanges. He denies n/v/f/c today. Past Med Surg Social Fam HX - Past Medical History Medical history: arthritis, diabetes, hyperlipidemia, hypertension, other Additional medical history: Reece's gangrene Psychiatric history: bipolar, prior suicide attempt, schizophrenia, previous psychiatric hospitalization - Past Surgical History Surgical History: orthopedic, other, other (Tonsillectomy adenoidectomy. Medical blindness left eye. Right index finger distal finger amputation.) Additional surgical history: "part of rectum removed", left shoulder repair - Social History Smoking Status: Current every day smoker Packs per day: 1/ Smokeless Tobacco Status: No Alcohol use: none Drug use: marijuana - Family History Mother Adopted: No Family Member Ethnicity: Non- Living Status: Still Living Hx Family Cardiac Disorders: No Hx Family Respiratory Disorders: No Hx Family Cancer: Yes (Back cancer, Her father had prostate cancer) Hx Family GI Disorders: No Hx Family Endocrine Disorder: No Hx Family Neuromuscular Disorders: No Hx Family Neurologic Disorders: No Hx Family HEENT Disorders: No Hx Family Autoimmune Disorders: No Father Living Status: Hx Family Cardiac Disorders: Yes (DE) Hx Family Respiratory Disorders: No Hx Family Cancer: No Hx Family GI Disorders: No Hx Family Endocrine Disorder: Yes (DM) Hx Family Neuromuscular Disorders: No Hx Family Neurologic Disorders: No Hx Family HEENT Disorders: No Hx Family Autoimmune Disorders: No Medications and Allergies ARIPiprazole [Abilify] 5 mg PO QAM #30 tablet 04/18/19 [Rx] Glucagon, Human Recombinant [Glucagen] 1 mg IM ONCE PRN vial 04/18/19 [Rx] Insulin LISPRO [HumaLOG] 0 units SQ HS vial 04/18/19 [Rx] Insulin LISPRO [HumaLOG] 0 units SQ TIDAC vial 04/18/19 [Rx] metFORMIN [Glucophage] 500 mg PO BIDWM #60 tablet 04/18/19 [Rx] traZODone [TraZODone] 50 mg PO HS #30 tablet 04/18/19 [Rx] Allergy/AdvReac Type Severity Reaction Status Date / Time Penicillins [PCN] Allergy Rash Verified 04/07/19 16:13 All Systems Reviewed: The remainder of the systems were reviewed and are negative Physical Exam - Constitutional Vitals: Temp Pulse Resp BP Pulse Ox 97.8 F 85 16 150/81 98 04/23/19 11:13 04/23/19 11:13 04/23/19 11:13 04/23/19 11:13 04/23/19 11:13 Exam: Alert, oriented x3, no acute distress Vascular: Pulses palpable bilateral. Capillary refill less than 3 seconds to all digits. Skin temperature warm to warm comparing toes to legs. Pedal hair present. Dermatology: Bilateral medial hallux ulcer with mixed fibrotic and granular wound bad. No probe to bone. No crepitus. No periwound erythema, no drainage. Fat layer exposed to wounds. Musculoskeletal: Hallux limitus bilateral. No pain with compression of calf. Muscle strength 5/5 in all planes. Neuro: Sensations diminished to light touch bilateral lower extremity. Results - Labs Result Diagrams: 04/23/19 01:47 04/23/19 01:47 Labs: Abnormal lab results RBC 3.88 M/mcL (4.19-5.50) L 04/23/19 01:47 Hgb 10.9 g/dL (12.9-16.9) L 04/23/19 01:47 Hct 33.5 % (37.5-50.1) L 04/23/19 01:47 MCH 27.9 pg (28.0-33.3) L 04/22/19 21:45 ESR 34 mm/hr (0-10) H 04/22/19 21:39 Carbon Dioxide 30 mEq/L (23-29) H 04/23/19 01:47 Glucose 219 mg/dL (70-105) H 04/23/19 01:47 POC Glucose 199 mg/dL (70-99) H 04/23/19 00:37 8.8 % (-5.6) H 04/22/19 21:45 Lactic Acid 2.3 mmol/L (0.5-2.2) H 04/22/19 21:45 AST 12 Units/L (13-39) L 04/23/19 01:47 6.3 g/dL (6.4-8.9) L 04/23/19 01:47 H & H 04/22/19 04/23/19 Range/Units 21:45 01:47 Hgb 11.1 L 10.9 L (12.9-16.9) g/dL Hct 33.5 L 33.5 L (37.5-50.1) % All other labs normal. Consult Discharge Plan - Plan Referrals: Rosalba Cowan DO [Primary Care Provider] -
[2019-04-24] MEDS: *HR* HYDROcodone/Acet 5/325 mg TABLET PO PRN ×4 (00:13→22:30)
[2019-04-24] MEDS: *HR* Heparin 5,000 UNIT/ML VIAL SQ SCH ×2 (00:50→18:08)
[2019-04-24] MEDS: ARIPiprazole 5 MG TABLET PO SCH (08:58)
[2019-04-24] MEDS: Insulin LISPRO 300 UNITS/3 ML VIAL SQ SCH ×3 (09:07→17:00)
--- NOTE | 2019-04-24 10:49 | Internal Med Progress Note ---
Hospitalist Progress Note - Encounter Date of Encounter: 04/24/19 Time of Encounter: 17:00 - Subjective Interval History: No acute events overnight - Exam Vitals: Temp Pulse Resp BP Pulse Ox 97.7 F 16 98 171/91 98 04/24/19 10:37 04/24/19 10:37 04/24/19 10:37 04/24/19 10:37 04/24/19 06:35 Exam: General appearance: Present: cooperative, A&O X 3, pleasant, no acute distress, answers questions appropriately Exam: Head exam: Present: atraumatic, normal inspection Eye exam: Present: EOMI, PERRL. Absent: scleral icterus Pupils: Present: normal accommodation ENT exam: Present: mucous membranes moist, normal oropharynx Neck exam general surgery: Present: full ROM, supple, trachea midline. Absent: tenderness, nuchal rigidity, thyromegaly Respiratory exam: Present: CTAB. Absent: chest wall tenderness, rales, rhonchi, tachypnea Cardiovascular exam: Present: RRR, +S1, +S2. Absent: diastolic murmur, systolic murmur GI/Abdominal exam: Present: soft. Absent: guarding, hepatomegaly, mass, rebound, splenomegaly, tenderness Extremities exam: Present: full ROM, normal capillary refill, warm, radial pulses palpable and symmetrical. Absent: calf tenderness, pedal edema Foot ulcers in both feet just proximal and medial to great toes; left worse than right with foul odor and some drainage Back exam: Present: normal inspection. Absent: CVA tenderness (L), CVA tenderness (R) Neurological exam: Present: alert, CN II-XII intact, oriented X3 decreased sensation and parasthesias in both feet Psychiatric exam: Present: normal affect, normal mood Skin exam: Present: dry, intact, warm - Assessment and Plan (1) Diabetic foot ulcer Current Visit: Yes Status: Acute Assessment and Plan: Most recent wound cultures which grew four different organisms: Acinetobacter Baumannii; Enterococcus faecalis; group G Streptococcus; and MRSA. Continu on vancomycin and cefepime. ID recs appreciated MRI showed osteomyelitis (2) IDDM (insulin dependent diabetes mellitus) Current Visit: Yes Status: Chronic Assessment and Plan: Continue insulin and monitor fingersticks (3) Hypertension Current Visit: Yes Status: Acute Assessment and Plan: Continue PRN hydralazine (4) DVT prophylaxis Current Visit: Yes Status: Acute Assessment and Plan: Heparin SQ. - Time Spent with Patient Total time spent is greater than 50% in coordination of care (as documented) at patient's floor/unit and/or counseling patient: Internal Medicine: Result - Labs CBC & Chem 7: 04/23/19 01:47 04/23/19 01:47 - ABG Interpretation ABG results: PT/INR, D-dimer PT 11.1 Seconds (9.4-12.1) 04/22/19 21:45 Consult Discharge Plan - Plan Referrals: oRsalba Cowan DO [Primary Care Provider] - (1) Diabetic foot ulcer Qualifiers: Diabetic foot ulcer location: toe Diabetes mellitus type: type 2 Laterality: unspecified laterality Non-pressure ulcer stage: with fat layer exposed Qualified Code(s): E11.621 - Type 2 diabetes mellitus with foot ulcer; L97.502 - Non-pressure chronic ulcer of other part of unspecified foot with fat layer exposed
--- NOTE | 2019-04-24 12:00 | Podiatry Progress Note ---
Date of Encounter: 04/24/19 Time of Encounter: 11:25 - Assessment and Plan (1) Diabetic foot ulcer Current Visit: Yes Status: Acute Assessment: -Bilateral medial hallux ulcer with mixed fibrotic and granular wound bad -WBC 6.2 yesterday, no CBC today -ESR 34 -A1c 8.8 -Afebrile -X-ray right foot Chronic great toe soft tissue swelling with ulcer. New subtle (minimal focal) cortical loss along the medial distal phalanx is suspicious for osteomyelitis. See annotated image. -X-ray left foot Chronic great toe soft tissue swelling with ulceration. New bone destruction involving the underlying phalanges indicates osteomyelitis. Cannot entirely exclude septic joint. Plan: -Pending MRI -Dressing changed, flushed with sterile normal saline and pat dry -Covered with calcium alginate, 4x4 dry gauze, Kerlix, and secured with tape -Will continue to monitor Qualifiers: Diabetic foot ulcer location: toe Diabetes mellitus type: type 2 Laterality: unspecified laterality Non-pressure ulcer stage: with fat layer exposed Qualified Code(s): E11.621 - Type 2 diabetes mellitus with foot ulcer; L97.502 - Non-pressure chronic ulcer of other part of unspecified foot with fat layer exposed Subjective Interval history: Patient is alert and oriented resting in bed and no acute distress noted. Patient reports he has been cold all night. He is afebrile, highest temperature since admission 99.2 at time of arrival. Patient denies any chest pain, shortness of breath, or calf pain. He denies any n/v/d. Objective - Vital Signs Vital Signs: Vital Signs Temp Pulse Resp BP Pulse Ox 04/24/19 11:48 80 167/84 04/24/19 10:37 97.7 F 16 98 171/91 04/24/19 06:35 98 F 18 16 144/76 98 04/24/19 03:55 97.8 F 74 16 147/81 97 04/24/19 00:49 79 152/67 04/23/19 23:42 98.2 F 86 16 175/87 98 04/23/19 19:09 97.5 F L 78 18 155/82 97 04/23/19 15:02 97.5 F L 76 15 165/88 97 Intake and Output 04/23/19 04/24/19 04/24/19 23:59 07:59 15:59 Intake Total 470 / 3360 250 / 250 0 / 250 Balance 470 / 3360 250 / 250 0 / 250 Intake: IV Fluids 250 / 2520 250 / 250 Vancocin 1,000 MG In 0.9 % 250 / 250 250 / 250 Sodium Chloride 250 ML @ 166. 667 mls/hr IVPB Q12H ALEX Rx#: [id number] Oral 220 / 840 0 / 0 0 / 0 Other: Meal Dinner Percent of Meal Consumed 100% # Voids 1 1 Weight 78.1 kg Blood Glucose* 183 161 158 Patient Weight 04/24/19 23:59 Weight 78.1 kg - Exam Exam: Constitutional: Alert, oriented x3, no acute distress Vascular: Pulses palpable bilateral. Capillary refill less than 3 seconds to all digits. Skin temperature warm to warm comparing toes to legs. Pedal hair present. Dermatology: Bilateral medial hallux ulcer with mixed fibrotic and granular wound bad. No probe to bone. No crepitus. No periwound erythema, no drainage. Fa t layer exposed to wounds. Musculoskeletal: Hallux limitus bilateral. No pain with compression of calf. Muscle strength 5/5 in all planes. Neuro: Sensations diminished to light touch bilateral lower extremity. - Lab Result Diagrams: 04/23/19 01:47 04/23/19 01:47 Labs: Abnormal lab results RBC 3.88 M/mcL (4.19-5.50) L 04/23/19 01:47 Hgb 10.9 g/dL (12.9-16.9) L 04/23/19 01:47 Hct 33.5 % (37.5-50.1) L 04/23/19 01:47 MCH 27.9 pg (28.0-33.3) L 04/22/19 21:45 ESR 34 mm/hr (0-10) H 04/22/19 21:39 Carbon Dioxide 30 mEq/L (23-29) H 04/23/19 01:47 Glucose 219 mg/dL (70-105) H 04/23/19 01:47 POC Glucose 161 mg/dL (70-99) H 04/24/19 07:14 8.8 % (-5.6) H 04/22/19 21:45 Lactic Acid 2.3 mmol/L (0.5-2.2) H 04/22/19 21:45 AST 12 Units/L (13-39) L 04/23/19 01:47 6.3 g/dL (6.4-8.9) L 04/23/19 01:47 Microbiology, Last 48 Hours 04/23/19 00:57 Wound Culture - Preliminary Right Great Toe Culture is incubating. 04/22/19 21:50 Blood Culture - Preliminary Peripheral Venipuncture Culture is incubating and being continuously monitored for growth. Final report to follow. 04/22/19 21:45 Blood Culture - Preliminary Peripheral Venipuncture Culture is incubating and being continuously monitored for growth. Final report to follow. Consult Discharge Plan - Plan Referrals: Rosalba Cowan DO [Primary Care Provider] -
--- NOTE | 2019-04-24 13:16 | Infectious Disease Consult ---
Infectious Disease-Consult - Encounter Date/Time Date of Encounter: 04/24/19 Time of Encounter: 13:15 - Data of Consult Requesting Physician: Broderick Gordon MD Primary Care Provider: Rosalba Cowan DO - HPI HPI: Mr. Perkins is a 43 y.o male who presented to the ER with complaints of bilateral lower diabetic foot ulcer which has gotten worse over the last 2 months. Infectious disease was consulted to make recommendations for choice of Abx for his worsening diabetic foot ulcer/ osteomyelitis. Mr Alexander is a 43 y.o male with a PMHx of a PMHx of DM, HLD, HTN , arthritis, diabetic foot ulcer and osteomyelitis who presented to the ER last night with complaints of bilateral foot ulcer which has been progressively worsening. He was admitted not too long ago in February of this year for similar reason when based upon the changes in his MRI was found to have early osteomyelitic vs reactive changes kind of picture. During that admission, patient was found to have cellulitis of the bilateral great toes and was treated with vancomycin and cefepime. He was also seen by podiatry came back then, but no surgical debridements were performed because of no significant changes on MRI. Patient had regular grade 2 ulceration to bilateral hallux and underwent local wound care at home on discharge. Patient's would culture of the right toe during that admission grew Acinetobacter baumanii, enterococcus faecalis, Group G Streptococcus and MRSA. His Left toe grew MRSA, Aerococcus viridans and Enterococcus faecelis. He was discharged on 14 days of Levaquin and Bactrim. Of note, patient has a Hx of penicillin allergy and endorses that he breaks into hives, the last exposure was about 10 years ago. He is also an active smoker and smokes about 4-5 cigarettes a day for the past many years. Patient has been following up with Dr. Bolivar until the end of February but after that he forgot to keep up with his appointent owing to personal problems. Today he presents with progressively worsening left foot pain . Initial workup in the ED showed that patient was afebrile, pulse : 76, RR: 16, satting at 98% on room air. Patient had an ESR of 34 . As per the note of the attending in the ED, patient had the strong smell and foul odor coming from his left foot. He also had 2 visible ulcers along both feet just behind and medial to hig big toes. Patient's right foot had a healing ulcer. He is currently been treated with vancomycin and levaquin . - Results CBC & Chem 7: 04/25/19 06:11 04/25/19 06:11 - Exam Vitals: Temp Pulse Resp BP Pulse Ox 97.7 F 80 98 167/84 98 04/24/19 10:37 04/24/19 11:48 04/24/19 10:37 04/24/19 11:48 04/24/19 09:49 Exam: Gen.: Vitals noted. No acute distress. Alert, awake and oriented * 3 [address], [address], and time, well developed, well-nourished resting comfortably in bed. Pleasant. HEENT: oropharynx clear, Normocephalic, atraumatic, MMM Neck: supple, no JVD, no lymphadenopathy, no carotid bruit. Cardiac: RRR, no murmur, +S1/S2, No BLE edema, PMI non-displaced Pulmonary: CTA bilaterally, no wheezes, rales or rhonchi, equal chest expansion, unlabored breathing Abdomen: soft, nontender, BS noted, no guarding, non- distended. No organomegaly, no pulsatile masses, Skin: warm and dry, no visible lesions. Feels warm, clammy, no rashes, no lesions, no erythema MSK: left great toe draped in bandage, ROM not assessed. no joint swelling noted, gait not assessed while in bed. Non tender calf or clubbing, no cyanosis/clubbing/ or edema Neuro: A&O, moves all extremities, no focal deficits, decreased sensation in the left lower extremity, right extremity sensation intact. Psych: Appropriate mood and behavior, normal speech. ARIPiprazole [Abilify] 5 mg PO QAM #30 tablet 04/18/19 [Rx] Glucagon, Human Recombinant [Glucagen] 1 mg IM ONCE PRN vial 04/18/19 [Rx] Insulin LISPRO [HumaLOG] 0 units SQ TIDAC vial 04/18/19 [Rx] metFORMIN [Glucophage] 500 mg PO BIDWM #60 tablet 04/18/19 [Rx] traZODone [TraZODone] 50 mg PO HS #30 tablet 04/18/19 [Rx] Allergy/AdvReac Type Severity Reaction Status Date / Time Penicillins [PCN] Allergy Rash, Hives Verified 04/24/19 11:49 - Assessment and Plan (1) Diabetic foot ulcer Current Visit: Yes Status: Acute -Patient has a history of diabetic foot ulcer. 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 culture from left foot was ositve for MRSA, Aerococcus viridans, Enterococcus faecelis. - WBC 6.2 yestrday, patient is afebrile , ESR: 34, A1C: 8.8 -Recent x-ray of the right foot showed chronic great toe soft tissue swelling w ith ulcer. There is new subtle cortical loss of the medial distal pharynx which is suspicious for osteomyelitis - recent x-ray of the left foot showed swelling with ulceration with new bone destruction involving the underlying phalanges indicates osteomyelitis. - Currently on day 1 of vancomycin and Levaquin PLAN: - podiatry is following: His dressing has been changed, flush with the sterile normal saline -continue vancomycin and levaquin for a total 6 weeks. He will need a PICC line prior to discharge Qualifiers: Diabetic foot ulcer location: toe Diabetes mellitus type: type 2 Laterality: unspecified laterality Non-pressure ulcer stage: with fat layer exposed Qualified Code(s): E11.621 - Type 2 diabetes mellitus with foot ulcer; L97.502 - Non-pressure chronic ulcer of other part of unspecified foot with fat layer exposed SNOMED Code(s): 948835845 (2) Osteomyelitis Current Visit: Yes Status: Acute -likely due to a poorly controlled diabetes with A1c of 8.8 and history of poor compliance on antidiabetic medications. -Patient's MRI of the left foot showed progression of osteomyelitis in the great toe with interval edema progression into the mid proximal phalanx. -MRI of the right foot mild bone marrow edema with normal T1 signal throughout the first distal phalanx more likely represent noninfectious reactive osteitis versus less likely early osteomyelitis. -Causative of organism is currently unknown. - previous cultures grew of the left foot grew Enterococcus faecalis ampicillin sensitive, Aerococcus viridans, and MRSA -Previous cultures grew Enterococcus faecalis ampicillin sensitive, MRSA, group C streptococcus and Acinetobacter baumanni pansensitive - During previous admission, patient was treated with oral Bactrim and levofloxacin with progression of the disease. -Currently on vancomycin and levaquin for a total of 6 weeks. -Awaiting podiatry recommendations Qualifiers: Osteomyelitis type: other acute Osteomyelitis location: foot Laterality: left Qualified Code(s): M86.172 - Other acute osteomyelitis, left ankle and foot SNOMED Code(s): 83726085 (3) IDDM (insulin dependent diabetes mellitus) Current Visit: Yes Status: Chronic Patient has a history of diabetes and A1C of 8.8. -He endorses poor compliance on his antidiabetic medications. - Continue insulin and accuchecks - Will need diabetes education during discharged to prevent recurrence of diabetic foot ulcer SNOMED Code(s): 69179723 (4) Hypertension Current Visit: Yes Status: Acute Patient has a history of hypertension -Continue PRN hydralazine SNOMED Code(s): 50833609 Past Med Surg Social Fam HX - Past Medical History Medical history: arthritis, diabetes, hyperlipidemia, hypertension, other Additional medical history: Reece's gangrene Psychiatric history: bipolar, prior suicide attempt, schizophrenia, previous psychiatric hospitalization - Past Surgical History Surgical History: orthopedic, other, other (Tonsillectomy adenoidectomy. Med ical blindness left eye. Right index finger distal finger amputation.) Additional surgical history: "part of rectum removed", left shoulder repair - Social History Smoking Status: Current every day smoker Packs per day: 1/4 Smokeless Tobacco Status: No Alcohol use: none Drug use: marijuana - Family History Mother Adopted: No Family Member Ethnicity: Non- Living Status: Still Living Hx Family Cardiac Disorders: No Hx Family Respiratory Disorders: No Hx Family Cancer: Yes (Back cancer, Her father had prostate cancer) Hx Family GI Disorders: No Hx Family Endocrine Disorder: No Hx Family Neuromuscular Disorders: No Hx Family Neurologic Disorders: No Hx Family HEENT Disorders: No Hx Family Autoimmune Disorders: No Father Living Status: Hx Family Cardiac Disorders: Yes ([place]) Hx Family Respiratory Disorders: No Hx Family Cancer: No Hx Family GI Disorders: No Hx Family Endocrine Disorder: Yes (DM) Hx Family Neuromuscular Disorders: No Hx Family Neurologic Disorders: No Hx Family HEENT Disorders: No Hx Family Autoimmune Disorders: No Consult Discharge Plan - Plan Referrals: Rosalba Cowan DO [Primary Care Provider] - - Attending Attestation I examined this patient and my medical decision-making was reviewed with the Resident Physician. I agree with the documented findings, disposition and treatment plan as described except to the extent set forth below. Assessment and plan: 1.Osteomyelitis left great toe causative organism not clear previous cultures grew Enterococcus faecalis ampicillin sensitive, Aerococcus viridans, and MRSA Treated with oral Bactrim and levofloxacin with progression of the disease 3.Questionable osteomyelitis of the right foot. Previous cultures grew En terococcus faecalis ampicillin sensitive, MRSA, group C streptococcus and Acinetobacter baumanni pansensitive 4.Poorly controlled diabetes mellitus type 2; hemoglobin A1c 8.8 patient admits to noncompliance with medications 5.Penicillin allergy exact reaction unknown Recommendations: Continue to monitor labs including CBC, and BMP Goal vancomycin trough around 15 Await podiatry recommendations Continue vancomycin and levofloxacin Duration of treatment at least 6 weeks patient will need a PICC line prior to discharge Monitor labs and for drug toxicity adequate glucose control
--- NOTE | 2019-04-24 16:01 | Electrocardiograph Report ---
[address] [address] Test Date: 2019-04-23 Pat Name: Santo Alexander Department: 114 Room: [facility] Gender: M [employer] Worker: [id number] : 1975 Requested By: Arnol Duran Order Number: [id number] Reading MD: Jack Barahona Measurements Intervals [place] Rate: 77 P: 47 NE: 207 QRS: 88 QRSD: 100 T: 68 QT: 360 QTc: 392 Interpretive Statements SINUS RHYTHM Electronically Signed On 04-24-2019 15:59:51 EDT by Jack Barahona
[2019-04-24] MEDS: Cefepime HCl 2,000 MG in 0.9 % Sodium Chloride Mini Bag 100 ML IVPB SCH (18:12)
[2019-04-24] MEDS: traZODone 50 MG TABLET PO SCH (22:05)
[2019-04-24] MEDS: Insulin DETEMIR 100 UNIT/ML X5UNITS SQ SCH (23:25)
[2019-04-25] MEDS: *HR* HYDROcodone/Acet 5/325 mg TABLET PO PRN (02:46)
[2019-04-25] MEDS: *HR* Heparin 5,000 UNIT/ML VIAL SQ SCH ×2 (04:12→16:56)
[2019-04-25] MEDS: Cefepime HCl 2,000 MG in 0.9 % Sodium Chloride Mini Bag 100 ML IVPB SCH (06:05)
[2019-04-25 07:06] LABS: Basophils # 0.1 K/mcL (0.0-0.2); Eosinophils # 0.2 K/mcL (0.0-0.6); Eosinophils % 4.7 %; Hemoglobin 12.4 g/dL (12.9-16.9); Immature Granulocytes % 0.5 % (0-4); Lymphocytes # 1.1 K/mcL (0.6-4.6); Lymphocytes % 26.2 %; Mean Corpuscular HGB Conc 32.6 g/dL (31.6-35.5); Mean Corpuscular Hemoglobin 27.9 pg (28.0-33.3); Mean Corpuscular Volume 85.6 fL (83.0-100.0); Mean Platelet Volume 10.1 fL (9.4-12.4); Monocytes # 0.4 K/mcL (0.0-1.3); Monocytes % 8.7 %; Neutrophils # 2.3 K/mcL (1.6-8.9); Platelet Count 210 K/mcL (140-400); Red Blood Count 4.44 M/mcL (4.19-5.50); Red Cell Distribution Width 13.3 % (11.5-14.5); Segmented Neutrophils % 57.9 %
[2019-04-25 07:23] LABS: BUN/Creatinine Ratio 24 (6-26); Blood Urea Nitrogen 20 mg/dL (6-20); Calcium 9.2 mg/dL (8.6-10.3); Carbon Dioxide 28 mEq/L (23-29); Chloride 100 mEq/L (98-107); Glucose 204 mg/dL (70-105); Osmolality,Calculated 292 (280-300); Phosphorous 3.8 mg/dL (2.7-4.5); Sodium 137 mEq/L (136-145); eGFR For African Americans > 60 (> 60); eGFR For Non-African Americans > 60 (> 60)
[2019-04-25] MEDS: ARIPiprazole 5 MG TABLET PO SCH (08:04)
[2019-04-25] MEDS: Insulin LISPRO 300 UNITS/3 ML VIAL SQ SCH ×3 (08:09→16:57)
--- NOTE | 2019-04-25 08:52 | Internal Med Progress Note ---
Hospitalist Progress Note - Encounter Date of Encounter: 04/25/19 Time of Encounter: 08:00 - Subjective Interval History: No acute events overnight. - Exam Vitals: Temp Pulse Resp BP Pulse Ox 97.8 F 74 14 164/76 98 04/25/19 07:33 04/25/19 07:33 04/25/19 07:33 04/25/19 07:33 04/25/19 07:33 Exam: General appearance: Present: cooperative, A&O X 3, pleasant, no acute distress, answers questions appropriately Exam: Head exam: Present: atraumatic, normal inspection Eye exam: Present: EOMI, PERRL. Absent: scleral icterus Pupils: Present: normal accommodation ENT exam: Present: mucous membranes moist, normal oropharynx Neck exam general surgery: Present: full ROM, supple, trachea midline. Absent: tenderness, nuchal rigidity, thyromegaly Respiratory exam: Present: CTAB. Absent: chest wall tenderness, rales, rhonchi, tachypnea Cardiovascular exam: Present: RRR, +S1, +S2. Absent: diastolic murmur, systolic murmur GI/Abdominal exam: Present: soft. Absent: guarding, hepatomegaly, mass, rebound, splenomegaly, tenderness Extremities exam: Present: full ROM, normal capillary refill, warm, radial pulses palpable and symmetrical. Absent: calf tenderness, pedal edema Foot ulcers in both feet just proximal and medial to great toes; left worse than right with foul odor and some drainage Back exam: Present: normal inspection. Absent: CVA tenderness (L), CVA tenderness (R) Neurological exam: Present: alert, CN II-XII intact, oriented X3 decreased sensation and parasthesias in both feet Psychiatric exam: Present: normal affect, normal mood Skin exam: Present: dry, intact, warm - Assessment and Plan (1) Osteomyelitis Current Visit: Yes Status: Acute Assessment and Plan: MRI showed great toe osteomyelitis in both feet Per podiatry, this is chronic and not amenable to surgical intervention Plan for weeks of vanc and levaquin. Will place PICC line (2) Diabetic foot ulcer Current Visit: Yes Status: Acute Assessment and Plan: Most recent wound cultures which grew four different organisms: Acinetobacter Baumannii; Enterococcus faecalis; group G Streptococcus; and MRSA. Continu on vancomycin and cefepime. ID recs appreciated MRI showed osteomyelitis (3) IDDM (insulin dependent diabetes mellitus) Current Visit: Yes Status: Chronic Assessment and Plan: Continue insulin and monitor fingersticks (4) Hypertension Current Visit: Yes Status: Acute Assessment and Plan: Continue PRN hydralazine DVT Prophylaxis: Heparin - Time Spent with Patient Total time spent is greater than 50% in coordination of care (as documented) at patient's floor/unit and/or counseling patient: Internal Medicine: Result - Labs CBC & Chem 7: 04/25/19 06:11 04/25/19 06:11 Labs: Short CBC 04/25/19 Range/Units 06:11 WBC 4.0 L (4.3-11.1) K/mcL Hgb 12.4 L D (12.9-16.9) g/dL Hct 38.0 (37.5-50.1) % Plt Count 210 (140-400) K/mcL Neutrophils # 2.3 (1.6-8.9) K/mcL BMP 04/25/19 06:11 Sodium 137 Potassium 4.0 Chloride 100 Carbon Dioxide 28 BUN 20 Creatinine 0.84 Glucose 204 H Calcium 9.2 - ABG Interpretation ABG results: PT/INR, D-dimer PT 11.1 Seconds (9.4-12.1) 04/22/19 21:45 - Impressions Impressions KUB X-Ray 04/24/19 00:00 IMPRESSION: No metallic foreign body in the abdomen. D/ / Mulugeta Natarajan MD / Mulugeta Natarajan MD Interpreting Provider: Mulugeta Natarajan MD Foot MRI 04/24/19 12:15 IMPRESSION: 1. Mild bone marrow edema with normal T1 signal throughout the 1st distal phalanx more likely to represent noninfectious reactive osteitis versus less likely early osteomyelitis. 2. Medial 1st digit shallow soft tissue ulceration with 1st digit and dorsal forefoot cellulitis. No sinus tract or drainable fluid collection. 3. Edema throughout the visualized musculature of the forefoot compatible with diabetic myopathy versus myositis. D/ / John Hudson MD / John Hudson MD Interpreting Provider: John Hudson MD Foot MRI 04/24/19 12:15 IMPRESSION: 1. Progression of osteomyelitis in the great toe with interval edema progression into the mid proximal phalanx. Additional acute osteomyelitis throughout the distal phalanx of the great toe is similar to the prior exam. 2. Increasing size of the medial great toe ulcer. Surrounding cellulitis. No soft tissue abscess. 3. Minimal nonspecific patchy edema in the 2nd and 3rd metatarsal head and in the midfoot is likely reactive. D/ / 04/24/2019 14:50:38 Gian Campoverde MD / Maira Dotson Interpreting Provider: Gian Campoverde MD Consult Discharge Plan - Plan Referrals: Rosalba Cowan DO [Primary Care Provider] - (1) Osteomyelitis Qualifiers: Osteomyelitis type: other acute Osteomyelitis location: foot Laterality: left Qualified Code(s): M86.172 - Other acute osteomyelitis, left ankle and foot (2) Diabetic foot ulcer Qualifiers: Diabetic foot ulcer location: toe Diabetes mellitus type: type 2 Laterality: unspecified laterality Non-pressure ulcer stage: with fat layer exposed Qualified Code(s): E11.621 - Type 2 diabetes mellitus with foot ulcer; L97.502 - Non-pressure chronic ulcer of other part of unspecified foot with fat layer exposed
[2019-04-25] MEDS: levoFLOXacin 750 MG/150 ML 750 MG/150 ML BAG IVPB SCH (09:16)
--- NOTE | 2019-04-25 09:52 | Podiatry Progress Note ---
Date of Encounter: 04/25/19 Time of Encounter: 09:40 - Assessment and Plan (1) Diabetic foot ulcer Current Visit: Yes Status: Acute Assessment: -Bilateral medial hallux ulcer with mixed fibrotic and granular wound bed, appears stable -WBC 4.0 -ESR 34 -Afebrile -Receiving IV Levaquin and Vancomycin -Blood cultures preliminary -Wound cultures preliminary -X-ray right foot Chronic great toe soft tissue swelling with ulcer. New subtle (minimal focal) cortical loss along the medial distal phalanx is suspicious for osteomyelitis. See annotated image. -X-ray left foot Chronic great toe soft tissue swelling with ulceration. New bone destruction involving the underlying phalanges indicates osteomyelitis. Cannot entirely exclude septic joint. -Right foot MRI 1. Mild bone marrow edema with normal T1 signal throughout the 1st distal phalanx more likely to represent noninfectious reactive osteitis versus less likely early osteomyelitis. 2. Medial 1st digit shallow soft tissue ulceration with 1st digit and dorsal forefoot cellulitis. No sinus tract or drainable fluid collection. 3. Edema throughout the visualized musculature of the forefoot compatible with diabetic myopathy versus myositis. -Left foot MRI 1. Progression of osteomyelitis in the great toe with interval edema progression into the mid proximal phalanx. Additional acute osteomyelitis throughout the distal phalanx of the great toe is similar to the prior exam. 2. Increasing size of the medial great toe ulcer. Surrounding cellulitis. No soft tissue abscess. 3. Minimal nonspecific patchy edema in the 2nd and 3rd metatarsal head and in the midfoot is likely reactive. Plan: -Discussed MRI with Dr. Bolivar, appears osteomyelitis is chronic, ulcers stable, at this time treat medically as opposed to surgically due to comorbidity -ID onboard, antibiotic recommendations greatly appreciated -Dressing changed, flushed with sterile normal saline and pat dry -Covered with calcium alginate, 4x4 dry gauze, Kerlix, and secured with Medipore tape -Patient may eat -Will continue to monitor Qualifiers: Diabetic foot ulcer location: toe Diabetes mellitus type: type 2 Laterality: unspecified laterality Non-pressure ulcer stage: with fat layer exposed Qualified Code(s): E11.621 - Type 2 diabetes mellitus with foot ulcer; L97.502 - Non-pressure chronic ulcer of other part of unspecified foot with fat layer exposed (2) Diabetes mellitus Current Visit: No Status: Acute Assessment: -Blood glucose 204 -Hgb A1c 8.8 Plan: -Tight glycemic control to prevent complication and promote wound healing, managed by primary Qualifiers: Diabetes mellitus type: type 2 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 Patient denies any chest pain, shortness of breath, or calf pain. He denies any n/v/d. Objective - Vital Signs Vital Signs: Vital Signs Temp Pulse Resp BP Pulse Ox 04/25/19 07:33 97.8 F 74 14 164/76 98 04/25/19 03:30 98.4 F 90 17 150/84 97 04/24/19 22:59 98.3 F 89 17 138/82 97 04/24/19 18:58 98.0 F 82 17 141/84 98 04/24/19 14:53 98 F 86 16 186/90 98 04/24/19 11:48 80 167/84 04/24/19 10:37 97.7 F 76 16 171/91 98 04/24/19 10:34 97.7 F 76 16 171/91 98 Intake and Output 04/24/19 04/25/19 04/25/19 23:59 07:59 15:59 Intake Total 350 / 600 250 / 250 Balance 350 / 150 250 / 250 Intake: IV Fluids 350 / 600 250 / 250 Maxipime 2,000 MG In 0.9 % 100 / 100 Sodium Chloride (Mini-Bag +) 100 ML @ 200 mls/hr IVPB Q12HR [facility] Rx#:[id number] Vancocin 1,250 MG In 0.9 % 250 / 250 250 / 250 Sodium Chloride 250 ML @ 166.67 mls/hr IVPB Q12H [facility] Rx#: [id number] Other: # Voids 1 2 Weight 78.2 kg Blood Glucose* 297 248 Patient Weight 04/25/19 23:59 Weight 78.2 kg - Exam Exam: Constitutional: Alert, oriented x3, no acute distress Vascular: Pulses palpable bilateral. Capillary refill less than 3 seconds to all digits. Skin temperature warm to warm comparing toes to legs. Pedal hair present. No pain with calf squeeze bilaterally. Dermatology: Bilateral medial hallux ulcer with mixed fibrotic and granular wound bed. Does not probe to bone. No crepitus. No periwound erythema, no drainage. Fat layer exposed to wounds. Musculoskeletal: Hallux limitus bilateral. Muscle strength 5/5 in all planes. Neuro: Sensations diminished to light touch bilateral lower extremity. - Lab Result Diagrams: 04/25/19 06:11 04/25/19 06:11 Labs: Abnormal lab results WBC 4.0 K/mcL (4.3-11.1) L 04/25/19 06:11 RBC 3.88 M/mcL (4.19-5.50) L 04/23/19 01:47 Hgb 12.4 g/dL (12.9-16.9) L D 04/25/19 06:11 Hct 33.5 % (37.5-50.1) L 04/23/19 01:47 MCH 27.9 pg (28.0-33.3) L 04/25/19 06:11 ESR 34 mm/hr (0-10) H 04/22/19 21:39 Carbon Dioxide 30 mEq/L (23-29) H 04/23/19 01:47 Glucose 204 mg/dL (70-105) H 04/25/19 06:11 POC Glucose 297 mg/dL (70-99) H 04/25/19 01:03 8.8 % (-5.6) H 04/22/19 21:45 Lactic Acid 2.3 mmol/L (0.5-2.2) H 04/22/19 21:45 AST 12 Units/L (13-39) L 04/23/19 01:47 6.3 g/dL (6.4-8.9) L 04/23/19 01:47 Microbiology, Last 48 Hours 04/23/19 00:57 Wound Culture - Preliminary Right Great Toe Culture is incubating. Consult Discharge Plan - Plan Referrals: Rosalba Cowan DO [Primary Care Provider] -
[2019-04-25 10:01] LABS: Amphetamine Screen,Urine Negative ng/mL (Cutoff=1000); Barbiturate Screen,Urine Negative ng/mL (Cutoff=200); Benzodiazepines Screen,Urine Negative ng/mL (Cutoff=200); Cannabinoid Screen,Urine Negative ng/mL (Cutoff = 50); Cocaine Screen,Urine Negative ng/mL (Cutoff= 300); Opiate Screen,Urine Positive ng/mL (Cutoff=300); Phencyclidine Screen,Urine Negative ng/mL (Cutoff=25)
--- NOTE | 2019-04-25 16:01 | Discharge Summary ---
Orders not resulted at time of discharge: Pending orders 04/22/19 21:50 Culture,Blood [BC] Stat 04/22/19 22:36 Culture,Wound [RM] Stat 04/25/19 23:00 Vancomycin,Trough Timed 04/26/19 04:00 Basic Metabolic Panel AM 0400 CBC [Complete Blood Count] [HEME] AM 0400 Magnesium AM 0400 Phosphorous AM 0400 04/27/19 04:00 Basic Metabolic Panel AM 0400 CBC [Complete Blood Count] [HEME] AM 0400 Magnesium AM 0400 Phosphorous AM 0400 04/28/19 04:00 Basic Metabolic Panel AM 0400 CBC [Complete Blood Count] [HEME] AM 0400 Magnesium AM 0400 Phosphorous AM 0400 04/29/19 04:00 Basic Metabolic Panel AM 0400 CBC [Complete Blood Count] [HEME] AM 0400 Magnesium AM 0400 Phosphorous AM 0400 04/30/19 04:00 Basic Metabolic Panel AM 0400 CBC [Complete Blood Count] [HEME] AM 0400 Magnesium AM 0400 Phosphorous AM 0400 Date of Encounter: 04/25/19 - Discharge Diagnosis (1) Osteomyelitis Status: Acute Qualifiers: Osteomyelitis type: other acute Osteomyelitis location: foot Laterality: left Qualified Code(s): M86.172 - Other acute osteomyelitis, left ankle and foot (2) Diabetic foot ulcer Status: Acute Qualifiers: Diabetic foot ulcer location: toe Diabetes mellitus type: type 2 Laterality: unspecified laterality Non-pressure ulcer stage: with fat layer exposed Qualified Code(s): E11.621 - Type 2 diabetes mellitus with foot ulcer; L97.502 - Non-pressure chronic ulcer of other part of unspecified foot with fat layer exposed (3) IDDM (insulin dependent diabetes mellitus) Status: Chronic (4) Hypertension Status: Acute Hospital course: Mr. Aleaxnder is a 43 year old male - Time Spent with Patient Total time spent providing and/or coordinating discharge services: - Discharge Medications Prescriptions: New Vancomycin/0.9 % Sod Chloride [Vancomycin HCl 1G/200 ml Bag] 1.25 gm IV DAILY 42 Days #53 froz.piggy levoFLOXacin 750 MG/150 ML [Levaquin Premix 750mg/150 mL] 750 mg IVPB DAILY 42 Days #42 bag No Action ARIPiprazole [Abilify] 5 mg PO QAM #30 tablet Glucagon, Human Recombinant [Glucagen] 1 mg IM ONCE PRN vial PRN Reason: Hypoglycemia metFORMIN [Glucophage] 500 mg PO BIDWM #60 tablet Insulin LISPRO [HumaLOG] 0 units SQ TIDAC vial traZODone [TraZODone] 50 mg PO HS #30 tablet Home Medications: ARIPiprazole [Abilify] 5 mg PO QAM #30 tablet 04/18/19 [Rx] Glucagon, Human Recombinant [Glucagen] 1 mg IM ONCE PRN vial 04/18/19 [Rx] Insulin LISPRO [HumaLOG] 0 units SQ TIDAC vial 04/18/19 [Rx] metFORMIN [Glucophage] 500 mg PO BIDWM #60 tablet 04/18/19 [Rx] traZODone [TraZODone] 50 mg PO HS #30 tablet 04/18/19 [Rx] Vancomycin/0.9 % Sod Chloride [Vancomycin HCl 1G/200 ml Bag] 1.25 gm IV DAILY 42 Days #53 froz.piggy 04/25/19 [Rx] levoFLOXacin 750 MG/150 ML [Levaquin Premix 750mg/150 mL] 750 mg IVPB DAILY 42 Days #42 bag 04/25/19 [Rx] Allergies/Adverse Reactions: Allergy/AdvReac Type Severity Reaction Status Date / Time Penicillins [PCN] Allergy Rash, Hives Verified 04/24/19 11:49 Date of admission: 04/22/19 23:45 Primary care physician: oRsalba Cowan DO Consults: 04/22/19 23:05 Consult to Podiatry [CONS] Stat Consulting Provider: Podiatry [facility] Reason for Consult: osteomyelitis, dibaetic foot ulcers Time Notified: 23:00 Call Completed: Yes 04/24/19 08:42 Consult to Infectious Diseases [CONS] Routine Consulting Provider: Infectious Disease [facility] Reason for Consult: osteomyelitis Call Completed: No 04/25/19 10:11 Consult to PICC team [Consult to Invasive Line Access Team] [CONS] Routine Reason for Consult: prison iv atb's Line Type: PICC PICC line indications: [facility] Med/Antibiotic Time Notified: 10:12 04/25/19 11:57 Consult to Bag Sorter [CONS] Routine Reason for SW Consult: placement for iv antibiotics - Constitutional Vitals: Temp Pulse Resp BP Pulse Ox 97.7 F 82 14 170/84 99 07/02/19 11:46 04/25/19 11:46 04/25/19 11:46 04/25/19 11:46 04/25/19 11:46 General appearance: Present: cooperative, A&O X 3, pleasant, no acute distress, answers questions appropriately - Discharge Instructions Follow Up With: Andreina Neely CNP [Advanced Practice Nurse] - 05/11/19 3:00 pm Rosalba Cowan DO [Primary Care Provider] -
--- NOTE | 2019-04-25 16:04 | Physician Discharge Referral ---
- Diagnosis (1) Osteomyelitis Priority: Primary Status: Acute (2) Diabetic foot ulcer Priority: Primary Status: Acute (3) IDDM (insulin dependent diabetes mellitus) Priority: Primary Status: Chronic (4) Hypertension Priority: Primary Status: Acute - Transfer Medications Prescriptions: levoFLOXacin 750 MG/150 ML [Levaquin Premix 750mg/150 mL] 750 mg IVPB DAILY 42 Days #42 bag Vancomycin/0.9 % Sod Chloride [Vancomycin HCl 1G/200 ml Bag] 1.25 gm IV DAILY 42 Days #53 froz.piggy Home Medications: ARIPiprazole [Abilify] 5 mg PO QAM #30 tablet 04/18/19 [Rx] Glucagon, Human Recombinant [Glucagen] 1 mg IM ONCE PRN vial 04/18/19 [Rx] Insulin LISPRO [HumaLOG] 0 units SQ TIDAC vial 04/18/19 [Rx] metFORMIN [Glucophage] 500 mg PO BIDWM #60 tablet 04/18/19 [Rx] traZODone [TraZODone] 50 mg PO HS #30 tablet 04/18/19 [Rx] Vancomycin/0.9 % Sod Chloride [Vancomycin HCl 1G/200 ml Bag] 1.25 gm IV DAILY 42 Days #53 froz.piggy 04/25/19 [Rx] levoFLOXacin 750 MG/150 ML [Levaquin Premix 750mg/150 mL] 750 mg IVPB DAILY 42 Days #42 bag 04/25/19 [Rx] Allergies/Adverse Reactions: Allergy/AdvReac Type Severity Reaction Status Date / Time Penicillins [PCN] Allergy Rash, Hives Verified 04/24/19 11:49 - Respiratory Orders Smoking Cessation: Smoking cessation has been advised. For more information, call the [place] Tobacco Quit Line at 0-078-GDWR-NOW. CERTIFICATION: I certify that the transfer of the above named patient to an Extended Care Facility is necessary for the continuing treatment of the diagnosis listed. The above information is true and accurate reflection of patient's current condition. Confidential - Redisclosure prohibited without a patient's written consent.
--- NOTE | 2019-04-25 16:41 | Infectious Disease Progress No ---
ID Progress Note Date of Encounter: 04/25/19 Time of Encounter: 16:39 - Subjective Subjective: Patient seen and examined. Laying in bed. Patient denies any chest pain or shortness of breath. No headache. No cough. No nausea no vomiting no diarrhea no constipation or urinary symptoms. He tells me he feels well otherwise. - Objective CBC & Chem 7: 04/26/19 03:07 04/26/19 03:07 - Exam Vitals: Temp Pulse Resp BP Pulse Ox 98.8 F 89 15 156/75 98 04/25/19 16:30 04/25/19 16:30 04/25/19 16:30 04/25/19 16:30 04/25/19 16:30 Exam: GENERAL: Comfortable. Laying in bed NAD HEENT: ROSALIND, EOMI LUNGS: Good air sounds bilaterally, no wheezing or rhonchi CV: RRR, S1 S2 ABDOMEN: Soft, nontender, + bowel sounds EXT: Adequate perfusion. No edema. Ulceration bilateral sides great toes. No bone exposure no surrounding erythema or drainage. NEURO: A&OX3; no focal deficit - Assessment and Plan (1) Diabetic foot ulcer Current Visit: Yes Status: Acute -Patient has a history of diabetic foot ulcer. He was admitted to the hospital not too long ago for similar reasons, was seen by [facility] plans staff officer -would culture from 03/01/19 was positive for Acinetobactor baumanii complx, E faecalis, Gropu G streptococcus, MRSA. culture from left foot was ositve for MRSA, Aerococcus viridans, Enterococcus faecelis. - WBC 6.2 yestrday, patient is afebrile , ESR: 34, A1C: 8.8 -Recent x-ray of the right foot showed chronic great toe soft tissue swelling with ulcer. There is new subtle cortical loss of the medial distal pharynx which is suspicious for osteomyelitis - recent x-ray of the left foot showed swelling with ulceration with new bone destruction involving the underlying phalanges indicates osteomyelitis. - Currently on day 1 of vancomycin and Levaquin PLAN: - podiatry is following: His dressing has been changed, flush with the sterile normal saline -continue vancomycin and levaquin for a total 6 weeks. He will need a PICC line prior to discharge -Discussed with social media specialist from [facility]. Patient is going back to his rehabilitation. We will do weekly labs as an outpatient. Patient to follow-up with Andreina and clinic in 2 weeks. Qualifiers: Diabetic foot ulcer location: toe Diabetes mellitus type: type 2 Laterality: unspecified laterality Non-pressure ulcer stage: with fat layer exposed Qualified Code(s): E11.621 - Type 2 diabetes mellitus with foot ulcer; L97.502 - Non-pressure chronic ulcer of other part of unspecified foot with fat layer exposed SNOMED Code(s): 101504987 (2) Osteomyelitis Current Visit: Yes Status: Acute -likely due to a poorly controlled diabetes with A1c of 8.8 and history of poor compliance on antidiabetic medications. -Patient's MRI of the left foot showed progression of osteomyelitis in the great toe with interval edema progression into the mid proximal phalanx. -MRI of the right foot mild bone marrow edema with normal T1 signal throughout the first distal phalanx more likely represent noninfectious reactive osteitis versus less likely early osteomyelitis. -Causative of organism is currently unknown. - previous cultures grew of the left foot grew Enterococcus faecalis ampicillin sensitive, Aerococcus viridans, and MRSA -Previous cultures grew Enterococcus faecalis ampicillin sensitive, MRSA, group C streptococcus and Acinetobacter baumanni pansensitive - During previous admission, patient was treated with oral Bactrim and levofloxacin with progression of the disease. -Currently on vancomycin and levaquin for a total of 6 weeks. -Awaiting podiatry recommendations Qualifiers: Osteomyelitis type: other acute Osteomyelitis location: foot Laterality: left Qualified Code(s): M86.172 - Other acute osteomyelitis, left ankle and foot SNOMED Code(s): 26671889 (3) IDDM (insulin dependent diabetes mellitus) Current Visit: Yes Status: Chronic Patient has a history of diabetes and A1C of 8.8. -He endorses poor compliance on his antidiabetic medications. - Continue insulin and accuchecks - Will need diabetes education during discharged to prevent recurrence of diabetic foot ulcer SNOMED Code(s): 32696170 (4) Hypertension Current Visit: Yes Status: Acute Patient has a history of hypertension -Continue PRN hydralazine SNOMED Code(s): 18684672 Consult Discharge Plan - Plan Additional Instructions: Lab draws at [facility] every Wednesday. PICC line dressing changes qweekly. Daily dressing changes to both feet - clean with saline, apply alginate, cover with dry gauze, and wrap. Go to nearest emergency room for any new or worsening symptoms, fever, yellow/green or foul smelling drainage from feet. Monitor PICC line for signs of infection - redness, drainage. Referrals: Andreina Neely CNP [Advanced Practice Nurse] - 05/11/19 3:00 pm Elroy Bolivar DPM [Partnered Physician] - 05/03/19 2:15 pm (@ wound clinic) Rosalba Cowan DO [Primary Care Provider] - 05/01/19 1:00 pm Prescriptions: levoFLOXacin 750 MG/150 ML [Levaquin Premix 750mg/150 mL] 750 mg IVPB DAILY 42 Days #42 bag Acetaminophen w/Cod 300-30 mg [Tylenol w/Codeine #3] 1 each PO Q6H PRN 5 Days #20 tablet PRN Reason: Moderate Pain Vancomycin/0.9 % Sod Chloride [Vancomycin HCl 1G/200 ml Bag] 1.25 gm IV DAILY 42 Days #53 froz.piggy - Attending Attestation I have personally performed a face to face evaluation on this patient. I have reviewed and agree with the care plan. History and Exam by me shows: Assessment and plan: 1.Osteomyelitis left great toe causative organism not clear previous cultures grew Enterococcus faecalis ampicillin sensitive, Aerococcus viridans, and MRSA Treated with oral Bactrim and levofloxacin with progression of the disease 3.Questionable osteomyelitis of the right foot. Previous cultures grew Enterococcus faecalis ampicillin sensitive, MRSA, group C streptococcus and Acinetobacter baumanni pansensitive 4.Poorly controlled diabetes mellitus type 2; hemoglobin A1c 8.8 patient admits to noncompliance with medications 5.Penicillin allergy exact reaction unknown Recommendations: Continue to monitor labs including CBC, and BMP Goal vancomycin trough around 15 Await podiatry recommendations Continue vancomycin and levofloxacin Duration of treatment at least 6 weeks patient will need a PICC line prior to discharge Monitor labs and for drug toxicity adequate glucose control
[2019-04-25] MEDS: traZODone 50 MG TABLET PO SCH (20:46)
[2019-04-25] MEDS: Insulin DETEMIR 100 UNIT/ML X5UNITS SQ SCH (20:46)
[2019-04-26 03:23] LABS: Basophils # 0.1 K/mcL (0.0-0.2); Basophils % 1.4 %; Eosinophils # 0.2 K/mcL (0.0-0.6); Hematocrit 32.2 % (37.5-50.1); Immature Granulocytes % 0.4 % (0-4); Lymphocytes # 1.2 K/mcL (0.6-4.6); Lymphocytes % 24.6 %; Mean Corpuscular HGB Conc 32.9 g/dL (31.6-35.5); Mean Corpuscular Hemoglobin 27.6 pg (28.0-33.3); Mean Corpuscular Volume 83.9 fL (83.0-100.0); Monocytes # 0.4 K/mcL (0.0-1.3); Monocytes % 8.7 %; Neutrophils # 2.9 K/mcL (1.6-8.9); Platelet Count 211 K/mcL (140-400); Red Blood Count 3.84 M/mcL (4.19-5.50); Red Cell Distribution Width 13.6 % (11.5-14.5); Segmented Neutrophils % 59.9 %; White Blood Count 4.8 K/mcL (4.3-11.1)
[2019-04-26 03:40] LABS: BUN/Creatinine Ratio 21 (6-26); Blood Urea Nitrogen 21 mg/dL (6-20); Calcium 8.8 mg/dL (8.6-10.3); Carbon Dioxide 29 mEq/L (23-29); Chloride 102 mEq/L (98-107); Glucose 289 mg/dL (70-105); Magnesium 1.9 mg/dL (1.6-2.6); Osmolality,Calculated 298 (280-300); Phosphorous 3.8 mg/dL (2.7-4.5); Potassium 4.2 mEq/L (3.5-5.1); Sodium 137 mEq/L (136-145); eGFR For African Americans > 60 (> 60); eGFR For Non-African Americans > 60 (> 60)
[2019-04-26 03:52] LABS: Hemoglobin 10.6 g/dL (12.9-16.9)
[2019-04-26] MEDS: *HR* Heparin 5,000 UNIT/ML VIAL SQ SCH (05:12)
[2019-04-26] MEDS: levoFLOXacin 750 MG/150 ML 750 MG/150 ML BAG IVPB SCH (08:45)
[2019-04-26] MEDS: ARIPiprazole 5 MG TABLET PO SCH (08:46)
[2019-04-26] MEDS: Insulin LISPRO 300 UNITS/3 ML VIAL SQ SCH ×2 (08:46→12:51)
--- NOTE | 2019-04-26 09:13 | Discharge Summary ---
Date of Encounter: 04/26/19 Time of Encounter: 09:00 - Discharge Diagnosis (1) Osteomyelitis Priority: Primary Status: Acute Assessment and Plan: 43 year old male who presents to the [facility] with complaints of bilateral diabetic foot ulcers which have progressively worsened over the last 2 months. He was recently hospitalized in February of this year where he was treated with antibiotics, had wound cultures, and podiatry consultation. He's been following with Dr. Bolivar, but his symptoms have worsened. Therefore, he came to the [facility] where he was evaluated and admitted to hospitalist service. Podiatry was consulted and requested an MRI be ordered as well as initiation of antibiotics. He was assessed with diabetic feet ulcers in both great toes and was started on Iv antibiotics. MRI showed great toe osteomyelitis in both feet. Per podiatry, this is chronic and not amenable to surgical intervention. He was seen by ID who recommend 6 weeks of vanc and levaquin. PICC line placed. He was discharged in a stable condition. 35 minutes was spent discharging this patient Qualifiers: Osteomyelitis type: other acute Osteomyelitis location: foot Laterality: left Qualified Code(s): M86.172 - Other acute osteomyelitis, left ankle and foot (2) Diabetic foot ulcer Priority: Primary Status: Acute Qualifiers: Diabetic foot ulcer location: toe Diabetes mellitus type: type 2 Laterality: unspecified laterality Non-pressure ulcer stage: with fat layer exposed Qualified Code(s): E11.621 - Type 2 diabetes mellitus with foot ulcer; L97.502 - Non-pressure chronic ulcer of other part of unspecified foot with fat layer exposed (3) IDDM (insulin dependent diabetes mellitus) Priority: Primary Status: Chronic (4) Hypertension Priority: Primary Status: Acute Qualifiers: Qualified Code(s): I10 - Essential (primary) hypertension Hospital course: Mr. Alexander is a 43 year old male - Time Spent with Patient Total time spent providing and/or coordinating discharge services: - Discharge Medications Prescriptions: New Vancomycin/0.9 % Sod Chloride [Vancomycin HCl 1G/200 ml Bag] 1.25 gm IV DAILY 42 Days #53 froz.piggy levoFLOXacin 750 MG/150 ML [Levaquin Premix 750mg/150 mL] 750 mg IVPB DAILY 42 Days #42 bag Acetaminophen w/Cod 300-30 mg [Tylenol w/Codeine #3] 1 each PO Q6H PRN 5 Days #20 tablet PRN Reason: Moderate Pain Continued ARIPiprazole [Abilify] 5 mg PO QAM #30 tablet Glucagon, Human Recombinant [Glucagen] 1 mg IM ONCE PRN vial PRN Reason: Hypoglycemia metFORMIN [Glucophage] 500 mg PO BIDWM #60 tablet Insulin LISPRO [HumaLOG] 0 units SQ TIDAC vial traZODone [TraZODone] 50 mg PO HS #30 tablet Home Medications: ARIPiprazole [Abilify] 5 mg PO QAM #30 tablet 04/18/19 [Rx] Glucagon, Human Recombinant [Glucagen] 1 mg IM ONCE PRN vial 04/18/19 [Rx] Insulin LISPRO [HumaLOG] 0 units SQ TIDAC vial 04/18/19 [Rx] metFORMIN [Glucophage] 500 mg PO BIDWM #60 tablet 04/18/19 [Rx] traZODone [TraZODone] 50 mg PO HS #30 tablet 04/18/19 [Rx] Vancomycin/0.9 % Sod Chloride [Vancomycin HCl 1G/200 ml Bag] 1.25 gm IV DAILY 42 Days #53 froz.piggy 04/25/19 [Rx] levoFLOXacin 750 MG/150 ML [Levaquin Premix 750mg/150 mL] 750 mg IVPB DAILY 42 Days #42 bag 04/25/19 [Rx] Acetaminophen w/Cod 300-30 mg [Tylenol w/Codeine #3] 1 each PO Q6H PRN 5 Days #20 tablet 04/26/19 [Rx] Allergies/Adverse Reactions: Allergy/AdvReac Type Severity Reaction Status Date / Time Penicillins [PCN] Allergy Rash, Hives Verified 04/24/19 11:49 Date of admission: 04/22/19 23:45 Primary care physician: Rosalba Cowan DO Consults: 04/22/19 23:05 Consult to Podiatry [CONS] Stat Consulting Provider: Podiatry [facility] Reason for Consult: osteomyelitis, dibaetic foot ulcers Time Notified: 23:00 Call Completed: Yes 04/24/19 08:42 Consult to Infectious Diseases [CONS] Routine Consulting Provider: Infectious Disease [facility] Reason for Consult: osteomyelitis Call Completed: No 04/25/19 10:11 Consult to PICC team [Consult to Invasive Line Access Team] [CONS] Routine Reason for Consult: manager long term care iv atb's Line Type: PICC PICC line indications: manager terminal Med/Antibiotic Time Notified: 10:12 04/25/19 11:57 Consult to Trigonometry Teacher [CONS] Routine Reason for SW Consult: placement for iv antibiotics - Constitutional Vitals: Temp Pulse Resp BP Pulse Ox 97.6 F 68 18 124/66 95 04/26/19 06:43 04/26/19 06:43 04/26/19 06:43 04/26/19 06:43 04/26/19 06:43 General appearance: Present: cooperative, A&O X 3, pleasant, no acute distress, answers questions appropriately Exam: General appearance: Present: cooperative, A&O X 3, pleasant, no acute distress, answers questions appropriately Exam: Head exam: Present: atraumatic, normal inspection Eye exam: Present: EOMI, PERRL. Absent: scleral icterus Pupils: Present: normal accommodation ENT exam: Present: mucous membranes moist, normal oropharynx Neck exam general surgery: Present: full ROM, supple, trachea midline. Absent: tenderness, nuchal rigidity, thyromegaly Respiratory exam: Present: CTAB. Absent: chest wall tenderness, rales, rhonchi, tachypnea Cardiovascular exam: Present: RRR, +S1, +S2. Absent: diastolic murmur, systolic murmur GI/Abdominal exam: Present: soft. Absent: guarding, hepatomegaly, mass, rebound, splenomegaly, tenderness Extremities exam: Present: full ROM, normal capillary refill, warm, radial pulses palpable and symmetrical. Absent: calf tenderness, pedal edema Foot ulcers in both feet just proximal and medial to great toes; left worse than right with foul odor and some drainage Back exam: Present: normal inspection. Absent: CVA tenderness (L), CVA tenderness (R) Neurological exam: Present: alert, CN II-XII intact, oriented X3 decreased sensation and parasthesias in both feet Psychiatric exam: Present: normal affect, normal mood Skin exam: Present: dry, intact, warm - Patient Status Disposition: Transfer Other - Ambulatory Orders Ambulatory Orders: Blood Urea Nitrogen (BUN) [CHEM] Time Frame: 1 Week, Facility: [facility], Location: Lab Blood Urea Nitrogen (BUN) [CHEM] Time Frame: 05/02/19, Facility: [facility], Location: Lab Blood Urea Nitrogen (BUN) [CHEM] Time Frame: 05/09/19, Facility: [facility], Location: Lab Blood Urea Nitrogen (BUN) [CHEM] Time Frame: 05/16/19, Facility: [facility], Location: Lab Blood Urea Nitrogen (BUN) [CHEM] Time Frame: 05/23/19, Facility: [facility], Location: Lab Blood Urea Nitrogen (BUN) [CHEM] Time Frame: 05/30/19, Facility: [facility], Location: Lab Blood Urea Nitrogen (BUN) [CHEM] Time Frame: 06/06/19, Facility: [facility], Location: Lab C-Reactive Protein [CHEM] Time Frame: 1 Week, Facility: [facility], Location: Lab C-Reactive Protein [CHEM] Time Frame: 05/02/19, Facility: [facility], Location: Lab C-Reactive Protein [CHEM] Time Frame: 05/09/19, Facility: [facility], Location: Lab C-Reactive Protein [CHEM] Time Frame: 05/16/19, Facility: [facility], Location: Lab C-Reactive Protein [CHEM] Time Frame: 05/23/19, Facility: [facility], Location: Lab C-Reactive Protein [CHEM] Time Frame: 05/30/19, Facility: [facility], Location: Lab C-Reactive Protein [CHEM] Time Frame: 06/06/19, Facility: [facility], Location: Lab Complete Blood Count [HEME] Time Frame: 1 Week, Facility: [facility], Location: Lab Complete Blood Count [HEME] Time Frame: 05/02/19, Facility: [facility], Location: Lab Complete Blood Count [HEME] Time Frame: 05/09/19, Facility: [facility], Location: Lab Complete Blood Count [HEME] Time Frame: 05/16/19, Facility: [facility], Location: Lab Complete Blood Count [HEME] Time Frame: 05/23/19, Facility: [facility], Location: Lab Complete Blood Count [HEME] Time Frame: 05/30/19, Facility: [facility], Location: Lab Complete Blood Count [HEME] Time Frame: 06/06/19, Facility: [facility], Location: Lab Creatinine [CHEM] Time Frame: 1 Week, Facility: [facility], Location: Lab Creatinine [CHEM] Time Frame: 05/02/19, Facility: [facility], Location: Lab Creatinine [CHEM] Time Frame: 05/09/19, Facility: [facility], Location: Lab Creatinine [CHEM] Time Frame: 05/16/19, Facility: [facility], Location: Lab Creatinine [CHEM] Time Frame: 05/23/19, Facility: [facility], Location: Lab Creatinine [CHEM] Time Frame: 05/30/19, Facility: [facility], Location: Lab Creatinine [CHEM] Time Frame: 06/06/19, Facility: [facility], Location: Lab Erythrocyte Sedimentation Rate [HEME] Time Frame: 1 Week, Facility: [facility], Location: Lab Erythrocyte Sedimentation Rate [HEME] Time Frame: 05/02/19, Facility: [facility], Location: Lab Erythrocyte Sedimentation Rate [HEME] Time Frame: 05/09/19, Facility: [facility], Location: Lab Erythrocyte Sedimentation Rate [HEME] Time Frame: 05/16/19, Facility: [facility], Location: Lab Erythrocyte Sedimentation Rate [HEME] Time Frame: 05/23/19, Facility: [facility], Location: Lab Erythrocyte Sedimentation Rate [HEME] Time Frame: 05/30/19, Facility: [facility], Location: Lab Erythrocyte Sedimentation Rate [HEME] Time Frame: 06/06/19, Facility: [facility], Location: Lab Vancomycin,Random [CHEM] Time Frame: 1 Week, Facility: [facility], Location: Lab Vancomycin,Random [CHEM] Time Frame: 05/02/19, Facility: [facility], Location: Lab Vancomycin,Random [CHEM] Time Frame: 05/09/19, Facility: [facility], Location: Lab Vancomycin,Random [CHEM] Time Frame: 05/16/19, Facility: [facility], Location: Lab Vancomycin,Random [CHEM] Time Frame: 05/23/19, Facility: [facility], Location: Lab Vancomycin,Random [CHEM] Time Frame: 05/30/19, Facility: [facility], Location: Lab Vancomycin,Random [CHEM] Time Frame: 06/06/19, Facility: [facility], Location: Lab - Discharge Instructions Follow Up With: Andreina Neely CNP [Advanced Practice Nurse] - 05/11/19 3:00 pm Elroy Bolivar DPM [Partnered Physician] - 05/03/19 2:15 pm (@ wound clinic) Rosalba Cowan DO [Primary Care Provider] - 05/01/19 1:00 pm Additional Instructions: Lab draws at [facility] every Wednesday. PICC line dressing changes qweekly. Daily dressing changes to both feet - clean with saline, apply alginate, cover with dry gauze, and wrap. Go to nearest emergency room for any new or worsening symptoms, fever, yellow/green or foul smelling drainage from feet. Monitor PICC line for signs of infection - redness, drainage.
--- NOTE | 2019-04-26 10:23 | Podiatry Progress Note ---
Date of Encounter: 04/26/19 Time of Encounter: 10:15 - Assessment and Plan (1) Diabetic foot ulcer Current Visit: Yes Status: Acute Assessment: -Bilateral medial hallux ulcer with mixed fibrotic and granular wound bed, appears stable -WBC 4.8 -ESR 34 -Afebrile -Receiving IV Levaquin and Vancomycin -Blood cultures preliminary -Wound cultures preliminary for MRSA, Alcaligenes faec ssp faccalis, ad Group B streptococcus -X-ray right foot Chronic great toe soft tissue swelling with ulcer. New subtle (minimal focal) cortical loss along the medial distal phalanx is suspicious for osteomyelitis. See annotated image. -X-ray left foot Chronic great toe soft tissue swelling with ulceration. New bone destruction involving the underlying phalanges indicates osteomyelitis. Cannot entirely exclude septic joint. -Right foot MRI 1. Mild bone marrow edema with normal T1 signal throughout the 1st distal phalanx more likely to represent noninfectious reactive osteitis versus less likely early osteomyelitis. 2. Medial 1st digit shallow soft tissue ulceration with 1st digit and dorsal forefoot cellulitis. No sinus tract or drainable fluid collection. 3. Edema throughout the visualized musculature of the forefoot compatible with diabetic myopathy versus myositis. -Left foot MRI 1. Progression of osteomyelitis in the great toe with interval edema progression into the mid proximal phalanx. Additional acute osteomyelitis throughout the distal phalanx of the great toe is similar to the prior exam. 2. Increasing size of the medial great toe ulcer. Surrounding cellulitis. No soft tissue abscess. 3. Minimal nonspecific patchy edema in the 2nd and 3rd metatarsal head and in the midfoot is likely reactive. Plan: -Discussed MRI with Dr. Bolivar, appears osteomyelitis is chronic, ulcers stable, at this time treat medically as opposed to surgically due to comorbidity -ID onboard, antibiotic recommendations greatly appreciated -Dressing changed, flushed with sterile normal saline and pat dry -Covered with calcium alginate, 4x4 dry gauze, Kerlix, and secured with Medipore tape -Okay to discharge home, follow up with Dr. [facility], please call and schedule appointment prior to discharge -Daily dressing change using calcium alginate, 4x4 dry gauze,Kerlix, and Medipore tape. -Post op shoe bilaterally for ambulation. Qualifiers: Diabetic foot ulcer location: toe Diabetes mellitus type: type 2 Laterality: unspecified laterality Non-pressure ulcer stage: with fat layer exposed Qualified Code(s): E11.621 - Type 2 diabetes mellitus with foot ulcer; L97.502 - Non-pressure chronic ulcer of other part of unspecified foot with fat layer exposed (2) Diabetes mellitus Current Visit: No Status: Acute Assessment: -Blood glucose 289 -Hgb A1c 8.8 Plan: -Tight glycemic control to prevent complication and promote wound healing, managed by primary Qualifiers: Diabetes mellitus type: type 2 Diabetes mellitus middle or intermediate [employer] principal insulin use: unspecified middle or intermediate [employer] principal insulin use status Diabetes mellitus complication status: without complication Qualified Code(s): E11.9 - Type 2 diabetes mellitus without complications Subjective Interval history: Patient is alert and oriented resting in bed and no acute distress noted. Patient denies any chest pain, shortness of breath, or calf pain. He denies any n/v/d. Objective - Vital Signs Vital Signs: Vital Signs Temp Pulse Resp BP Pulse Ox 04/26/19 06:43 97.6 F 68 18 124/66 95 04/26/19 04:10 98.0 F 89 19 133/76 97 04/26/19 00:01 98.4 F 87 16 152/82 97 04/25/19 19:53 98.0 F 90 17 142/90 98 04/25/19 16:30 98.8 F 89 15 156/75 98 04/25/19 11:46 97.7 F 82 14 170/84 99 Intake and Output 04/25/19 04/26/19 04/26/19 23:59 07:59 15:59 Intake Total 410 / 1300 300 / 540 240 / 540 Balance 410 / 1300 300 / 540 240 / 540 Intake: IV Fluids 250 / 250 Vancocin 1,250 MG In 0.9 % 250 / 250 Sodium Chloride 250 ML @ 166.67 mls/hr IVPB Q12H ALEX Rx#: [id number] Oral 410 / 650 50 / 290 240 / 290 Other: Meal Dinner Breakfast Percent of Meal Consumed 100% 100% # Voids 1 1 Blood Glucose* 207 173 - Exam Exam: Constitutional: Alert, oriented x3, no acute distress Vascular: Pulses palpable bilateral. Capillary refill less than 3 seconds to all digits. Skin temperature warm to warm comparing toes to legs. Pedal hair present. No pain with calf squeeze bilaterally. Dermatology: Bilateral medial hallux ulcer with mixed fibrotic and granular wound bed. Does not probe to bone. No crepitus. No periwound erythema, no drainage. Fat layer exposed to wounds. Musculoskeletal: Hallux limitus bilateral. Muscle strength 5/5 in all planes. Neuro: Sensations diminished to light touch bilateral lower extremity. - Lab Result Diagrams: 04/26/19 03:07 04/26/19 03:07 Labs: Abnormal lab results WBC 4.0 K/mcL (4.3-11.1) L 04/25/19 06:11 RBC 3.84 M/mcL (4.19-5.50) L 04/26/19 03:07 Hgb 10.6 g/dL (12.9-16.9) L D 04/26/19 03:07 Hct 32.2 % (37.5-50.1) L 04/26/19 03:07 MCH 27.6 pg (28.0-33.3) L 04/26/19 03:07 ESR 34 mm/hr (0-10) H 04/22/19 21:39 Carbon Dioxide 30 mEq/L (23-29) H 04/23/19 01:47 BUN 21 mg/dL (6-20) H 04/26/19 03:07 Glucose 289 mg/dL (70-105) H 04/26/19 03:07 POC Glucose 207 mg/dL (70-99) H 04/25/19 20:36 8.8 % (-5.6) H 04/22/19 21:45 Lactic Acid 2.3 mmol/L (0.5-2.2) H 04/22/19 21:45 AST 12 Units/L (13-39) L 04/23/19 01:47 6.3 g/dL (6.4-8.9) L 04/23/19 01:47 Vancomycin Trough 16 mcg/mL (5-10) H 04/25/19 22:58 Positive ng/mL (Lszdep=097) H 04/25/19 09:18 Microbiology, Last 48 Hours 04/23/19 00:57 Wound Culture - Preliminary Right Great Toe 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 PICC line dressing changes qweekly. Daily dressing changes to both feet - clean with saline, apply alginate, cover with dry gauze, and wrap. Go to nearest emergency room for any new or worsening symptoms, fever, yellow/green or foul smelling drainage from feet. Monitor PICC line for signs of infection - redness, drainage. Referrals: Andreina Neely CNP [Advanced Practice Nurse] - 05/11/19 3:00 pm Rosalba Cowan DO [Primary Care Provider] - Prescriptions: levoFLOXacin 750 MG/150 ML [Levaquin Premix 750mg/150 mL] 750 mg IVPB DAILY 42 Days #42 bag Vancomycin/0.9 % Sod Chloride [Vancomycin HCl 1G/200 ml Bag] 1.25 gm IV DAILY 42 Days #53 mo
[2019-04-26 11:28] VITALS: BP 143/82
[2019-04-26] MEDS ORDERED: Aminoglycoside Consult 1 EACH MC ONE (15:06)
== END 2019-04-26 15:07 | disposition other institution (70) | DRG 344 ==
LOC: EMEROOARM 18:39 → 3NENU 18:39
PROVIDERS: ADMIT Family Medicine; ATTEND Family Medicine

== ENCOUNTER 2021-03-15 12:56 | Inpatient (IN) ==
[2021-03-15 13:56] LABS: Basophils % 0.4 %; Eosinophils # 0.1 K/mcL (0.0-0.6); Eosinophils % 1.3 %; Hematocrit 53.4 % (37.5-50.1); Hemoglobin 17.2 g/dL (12.9-16.9); Immature Granulocytes % 0.3 % (0-4); Lymphocytes # 0.9 K/mcL (0.6-4.6); Lymphocytes % 12.3 %; Mean Corpuscular HGB Conc 32.2 g/dL (31.6-35.5); Mean Corpuscular Hemoglobin 24.7 pg (28.0-33.3); Mean Corpuscular Volume 76.6 fL (83.0-100.0); Mean Platelet Volume 10.4 fL (9.4-12.4); Monocytes # 0.4 K/mcL (0.0-1.3); Monocytes % 5.5 %; Neutrophils # 5.7 K/mcL (1.6-8.9); Nucleated Red Blood Cells 0.3 /100 WBC (0); Platelet Count 163 K/mcL (140-400); Red Blood Count 6.97 M/mcL (4.19-5.50); Red Cell Distribution Width 18.6 % (11.5-14.5); Segmented Neutrophils % 80.2 %; White Blood Count 7.1 K/mcL (4.3-11.1)
[2021-03-15 14:21] LABS: Albumin 3.4 g/dL (3.5-5.7); Albumin/Globulin Ratio 0.9 (1.1-2.2); Bilirubin,Total 2.4 mg/dL (0.3-1.0); Calcium 9.1 mg/dL (8.6-10.3); Globulin 3.8 g/dL (2.4-3.5); Magnesium 2.1 mg/dL (1.6-2.6); Potassium 4.3 mEq/L (3.5-5.1); Total Protein 7.2 g/dL (6.4-8.9); Troponin I 0.18 ng/mL (< 0.04)
[2021-03-15] MEDS ORDERED: Isovue-370 500 ML BOTTLE IVP ONE (14:43)
[2021-03-15] MEDS ORDERED: 0.9 % Sodium Chloride 1,000 ML IV ONE (14:44)
[2021-03-15 15:27] LABS: VBG HCO3 24 mEq/L (21-27); VBG PCO2 42 mmHg (41-51); VBG PH 7.37 pH Units (7.32-7.42); VBG PO2 60 mmHg (25-50)
[2021-03-15 15:40] LABS: INR 1.5; Prothrombin Time 17.1 Seconds (9.4-12.1)
[2021-03-15] MEDS ORDERED: levoFLOXacin 750 MG/150 ML 750 MG/150 ML BAG IVPB ONE (16:31)
[2021-03-15] MEDS ORDERED: Aspirin 325 MG TABLET PO ONE (17:12)
[2021-03-15] MEDS ORDERED: Furosemide 40 MG/4 ML VIAL IVP ONE (17:12)
[2021-03-15] MEDS ORDERED: Vancomycin 1,250 MG/262.5 ML IV.SOLN IVPB ONE (17:13)
[2021-03-15] MEDS ORDERED: Naloxone 0.4 MG/ML INJ IVP PRN (17:36)
[2021-03-15] MEDS ORDERED: D5% in Water 1,000 ML IVC PRN (17:49)
[2021-03-15] MEDS ORDERED: *HR* Dextrose 50 % in Water (Vial) 50 ML VIAL IVP PRN (17:49)
[2021-03-15] MEDS ORDERED: Dextrose Gel 15 GM/37.5 ML TUBE PO PRN ×2 (17:49)
[2021-03-15] MEDS ORDERED: Aspirin 81 MG TAB.CHEW PO ONE (17:53)
[2021-03-15] MEDS ORDERED: Aspirin 81 MG TAB.CHEW ONE (17:55)
[2021-03-15] MEDS ORDERED: Perflutren Lipid Microsphere 1.3 ML in 0.9 % Sodium Chloride 8.7 ML IVP PRN (17:56)
[2021-03-15 18:56] LABS: ABG Base Excess 1 mEq/L (-2 to 3); ABG HCO3 24 mEq/L (21-27); ABG Oxygen Saturation 99 % (95-98); ABG PCO2 35 mmHg (35-45); ABG PH 7.45 pH Units (7.32-7.45); ABG PO2 109 mmHg (85-104); ABG TCO2 25 mEq/L (20-26)
[2021-03-15] MEDS: *HR* Heparin 5,000 UNIT/ML VIAL SQ SCH (20:32)
[2021-03-15] MEDS: Ondansetron 4 MG/2 ML VIAL IVP PRN (20:58)
[2021-03-15 21:14] LABS: Thyroid Stimulating Hormone 5.19 mcIU/mL (0.340-5.600)
[2021-03-15 21:28] LABS: Hepatitis B Surface Antigen Nonreactive (Nonreactive)
[2021-03-15] MEDS: Insulin LISPRO 300 UNITS/3 ML VIAL SUBQ SCH (21:30)
[2021-03-15] MEDS: Furosemide 40 MG/4 ML VIAL IVP SCH (21:54)
[2021-03-15 21:57] LABS: Hepatitis B Core IgM Nonreactive (Nonreactive)
[2021-03-15 21:58] LABS: Hepatitis A Antibody IgM Nonreactive (Nonreactive); Hepatitis C Virus Antibody Nonreactive (Nonreactive)
[2021-03-15 22:05] LABS: Estimated Average Glucose 295 mg/dl; Hemoglobin A1C 11.9 %
[2021-03-15] MEDS: Ipratropium/Albuterol Neb 3 ML IH SCH (22:35)
[2021-03-16 02:28] LABS: Alanine Aminotransferase 97 Units/L (7-52); Albumin 2.6 g/dL (3.5-5.7); Alkaline Phosphatase 100 Units/L (34-104); Aspartate Amino Transferase 65 Units/L (13-39); BUN/Creatinine Ratio 29 (6-26); Bilirubin,Total 1.9 mg/dL (0.3-1.0); Blood Urea Nitrogen 41 mg/dL (6-20); Calcium 8.2 mg/dL (8.6-10.3); Carbon Dioxide 20 mEq/L (23-29); Chloride 100 mEq/L (98-107); Chol/HDL Ratio 5.9 (0-4.9); Cholesterol 202 mg/dL (< 200); Globulin 2.7 g/dL (2.4-3.5); Glucose 188 mg/dL (70-105); HDL Cholesterol 34 mg/dL (40-59); LDL Cholesterol,Calculated 137 mg/dL (< 100); Osmolality,Calculated 291 (280-300); Potassium 4.9 mEq/L (3.5-5.1); Sodium 133 mEq/L (136-145); Total Protein 5.3 g/dL (6.4-8.9); Triglycerides 157 mg/dL (< 150); eGFR For African Americans > 60 (> 60); eGFR For Non-African Americans 55 (> 60)
[2021-03-16] MEDS: Insulin LISPRO 300 UNITS/3 ML VIAL SUBQ SCH ×6 (02:45→23:02)
[2021-03-16 03:07] LABS: Bilirubin,Urine Negative (Negative); Blood,Urine Large (Negative); Clarity,Urine Clear (Clear); Color,Urine Yellow (Yellow); Glucose,Urine (UA) Normal (Normal); Hyaline Casts,Urine Few per lpf (None Seen); Ketones,Urine Negative (Negative); Leukocyte Esterase,Urine Negative (Negative); Mucus,Urine Few per lpf (None-Few); Nitrite,Urine Negative (Negative); Protein,Urine >=300 mg/dL (Neg-Trace); Specific Gravity,Urine 1.019 (1.010-1.025); Squamous Epithelial Cell,Urine Few per hpf (None-Few); Urobilinogen,Urine Normal (Normal); WBC,Urine 0-3 per hpf (0-3)
[2021-03-16 03:14] LABS: Amphetamine Screen,Urine Positive ng/mL (Cutoff=1000); Barbiturate Screen,Urine Negative ng/mL (Cutoff=200); Benzodiazepines Screen,Urine Negative ng/mL (Cutoff=200); Cannabinoid Screen,Urine Positive ng/mL (Cutoff = 50); Cocaine Screen,Urine Negative ng/mL (Cutoff= 300); Opiate Screen,Urine Negative ng/mL (Cutoff=300); Phencyclidine Screen,Urine Negative ng/mL (Cutoff=25)
[2021-03-16] MEDS: Ipratropium/Albuterol Neb 3 ML IH SCH ×4 (04:03→22:18)
[2021-03-16] MEDS: *HR* Heparin 5,000 UNIT/ML VIAL SQ SCH (05:39)
[2021-03-16 06:46] LABS: Basophils % 0.5 %; Eosinophils # 0.1 K/mcL (0.0-0.6); Eosinophils % 1.7 %; Hematocrit 49.3 % (37.5-50.1); Hemoglobin 15.5 g/dL (12.9-16.9); Immature Granulocytes % 0.3 % (0-4); Lymphocytes # 0.7 K/mcL (0.6-4.6); Lymphocytes % 12.2 %; Mean Corpuscular HGB Conc 31.4 g/dL (31.6-35.5); Mean Corpuscular Hemoglobin 24.3 pg (28.0-33.3); Mean Corpuscular Volume 77.2 fL (83.0-100.0); Mean Platelet Volume 11.2 fL (9.4-12.4); Monocytes # 0.5 K/mcL (0.0-1.3); Monocytes % 7.9 %; Neutrophils # 4.6 K/mcL (1.6-8.9); Nucleated Red Blood Cells 0.5 /100 WBC (0); Platelet Count 148 K/mcL (140-400); Red Blood Count 6.39 M/mcL (4.19-5.50); Segmented Neutrophils % 77.4 %
[2021-03-16] MEDS: Furosemide 40 MG/4 ML VIAL IVP SCH (07:23)
[2021-03-16] MEDS: Pantoprazole 40 MG VIAL IVP SCH (07:24)
[2021-03-16] MEDS: Aspirin 81 MG TAB.CHEW PO SCH (07:24)
[2021-03-16] MEDS ORDERED: *HR* Heparin 5,000 UNIT/ML VIAL IVP ONE (11:12)
[2021-03-16] MEDS ORDERED: *HR* Heparin 5,000 UNIT/ML VIAL IVP PRN ×2 (11:12)
[2021-03-16] MEDS ORDERED: Heparin 25,000UNIT/250ML 1/2NS 25,000 UNIT/250 ML IV.SOLN IVC SCH (11:15)
[2021-03-16] MEDS ORDERED: Furosemide 240 MG in 0.9 % Sodium Chloride 96 ML IVC SCH (11:30)
[2021-03-16 13:28] LABS: RBC,Pleural Fluid < 2000 RBC/mcL
[2021-03-16 13:58] LABS: Glucose,Pleural Fluid 196 mg/dL (No Ref Range); LDH,Pleural Fluid 43 Units/L (No Ref Range); Total Protein,Pleural Fluid < 2.0 g/dL
[2021-03-16] MEDS ORDERED: Milrinone Premix 20 MG/100 ML 20 MG/100 ML BAG IVC SCH (14:00)
[2021-03-16 14:10] LABS: Appearance of Pleural Fl Clear (Clear)
[2021-03-16 14:34] LABS: Hemoglobin 15.8 g/dL (12.9-16.9); Mean Corpuscular HGB Conc 32.9 g/dL (31.6-35.5); Mean Corpuscular Hemoglobin 25.1 pg (28.0-33.3); Mean Corpuscular Volume 76.3 fL (83.0-100.0); Mean Platelet Volume 10.8 fL (9.4-12.4); Platelet Count 135 K/mcL (140-400); Red Blood Count 6.29 M/mcL (4.19-5.50); Red Cell Distribution Width 18.2 % (11.5-14.5); White Blood Count 5.3 K/mcL (4.3-11.1)
[2021-03-16 14:36] LABS: Eosinophils,Pleural Fluid 0 %
[2021-03-16 14:37] LABS: Basophils,Pleural Fluid 0 %
[2021-03-16 14:46] LABS: INR 1.7; Prothrombin Time 18.9 Seconds (9.4-12.1)
[2021-03-16 14:49] LABS: Heparin anti-factor XA UFH < 0.04 IU/mL (0.30-0.70)
[2021-03-16 14:53] LABS: Lactate Dehydrogenase 322 Units/L (140-271); Total Protein 5.4 g/dL (6.4-8.9)
[2021-03-16] MEDS: Milrinone Premix 20 MG/100 ML 20 MG/100 ML BAG IVC SCH (15:26)
[2021-03-16] MEDS ORDERED: Magnesium Sulfate 1 GM/102 ML PIGGYBACK IVPB ONE (18:50)
[2021-03-16] MEDS ORDERED: Vancomycin 1,250 MG/262.5 ML IV.SOLN IVPB SCH (19:00)
[2021-03-16] MEDS ORDERED: Insulin DETEMIR 100 UNIT/ML X5UNITS SUBQ SCH (21:00)
[2021-03-16 22:18] LABS: Magnesium 1.9 mg/dL (1.6-2.6); Potassium 3.6 mEq/L (3.5-5.1)
[2021-03-17] MEDS: Ondansetron 4 MG/2 ML VIAL IVP PRN (03:13)
[2021-03-17] MEDS: Ipratropium/Albuterol Neb 3 ML IH SCH ×3 (03:35→16:28)
[2021-03-17 04:28] LABS: Basophils # 0.1 K/mcL (0.0-0.2); Basophils % 0.8 %; Eosinophils # 0.2 K/mcL (0.0-0.6); Eosinophils % 2.4 %; Hematocrit 42.7 % (37.5-50.1); Immature Granulocytes % 0.3 % (0-4); Lymphocytes # 0.9 K/mcL (0.6-4.6); Lymphocytes % 14.7 %; Mean Corpuscular HGB Conc 32.8 g/dL (31.6-35.5); Mean Corpuscular Hemoglobin 24.7 pg (28.0-33.3); Mean Corpuscular Volume 75.3 fL (83.0-100.0); Mean Platelet Volume 10.1 fL (9.4-12.4); Monocytes # 0.6 K/mcL (0.0-1.3); Monocytes % 9.8 %; Neutrophils # 4.4 K/mcL (1.6-8.9); Nucleated Red Blood Cells 0.7 /100 WBC (0); Platelet Count 139 K/mcL (140-400); Red Blood Count 5.67 M/mcL (4.19-5.50); White Blood Count 6.1 K/mcL (4.3-11.1)
[2021-03-17 04:49] LABS: Albumin 2.4 g/dL (3.5-5.7); Albumin/Globulin Ratio 0.9 (1.1-2.2); Bilirubin,Total 1.8 mg/dL (0.3-1.0); Calcium 8.1 mg/dL (8.6-10.3); Globulin 2.7 g/dL (2.4-3.5); Magnesium 2.2 mg/dL (1.6-2.6); Potassium 3.7 mEq/L (3.5-5.1); Total Protein 5.1 g/dL (6.4-8.9)
[2021-03-17] MEDS: Insulin LISPRO 300 UNITS/3 ML VIAL SUBQ SCH ×2 (05:03→12:21)
[2021-03-17] MEDS: Milrinone Premix 20 MG/100 ML 20 MG/100 ML BAG IVC SCH (06:01)
[2021-03-17] MEDS: Pantoprazole 40 MG VIAL IVP SCH (07:45)
[2021-03-17] MEDS: Aspirin 81 MG TAB.CHEW PO SCH (07:46)
[2021-03-17 16:42] VITALS: BP 124/84
[2021-03-18 16:53] LABS: Fluid Source for Cholesterol PLEURAL FLUID
[2021-03-19 10:08] LABS: Cholesterol,Body Fluid 17 mg/dL
== END 2021-03-17 17:07 | disposition short-term general hospital (02) | DRG 194 ==
LOC: 2NNU 12:56 → EMEROOARM 12:56 → 2NNU 19:34 → ICNU 03-16 16:48
PROVIDERS: ADMIT Internal Medicine; ATTEND Internal Medicine

== ENCOUNTER 2021-04-18 19:02 | Observation (INO) ==
[2021-04-18] MEDS ORDERED: *HR* FentaNYL (PF) 100 MCG/2 ML VIAL IVP ONE (19:13)
[2021-04-18] MEDS ORDERED: Ondansetron 4 MG/2 ML VIAL IVP ONE (19:13)
[2021-04-18 19:40] LABS: Basophils # 0.1 K/mcL (0.0-0.2); Basophils % 1.9 %; Eosinophils # 0.2 K/mcL (0.0-0.6); Eosinophils % 3.4 %; Hematocrit 29.4 % (37.5-50.1); Hemoglobin 9.5 g/dL (12.9-16.9); Immature Granulocytes % 0.6 % (0-4); Lymphocytes # 0.8 K/mcL (0.6-4.6); Lymphocytes % 15.8 %; Mean Corpuscular HGB Conc 32.3 g/dL (31.6-35.5); Mean Corpuscular Hemoglobin 25.6 pg (28.0-33.3); Mean Corpuscular Volume 79.2 fL (83.0-100.0); Mean Platelet Volume 10.3 fL (9.4-12.4); Monocytes # 0.5 K/mcL (0.0-1.3); Neutrophils # 3.7 K/mcL (1.6-8.9); Platelet Count 244 K/mcL (140-400); Red Blood Count 3.71 M/mcL (4.19-5.50); Segmented Neutrophils % 69.3 %; White Blood Count 5.3 K/mcL (4.3-11.1)
[2021-04-18 19:47] LABS: INR 2.2; Prothrombin Time 25.2 Seconds (9.4-12.1)
[2021-04-18 20:05] LABS: BUN/Creatinine Ratio 21 (6-26); Blood Urea Nitrogen 24 mg/dL (6-20); Calcium 8.7 mg/dL (8.6-10.3); Carbon Dioxide 23 mEq/L (23-29); Chloride 109 mEq/L (98-107); Glucose 161 mg/dL (70-105); Osmolality,Calculated 298 (280-300); Sodium 140 mEq/L (136-145); Troponin I < 0.03 ng/mL (< 0.04); eGFR For African Americans > 60 (> 60); eGFR For Non-African Americans > 60 (> 60)
[2021-04-18 20:22] LABS: Anisocytosis 1+ (Not Present)
[2021-04-18 20:23] LABS: Platelet Estimate Normal (Normal); Poikilocytosis 1+ (Not Present)
[2021-04-18] MEDS: Nitroglycerin 0.4 MG TAB.SUBL SL SCH (20:52)
[2021-04-18] MEDS ORDERED: Ondansetron 4 MG/2 ML VIAL IVP PRN (21:59)
[2021-04-18] MEDS ORDERED: Naloxone 0.4 MG/ML INJ IVP PRN (21:59)
[2021-04-18] MEDS ORDERED: ARIPiprazole 400 MG SUSER.SYR IM SCH (22:00)
[2021-04-18] MEDS ORDERED: Melatonin 3 MG TABLET PO PRN (22:01)
[2021-04-18] MEDS ORDERED: Nitroglycerin 0.4 MG TAB.SUBL SL PRN (22:01)
[2021-04-18] MEDS ORDERED: Isovue-370 500 ML BOTTLE IVP ONE (22:06)
[2021-04-18] MEDS ORDERED: *HR* Dextrose 50 % in Water (Vial) 50 ML VIAL IVP PRN (22:07)
[2021-04-18] MEDS ORDERED: Dextrose Gel 15 GM/37.5 ML TUBE PO PRN ×2 (22:07)
[2021-04-18] MEDS ORDERED: D5% in Water 1,000 ML IVC PRN (22:07)
[2021-04-19 01:01] LABS: Basophils # 0.1 K/mcL (0.0-0.2); Basophils % 1.8 %; Eosinophils # 0.2 K/mcL (0.0-0.6); Eosinophils % 2.9 %; Hematocrit 31.9 % (37.5-50.1); Hemoglobin 10.1 g/dL (12.9-16.9); Immature Granulocytes % 0.9 % (0-4); Lymphocytes # 0.8 K/mcL (0.6-4.6); Lymphocytes % 14.7 %; Mean Corpuscular HGB Conc 31.7 g/dL (31.6-35.5); Mean Corpuscular Hemoglobin 25.5 pg (28.0-33.3); Mean Corpuscular Volume 80.6 fL (83.0-100.0); Mean Platelet Volume 10.9 fL (9.4-12.4); Monocytes # 0.5 K/mcL (0.0-1.3); Monocytes % 9.2 %; Neutrophils # 3.9 K/mcL (1.6-8.9); Platelet Count 245 K/mcL (140-400); Red Blood Count 3.96 M/mcL (4.19-5.50); Red Cell Distribution Width 22.2 % (11.5-14.5); Segmented Neutrophils % 70.5 %; White Blood Count 5.5 K/mcL (4.3-11.1)
[2021-04-19 01:08] LABS: INR 2.2; Prothrombin Time 24.4 Seconds (9.4-12.1)
[2021-04-19 01:21] LABS: BUN/Creatinine Ratio 21 (6-26); Blood Urea Nitrogen 24 mg/dL (6-20); Calcium 8.6 mg/dL (8.6-10.3); Carbon Dioxide 20 mEq/L (23-29); Chloride 108 mEq/L (98-107); Glucose 117 mg/dL (70-105); Osmolality,Calculated 293 (280-300); Potassium 4.7 mEq/L (3.5-5.1); Sodium 139 mEq/L (136-145); eGFR For African Americans > 60 (> 60); eGFR For Non-African Americans > 60 (> 60)
[2021-04-19 01:24] LABS: % Iron Saturation 11 % (20-55); Iron 36 mcg/dL (65-175); Transferrin 224 mg/dL (203-362)
[2021-04-19 01:40] LABS: Ferritin 152 ng/mL (20-250)
[2021-04-19] MEDS ORDERED: Furosemide 40 MG/4 ML VIAL IVP ONE (04:01)
[2021-04-19] MEDS ORDERED: Pantoprazole 40 MG VIAL IVP SCH (06:00)
[2021-04-19] MEDS ORDERED: Insulin LISPRO 300 UNITS/3 ML VIAL SUBQ SCH ×2 (07:30→21:00)
[2021-04-19 07:41] VITALS: BP 130/79
[2021-04-19] MEDS ORDERED: lisinopriL 10 MG TABLET PO SCH (09:00)
[2021-04-19] MEDS ORDERED: Furosemide 40 MG TABLET PO SCH (09:00)
[2021-04-19] MEDS ORDERED: Aspirin Enteric Coated 81 MG Tablet PO SCH (09:00)
[2021-04-19] MEDS ORDERED: Warfarin perPT PO PRN (18:00)
[2021-05-15] MEDS ORDERED: ARIPiprazole 400 MG SUSER.SYR IM SCH (09:00)
== END 2021-04-19 11:39 | disposition home or self-care (01) ==
LOC: EMEROOARM 19:02 → 3BNU 19:02
PROVIDERS: ADMIT Student in an Organized Health Care Education/Training Program; ATTEND Student in an Organized Health Care Education/Training Program

== ENCOUNTER 2021-05-08 00:42 | Observation (INO) ==
[2021-05-08 02:09] LABS: Basophils # 0.1 K/mcL (0.0-0.2); Basophils % 1.6 %; Eosinophils # 0.2 K/mcL (0.0-0.6); Eosinophils % 2.9 %; Hematocrit 31.8 % (37.5-50.1); Immature Granulocytes % 0.4 % (0-4); Lymphocytes % 18.1 %; Mean Corpuscular HGB Conc 31.4 g/dL (31.6-35.5); Mean Corpuscular Hemoglobin 25.4 pg (28.0-33.3); Mean Corpuscular Volume 80.7 fL (83.0-100.0); Mean Platelet Volume 10.5 fL (9.4-12.4); Monocytes # 0.5 K/mcL (0.0-1.3); Monocytes % 8.8 %; Neutrophils # 3.8 K/mcL (1.6-8.9); Platelet Count 179 K/mcL (140-400); Red Blood Count 3.94 M/mcL (4.19-5.50); Red Cell Distribution Width 22.5 % (11.5-14.5); Segmented Neutrophils % 68.2 %; White Blood Count 5.6 K/mcL (4.3-11.1)
[2021-05-08 02:40] LABS: BUN/Creatinine Ratio 23 (6-26); Blood Urea Nitrogen 28 mg/dL (6-20); Calcium 8.6 mg/dL (8.6-10.3); Carbon Dioxide 19 mEq/L (23-29); Chloride 108 mEq/L (98-107); Glucose 148 mg/dL (70-105); Osmolality,Calculated 290 (280-300); Potassium 4.3 mEq/L (3.5-5.1); Sodium 136 mEq/L (136-145); Troponin I < 0.03 ng/mL (< 0.04); eGFR For African Americans > 60 (> 60); eGFR For Non-African Americans > 60 (> 60)
[2021-05-08] MEDS ORDERED: Azithromycin 500 MG in 0.9 % Sodium Chloride 250 ML IVPB ONE (06:10)
[2021-05-08] MEDS ORDERED: cefTRIAXone 1,000 MG in 0.9 % Sodium Chloride Mini Bag 100 ML IVPB ONE (06:10)
[2021-05-08] MEDS ORDERED: *HR* FentaNYL (PF) 100 MCG/2 ML VIAL IVP ONE (06:10)
[2021-05-08 07:03] LABS: INR 3.1; Prothrombin Time 35.1 Seconds (9.4-12.1)
[2021-05-08 07:05] LABS: Activated Partial Thrombo Time 42.6 Seconds (26.0-36.0)
[2021-05-08] MEDS ORDERED: Naloxone 0.4 MG/ML INJ IVP PRN (07:29)
[2021-05-08] MEDS ORDERED: Ondansetron 4 MG/2 ML VIAL IVP PRN (07:29)
[2021-05-08] MEDS ORDERED: Acetaminophen 325 MG TABLET PO PRN (07:29)
[2021-05-08] MEDS ORDERED: Perflutren Lipid Microsphere 1.3 ML in 0.9 % Sodium Chloride 8.7 ML IVP PRN (07:38)
[2021-05-08] MEDS: lisinopriL 10 MG TABLET PO SCH (12:18)
[2021-05-08] MEDS: Furosemide 40 MG TABLET PO SCH (12:18)
[2021-05-08] MEDS ORDERED: *HR* Dextrose 50 % in Water (Vial) 50 ML VIAL IVP PRN (15:44)
[2021-05-08] MEDS ORDERED: D5% in Water 1,000 ML IVC PRN (15:44)
[2021-05-08] MEDS ORDERED: Dextrose Gel 15 GM/37.5 ML TUBE PO PRN ×2 (15:44)
[2021-05-08] MEDS: levoFLOXacin 750 MG/150 ML 750 MG/150 ML BAG IVPB SCH (16:55)
[2021-05-08] MEDS: Insulin LISPRO 300 UNITS/3 ML VIAL SUBQ SCH (17:00)
[2021-05-08] MEDS ORDERED: Warfarin perPT PO PRN (18:00)
[2021-05-08] MEDS ORDERED: Warfarin 1 MG, Warfarin 0.5 MG PO ONE (18:00)
[2021-05-08] MEDS ORDERED: Insulin LISPRO 300 UNITS/3 ML VIAL SUBQ SCH (21:00)
[2021-05-09 01:54] LABS: Basophils # 0.1 K/mcL (0.0-0.2); Basophils % 1.7 %; Eosinophils # 0.1 K/mcL (0.0-0.6); Eosinophils % 1.9 %; Hematocrit 31.6 % (37.5-50.1); Hemoglobin 9.9 g/dL (12.9-16.9); Immature Granulocytes % 0.4 % (0-4); Lymphocytes # 0.8 K/mcL (0.6-4.6); Lymphocytes % 15.4 %; Mean Corpuscular HGB Conc 31.3 g/dL (31.6-35.5); Mean Corpuscular Hemoglobin 25.1 pg (28.0-33.3); Mean Platelet Volume 10.4 fL (9.4-12.4); Monocytes # 0.5 K/mcL (0.0-1.3); Monocytes % 10.3 %; Neutrophils # 3.7 K/mcL (1.6-8.9); Platelet Count 179 K/mcL (140-400); Red Blood Count 3.95 M/mcL (4.19-5.50); Red Cell Distribution Width 22.5 % (11.5-14.5); Segmented Neutrophils % 70.3 %; White Blood Count 5.3 K/mcL (4.3-11.1)
[2021-05-09 02:09] LABS: INR 3.9
[2021-05-09 02:10] LABS: BUN/Creatinine Ratio 25 (6-26); Blood Urea Nitrogen 31 mg/dL (6-20); Calcium 8.7 mg/dL (8.6-10.3); Carbon Dioxide 19 mEq/L (23-29); Chloride 109 mEq/L (98-107); Glucose 126 mg/dL (70-105); Magnesium 1.9 mg/dL (1.6-2.6); Osmolality,Calculated 290 (280-300); Potassium 4.1 mEq/L (3.5-5.1); Sodium 136 mEq/L (136-145); eGFR For African Americans > 60 (> 60); eGFR For Non-African Americans > 60 (> 60)
[2021-05-09 02:13] LABS: Prothrombin Time 43.8 Seconds (9.4-12.1)
[2021-05-09 07:09] VITALS: O2SAT 97
[2021-05-09] MEDS: Insulin LISPRO 300 UNITS/3 ML VIAL SUBQ SCH (08:05)
[2021-05-09] MEDS: levoFLOXacin 750 MG/150 ML 750 MG/150 ML BAG IVPB SCH (08:26)
[2021-05-09] MEDS: Furosemide 40 MG TABLET PO SCH (08:27)
[2021-05-09] MEDS: lisinopriL 10 MG TABLET PO SCH (08:27)
[2021-05-09] MEDS ORDERED: Metoprolol XL (24 HR) Succ 25 MG TAB.ER.24H PO SCH (09:00)
[2021-05-09 10:42] VITALS: BP 120/83; PULSE 87; TEMP 97.6
[2021-05-09 10:50] LABS: Amphetamine Screen,Urine Negative ng/mL (Cutoff=1000); Barbiturate Screen,Urine Negative ng/mL (Cutoff=200); Benzodiazepines Screen,Urine Negative ng/mL (Cutoff=200); Cannabinoid Screen,Urine Positive ng/mL (Cutoff = 50); Cocaine Screen,Urine Negative ng/mL (Cutoff= 300); Opiate Screen,Urine Negative ng/mL (Cutoff=300); Phencyclidine Screen,Urine Negative ng/mL (Cutoff=25)
[2021-05-09] MEDS ORDERED: Furosemide 20 MG/2 ML VIAL IVP SCH (11:30)
== END 2021-05-09 13:30 | disposition left against medical advice (07) ==
LOC: EMEROOARM 00:42 → 3ANU 00:42 → SUATTDRO 06:46 → 3ANU 08:28
PROVIDERS: ADMIT Pharmacist; ATTEND General Practice